=== PATIENT | male | born 1960 | race Caucasian/White ===

== ENCOUNTER → 2023-01-04 12:57 | Outpatient (BNVA) | payer MEDICARE, MEDICAID, SELFPAY | PROVIDERS: PCP Hospitalist; Visit Provider Nurse Practitioner Family | DX: R97.20 Elevated prostate specific antigen [PSA] (principal) | CPT/HCPCS: 99202 ==

== ENCOUNTER 2023-02-01 12:16 | Outpatient (REF) | payer MEDICARE, MEDICAID, SELFPAY ==
--- NOTE | ~2023-02-01 | US_ITS ---
EXAMINATION: US RETROPERITONEAL COMPLETE (RENAL) CLINICAL INFORMATION: Elevated PSA. COMPARISON: None available. TECHNIQUE: Real-time imaging of the kidneys and bladder. FINDINGS: RIGHT KIDNEY: 11.2 x 5.3 x 5.6 cm (SAG x AP x TRV). The kidney is normal in size, contour, and echogenicity. Renal cortical thickness is normal. No calculi or focal parenchymal lesions. No hydronephrosis. LEFT KIDNEY: 12.1 x 5.4 x 6.2 cm (SAG x AP x TRV). The kidney is normal in size, contour, and echogenicity. Renal cortical thickness is normal. No focal parenchymal lesions or hydronephrosis. There is an echogenic stone measuring 0.5 x 0.4 x 0.5 cm. BLADDER: Well distended and normal. Bilateral ureteral jets are demonstrated. Prevoid bladder volume is 210 mL. Postvoid bladder volume is 159 mL. US/US retroperitoneal comp IMPRESSION: 1. Non-obstructive echogenic stone lower pole left kidney. 2. The right kidney is unremarkable. 3. There is a large postvoid residual bladder volume. Normal bilateral ureteral jets seen.
== END 2023-02-01 12:17 | disposition home or self-care (01) ==
LOC: HO.US 12:16
PROVIDERS: PCP Hospitalist; Visit Provider Nurse Practitioner Family
DX: N28.1 Cyst of kidney, acquired (principal); R97.20 Elevated prostate specific antigen [PSA]
CPT/HCPCS: 76770

== ENCOUNTER → 2023-02-16 10:07 | Outpatient (BNVA) | payer MEDICARE, MEDICAID, SELFPAY | PROVIDERS: PCP Hospitalist; Visit Provider Nurse Practitioner Family | DX: R97.20 Elevated prostate specific antigen [PSA] (principal) | CPT/HCPCS: 99212 ==

== ENCOUNTER 2023-02-17 07:51 | Outpatient (REF) | payer MEDICARE, MEDICAID, SELFPAY ==
--- NOTE | 2023-02-17 08:10 | EEG_ITS ---
This is a 16 channel EEG with an EKG lead. The patient is reported sleeping during the tracing. Background EEG rhythm is 7 to 8 hertz 5 to 30 microvolt posteriorly with lower amplitude fast anteriorly. Photic stimulation does not produce any significant abnormality. Hyperventilation is not performed. Cardiac lead does not reveal any significant abnormality. No paroxysmal discharges or focality noted. IMPRESSION: Generalized slowing with no evidence of seizure disorder. MD ISABELLA Wise/EMANI / [id number]
== END 2023-02-17 07:52 | disposition home or self-care (01) ==
LOC: HO.NEURO 07:51
PROVIDERS: PCP Hospitalist; Visit Provider Hospitalist
DX: S06.2X9S Diffuse traumatic brain injury with loss of consciousness of unspecified duration, sequela (principal)
CPT/HCPCS: 95816

== ENCOUNTER 2023-06-19 10:09 | Outpatient (AMB) | payer MEDICARE, MEDICAID, SELFPAY ==
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
== END 2023-06-19 10:48 | disposition home or self-care (01) ==
PROVIDERS: PCP Hospitalist; Visit Provider Nurse Practitioner Family
DX: R97.20 Elevated prostate specific antigen [PSA] (principal); Z13.9 Encounter for screening, unspecified
CPT/HCPCS: 99213

== ENCOUNTER → 2023-06-19 10:09 | Outpatient (BNVA) | payer MEDICARE, MEDICAID, SELFPAY | PROVIDERS: Visit Provider Nurse Practitioner Family | DX: R97.20 Elevated prostate specific antigen [PSA] (principal) | CPT/HCPCS: 81003; 99212 ==

== ENCOUNTER 2023-12-20 10:11 | Outpatient (AMB) | payer MEDICARE, MEDICAID, SELFPAY ==
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
== END 2023-12-20 10:53 | disposition home or self-care (01) ==
PROVIDERS: PCP Hospitalist; Visit Provider Nurse Practitioner Family
DX: Z13.9 Encounter for screening, unspecified (principal); R97.20 Elevated prostate specific antigen [PSA]
CPT/HCPCS: 99213

== ENCOUNTER → 2023-12-20 10:11 | Outpatient (BNVA) | payer MEDICARE, MEDICAID, SELFPAY | PROVIDERS: PCP Hospitalist; Visit Provider Nurse Practitioner Family | DX: R97.20 Elevated prostate specific antigen [PSA] (principal); N40.0 Benign prostatic hyperplasia without lower urinary tract symptoms | CPT/HCPCS: 81003; 99212 ==

== ENCOUNTER 2024-06-10 11:45 | Emergency (ER) | payer MEDICARE, MEDICAID, SELFPAY ==
--- NOTE | ~2024-06-10 | XR_ITS ---
EXAMINATION: XR CHEST CLINICAL INFORMATION: Cough weakness COMPARISON: None available. TECHNIQUE: Frontal view of the chest was obtained. FINDINGS: No significant abnormality is noted involving the heart, lungs, mediastinum, bony thorax or soft tissues. XR/XR chest 1V IMPRESSION: Unremarkable examination. Electronically signed by: Curt Samuel MD 06/10/2024 01:49 PM EDT RP
--- NOTE | ~2024-06-10 | CT_ITS ---
EXAMINATION: CT HEAD WITHOUT CONTRAST CLINICAL INFORMATION: Change in mental status. COMPARISON: None available. TECHNIQUE: Contiguous axial imaging was performed from the skull base to vertex without intravenous administration of contrast. This CT examination was performed using dose optimization techniques as appropriate, variously including the following: *Automated exposure control *Adjustment of mA and/or kV according to patient size (this includes techniques or standardized protocols for targeted exams where dose is matched to indication/reason for exam; i.e. extremities or head) *Use of iterative reconstruction technique DLP: 779 mGy-cm FINDINGS: Motion artifact significantly degrades image quality. There is no evidence of acute intracranial hemorrhage or territorial infarction. No mass effect or midline shift is seen. No extra-axial fluid collections are identified. Prominence of the ventricles out of proportion to the sulci. The osseous structures and soft tissues are intact. The mastoid air cells and visualized portions of the paranasal sinuses are well aerated. CT/CT head/brain wo IV con IMPRESSION: Limited by motion artifact. Prominence of the ventricles out of proportion to the sulci. Advise clinical correlation. Electronically signed by: Gary Rodriguez MD 06/10/2024 03:48 PM EDT
[2024-06-10 12:03] VITALS: BP 139/83; BP 170/80; PULSE 81; PULSE 84; RESP 16; TEMP 36.5; O2SAT 95; O2SAT 96; BMI 33.5
--- NOTE | 2024-06-10 12:03 | ECG_ITS ---
Test Reason : AMS Blood Pressure : / mmHG Vent. Rate : 094 BPM Atrial Rate : 094 BPM P-R Int : 160 ms QRS Dur : 088 ms QT Int : 314 ms P-R-T Axes : 038 029 072 degrees QTc Int : 392 ms Normal sinus rhythm Nonspecific T wave abnormality Abnormal ECG No previous ECGs available Referred By: Cara Guillaume Electronically Signed By:OLAMIDE TOTH
--- NOTE | 2024-06-10 12:33 | ED.AMS ---
HPI - Altered Mental Status General Chief Complaint: Altered Mental Status Stated Complaint: INCR CONF,SLURR,H/O TBI/DEMENTIA,UNK LKWT,FROM SNF Time Seen by Provider: 06/10/24 11:53 Source: patient and EMS Mode of arrival: EMS Limitations: altered mental status History of Present Illness ED Provider: WILBERTO HPI narrative: 64 yo male with PMH of TBI, dementia, HTN, COPD, asthma, hypothyroidism, DM2, HLD, LLUVIA on CPAP, schizoaffective disorder, not on blood thinners who resides at [facility] reportedly presents with worsening mentation and slurred speech. EMS not completely clear on LWK but states a nurse checked on him at 8am. He tells me he made a mistake this AM I looked out a window and this happened. He offers no complaints and mumbles to himself. He has a strong odor of urine. MD complaint: altered mental status Onset (ago): hour(s) (8am possibly last known well) Timing confirmed by: caregiver Severity: moderate Consistency of symptoms: constant Associated symptoms: denies other symptoms Related Data Home Medications ?Medication ?Instructions ?Recorded ?Confirmed acetaminophen 325 mg tablet 650 mg PO Q6H PRN 01/04/23 atorvastatin 10 mg tablet 10 mg PO DAILY 01/04/23 bisacodyl 10 mg rectal suppository 10 mg [place] DAILY PRN 01/04/23 budesonide-formoterol HFA 160 2 puff inhalation BID 01/04/23 mcg-4.5 mcg/actuation aerosol inhaler (Symbicort) clozapine 100 mg tablet (Clozaril) 100 mg PO ONCE 01/04/23 glycopyrrolate 1 mg tablet 3 mg PO ONCE 01/04/23 lamotrigine 25 mg tablet (Lamictal) 25 mg PO DAILY 01/04/23 levothyroxine 88 mcg capsule 88 mcg PO DAILY 01/04/23 lithium carbonate 450 mg 450 mg PO BID 01/04/23 tablet,extended release lubiprostone 24 mcg capsule 24 mcg PO BID 01/04/23 (Amitiza) metformin 500 mg tablet 500 mg PO BID 01/04/23 ondansetron 4 mg disintegrating 4 mg PO Q6H PRN 01/04/23 tablet pantoprazole 40 mg tablet,delayed 40 mg PO BID 01/04/23 release risankizumab-rzaa 150 mg/mL 150 mg subcut Q12W 01/04/23 subcutaneous pen injector (Skyrizi) risperidone microspheres 50 mg/2 50 mg IM Q14D 01/04/23 mL intramuscular susp,ext release (Risperdal Consta) sodium phosphates 19 gram-7 118 ml [place] DAILY PRN 01/04/23 gram/118 mL enema (Fleet Enema) cholecalciferol (vitamin D3) 1,250 1,250 mcg PO QWEEK 06/19/23 mcg (50,000 unit) capsule Previous Rx's ?Medication ?Instructions ?Recorded finasteride 5 mg tablet 5 mg PO DAILY 90 days #90 tabs 02/16/23 Allergies Allergy/AdvReac Type Severity Reaction Status Date / Time Penicillins Allergy Unknown Verified 12/20/23 10:41 poison jolanta extract Allergy Unknown Verified 06/10/24 12:06 Review of Systems Review of Systems: ROS unable to be obtained due to altered mental status [facility] Past Medical History Attestation statement: The following information was validated with the patient. Source: old records reviewed Medical History Psoriasis, unspecified Constipation, unspecified Gastro-esophageal reflux disease without esophagitis Anoxic brain damage, not elsewhere classified Obstructive sleep apnea (adult) (pediatric) Schizoaffective disorder, unspecified Dementia in other diseases classified elsewhere, unspecified severity, with other behavioral disturbance Hyperlipidemia, unspecified Other obesity due to excess calories Vitamin D deficiency, unspecified Type 2 diabetes mellitus without complications Hypothyroidism, unspecified Unspecified asthma, uncomplicated Chronic obstructive pulmonary disease, unspecified Essential (primary) hypertension Social History Social History (Updated 06/10/24 @ 12:37 by Cara Guillaume DO) Patient Tobacco Use Status: Tobacco use Unknown Advance Directives: No Advance Directives Information Provided: Yes Physical Exam ED Vital Signs: Vital Signs - 24 hr 06/10/24 12:03 Temperature 97.7 F Pulse Rate 81 Respiratory Rate 16 Blood Pressure 139/83 Pulse Oximetry 96 Oxygen Delivery Method Room Air BMI result Body Mass Index 33.5 Appearance: Somnolent. Oriented to person. mild acute distress. Eyes: Pupils pinpoint ENT: Pharynx normal. atraumatic Neck: Normal inspection. Neck supple. CVS: Normal heart rate and rhythm. Pulses normal. Respiratory: No respiratory distress. Breath sounds normal. Abdomen: Soft and nontender. Skin: Skin warm and dry. Normal skin color. Normal skin turgor. Extremities: No lower extremity edema. Neuro: Oriented X1., he is moving all extremities no clonus no hyperreflexia he is able to squeeze hands and move feet when asked but he needs repeat asks to do all of these tasks NIH Stroke Scale Internal: Initial- Upon Arrival Level of Consciousness: Alert Level of Consciousness Questions: Answers one question correctly Level of Consciousness Commands: Performs both tasks correctly Best Gaze: Normal Visual: No visual loss Facial Palsy: Normal Motor Arm (Right): No drift Motor Arm (Left): No drift Motor Leg (Right): No drift Motor Leg (Left): No drift Limb Ataxia: Absent Sensory: Normal Best Language: No aphasia Dysarthia: Normal Extinction and Inattention: No abnormality Score: 1 Course Course Course Narrative: patient up and walking very aggressive and rude refusing to give urine discussed with director of [facility] will follow up urine as needed has no WBC count or CRP no fever here doubt sepsis as cause or infection given lack of CRP Reevaluation(s) Reevaluation #1: episode resolved of pinpoint pupils, slurred speech, sedation - he is angry walking around no signs of distress, no slurred speech, pupils normal. Medical Decision Making Medical Decision Making [facility] Narrative: 64 yo male with PMH of TBI, dementia, HTN, COPD, asthma, hypothyroidism, DM2, HLD, LLUVIA on CPAP, schizoaffective disorder, not on blood thinners here with confusion and slurred speech he was last known well at 8am per [facility] staff. At this time will need labs, UA, CXR, CT head for ICH, tox labs given pinpoint pupils, lithium level. Patient has no focal deficits other than confusion and slurred speech - he was seen at possibly 4+ hours after onset of symptoms he is not a candidate for TNK as I do not have a concrete last known well. Differential Diagnosis Differential Diagnoses: The differential diagnosis associated with the presentation includes toxic, metabolic encephalopathy, ICH, drug error, stroke Admission/Observation Consideration of admission/observation: Escalation of care including admission/observation considered back to baseline, negative work up stable for DC Lab Data [facility] Lab Attestation statement: I reviewed the patient's lab results. 06/10/24 12:45 06/10/24 12:45 Labs: Lab Results 06/10/24 06/10/24 06/10/24 Range/Units 12:45 12:53 15:05 WBC 9.6 (4.8-10.8) X10*3/uL RBC 4.88 (4.60-5.80) X10*6/uL Hgb 13.4 L (14.0-18.0) g/dl Hct 41.3 L (42.0-52.0) % MCV 84.6 (80.0-98.0) fL MCH 27.5 (27.0-33.0) pg MCHC 32.4 (31.0-36.0) g/dl RDW 15.4 (11.0-16.0) % Plt Count 228 (160-400) X10*3/uL MPV 9.7 (9.4-12.4) fL Immature Gran % (Auto) 0.3 (0.0-0.4) % Neut % (Auto) 69.2 (45-73) % Lymph % (Auto) 19.3 L (20-40) % [place] % (Auto) 9.0 (2-11) % Eos % (Auto) 1.9 (0-4) % Baso % (Auto) 0.3 (0-2) % Lymph # (Auto) 1.9 (1.2-4.9) X10*3/uL [place] # (Auto) 0.9 (0.1-1.2) X10*3/uL Eos # (Auto) 0.2 (0.0-0.4) X10*3/uL Baso # (Auto) 0.0 (0.0-0.2) X10*3/uL Abs Immat Gran (auto) 0.03 (0.00-0.03) X10*3/uL Absolute Neuts (auto) 6.7 (2.0-8.3) x10*3/uL Absolute Nucleated RBC 0.000 (0.0-0.012) X10*3/uL Nucleated RBC % (auto) 0.0 (0.0-0.2) /100WBC VBG pH 7.41 (7.32-7.43) VBG pCO2 43 mmHg VBG pO2 56 mmHg VBG HCO3 27 H (22-26) mmol/L VBG O2 Saturation 86.0 % VBG Base Excess 2.4 mmol/L Sodium 144 (135-145) mmol/L Potassium 3.4 (3.3-5.1) mmol/L Chloride 106 (96-108) mmol/L Carbon Dioxide 30 H (22-29) mmol/L Anion Gap 11 L (12-20) BUN 13 (9-16) mg/dL Creatinine 0.77 (0.5-1.4) mg/dL Estim Creat Clear Calc 94.7 Estimated GFR > 60 Random Glucose 91 (60-115) mg/dL Lactic Acid 1.3 (0.5-2.0) mmol/L Calcium 10.0 (8.4-10.2) mg/dL Magnesium 2.2 (1.6-2.6) mg/dL Total Bilirubin 0.3 (0.0-1.0) mg/dL Direct Bilirubin 0.2 (0.0-0.5) mg/dL AST 17 (5-37) U/L ALT 18 (0-40) U/L Alkaline Phosphatase 78 (39-117) U/L Ammonia 22 (13-55) umol/L Troponin I High Sens 7.9 (<3.5-35.0) ng/L C-Reactive Protein 0.46 (< or = 0.50) mg/dL B-Natriuretic Peptide 36 (<100) pg/mL Total Protein 7.1 (6.5-8.0) g/dL Albumin 4.2 (3.5-5.0) g/dL Lipase 31 (8-78) U/L TSH 1.69 (0.32-4.0) uIU/mL Urine Color Yellow Urine Appearance Clear Urine pH 6.5 (5.0-9.0) Ur Specific [place] 1.010 (1.005-1.025) Urine Protein Negative (Neg-Trace) mg/dL Urine Glucose (UA) Negative (Negative) mg/dL Urine Ketones Negative (Negative) mg/dL Urine Blood Negative (Negative) Urine Nitrite Negative (Negative) Ur Leukocyte Esterase Negative (Negative) Urine Opiates Screen Not Detected (Not Detect) Ur Buprenorphine Scrn Not Detected (Not Detect) ng/mL Ur Oxycodone Screen Not Detected (Not Detect) ng/mL Urine Methadone Screen Not Detected (Not Detect) ng/mL Urine Fentanyl Screen Not Detected (Not Detect) Ur Barbiturates Screen Not Detected (Not Detect) Ur Phencyclidine Scrn Not Detected (Not Detect) Ur Amphetamines Screen Not Detected (Not Detect) U Benzodiazepines Scrn Not Detected (Not Detect) [place] 0.43 L (0.60-1.20) mmol/L Urine Cocaine Screen Not Detected (Not Detect) U Marijuana (THC) Screen Not Detected (Not Detect) Influenza Type A (PCR) NEGATIVE (Negative) Influenza Type B (PCR) NEGATIVE (Negative) RSV RNA Qual (PCR) NEGATIVE (Negative) SARS-CoV-2 RNA (RT-PCR) NEGATIVE (Negative) Independent Interpretation I performed an independent interpretation of an: EKG, Plain X-Ray (no pneumonia) and CT Scan (normal ) Interpretation: Rate: 94 Rhythm: NSR [place]: normal Normal P waves. Normal BEBETO. Normal QRS complex. ST T wave : normal no LASHONDA qTC: 392 prior studies: no acute ischemia The study has been interpreted contemporaneously by me. . Radiology Impression Discussion of test interpretation with radiology: I have reviewed the radiologist's reading. Independent Historian Clinical information obtained from an independent historian. History obtained from or confirmed by: EMS External Record Review External record reviewed: Outpatient record Discharge Plan Discharge Clinical Impression: Altered mental status Qualifiers: Altered mental status type: disorientation Qualified Code(s): R41.0 - Disorientation, unspecified Patient Disposition: Home, Self-Care Instructions: Altered Mental Status (ED) Additional Instructions: negative urine test, no pneumonia on chest xray negative inflammatory markers negative cardiac work up with labs and EKG no signs of infection CT head normal return for any worsening symptoms or concerns. Prescriptions: No Action acetaminophen 325 mg tablet 650 mg PO Q6H PRN lubiprostone [Amitiza] 24 mcg capsule 24 mcg PO BID atorvastatin 10 mg tablet 10 mg PO DAILY bisacodyl 10 mg suppository 10 mg [place] DAILY PRN clozapine [Clozaril] 100 mg tablet 100 mg PO ONCE Fleet Enema 19-7 gram/118 mL enema 118 ml [place] DAILY PRN glycopyrrolate 1 mg tablet 3 mg PO ONCE lamotrigine [Lamictal] 25 mg tablet 25 mg PO DAILY levothyroxine 88 mcg capsule 88 mcg PO DAILY lithium carbonate 450 mg tablet extended release 450 mg PO BID ondansetron 4 mg tablet,disintegrating 4 mg PO Q6H PRN metformin 500 mg tablet 500 mg PO BID pantoprazole 40 mg tablet,delayed release (DR/EC) 40 mg PO BID Risperdal Consta 50 mg/2 mL suspension,extended rel recon 50 mg IM Q14D Skyrizi 150 mg/mL pen injector 150 mg subcut Q12W budesonide-formoterol [Symbicort] 160-4.5 mcg/actuation HFA aerosol inhaler 2 puff inhalation BID finasteride 5 mg tablet 5 mg PO DAILY 90 Days Qty: 90 1RF cholecalciferol (vitamin D3) 1,250 mcg (50,000 unit) capsule 1,250 mcg PO QWEEK Print Language: Jamaican
[2024-06-10 12:53] LABS: MANUAL DIFF FLAG NO
[2024-06-10 12:56] LABS: Basophils Percent Auto 0.3 % (0-2); Eosinophils Absolute Auto 0.2 X10*3/uL (0.0-0.4); Eosinophils Percent Auto 1.9 % (0-4); Hematocrit 41.3 % (42.0-52.0); Hemoglobin 13.4 g/dl (14.0-18.0); Imm Gran Abs Auto 0.03 X10*3/uL (0.00-0.03); Imm Gran Pct Auto 0.3 % (0.0-0.4); Lymphocytes Absolute Auto 1.9 X10*3/uL (1.2-4.9); Lymphocytes Percent Auto 19.3 % (20-40); Mean Corpuscular HGB Conc 32.4 g/dl (31.0-36.0); Mean Corpuscular Hemoglobin 27.5 pg (27.0-33.0); Mean Corpuscular Volume 84.6 fL (80.0-98.0); Mean Platelet Volume 9.7 fL (9.4-12.4); Monocytes Absolute Auto 0.9 X10*3/uL (0.1-1.2); Neutrophils Absolute Auto 6.7 x10*3/uL (2.0-8.3); Neutrophils Percent Auto 69.2 % (45-73); Platelet Count 228 X10*3/uL (160-400); Red Blood Count 4.88 X10*6/uL (4.60-5.80); Red Cell Distribution Width 15.4 % (11.0-16.0); Venous Blood Gas Refer to POC result; White Blood Count 9.6 X10*3/uL (4.8-10.8)
[2024-06-10 12:56] LABS: VBG Base Excess 2.4 mmol/L; VBG HCO3 27 mmol/L (22-26); VBG pCO2 43 mmHg; VBG pH 7.41 (7.32-7.43); VBG pO2 56 mmHg
[2024-06-10 13:05] LABS: Ammonia 22 umol/L (13-55); Lithium 0.43 mmol/L (0.60-1.20)
[2024-06-10 13:08] LABS: Lactic Acid 1.3 mmol/L (0.5-2.0)
--- NOTE | 2024-06-10 13:10 | PC.NURSE ---
pt is difficult to redirect. camera on. speech mummbly, not very clear.
[2024-06-10 13:12] LABS: Alanine Aminotransferase 18 U/L (0-40); Albumin Level 4.2 g/dL (3.5-5.0); Alkaline Phosphatase 78 U/L (39-117); Anion Gap 11 (12-20); Aspartate Amino Transferase 17 U/L (5-37); Bilirubin Direct 0.2 mg/dL (0.0-0.5); Bilirubin Total 0.3 mg/dL (0.0-1.0); Blood Urea Nitrogen 13 mg/dL (9-16); C Reactive Protein 0.46 mg/dL (< or = 0.50); Carbon Dioxide 30 mmol/L (22-29); Chloride 106 mmol/L (96-108); Creatinine Clr Calc Pharmacy 94.7; Estimated Glomerular Filt Rate > 60; Glucose Random 91 mg/dL (60-115); Lipase 31 U/L (8-78); Magnesium 2.2 mg/dL (1.6-2.6); Potassium 3.4 mmol/L (3.3-5.1); Sodium 144 mmol/L (135-145); Total Protein 7.1 g/dL (6.5-8.0)
[2024-06-10 13:16] LABS: B Type Natriuretic Peptide 36 pg/mL (<100)
[2024-06-10 13:21] LABS: Troponin-I High Sensitivity 7.9 ng/L (<3.5-35.0)
[2024-06-10 13:34] LABS: TSH reflex Free T4 1.69 uIU/mL (0.32-4.0)
--- NOTE | 2024-06-10 13:36 | MHC.EDTECH ---
Patient has refused EKG twice.
[2024-06-10 13:37] LABS: Influenza A PCR NEGATIVE (Negative); Influenza B PCR NEGATIVE (Negative); Resp Syncy Virus RNA Qual PCR NEGATIVE (Negative); SARS COV2 PCR INHOUSE NEGATIVE (Negative)
--- NOTE | 2024-06-10 14:34 | PC.NURSE ---
pt cleared for food by . Nursing swallow screen pass.
[2024-06-10 15:13] LABS: Appearance Urine Clear; Color Urine Yellow; Glucose Urine UA Negative (Negative); Leukocyte Esterase Urine Negative (Negative); Nitrite Urine Negative (Negative); PH 6.5 (5.0-9.0); Urine Blood Negative (Negative); Urine Ketones Negative (Negative); Urine Protein Negative (Neg-Trace)
[2024-06-10 15:28] LABS: Amphetamine Screen Urine Not Detected (Not Detect); Barbiturates, Urine Not Detected (Not Detect); Benzodiazepines Screen Urine Not Detected (Not Detect); Buprenorphine Scr Not Detected (Not Detect); Cannabinoid Screen Urine Not Detected (Not Detect); Cocaine Screen Urine Not Detected (Not Detect); Fentanyl, urine Not Detected (Not Detect); Methadone Screen, Urine Not Detected (Not Detect); Opiate Screen Urine Not Detected (Not Detect); Oxycodone Screen Urine Not Detected (Not Detect); Phencyclidine Screen Urine Not Detected (Not Detect)
--- NOTE | 2024-06-10 16:03 | PC.NURSE ---
called [facility] to give report, no answer
[2024-06-10 18:48] VITALS: BP 113/64; PULSE 96; RESP 16; TEMP 36.4; O2SAT 93
[2024-06-10 18:57] VITALS: BP 113/64; PULSE 96; RESP 16; TEMP 36.4; O2SAT 93
== END 2024-06-10 18:57 | disposition home or self-care (01) ==
PROVIDERS: Emergency Provider Emergency Medicine
DX: R41.82 Altered mental status, unspecified (principal); F03.90 Unspecified dementia, unspecified severity, without behavioral disturbance, psychotic disturbance, mood disturbance, and anxiety; E11.9 Type 2 diabetes mellitus without complications; G47.33 Obstructive sleep apnea (adult) (pediatric); R47.81 Slurred speech; R29.701 NIHSS score 1; R06.02 Shortness of breath; R94.31 Abnormal electrocardiogram [ECG] [EKG]; Z87.820 Personal history of traumatic brain injury; Z79.899 Other long term (current) drug therapy; Z03.818 Encounter for observation for suspected exposure to other biological agents ruled out; Z79.84 Long term (current) use of oral hypoglycemic drugs
CPT/HCPCS: 0241U; 36415; 70450; 71045; 80048; 80076; 80178; 80307; 81003; 82140; 82803; 83605; 83690; 83735; 83880; 84443; 84484; 85025; 86140; 87040; 93005; 99284

== ENCOUNTER 2024-06-14 02:34 | Emergency (ER) | payer MEDICARE, MEDICAID, SELFPAY ==
--- NOTE | ~2024-06-14 | CT_ITS ---
EXAMINATION: CT HEAD WITHOUT CONTRAST CLINICAL INFORMATION: Altered mental status. Fall. COMPARISON: None available. TECHNIQUE: Contiguous axial imaging was performed from the skull base to vertex without intravenous administration of contrast. This CT examination was performed using dose optimization techniques as appropriate, variously including the following: *Automated exposure control *Adjustment of mA and/or kV according to patient size (this includes techniques or standardized protocols for targeted exams where dose is matched to indication/reason for exam; i.e. extremities or head) *Use of iterative reconstruction technique DLP: 758 mGy-cm FINDINGS: There is mild cerebral volume loss with prominence of the lateral and third ventricles. The cortical sulci are widened appropriately. Fourth ventricle and basal cisterns are normally outlined. There is mild bilateral periventricular and central white matter diminished attenuation. There is no acute territorial defects, hemorrhage or midline shift. The extra-axial spaces are unremarkable. Calvarium/scalp: Intact. Maxillofacial sinuses and mastoids: Clear as visualized. CT/CT head/brain wo IV con IMPRESSION: 1. No acute intracranial pathology. 2. Mild cerebral volume loss and chronic small vessel ischemic changes. Electronically signed by: Lyndon Valerio MD 06/14/2024 04:28 AM EDT
[2024-06-14 02:41] VITALS: BP 147/76; PULSE 98; RESP 17; O2SAT 94
[2024-06-14 02:44] VITALS: BP 148/79; PULSE 88; O2SAT 97; BMI 33.2
--- NOTE | 2024-06-14 03:19 | ECG_ITS ---
Test Reason : FALL Blood Pressure : / mmHG Vent. Rate : 089 BPM Atrial Rate : 089 BPM P-R Int : 168 ms QRS Dur : 100 ms QT Int : 356 ms P-R-T Axes : 042 020 053 degrees QTc Int : 433 ms Normal sinus rhythm Normal ECG When compared with ECG of 10-JUN-2024 15:21, No significant change was found Referred By: Efe De Souza Electronically Signed By:OLAMIDE TOTH
--- NOTE | 2024-06-14 03:21 | ED_ITS ---
HPI - Fall General Chief Complaint: Fall Stated Complaint: FALL Time Seen by Provider: 06/14/24 03:08 Source: EMS and RN notes reviewed Mode of arrival: EMS Limitations: altered mental status History of Present Illness ED Provider: felicity GUZMAN Narrative: Patient with PMH of TBI, dementia, HTN, COPD, asthma, hypothyroidism, DM2, HLD, LLUVIA on CPAP, schizoaffective disorder, not on blood thinners who [facility] [place] fell 3 times today while walking also fell 3 times earlier today with no significant injuries according to staff patient is more confused than usual no signs of injuries no fever no cough patient was seen here on 06/10 for same with workup negative Related Data Home Medications ?Medication ?Instructions ?Recorded ?Confirmed acetaminophen 325 mg tablet 650 mg PO Q6H PRN 01/04/23 atorvastatin 10 mg tablet 10 mg PO DAILY 01/04/23 bisacodyl 10 mg rectal suppository 10 mg [place] DAILY PRN 01/04/23 budesonide-formoterol HFA 160 2 puff inhalation BID 01/04/23 mcg-4.5 mcg/actuation aerosol inhaler (Symbicort) clozapine 100 mg tablet (Clozaril) 100 mg PO ONCE 01/04/23 glycopyrrolate 1 mg tablet 3 mg PO ONCE 01/04/23 lamotrigine 25 mg tablet (Lamictal) 25 mg PO DAILY 01/04/23 levothyroxine 88 mcg capsule 88 mcg PO DAILY 01/04/23 lithium carbonate 450 mg 450 mg PO BID 01/04/23 tablet,extended release lubiprostone 24 mcg capsule 24 mcg PO BID 01/04/23 (Amitiza) metformin 500 mg tablet 500 mg PO BID 01/04/23 ondansetron 4 mg disintegrating 4 mg PO Q6H PRN 01/04/23 tablet pantoprazole 40 mg tablet,delayed 40 mg PO BID 01/04/23 release risankizumab-rzaa 150 mg/mL 150 mg subcut Q12W 01/04/23 subcutaneous pen injector (Skyrizi) risperidone microspheres 50 mg/2 50 mg IM Q14D 01/04/23 mL intramuscular susp,ext release (Risperdal Consta) sodium phosphates 19 gram-7 118 ml [place] DAILY PRN 01/04/23 gram/118 mL enema (Fleet Enema) cholecalciferol (vitamin D3) 1,250 1,250 mcg PO QWEEK 06/19/23 mcg (50,000 unit) capsule Previous Rx's ?Medication ?Instructions ?Recorded finasteride 5 mg tablet 5 mg PO DAILY 90 days #90 tabs 02/16/23 Allergies Allergy/AdvReac Type Severity Reaction Status Date / Time Penicillins Allergy Unknown Verified 06/14/24 02:50 poison jolanta extract Allergy Unknown Verified 06/14/24 02:50 Review of Systems 2 Review of Systems: Yes all other systems are reviewed and are negative [facility] Past Medical History Medical History Psoriasis, unspecified Constipation, unspecified Gastro-esophageal reflux disease without esophagitis Anoxic brain damage, not elsewhere classified Obstructive sleep apnea (adult) (pediatric) Schizoaffective disorder, unspecified Dementia in other diseases classified elsewhere, unspecified severity, with other behavioral disturbance Hyperlipidemia, unspecified Other obesity due to excess calories Vitamin D deficiency, unspecified Type 2 diabetes mellitus without complications Hypothyroidism, unspecified Unspecified asthma, uncomplicated Chronic obstructive pulmonary disease, unspecified Essential (primary) hypertension Social History Social History Patient Tobacco Use Status: Tobacco use Unknown Advance Directives: No Advance Directives Information Provided: No Advance Directives on File: No Do you have a plan to hurt others: No Plan Physical Exam 2 Vital Signs: Vital Signs: Last Vital Signs Pulse 81 06/14/24 06:25 Resp 16 06/14/24 06:25 BP 147/76 H 06/14/24 02:41 Pulse Ox 100 06/14/24 06:25 O2 Del Method Nasal Cannula 06/14/24 06:25 O2 Flow Rate 3.5 06/14/24 06:25 BMI result Body Mass Index 33.2 Appearance: Sleeping but arousable No acute distress. Eyes: PERRLA, No Nystagmus ENT: Pharynx normal. Oral Mucosa moist Neck: Normal inspection. Neck supple. CVS: Normal heart rate and rhythm. Pulses normal. Respiratory: No respiratory distress. Equal air entry bilateral, no wheezing/rales/rhonchi Abdomen: Soft and nontender. Bowel sounds are present, no mass palpable, no CVA tenderness Skin: Skin warm and dry. Normal skin color. Normal skin turgor. Extremities: No lower extremity edema. No calf tenderness Neuro: Alert and awake No motor deficit. No sensory deficit.No cerebellar signs , cranial nerves II-XII intact Medical Decision Making Medical Decision Making [facility] Narrative: Patient with PMH of TBI, dementia, HTN, COPD, asthma, hypothyroidism, DM2, HLD, LLUVIA on CPAP, schizoaffective disorder, not on blood thinners who resides at [facility] came here for frequent falls and change in mental status with recent visit on workup negative today again workup is negative head CT is negative will send the patient back to [facility] [facility] unit advised to have more close watch Lab Data [facility] Lab Attestation statement: I reviewed the patient's lab results. 06/14/24 03:38 06/14/24 03:38 Labs: Lab Results 06/14/24 06/14/24 Range/Units 03:38 03:44 WBC 8.5 (4.8-10.8) X10*3/uL RBC 4.51 L (4.60-5.80) X10*6/uL Hgb 12.5 L (14.0-18.0) g/dl Hct 38.8 L (42.0-52.0) % MCV 86.0 (80.0-98.0) fL MCH 27.7 (27.0-33.0) pg MCHC 32.2 (31.0-36.0) g/dl RDW 15.6 (11.0-16.0) % Plt Count 231 (160-400) X10*3/uL MPV 9.6 (9.4-12.4) fL Immature Gran % (Auto) 0.4 (0.0-0.4) % Neut % (Auto) 69.7 (45-73) % Lymph % (Auto) 19.0 L (20-40) % [place] % (Auto) 7.7 (2-11) % Eos % (Auto) 2.7 (0-4) % Baso % (Auto) 0.5 (0-2) % Lymph # (Auto) 1.6 (1.2-4.9) X10*3/uL [place] # (Auto) 0.7 (0.1-1.2) X10*3/uL Eos # (Auto) 0.2 (0.0-0.4) X10*3/uL Baso # (Auto) 0.0 (0.0-0.2) X10*3/uL Abs Immat Gran (auto) 0.03 (0.00-0.03) X10*3/uL Absolute Neuts (auto) 5.9 (2.0-8.3) x10*3/uL Absolute Nucleated RBC 0.000 (0.0-0.012) X10*3/uL Nucleated RBC % (auto) 0.0 (0.0-0.2) /100WBC VBG pH 7.40 (7.32-7.43) VBG pCO2 47 mmHg VBG pO2 138 mmHg VBG HCO3 29 H (22-26) mmol/L VBG O2 Saturation 99.0 % VBG Base Excess 4.2 mmol/L Sodium 142 (135-145) mmol/L Potassium 4.0 (3.3-5.1) mmol/L Chloride 108 (96-108) mmol/L Carbon Dioxide 27 (22-29) mmol/L Anion Gap 11 L (12-20) BUN 11 (9-16) mg/dL Creatinine 0.85 (0.5-1.4) mg/dL Estim Creat Clear Calc 110.0 Estimated GFR > 60 Random Glucose 140 H (60-115) mg/dL Calcium 9.1 D (8.4-10.2) mg/dL Total Bilirubin 0.3 (0.0-1.0) mg/dL AST 20 (5-37) U/L ALT 20 (0-40) U/L Alkaline Phosphatase 72 (39-117) U/L Troponin I High Sens < 2.7 D (<3.5-35.0) ng/L Total Protein 6.2 L (6.5-8.0) g/dL Albumin 3.8 (3.5-5.0) g/dL Independent Interpretation I performed an independent interpretation of an: EKG and CT Scan Interpretation: Normal sinus rhythm heart rate 89 beats per minute normal interval normal axis no acute STT wave changes Radiology Impression Discussion of test interpretation with radiology: I have reviewed the radiologist's reading. Radiologist Impression: CT/CT head/brain wo IV con IMPRESSION: 1. No acute intracranial pathology. 2. Mild cerebral volume loss and chronic small vessel ischemic changes. Electronically signed by: Lyndon Valerio MD 06/14/2024 04:28 AM EDT RP Discharge Plan Discharge Clinical Impression: Falls frequently, Chronic confusional state Patient Disposition: Xfer [facility] Transfer Details: Patient CT scan of the head is negative lab workup also negative for any acute follow with PCP Instructions: Fall Prevention (ED) Additional Instructions: Care as advised follow with PCP Prescriptions: No Action acetaminophen 325 mg tablet 650 mg PO Q6H PRN lubiprostone [Amitiza] 24 mcg capsule 24 mcg PO BID atorvastatin 10 mg tablet 10 mg PO DAILY bisacodyl 10 mg suppository 10 mg [place] DAILY PRN clozapine [Clozaril] 100 mg tablet 100 mg PO ONCE Fleet Enema 19-7 gram/118 mL enema 118 ml [place] DAILY PRN glycopyrrolate 1 mg tablet 3 mg PO ONCE lamotrigine [Lamictal] 25 mg tablet 25 mg PO DAILY levothyroxine 88 mcg capsule 88 mcg PO DAILY lithium carbonate 450 mg tablet extended release 450 mg PO BID ondansetron 4 mg tablet,disintegrating 4 mg PO Q6H PRN metformin 500 mg tablet 500 mg PO BID pantoprazole 40 mg tablet,delayed release (DR/EC) 40 mg PO BID Risperdal Consta 50 mg/2 mL suspension,extended rel recon 50 mg IM Q14D Skyrizi 150 mg/mL pen injector 150 mg subcut Q12W budesonide-formoterol [Symbicort] 160-4.5 mcg/actuation HFA aerosol inhaler 2 puff inhalation BID finasteride 5 mg tablet 5 mg PO DAILY 90 Days Qty: 90 1RF cholecalciferol (vitamin D3) 1,250 mcg (50,000 unit) capsule 1,250 mcg PO QWEEK Print Language: Citizen [place]
[2024-06-14 03:42] LABS: MANUAL DIFF FLAG NO
[2024-06-14 03:45] LABS: Basophils Percent Auto 0.5 % (0-2); Eosinophils Absolute Auto 0.2 X10*3/uL (0.0-0.4); Eosinophils Percent Auto 2.7 % (0-4); Hematocrit 38.8 % (42.0-52.0); Hemoglobin 12.5 g/dl (14.0-18.0); Imm Gran Abs Auto 0.03 X10*3/uL (0.00-0.03); Imm Gran Pct Auto 0.4 % (0.0-0.4); Lymphocytes Absolute Auto 1.6 X10*3/uL (1.2-4.9); Mean Corpuscular HGB Conc 32.2 g/dl (31.0-36.0); Mean Corpuscular Hemoglobin 27.7 pg (27.0-33.0); Mean Platelet Volume 9.6 fL (9.4-12.4); Monocytes Absolute Auto 0.7 X10*3/uL (0.1-1.2); Monocytes Percent Auto 7.7 % (2-11); Neutrophils Absolute Auto 5.9 x10*3/uL (2.0-8.3); Neutrophils Percent Auto 69.7 % (45-73); Platelet Count 231 X10*3/uL (160-400); Red Blood Count 4.51 X10*6/uL (4.60-5.80); Red Cell Distribution Width 15.6 % (11.0-16.0); White Blood Count 8.5 X10*3/uL (4.8-10.8)
[2024-06-14 03:48] LABS: VBG Base Excess 4.2 mmol/L; VBG HCO3 29 mmol/L (22-26); VBG pCO2 47 mmHg; VBG pO2 138 mmHg
[2024-06-14 03:48] LABS: Venous Blood Gas Refer to POC result
[2024-06-14 04:05] LABS: Alanine Aminotransferase 20 U/L (0-40); Albumin Level 3.8 g/dL (3.5-5.0); Alkaline Phosphatase 72 U/L (39-117); Anion Gap 11 (12-20); Aspartate Amino Transferase 20 U/L (5-37); Bilirubin Total 0.3 mg/dL (0.0-1.0); Blood Urea Nitrogen 11 mg/dL (9-16); Calcium 9.1 mg/dL (8.4-10.2); Carbon Dioxide 27 mmol/L (22-29); Chloride 108 mmol/L (96-108); Estimated Glomerular Filt Rate > 60; Glucose Random 140 mg/dL (60-115); Sodium 142 mmol/L (135-145); Total Protein 6.2 g/dL (6.5-8.0)
[2024-06-14 04:17] LABS: Troponin-I High Sensitivity < 2.7 ng/L (<3.5-35.0)
[2024-06-14 06:25] VITALS: PULSE 81; RESP 16; O2SAT 100
--- NOTE | 2024-06-14 07:48 | MHC.EDTECH ---
2948 call to CAT for Transport back to [facility] in [place] ETA given 1976
--- NOTE | 2024-06-14 08:00 | PC.NURSE ---
report given to Candice at [facility], facility is aware of patients return this morning.
[2024-06-14 08:25] VITALS: BP 147/76; PULSE 81; RESP 20; TEMP -17.7; TEMP 0; O2SAT 100
== END 2024-06-14 08:26 ==
PROVIDERS: Emergency Provider Internal Medicine; PCP Hospitalist
DX: R41.0 Disorientation, unspecified (principal); E11.9 Type 2 diabetes mellitus without complications; F25.9 Schizoaffective disorder, unspecified; Z91.81 History of falling; Z79.899 Other long term (current) drug therapy
CPT/HCPCS: 36415; 70450; 80053; 82803; 84484; 85025; 93005; 99284

== ENCOUNTER 2024-07-02 19:29 | Emergency (ER) | payer MEDICARE, MEDICAID, SELFPAY ==
--- NOTE | ~2024-07-02 | CT_ITS ---
EXAMINATION: CT HEAD WITHOUT IV CONTRAST CLINICAL INFORMATION: Head truam, poss LOC, occ. scalp swelling COMPARISON: CT head without contrast 06/14/2024 TECHNIQUE: Contiguous axial imaging was performed from the skull base to vertex without intravenous contrast. Sagittal and coronal reformatted images were obtained. This CT examination was performed using dose optimization techniques as appropriate, variously including the following: * Automated exposure control * Adjustment of mA and/or kV according to patient size (this includes techniques or standardized protocols for targeted exams where dose is matched to indication/reason for exam; i.e. extremities or head) Use of iterative reconstruction technique DLP: 751 mGy-cm FINDINGS: Mild posterior parieto-occipital scalp soft tissue swelling. No acute osseous abnormality. The mastoid air cells and visualized portions of the paranasal sinuses are well aerated. There is no evidence of acute intracranial hemorrhage or territorial infarction. No abnormal mass effect or midline shift is seen. Aleman to white matter differentiation is well preserved. No extra-axial fluid collections are identified. No hydrocephalus. Proportional prominence of the ventricles and sulcal spaces related to volume loss. Stable asymmetric caliber of the lateral ventricles, likely congenital. Patchy periventricular and deep white matter hypoattenuation is consistent with mild small vessel ischemic changes. CT/CT head/brain wo IV con IMPRESSION: No acute intracranial abnormality including hemorrhage, mass effect, hydrocephalus, or acute territorial edematous infarction. Electronically signed by: Ruben Barnes MD 07/02/2024 09:34 PM EDT
[2024-07-02 19:40] VITALS: BP 158/88; PULSE 90; O2SAT 92
[2024-07-02 19:53] VITALS: BP 116/73; PULSE 83; RESP 20; TEMP 36.4; O2SAT 95; BMI 33.5
--- NOTE | 2024-07-02 20:01 | ED_ITS ---
HPI - General Adult General Chief complaint: Fall Stated complaint: FALL W/ HEADSTRIKE, SLIGHTLY ALTERED PER STAFF Time Seen by Provider: 07/02/24 19:57 History of Present Illness ED Provider: Vadim GUZMAN narrative: The patient is a 64-year-old male who lives at a local [facility]. He has a history of remote head injury. He also has a history of chronic mental illness. His medications include Clozaril, levetiracetam, and lithium. The patient was apparently planning on going outside to smoke. He started going down some steps when he lost his balance and fell backwards. He struck the back of his head against the floor. He was dazed but did not have loss of consciousness. Nursing felt that he had a soft tissue hematoma on his occipital scalp. The patient requested that he be allowed to go outside and smoke but nurses convinced him to come to the hospital for evaluation. There is no report of any seizure activity. He does not seem to have fainted. Related Data Home Medications ?Medication ?Instructions ?Recorded ?Confirmed acetaminophen 325 mg tablet 650 mg PO Q6H PRN 01/04/23 atorvastatin 10 mg tablet 10 mg PO DAILY 01/04/23 bisacodyl 10 mg rectal suppository 10 mg AK DAILY PRN 01/04/23 budesonide-formoterol HFA 160 2 puff inhalation BID 01/04/23 mcg-4.5 mcg/actuation aerosol inhaler (Symbicort) clozapine 100 mg tablet (Clozaril) 100 mg PO ONCE 01/04/23 glycopyrrolate 1 mg tablet 3 mg PO ONCE 01/04/23 lamotrigine 25 mg tablet (Lamictal) 25 mg PO DAILY 01/04/23 levothyroxine 88 mcg capsule 88 mcg PO DAILY 01/04/23 lithium carbonate 450 mg 450 mg PO BID 01/04/23 tablet,extended release lubiprostone 24 mcg capsule 24 mcg PO BID 01/04/23 (Amitiza) metformin 500 mg tablet 500 mg PO BID 01/04/23 ondansetron 4 mg disintegrating 4 mg PO Q6H PRN 01/04/23 tablet pantoprazole 40 mg tablet,delayed 40 mg PO BID 01/04/23 release risankizumab-rzaa 150 mg/mL 150 mg subcut Q12W 01/04/23 subcutaneous pen injector (Skyrizi) risperidone microspheres 50 mg/2 50 mg IM Q14D 01/04/23 mL intramuscular susp,ext release (Risperdal Consta) sodium phosphates 19 gram-7 118 ml AK DAILY PRN 01/04/23 gram/118 mL enema (Fleet Enema) cholecalciferol (vitamin D3) 1,250 1,250 mcg PO QWEEK 06/19/23 mcg (50,000 unit) capsule Previous Rx's ?Medication ?Instructions ?Recorded finasteride 5 mg tablet 5 mg PO DAILY 90 days #90 tabs 02/16/23 Allergies Allergy/AdvReac Type Severity Reaction Status Date / Time Penicillins Allergy Unknown Verified 07/02/24 19:54 poison jolanta extract Allergy Unknown Verified 07/02/24 19:54 [facility] Past Medical History Medical History Psoriasis, unspecified Constipation, unspecified Gastro-esophageal reflux disease without esophagitis Anoxic brain damage, not elsewhere classified Obstructive sleep apnea (adult) (pediatric) Schizoaffective disorder, unspecified Dementia in other diseases classified elsewhere, unspecified severity, with other behavioral disturbance Hyperlipidemia, unspecified Other obesity due to excess calories Vitamin D deficiency, unspecified Type 2 diabetes mellitus without complications Hypothyroidism, unspecified Unspecified asthma, uncomplicated Chronic obstructive pulmonary disease, unspecified Essential (primary) hypertension Social History Social History Patient Tobacco Use Status: Tobacco use Unknown Advance Directives: No Advance Directives Information Provided: No Physical Exam ED Vital Signs: Vital Signs - 24 hr 07/02/24 19:53 07/02/24 22:00 Temperature 97.5 F 97.6 F Pulse Rate 83 81 Respiratory Rate 20 16 Blood Pressure 116/73 100/67 Pulse Oximetry 95 96 Oxygen Delivery Method Room Air Room Air BMI result Body Mass Index 33.5 Const Other: The patient is a somewhat unkempt, somewhat chronically ill-appearing person in a C-collar. He is awake and alert. He does not seem in acute distress. HENMT Other: Some mild tenderness of the right occipital scalp region where there is some mild soft tissue swelling but no bleeding. No raccoon eyes. No shultz sign. Eyes Other: Pupils are round equal, conjunctivae clear, extraocular movements intact. Neck Other: No posterior midline C-spine tenderness. No pain with range of motion of the neck. The C-spine is clinically clear. The neck is otherwise unremarkable. Chest Other: No chest wall tenderness Resp Effort & Inspection: normal respiratory effort Auscultation: clear to auscultation bilaterally Cardio Rate: regular rate Rhythm: regular rhythm Heart sounds: S1 normal heart sound present and S2 normal heart sound present GI Other: Abdomen is soft and nontender Back/Spine/Pelvis Other: No vertebral tenderness in the back Skin Other: Some mild soft tissue swelling to the occipital scalp. The skin is intact. Otherwise the skin is unremarkable. Neuro Other: The patient is awake and alert. Speech is clear. Face is symmetrical. Eye movements intact. He moves his extremities symmetrically. He had a reasonably steady gait. Extrem Other: No sign of trauma to the extremities. He moves all of his extremities normally. Medical Decision Making Medical Decision Making MDM Narrative: The patient was sent to the emergency room from his [facility] after fall when he lost his balance after starting to go down some steps. He struck his occipital scalp. His C-spine is clinically clear. His head CT is negative. He does not have signs of other injuries or other complaints. An EKG was unremarkable. Basic labs are unremarkable. He will be discharged back to his [facility]. Lab Data 07/02/24 21:08 07/02/24 21:07 Labs: Lab Results 07/02/24 07/02/24 Range/Units 21:07 21:08 WBC 8.3 (4.8-10.8) X10*3/uL RBC 4.71 (4.60-5.80) X10*6/uL Hgb 13.0 L (14.0-18.0) g/dl Hct 39.9 L (42.0-52.0) % MCV 84.7 (80.0-98.0) fL MCH 27.6 (27.0-33.0) pg MCHC 32.6 (31.0-36.0) g/dl RDW 14.6 (11.0-16.0) % Plt Count 220 (160-400) X10*3/uL MPV 9.3 L (9.4-12.4) fL Immature Gran % (Auto) 0.4 (0.0-0.4) % Neut % (Auto) 66.1 (45-73) % Lymph % (Auto) 21.8 (20-40) % Liberty % (Auto) 8.4 (2-11) % Eos % (Auto) 2.9 (0-4) % Baso % (Auto) 0.4 (0-2) % Lymph # (Auto) 1.8 (1.2-4.9) X10*3/uL Liberty # (Auto) 0.7 (0.1-1.2) X10*3/uL Eos # (Auto) 0.2 (0.0-0.4) X10*3/uL Baso # (Auto) 0.0 (0.0-0.2) X10*3/uL Abs Immat Gran (auto) 0.03 (0.00-0.03) X10*3/uL Absolute Neuts (auto) 5.5 (2.0-8.3) x10*3/uL Absolute Nucleated RBC 0.000 (0.0-0.012) X10*3/uL Nucleated RBC % (auto) 0.0 (0.0-0.2) /100WBC Sodium 142 (135-145) mmol/L Potassium 3.9 (3.3-5.1) mmol/L Chloride 107 (96-108) mmol/L Carbon Dioxide 29 (22-29) mmol/L Anion Gap 10 L (12-20) BUN 14 (9-16) mg/dL Creatinine 0.75 (0.5-1.4) mg/dL Estim Creat Clear Calc 100.6 Estimated GFR > 60 Random Glucose 121 H (60-115) mg/dL Calcium 9.3 (8.4-10.2) mg/dL Magnesium 2.5 (1.6-2.6) mg/dL Total Bilirubin 0.3 (0.0-1.0) mg/dL Direct Bilirubin 0.1 (0.0-0.5) mg/dL AST 13 (5-37) U/L ALT 15 (0-40) U/L Alkaline Phosphatase 76 (39-117) U/L Total Protein 6.3 L (6.5-8.0) g/dL Albumin 3.9 (3.5-5.0) g/dL Idamay 0.39 L (0.60-1.20) mmol/L Ethyl Alcohol < 10 mg/dL Discharge Plan Discharge Clinical Impression: Fall, Head injury, Hematoma of occipital region of scalp Patient Disposition: er [facility] Additional Instructions: The CT scan of your head shows no internal injuries or skull fracture. Your laboratory testing is stable. Your lithium level tonight is 0.39. Please continue your regular medications. Follow up with your regular providers. Return to the emergency room if worse. Prescriptions: No Action acetaminophen 325 mg tablet 650 mg PO Q6H PRN lubiprostone [Amitiza] 24 mcg capsule 24 mcg PO BID atorvastatin 10 mg tablet 10 mg PO DAILY bisacodyl 10 mg suppository 10 mg AK DAILY PRN clozapine [Clozaril] 100 mg tablet 100 mg PO ONCE Fleet Enema 19-7 gram/118 mL enema 118 ml AK DAILY PRN glycopyrrolate 1 mg tablet 3 mg PO ONCE lamotrigine [Lamictal] 25 mg tablet 25 mg PO DAILY levothyroxine 88 mcg capsule 88 mcg PO DAILY lithium carbonate 450 mg tablet extended release 450 mg PO BID ondansetron 4 mg tablet,disintegrating 4 mg PO Q6H PRN metformin 500 mg tablet 500 mg PO BID pantoprazole 40 mg tablet,delayed release (DR/EC) 40 mg PO BID Risperdal Consta 50 mg/2 mL suspension,extended rel recon 50 mg IM Q14D Skyrizi 150 mg/mL pen injector 150 mg subcut Q12W budesonide-formoterol [Symbicort] 160-4.5 mcg/actuation HFA aerosol inhaler 2 puff inhalation BID finasteride 5 mg tablet 5 mg PO DAILY 90 Days Qty: 90 1RF cholecalciferol (vitamin D3) 1,250 mcg (50,000 unit) capsule 1,250 mcg PO QWEEK Referrals: [facility] [Outside] Print Language: Filipino
--- NOTE | 2024-07-02 20:01 | ECG_ITS ---
Test Reason : SYNCOPE Blood Pressure : / mmHG Vent. Rate : 082 BPM Atrial Rate : 082 BPM P-R Int : 192 ms QRS Dur : 086 ms QT Int : 370 ms P-R-T Axes : 042 020 069 degrees QTc Int : 432 ms Normal sinus rhythm Normal ECG When compared with ECG of 14-JUN-2024 03:52, No significant change was found Referred By: Brett Fierro Electronically Signed By:SHEILA INGRAM MD
[2024-07-02 21:13] LABS: MANUAL DIFF FLAG NO
[2024-07-02 21:14] LABS: Basophils Percent Auto 0.4 % (0-2); Eosinophils Absolute Auto 0.2 X10*3/uL (0.0-0.4); Eosinophils Percent Auto 2.9 % (0-4); Hematocrit 39.9 % (42.0-52.0); Imm Gran Abs Auto 0.03 X10*3/uL (0.00-0.03); Imm Gran Pct Auto 0.4 % (0.0-0.4); Lymphocytes Absolute Auto 1.8 X10*3/uL (1.2-4.9); Lymphocytes Percent Auto 21.8 % (20-40); Mean Corpuscular HGB Conc 32.6 g/dl (31.0-36.0); Mean Corpuscular Hemoglobin 27.6 pg (27.0-33.0); Mean Corpuscular Volume 84.7 fL (80.0-98.0); Mean Platelet Volume 9.3 fL (9.4-12.4); Monocytes Absolute Auto 0.7 X10*3/uL (0.1-1.2); Monocytes Percent Auto 8.4 % (2-11); Neutrophils Absolute Auto 5.5 x10*3/uL (2.0-8.3); Neutrophils Percent Auto 66.1 % (45-73); Platelet Count 220 X10*3/uL (160-400); Red Blood Count 4.71 X10*6/uL (4.60-5.80); Red Cell Distribution Width 14.6 % (11.0-16.0); White Blood Count 8.3 X10*3/uL (4.8-10.8)
[2024-07-02 21:26] LABS: Lithium 0.39 mmol/L (0.60-1.20)
[2024-07-02 21:30] LABS: Ethanol < 10 mg/dL
[2024-07-02 21:32] LABS: Alanine Aminotransferase 15 U/L (0-40); Albumin Level 3.9 g/dL (3.5-5.0); Alkaline Phosphatase 76 U/L (39-117); Anion Gap 10 (12-20); Aspartate Amino Transferase 13 U/L (5-37); Bilirubin Direct 0.1 mg/dL (0.0-0.5); Bilirubin Total 0.3 mg/dL (0.0-1.0); Blood Urea Nitrogen 14 mg/dL (9-16); Calcium 9.3 mg/dL (8.4-10.2); Carbon Dioxide 29 mmol/L (22-29); Chloride 107 mmol/L (96-108); Creatinine Clr Calc Pharmacy 100.6; Estimated Glomerular Filt Rate > 60; Glucose Random 121 mg/dL (60-115); Magnesium 2.5 mg/dL (1.6-2.6); Potassium 3.9 mmol/L (3.3-5.1); Sodium 142 mmol/L (135-145); Total Protein 6.3 g/dL (6.5-8.0)
[2024-07-02 22:00] VITALS: BP 100/67; PULSE 81; RESP 16; TEMP 36.4; O2SAT 96
[2024-07-02 23:30] VITALS: BP 100/67; PULSE 81; RESP 16; TEMP 36.4; O2SAT 96
== END 2024-07-02 23:30 | disposition skilled nursing facility (03) ==
PROVIDERS: Emergency Provider Emergency Medicine; PCP Hospitalist
DX: S00.03XA Contusion of scalp, initial encounter (principal); R51.9 Headache, unspecified; R55 Syncope and collapse; W10.9XXA Fall (on) (from) unspecified stairs and steps, initial encounter; Y93.9 Activity, unspecified; Y92.098 Other place in other non-institutional residence as the place of occurrence of the external cause; Y99.8 Other external cause status; Z51.81 Encounter for therapeutic drug level monitoring; Z79.899 Other long term (current) drug therapy
CPT/HCPCS: 36415; 70450; 80048; 80076; 80178; 80307; 83735; 85025; 93005; 99284

== ENCOUNTER → 2024-07-02 20:01 | Outpatient (BNV) | payer MEDICARE, MEDICAID, SELFPAY | PROVIDERS: Emergency Provider Emergency Medicine; PCP Hospitalist; Visit Provider Internal Medicine Cardiovascular Disease | DX: R55 Syncope and collapse (principal) | CPT/HCPCS: 93010 ==

== ENCOUNTER 2024-07-22 12:11 | Outpatient (AMB) | payer MEDICARE, MEDICAID, SELFPAY ==
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
== END 2024-07-22 12:44 | disposition home or self-care (01) ==
LOC: HO.HUSH 12:11
PROVIDERS: PCP Hospitalist; Visit Provider Nurse Practitioner Family
DX: R97.20 Elevated prostate specific antigen [PSA] (principal)
CPT/HCPCS: 99443

== ENCOUNTER → 2024-07-22 12:11 | Outpatient (BNVA) | payer MEDICARE, MEDICAID, SELFPAY | PROVIDERS: PCP Hospitalist; Visit Provider Nurse Practitioner Family ==

== ENCOUNTER 2024-10-05 18:49 | Emergency (ER) | payer MEDICARE, MEDICAID, SELFPAY ==
[2024-10-05 19:28] LABS: Glucose, Whole Blood 148 mg/dL (60-115)
[2024-10-05 19:29] VITALS: BP 150/104; PULSE 68
[2024-10-05 19:33] VITALS: BP 166/70; PULSE 54; RESP 14; TEMP 36.3; O2SAT 94; BMI 29.2
[2024-10-05 20:12] LABS: MANUAL DIFF FLAG NO
[2024-10-05 20:13] LABS: Basophils Absolute Auto 0.1 X10*3/uL (0.0-0.2); Basophils Percent Auto 0.6 % (0-2); Eosinophils Absolute Auto 0.1 X10*3/uL (0.0-0.4); Eosinophils Percent Auto 0.9 % (0-4); Hematocrit 44.1 % (42.0-52.0); Hemoglobin 14.5 g/dl (14.0-18.0); Imm Gran Abs Auto 0.06 X10*3/uL (0.00-0.03); Imm Gran Pct Auto 0.5 % (0.0-0.4); Lymphocytes Absolute Auto 1.6 X10*3/uL (1.2-4.9); Lymphocytes Percent Auto 12.7 % (20-40); Mean Corpuscular HGB Conc 32.9 g/dl (31.0-36.0); Mean Corpuscular Hemoglobin 27.2 pg (27.0-33.0); Mean Corpuscular Volume 82.6 fL (80.0-98.0); Mean Platelet Volume 9.6 fL (9.4-12.4); Monocytes Absolute Auto 0.9 X10*3/uL (0.1-1.2); Monocytes Percent Auto 7.4 % (2-11); Neutrophils Absolute Auto 9.9 x10*3/uL (2.0-8.3); Neutrophils Percent Auto 77.9 % (45-73); Platelet Count 304 X10*3/uL (160-400); Red Blood Count 5.34 X10*6/uL (4.60-5.80); Red Cell Distribution Width 14.3 % (11.0-16.0); White Blood Count 12.7 X10*3/uL (4.8-10.8)
[2024-10-05 20:18] LABS: Influenza A PCR NEGATIVE (Negative); Influenza B PCR NEGATIVE (Negative); Resp Syncy Virus RNA Qual PCR NEGATIVE (Negative); SARS COV2 PCR INHOUSE NEGATIVE (Negative)
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
--- NOTE | 2024-10-05 20:21 | ECG_ITS ---
Test Reason : MEDICATION SIDE EFFECT Blood Pressure : */* mmHG Vent. Rate : 70 BPM Atrial Rate : 70 BPM P-R Int : 162 ms QRS Dur : 88 ms QT Int : 358 ms P-R-T Axes : 40 14 74 degrees QTcB Int : 386 ms Normal sinus rhythm Nonspecific T wave abnormality Abnormal ECG When compared with ECG of 02-Jul-2024 20:12, No significant change was found Referred By: Efe De Souza Electronically Signed By: NISHANT MACHADO
[2024-10-05 20:33] LABS: Alanine Aminotransferase 30 U/L (0-40); Albumin Level 4.1 g/dL (3.5-5.0); Alkaline Phosphatase 75 U/L (39-117); Anion Gap 9 (12-20); Aspartate Amino Transferase 23 U/L (5-37); Bilirubin Total 0.6 mg/dL (0.0-1.0); Blood Urea Nitrogen 15 mg/dL (9-16); Calcium 9.1 mg/dL (8.4-10.2); Carbon Dioxide 23 mmol/L (22-29); Chloride 112 mmol/L (96-108); Creatinine Clr Calc Pharmacy 95.5; Estimated Glomerular Filt Rate > 60; Glucose Random 149 mg/dL (60-115); Potassium 3.6 mmol/L (3.3-5.1); Sodium 140 mmol/L (135-145)
[2024-10-05 20:49] VITALS: BP 157/90; PULSE 71; RESP 16; TEMP 36.8; O2SAT 97
[2024-10-05] MEDS: 0.9 % Sodium Chloride 1,000 ML 999 ML IV (21:43)
[2024-10-05 21:47] LABS: Ammonia 49 umol/L (13-55)
[2024-10-05 21:56] LABS: Lithium 0.53 mmol/L (0.60-1.20)
--- NOTE | 2024-10-05 22:12 | PC.NURSE ---
pharmacy called for med
[2024-10-05] MEDS: cloZAPine 25 MG TABLET 50 MG PO (22:54)
[2024-10-06 02:26] VITALS: BP 128/67; PULSE 55; RESP 16; TEMP 36.8; O2SAT 98
--- NOTE | 2024-10-06 03:26 | PC.NURSE ---
Pt placed on 2L nasal cannula d/t O2 dropping while sleeping.
[2024-10-06 05:39] VITALS: BP 107/62; PULSE 73; RESP 16; O2SAT 93
[2024-10-06 06:04] VITALS: BP 126/66; PULSE 78; RESP 14; TEMP 36.8; O2SAT 98
--- NOTE | 2024-10-06 06:35 | MHC.EDTECH ---
Pt incontinent of urine. Pt cleaned and bedding changed. RN aware
[2024-10-06 07:16] LABS: Glucose, Whole Blood 93 mg/dL (60-115)
[2024-10-06 08:32] VITALS: BP 152/83; PULSE 69; RESP 14; O2SAT 99
--- NOTE | 2024-10-06 10:59 | PHA.MEDREC ---
Addendum entered by Emily Vera [facility] 10/06/24 11:18: confirmed last dose of Skyrizi was 07/25/24 and last dose of clozapine was 09/30/24. Original Note: Pharmacy Consult ? Medication Reconciliation Pharmacy has completed the medication reconciliation, utilized list from [facility] at [place], will call for last dose of Skyrizi.
[2024-10-06 12:30] LABS: Glucose, Whole Blood 111 mg/dL (60-115)
--- NOTE | 2024-10-06 14:17 | PM.PSYCN ---
History of Present Illness Date of Service: 10/06/2024 Chief Complaint: from snf, not eating or drinking Sources of Information: patient interviewed, chart reviewed and crisis/core team assessment reviewed HPI Narrative: Mr. Nolen is a 64 year-old male with hx of schizophrenia/schizoaffective who resides at [facility]. He was brought due to pt not eating, not talking. Apparently, he was not able to take clozapine on 09/30/2024 due to pharmacy issues. Pt seen in the ED. He is mumbling christianity things, difficult to understand. He covered his face with his arm and would not engage in conversation with this specifications writer. Per RN, he did eat something and was talking more earlier. Past Psychiatric History: unknown [facility] Medical History Psoriasis, unspecified Constipation, unspecified Gastro-esophageal reflux disease without esophagitis Anoxic brain damage, not elsewhere classified Obstructive sleep apnea (adult) (pediatric) Schizoaffective disorder, unspecified Dementia in other diseases classified elsewhere, unspecified severity, with other behavioral disturbance Hyperlipidemia, unspecified Other obesity due to excess calories Vitamin D deficiency, unspecified Type 2 diabetes mellitus without complications Hypothyroidism, unspecified Unspecified asthma, uncomplicated Chronic obstructive pulmonary disease, unspecified Essential (primary) hypertension Diagnostics Vital Signs (24Hr): Vital Signs - 24 hr 10/05/24 19:33 10/05/24 20:49 10/06/24 02:26 Temperature 97.3 F 98.3 F 98.3 F Pulse Rate 54 71 55 Respiratory Rate 14 16 16 Blood Pressure 166/70 H 157/90 H 128/67 Pulse Oximetry 94 97 98 Oxygen Delivery Method Room Air Room Air Room Air 10/06/24 05:39 10/06/24 06:04 10/06/24 08:32 Temperature 98.3 F Pulse Rate 73 78 69 Respiratory Rate 16 14 14 Blood Pressure 107/62 126/66 152/83 H Pulse Oximetry 93 98 99 Oxygen Delivery Method Room Air Room Air Room Air BMI result Body Mass Index 29.2 Labs 10/05/24 20:07 10/05/24 20:07 Labs: Laboratory Results - last 48 hr 10/05/24 10/05/24 10/05/24 19:22 19:28 20:07 WBC 12.7 H RBC 5.34 Hgb 14.5 Hct 44.1 MCV 82.6 MCH 27.2 MCHC 32.9 RDW 14.3 Plt Count 304 D MPV 9.6 Immature Gran % (Auto) 0.5 H Neut % (Auto) 77.9 H Lymph % (Auto) 12.[address] [place] % (Auto) 7.4 Eos % (Auto) 0.9 Baso % (Auto) 0.6 Lymph # (Auto) 1.6 [place] # (Auto) 0.9 Eos # (Auto) 0.1 Baso # (Auto) 0.1 Abs Immat Gran (auto) 0.06 H Absolute Neuts (auto) 9.9 H Absolute Nucleated RBC 0.000 Nucleated RBC % (auto) 0.0 Sodium 140 Potassium 3.6 Chloride 112 H Carbon Dioxide 23 Anion Gap 9 L BUN 15 Creatinine 0.79 Estim Creat Clear Calc 95.5 Estimated GFR > 60 POC Glucose 148 H Random Glucose 149 H Calcium 9.1 Total Bilirubin 0.6 AST 23 ALT 30 Alkaline Phosphatase 75 Ammonia Total Protein 7.0 Albumin 4.1 [place] Influenza Type A (PCR) NEGATIVE Influenza Type B (PCR) NEGATIVE RSV RNA Qual (PCR) NEGATIVE SARS-CoV-2 RNA (RT-PCR) NEGATIVE 10/05/24 10/06/24 10/06/24 21:31 07:12 12:17 WBC RBC Hgb Hct MCV MCH MCHC RDW Plt Count MPV Immature Gran % (Auto) Neut % (Auto) Lymph % (Auto) [place] % (Auto) Eos % (Auto) Baso % (Auto) Lymph # (Auto) [place] # (Auto) Eos # (Auto) Baso # (Auto) Abs Immat Gran (auto) Absolute Neuts (auto) Absolute Nucleated RBC Nucleated RBC % (auto) Sodium Potassium Chloride Carbon Dioxide Anion Gap BUN Creatinine Estim Creat Clear Calc Estimated GFR POC Glucose 93 111 Random Glucose Calcium Total Bilirubin AST ALT Alkaline Phosphatase Ammonia 49 Total Protein Albumin [place] 0.53 L Influenza Type A (PCR) Influenza Type B (PCR) RSV RNA Qual (PCR) SARS-CoV-2 RNA (RT-PCR) Mental Status Exam Mental Status Exam Narrative: Pt in bed, talking to himself, mumbling and difficulty to understand but seems some christianity content. Limited assessment due to pt psychosis, some elements of catatonia. Medications Allergies Allergies Allergy/AdvReac Type Severity Reaction Status Date / Time Penicillins Allergy Unknown Verified 10/05/24 19:34 poison jolanta extract Allergy Unknown Verified 10/05/24 19:34 Assessment & Plan Assessment & Plan (1) Schizoaffective disorder: Status: Acute Code(s): F25.9 - Schizoaffective disorder, unspecified Plan Mr. Nolen is a 64 year-old schizoaffective disorder. He apparently was not given clozaril due to pharmacy issues. He last had clozaril on 09/30. He apparently ate something and did talk much but when this specifications writer attempted to talk to him he presents as internally preoccupied, thought blocking, minimally engaging. PLAN 1. Recommend inpt level of care for safety, containtment and stabilization. 2. continue clozaril titration- he was given 50mg yesterday. Will increase to 50mg po BID today. 3. some catatonic like feature- mutism, blank staring. will give ativan 1mg po, but may need to schedule ativan. 4. obtain collateral information. Total time managing care of this patient today ____ minutes.
[2024-10-06] MEDS: Omeprazole 20 MG CAPSULE.DR PO (15:26)
[2024-10-06] MEDS: LORazepam 1 MG TABLET PO (15:26)
[2024-10-06] MEDS: cloZAPine 25 MG TABLET 50 MG PO (15:27)
[2024-10-06] MEDS: levETIRAcetam 500 MG TABLET PO (15:39)
[2024-10-06 16:40] LABS: Glucose, Whole Blood 87 mg/dL (60-115)
[2024-10-06 17:43] VITALS: BP 111/60; PULSE 68; RESP 18; TEMP 37.1; O2SAT 95
--- NOTE | 2024-10-06 17:44 | PC.NURSE ---
Patient [facility] bed search. Ate well for breakfast and lunch, denies pain or discomfort . ambulated with 1 staff assist to bathroom, incont of large amount of urine
--- NOTE | 2024-10-06 19:49 | PC.NURSE ---
assumed care of pt at 1900. pt resting comfortably on stretcher in no apparent distress. plan for pt to be [facility] bed search. pt within view of nurses station, plan of care ongoing
--- NOTE | 2024-10-06 20:40 | MHC.EDTECH ---
This tech took over care, no belongings list was present in worklist and none were by pt bedside. No known belongings for this pt, pt coming from facility.
[2024-10-06 21:26] LABS: Glucose, Whole Blood 115 mg/dL (60-115)
--- NOTE | 2024-10-06 22:21 | PC.NURSE ---
pt snoring, sleeping, very lethargic, difficult to arouse or wake up. rolls over and continues sleeping. at this time having difficulty waking pt up to administer po medications
[2024-10-07] MEDS: cloZAPine 25 MG TABLET 50 MG PO ×2 (00:15→11:54)
[2024-10-07] MEDS: Lithium Carbonate ER 450 MG TABLET.ER PO ×2 (00:15→10:58)
[2024-10-07] MEDS: levETIRAcetam 250 MG TABLET 750 MG PO (00:15)
--- NOTE | 2024-10-07 00:26 | PC.NURSE ---
This RN attempted multiple times to get patient to wake up enough to take po bedtime medications. pt very lethargic, awakes and responds to physical stimuli, however very disoriented. Pt unable to drink water from straw. Pt did swallow appelsauce without issue. lithium po, keppra po, and clozapine po given with appelsauce. pt tolerated well. sitting in upright position, ate whole cup of applesauce
--- NOTE | 2024-10-07 03:26 | PC.NURSE ---
pt asleep comfortably, respirations even and unlabored. plan of care ongoing.
--- NOTE | 2024-10-07 07:18 | PC.NURSE ---
placed elopement band on pt
[2024-10-07 07:24] VITALS: BP 143/94; PULSE 85; RESP 18; TEMP 36.9; O2SAT 96
[2024-10-07 07:25] LABS: Glucose, Whole Blood 103 mg/dL (60-115)
--- NOTE | 2024-10-07 10:31 | MHC.CARE ---
Addendum entered by Annette Espinoza, [facility] 10/07/24 10:32: Dr. Li and facility biomedical photographer, Dr. Zhang in agreement with plan of care. Original Note: Geriatric Bedsearch canceled and plan for Pt to return to facility.
[2024-10-07] MEDS: Sennosides 8.6 MG TABLET 17.2 MG PO (10:58)
[2024-10-07] MEDS: metFORMIN HCl 500 MG TABLET PO (10:58)
[2024-10-07] MEDS: Atorvastatin Calcium 10 MG TABLET PO (10:59)
[2024-10-07] MEDS: Finasteride 5 MG TABLET PO (10:59)
[2024-10-07] MEDS: Lactulose 20 GM/30 ML SOLUTION PO (11:00)
[2024-10-07] MEDS: levETIRAcetam 500 MG TABLET PO (11:05)
[2024-10-07] MEDS: Levothyroxine Sodium 75 MCG TABLET PO (11:07)
[2024-10-07] MEDS: Omeprazole 20 MG CAPSULE.DR PO (11:07)
[2024-10-07] MEDS: Glycopyrrolate 1 MG TABLET 3 MG PO (11:54)
--- NOTE | 2024-10-07 12:23 | PC.NURSE ---
pt incontinent of urine. linens changed, [place] cath replaced. pt awaiting transport back to [facility]
[2024-10-07 14:18] VITALS: BP 143/94; PULSE 85; RESP 18; TEMP 36.9; O2SAT 96
== END 2024-10-07 14:18 ==
PROVIDERS: Emergency Provider Internal Medicine; PCP Hospitalist
DX: F25.9 Schizoaffective disorder, unspecified (principal); R53.1 Weakness; Z87.820 Personal history of traumatic brain injury; E11.9 Type 2 diabetes mellitus without complications; E78.5 Hyperlipidemia, unspecified; E03.9 Hypothyroidism, unspecified; J45.909 Unspecified asthma, uncomplicated; Z03.818 Encounter for observation for suspected exposure to other biological agents ruled out; Z79.84 Long term (current) use of oral hypoglycemic drugs; Z79.899 Other long term (current) drug therapy; Z79.02 Long term (current) use of antithrombotics/antiplatelets
CPT/HCPCS: 0241U; 36415; 80053; 80178; 82140; 82947; 85025; 93005; 99285; S9485

== ENCOUNTER → 2024-10-05 20:00 | Outpatient (BNV) | payer MEDICARE, MEDICAID, SELFPAY | PROVIDERS: Emergency Provider Internal Medicine; PCP Hospitalist; Visit Provider Social Worker | DX: F25.9 Schizoaffective disorder, unspecified (principal) | CPT/HCPCS: 99285 ==

== ENCOUNTER → 2024-10-05 20:21 | Outpatient (BNV) | payer MEDICARE, MEDICAID, SELFPAY | PROVIDERS: Emergency Provider Internal Medicine; PCP Hospitalist; Visit Provider Internal Medicine | DX: R94.31 Abnormal electrocardiogram [ECG] [EKG] (principal) | CPT/HCPCS: 93010 ==

== ENCOUNTER 2025-01-22 11:19 | Outpatient (AMB) | payer MEDICARE, MEDICAID, SELFPAY ==
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
--- OUTSIDE RECORDS SUMMARY | 2025-01-22 12:57 | XMS_ITS | Clinical Summary ---
Author Organization [facility] Address [address] [place] [address] Care Team Providers Care Social Human Services Assistants Name Role Phone Unavailable Primary Care Provider Unavailabl e Source Comments PLEASE NOTE, if this patient is a minor, it may be UNLAWFUL to discuss sensitive information that is contained in these records (such as FAMILY PLANNING, MENTAL HEALTH or SUBSTANCE ABUSE) with the minor patient's parent or other person without the patient's specific authorization.[facility] Social History Tobacco Use Types Packs/Day Years Used Date Smoking Tobacco: Never Assessed Social Connections Answer Date Recorded Connectedness 0 06/11/2024 Financial Resource Strain Answer Date R ecorded Financial Resource Strain 0 2023 Stress Answer Date Recorded Stress 0 05/28/2024 Physical Activity Answer Date Recorded Physical Activity 0 05/28/2024 Food Insecurity Answer Date Recorded Food 0 06/21/2024 Transportation Needs Answer Date Record ed Transportation 0 05/28/2024 Housing Stability Answer Date Recorded Housing 0 05/28/2024 Safety and Environment Answer Date Marshall rded Safety 0 05/28/2024 Utilities Answer Date Recorded Utilities 0 05/28/2024 Employment Answer Date Recorded Stress 0 06/11/2024 Sex and Gender Information Value Date Recorded Sex Assigned at Male 05/28/2024 8:36 AM PDT Legal Sex Male 8:21 AM PDT Gender Identity Male 05/28/2024 8:36 AM PDT Sexual Orientation Don't know 05/28/2024 8: 37 AM PDT Plan of Treatment Health Maintenance Due Date Last Done Comments Diabetes Screening 1960 Hepatitis C Screening 1958 Lipid Screening 1958 Tobacco Screening 1958 Hypertension Screening (#1) 02/08/1976 Imm-DTaP/Tdap/Td (1 - Tdap) 1977 CT Colonography 2003 Colonoscopy 2003 Colorectal Cancer Screening 2003 FIT/gFOBT 2003 Fecal DNA 2003 Flexible Sigmoidoscopy 2003 Imm-Pneumococcal 65+ (1 of 1 - PCV) 02/08/2008 Imm-Zoster, Recombinant (1 of 2) 02/08/2008 Abdominal Aortic Aneurysm Screening 2023 Falls Prevention 2023 [id number] (1 - season) 2024 Imm-Influenza (#1) 2024 Alcohol and Drug Screen 09/25/2024 Depression Annual Screen 09/25/2024
--- OUTSIDE RECORDS SUMMARY | 2025-01-22 12:58 | XMS_ITS | Encounter Summary ---
Author Organization [facility] Address [address] [place] [address] Care Team Providers Care Assistant Clinical Director Name Role Phone Charles Zhang MD Primary Care Provider [phone] Encounter Details Date Type Department Care Team (Late st Contact Info) Description 09/11/[address] [facility] - Main Lab [address] [facility] [place] [address] Charles Zhang MD [address] [place] [address] [address] [place] Essential (primary) hypertension; Unspecified psychosis not due to a substance or known physiological condition (CMS/HCC V24, CMS/HCC V28) Social History Tobacco Use Types Packs/Day Years Used Date Smoking Tobacco: Never Assessed Sex and Gender Information Value Date Recorded Sex Assigned at Not on file Legal Sex Male 9:01 PM EST Gender Identity Not on file Sexual Orientation Not on file documented as of this encounter Plan of Treatment Not on file documented as of this encounter Procedures Procedure Name Priority Date/Time Associated Diagnosis Comments LIPID PANEL WITH REFLEX TO DIRECT LDL Routine 09/11/2024 6:43 AM EST Essential (primary) hypertension Unspecified psychosis not due to a substance or known physiological condition (CMS/HCC) CBC WITH AUTO DIFFERENTIAL Routine 09/11/2024 6:43 AM EST Essential (primary) hypertension Unspecified psychosis not due to a substance or known physiological condition (CMS/HCC) VITAMIN D 25 HYDROXY Routine 09/11/2024 6:43 AM EST Essential (primary) hypertension Unspecified psychosis not due to a substance or known physiological condition (CMS/HCC) CBC AND DIFFERENTIAL Routine 09/11/2024 6:43 AM EST Essential (primary) hypertension Unspecified psychosis not due to a substance or known physiological condition (CMS/HCC) HEMOGLOBIN A1C Routine 09/11/2024 6:43 AM EST Essential (primary) hypertension Unspecified psychosis not due to a substance or known physiological condition (CMS/HCC) COMPREHENSIVE METABOLIC PANEL Routine 09/11/2024 6:43 AM EST Essential (primary) hypertension Unspecified psychosis not due to a substance or known physiological condition (CMS/HCC) documented in this encounter Results * (ABNORMAL) CBC auto differential (09/11/2024 6:43 AM EST) [facility] WBC 9.1 4.8 - 10.8 K/mcL LAB HEMETOLOGY METHOD 09/11/2024 8:[address] [facility] RBC 5.00 4.50 - 5.50 M/mcL LAB HEMETOLOGY METHOD 09/11/2024 8:[address] [facility] Hemoglobin 13.4(L) 13.5 - 17.5 g/dL LAB HEMETOLOGY METHOD 09/11/2024 8:[address] [facility] Hematocrit 43.0 42.0 - 54.0 % LAB HEMETOLOGY METHOD 09/11/2024 8:[address] [facility] MCV 86.9 79.0 - 98.0 FL LAB HEMETOLOGY METHOD 09/11/2024 8:[address] [facility] MCH 27.1 27.0 - 32.0 pcg LAB HEMETOLOGY METHOD 09/11/2024 8:[address] [facility] MCHC 31.2(L) 32.0 - 37.0 g/dL LAB HEMETOLOGY METHOD 09/11/2024 8:[address] [facility] RDW 14.5 11.0 - 15.0 % LAB HEMETOLOGY METHOD 09/11/2024 8:[address] [facility] Platelets 09/11/2024 8:[address] [facility] Comment:Not measured. Unable to quantitate due to platelet clumping MPV 11.9(H) 7.0 - 11.0 FL LAB HEMETOLOGY METHOD 09/11/2024 8:[address] [facility] NRBC 0.0 <1.0 % LAB HEMETOLOGY METHOD 09/11/2024 8:[address] [facility] NRBC Absolute 0.00 <0.10 K/mcL LAB HEMETOLOGY METHOD 09/11/2024 8:[address] [facility] Neutrophils Relative 67.6 % LAB HEMETOLOGY METHOD 09/11/2024 8:[address] [facility] Lymphocytes Relative 20.2 % LAB HEMETOLOGY METHOD 09/11/2024 8:[address] [facility] Monocytes Relative 8.3 % LAB HEMETOLOGY METHOD 09/11/2024 8:[address] [facility] Eosinophils Relative 3.0 % LAB HEMETOLOGY METHOD 09/11/2024 8:[address] [facility] Basophils Relative 0.4 % LAB HEMETOLOGY METHOD 09/11/2024 8:[address] [facility] Immature Granulocytes Relative 0.5 % LAB HEMETOLOGY METHOD 09/11/2024 8:[address] [facility] Neutrophils Absolute 6.15 1.50 - 7.00 K/mcL LAB HEMETOLOGY METHOD 09/11/2024 8:[address] [facility] Lymphocytes Absolute 1.84 1.00 - 5.00 K/mcL LAB HEMETOLOGY METHOD 09/11/2024 8:[address] [facility] Monocytes Absolute 0.76 0.20 - 1.00 K/mcL LAB HEMETOLOGY METHOD 09/11/2024 8:[address] [facility] Eosinophils Absolute 0.27 0.00 - 0.50 K/mcL LAB HEMETOLOGY METHOD 09/11/2024 8:38 AM EST [facility] Basophils Absolute 0.04 0.00 - 0.20 K/[facility] LAB HEMETOLOGY METHOD 09/11/2024 8:38 AM EST [facility] Immature Granulocytes Absolute 0.05(H) 0.00 - 0.03 K/[facility] LAB HEMETOLOGY METHOD 09/11/2024 8:[address] [facility] Blood Venous blood specimen / Unknown 09/11/2024 6:43 AM EST 09/11/2024 7:42 AM EST us Charles Zhang MD LAB BLOOD ORDERABLES Final Resul t Performing Organization Address City/[facility]/ZIP Co de Phone Number [facility] [address] [place] [address], [place] [phone] * Vitamin D 25 hydroxy (09/11/2024 6:43 AM EST) Vit D, 25-Hydroxy 72.6 30.0 - 80.0 ng/mL LAB CHEMISTRY METHOD 09/11/2024 9:[address] [facility] Blood Venous blood specimen / Unknown 09/11/2024 6:43 AM EST 09/11/2024 7:42 AM EST us Charles Zhang MD LAB BLOOD ORDERABLES Final Resul t [facility] [address] [place] [address], [place] [phone] * Hemoglobin A1c (09/11/2024 6:43 AM EST) Hemoglobin A1C 5.6 <6.5 % LAB CHEMISTRY METHOD 09/11/2024 1:[address] [facility] Mean Bld Glu Estim. 114 mg/dL LAB CHEMISTRY METHOD 09/11/2024 1:[address] [facility] Blood Venous blood specimen / Unknown 09/11/2024 6:43 AM EST 09/11/2024 7:42 AM EST us Charles Zhang MD LAB BLOOD ORDERABLES Final Resul t Performing Organization Address [facility]/ZIP Co de Phone Number [facility] [address] [place] [address], [place] [phone] * Lipid panel with reflex to direct LDL (09/11/2024 6:43 AM EST) Cholesterol 120 0 - 200 mg/dL LAB CHEMISTRY METHOD 09/11/2024 8:20 AM EST [facility] Triglycerides 99 0 - 150 mg/dL LAB CHEMISTRY METHOD 09/11/2024 8:20 AM EST [facility] HDL 54 >=40 mg/dL LAB CHEMISTRY METHOD 09/11/2024 8:[address] [facility] LDL Calculated 46 0 - 100 mg/dL LAB CHEMISTRY METHOD 09/11/2024 8:20 AM EST [facility] VLDL Cholesterol Fermín 19.8 mg/dL LAB CHEMISTRY METHOD 09/11/2024 8:20 AM EST [facility] Non HDL Chol. (LDL+VLDL) 66 <145 mg/dL LAB CHEMISTRY METHOD 09/11/2024 8:[address] [facility] Chol/HDL Ratio 2.2 0.0 - 4.4 LAB CHEMISTRY METHOD 09/11/2024 8:[address] [facility] Blood Venous blood specimen / Unknown 09/11/2024 6:43 AM EST 09/11/2024 7:42 AM EST us Charles Zhang MD LAB BLOOD ORDERABLES Final Resul t Performing Organization Address [facility]/ZIP Co de Phone Number [facility] [address] [place] [address], [place] [phone] * Comprehensive metabolic panel (09/11/2024 6:43 AM EST) Sodium 143 133 - 145 mmol/L LAB CHEMISTRY METHOD 09/11/2024 8:[address] [facility] Potassium 4.1 3.5 - 5.5 mmol/L LAB CHEMISTRY METHOD 09/11/2024 8:[address] [facility] Chloride 107 96 - 110 mmol/L LAB CHEMISTRY METHOD 09/11/2024 8:[address] [facility] CO2 29 21 - 32 mmol/L LAB CHEMISTRY METHOD 09/11/2024 8:[address] [facility] Anion Gap 7 3 - 11 LAB CHEMISTRY METHOD 09/11/2024 8:[address] [facility] Glucose 89 70 - 100 mg/dL LAB CHEMISTRY METHOD 09/11/2024 8:[address] [facility] BUN 11 5 - 25 mg/dL LAB CHEMISTRY METHOD 09/11/2024 8:[address] [facility] Creatinine 0.75 0.70 - 1.30 mg/dL LAB CHEMISTRY METHOD 09/11/2024 8:[address] [facility] eGFR 100 >=60 mL/min/1. 73m2 LAB CHEMISTRY METHOD 09/11/2024 8:[address] [facility] Comment:Calculation based on the??Chronic Kidney Disease Epidemiology Collaboration (CKD-EPI) equation refit??without adjustment for race. BUN/Creatinine Ratio 14.7 LAB CHEMISTRY METHOD 09/11/2024 8:[address] [facility] Calcium 9.2 8.5 - 10.5 mg/dL LAB CHEMISTRY METHOD 09/11/2024 8:[address] [facility] AST (SGOT) 23 10 - 42 unit/L LAB CHEMISTRY METHOD 09/11/2024 8:[address] [facility] ALT (SGPT) 31 10 - 60 unit/L LAB CHEMISTRY METHOD 09/11/2024 8:48 AM EST [facility] Alkaline Phosphatase 85 42 - 121 unit/L LAB CHEMISTRY METHOD 09/11/2024 8:48 AM EST [facility] Total Protein 6.9 6.0 - 8.0 g/dL LAB CHEMISTRY METHOD 09/11/2024 8:48 AM EST [facility] Albumin 3.9 3.2 - 5.0 g/dL LAB CHEMISTRY METHOD 09/11/2024 8:48 AM EST [facility] Total Bilirubin 0.5 0.0 - 1.4 mg/dL LAB CHEMISTRY METHOD 09/11/2024 8:48 AM EST [facility] Blood Venous blood specimen / Unknown 09/11/2024 6:43 AM EST 09/11/2024 7:42 AM EST us Chrales Zhang MD LAB BLOOD ORDERABLES Final Resul t [facility] [address] [place] [address], documented in this encounter Visit Diagnoses Diagnosis Essential (primary) hypertension Unspecified essential hypertension Unspecified psychosis not due to a substance or known physiological condition (CMS/HCC V24, CMS/HCC V28) documented in this encounter Care Teams Assistant Clinical Director Relationship Specialty Start Date End Date Charles Zhang MD [address] [facility] [address] [facility] [address] [place], [place] PCP - General Internal Medicine 10/21/24 documented as of this encounter
--- OUTSIDE RECORDS SUMMARY | 2025-01-22 12:58 | XMS_ITS | Encounter Summary ---
[facility] Address [address] [place] [address] Care Team Providers Care Servomechanism Designer Name Role Phone Charles Zhang MD Primary Care Provider [phone] Encounter Details Date Type Department Care Team (Late st Contact Info) Description 11/08/2024 Lab Requisition [facility] - Main Lab [address] [facility] [place] [address] Charles Zhang MD [address] [place] [address] [address] [place] Encounter for therapeutic drug level monitoring Social History Tobacco Use Types Packs/Day Years [...] Procedure Name Priority Date/Time Associated Diagnosis Comments COMPREHENSIVE METABOLIC PANEL Routine 11/08/2024 6:42 AM EST Encounter for therapeutic drug level monitoring documented in this encounter Results * (ABNORMAL) Comprehensive metabolic panel (11/08/2024 6:42 AM EST) Sodium 139 133 - 145 mmol/L LAB CHEMISTRY METHOD 11/08/2024 7:[address] [facility] Potassium 4.3 3.5 - 5.5 mmol/L LAB CHEMISTRY METHOD 11/08/2024 7:[address] [facility] Chloride 109 96 - 110 mmol/L LAB CHEMISTRY METHOD 11/08/2024 7:[address] [facility] CO2 28 21 - 32 mmol/L LAB CHEMISTRY METHOD 11/08/2024 7:[address] [facility] Anion Gap 2(L) 3 - 11 LAB CHEMISTRY METHOD 11/08/2024 7:51 AM [facility] Glucose 98 70 - 100 mg/dL LAB CHEMISTRY METHOD 11/08/2024 7:51 AM [facility] BUN 10 5 - 25 mg/dL LAB CHEMISTRY METHOD 11/08/2024 7:51 AM [facility] Creatinine 0.68(L) 0.70 - 1.30 mg/dL LAB CHEMISTRY METHOD 11/08/2024 7:51 AM [facility] eGFR 103 >=60 mL/min/1. 73m2 LAB CHEMISTRY METHOD 11/08/2024 7:51 AM [facility] Comment:Calculation based on the??Chronic Kidney Disease Epidemiology Collaboration (CKD-EPI) equation refit??without adjustment for race. BUN/Creatinine Ratio 14.7 LAB CHEMISTRY METHOD 11/08/2024 7:51 AM [facility] Calcium 9.2 8.5 - 10.5 mg/dL LAB CHEMISTRY METHOD 11/08/2024 7:51 AM [facility] AST (SGOT) 23 10 - 42 unit/L LAB CHEMISTRY METHOD 11/08/2024 7:51 AM [facility] ALT (SGPT) 27 10 - 60 unit/L LAB CHEMISTRY METHOD 11/08/2024 7:51 AM [facility] Alkaline Phosphatase 88 42 - 121 unit/L LAB CHEMISTRY METHOD 11/08/2024 7:51 AM [facility] Total Protein 6.3 6.0 - 8.0 g/dL LAB CHEMISTRY METHOD 11/08/2024 7:51 AM [facility] Albumin 3.5 3.2 - 5.0 g/dL LAB CHEMISTRY METHOD 11/08/2024 7:51 AM [facility] Total Bilirubin 0.3 0.0 - 1.4 mg/dL LAB CHEMISTRY METHOD 11/08/2024 7:51 AM [facility] Blood Venous blood specimen / Unknown 11/08/2024 6:42 AM EST 11/08/2024 7:15 AM EST us Charles Zhang MD LAB BLOOD ORDERABLES Final Resul t [facility] [address] [place] [address], documented in this encounter Visit Diagnoses Diagnosis Encounter for therapeutic drug level monitoring documented in this encounter Care Teams Servomechanism Designer Relationship Specialty Start Date End Date Charles Zhang MD [address] [place] [address] [address] [place] PCP - General Internal Medicine 10/21/24 documented as of this encounter
--- OUTSIDE RECORDS SUMMARY | 2025-01-22 12:58 | XMS_ITS ---
Author Name [facility] Organization Unknown History of Medication Use Medication Directions Dispensed Refills Start Date End Date Stat atorvastatin (LIPITOR) 10 mg tablet Take 1 tablet by mouth daily. active benztropine (COGENTIN) 1 mg tablet benztropine 1 mg tablet active budesonide EC (ENTOCORT EC) 3 mg 24 hr capsule Inhale 2 puffs 2 times daily. active budesonide-formoter oL (SYMBICORT) 160-4.5 mcg/actuation inhaler Symbicort 160 mcg-4.5 mcg/actuation HFA aerosol inhaler active calcipotriene (DOVONOX) 0.005 % cream Apply topically daily. ac tive divalproex (DEPAKOTE DR) 250 mg EC tablet divalproex 250 mg tablet,delayed release activ e fluPHENAZine (PROLIXIN) 5 mg tablet Take 1 tablet by mouth. active fluPHENAZine decanoate (PROLIXIN) 25 mg/mL injection fluphenazine decanoate 25 mg/mL injection solution active fluticasone propion-salmeteroL (ADVAIR DISKUS) 250-50 mcg/dose diskus inhaler Advair Diskus 250 mcg-50 mcg/dose powder for inhalation active ipratropium HFA (ATROVENT HFA) 17 mcg/actuation inhaler Ipratropium [place] HFA 29-Jul-2019 Angelita Joshua Active active magnesium hydroxide 2,400 mg/10 mL suspension 30 mL. active polyethylene glycol (GLYCOLAX) 17 gram/dose powder Take 17 g by mouth. active polyethylene glycol 1450,bulk, powder Polyethylene Glycol - Powder as directed 29-Jul-2019 Angelita Joshua Active active sulfamethoxazole-tr imethoprim (BACTRIM DS) 800-160 mg per tablet sulfamethoxazole 800 mg-trimethoprim 160 mg tablet active terazosin (HYTRIN) 2 mg capsule Take 1 capsule by mouth daily. active zolpidem (AMBIEN) 10 mg tablet Take 1 tablet by mouth. active Encounters Encounter Type Encounter Reason Primary Diagnosis Location Date Ambulatory Psoriasis, unspecified Psoriasis, unspecified [facility] 02/28/2024 Ambulatory Psoriasis, unspecified [facility] 02/22/2023 Ambulatory [facility] 08/15/2022 Ambulatory NOT [facility] 08/09/2022 Ambulatory [facility] 07/31/2022 Ambulatory NOT GIVEN [facility] 07/27/2022 Ambulatory NOT GIVEN [facility] 07/26/2022 Ambulatory [facility] 07/25/2022 Ambulatory [facility] 07/17/2022 Ambulatory NOT GIVIGN [facility] 07/12/2022 Ambulatory [facility] 07/01/2022 Ambulatory [facility] 06/28/2022 Ambulatory NOT GIVEN [facility] 06/28/2022 Ambulatory [facility] 06/24/2022 Ambulatory NOT GIVEN [facility] 06/20/2022 Ambulatory [facility] 06/16/2022 Ambulatory NOT GIVEN [facility] 06/14/2022 Ambulatory NOT GIVEN [facility] 06/13/2022 Ambulatory NOT GIVEN [facility] 06/02/2022 Ambulatory not given [facility] 05/31/2022 Ambulatory [facility] 05/29/2022 Ambulatory Psoriasis, unspecified Psoriasis, unspecified [facility] 05/25/2022 Ambulatory NOT GIVEN [facility] 05/25/2022 Ambulatory NOT [facility]II[facility]NG [facility] 05/17/2022 Ambulatory NOT GIVING [facility] 05/03/2022 Ambulatory [facility] 04/23/2022 Ambulatory NOT GIVEN [facility] 04/19/2022 Ambulatory [facility] 04/17/2022 Ambulatory NOT GIVEN [facility] 04/13/2022 Ambulatory NOT GIVING [facility] 04/05/2022 Ambulatory NOT GIVIGN [facility] 03/29/2022 Ambulatory NOT GIVEN [facility] 03/22/2022 Ambulatory NOT GIVEN [facility] 03/09/2022 Ambulatory NOT GIVEN [facility] 03/08/2022 Ambulatory [facility] 03/02/2022 Ambulatory NOT GIVEN [facility] 02/23/2022 Ambulatory NOT GIVEN [facility] 02/22/2022 Ambulatory NOT GIVEN [facility] 02/18/2022 Ambulatory NOT GIVEN [facility] 02/14/2022 Ambulatory NOT GIVEN [facility] 02/10/2022 Ambulatory NOT GIVEN [facility] 02/08/2022 Ambulatory NOT GIVEN [facility] 2022 Ambulatory NOT GIVEN [facility] 01/31/2022 Ambulatory [facility] 01/28/2022 Ambulatory NOT [facility]IVIGN [facility] 01/25/2022 Ambulatory NOT GIVEN [facility] 01/18/2022 Ambulatory NOT GIVEN [facility] 01/11/2022 Ambulatory NOT GIVIGN [facility] 01/04/2022 Ambulatory NOT GIVEN [facility] 12/31/2021 Ambulatory NOT GIVEN [facility] 12/28/2021 Ambulatory NOT GIVEN [facility] 12/28/2021 Ambulatory NOT GIVEN [facility] 12/21/2021 Ambulatory NOT GIVEN [facility] 12/14/2021 Ambulatory NOT [facility]IVIGN [facility] 12/07/2021 Ambulatory Psoriasis, unspecified [facility] 12/01/2021 Ambulatory NOT GIVEN [facility] 11/30/2021 Ambulatory NOT GIVEN [facility] 11/23/2021 Ambulatory NOT GIVEN [facility] 11/16/2021 Ambulatory NOT GIVIGN [facility] 11/09/2021 Ambulatory NOT GIVEN [facility] 11/02/2021 Ambulatory NOT GIVEN [facility] 10/29/2021 Ambulatory NOT GIVEN [facility] 10/26/2021 Ambulatory NOT [facility]II[facility]NG [facility] 10/19/2021 Ambulatory NOT GIVEN [facility] 10/18/2021 Ambulatory NIT GIVEN [facility] 10/12/2021 Ambulatory [facility] 10/10/2021 Ambulatory NOT GIVEN [facility] 10/05/2021 Ambulatory NOT GIVEN [facility] 09/28/2021 Ambulatory NOT [facility] 09/21/2021 Ambulatory NOT [facility] 09/16/2021 Ambulatory NOT GIVEN [facility] 09/14/2021 Ambulatory NOT GIVIGN [facility] 09/08/2021 Ambulatory Psoriasis, unspecified [facility] 09/01/2021 Ambulatory Psoriasis, unspecified [facility] 09/01/2021 Ambulatory NOT GIVEN [facility] 08/31/2021 Ambulatory NOT GIVEN [facility] 08/24/2021 Ambulatory NOT GIVEN [facility] 08/23/2021 Ambulatory NOT GIVEN [facility] 08/17/2021 Ambulatory NOT GIVING [facility] 08/17/2021 Ambulatory NOT GIVEN [facility] 08/10/2021 Ambulatory NOT GIVEN [facility] 08/03/2021 Ambulatory NOT GIVEN [facility] 07/27/2021 Ambulatory NOT GIVEN [facility] 07/20/2021 Ambulatory NOT GIVEN [facility] 07/15/2021 Ambulatory NOT GIVEN [facility] 07/08/2021 Care Team Organization Name Specialty Phone Email Start Date End Da [facility]) 2023 [facility] 07/27/2023 024 [facility] 06/16/2023 024 [facility] 02/28/2023 05/13/2024 [facility] 12/01/2022 [facility] MENDEZ DELACRUZ Primary Care 08/16/2022 [facility] PCP,No Primary Care 05/25/2022 [facility] 05/13/2022 [facility] COLTEN PCP Primary Care 09/01/2021 Smart[facility] MENDEZ DELACRUZ Primary Care 07/08/2021 [facility] 07/08/2021 05/17/2022 [facility] 04/22/2021 [facility] 04/16/2021
--- OUTSIDE RECORDS SUMMARY | 2025-01-22 12:58 | XMS_ITS | Encounter Summary ---
Author Organization [facility] Address [address] [place] [address] Care Team Providers Care International Marketing Executive Name Role Phone Charles Zhang MD Primary Care Provider [phone] Encounter Details Date Type Department Care Team (Late st Contact Info) Description 11/07/2024 Lab Requisition [facility] - Main Lab [address] [place] [address] Charles Zhang MD [address] [place] [address] Dr [address] [place] Encounter for therapeutic drug level monitoring Social [...] Procedure Name Priority Date/Time Associated Diagnosis Comments CBC WITH AUTO DIFFERENTIAL Routine 11/07/2024 6:57 AM EST Encounter for therapeutic drug level monitoring CBC AND DIFFERENTIAL Routine 11/07/2024 6:57 AM EST Encounter for therapeutic drug level monitoring documented in this encounter Results * (ABNORMAL) CBC auto differential (11/07/2024 6:57 AM EST) WBC 10.9(H) 4.8 - 10.8 K/mcL LAB HEMETOLOGY METHOD 11/07/2024 7:32 AM EST [facility] RBC 4.80 4.50 - 5.50 M/mcL LAB HEMETOLOGY METHOD 11/07/2024 7:32 AM EST [facility] Hemoglobin 12.9(L) 13.5 - 17.5 g/dL LAB HEMETOLOGY METHOD 11/07/2024 7:[address] [facility] Hematocrit 41.1(L) 42.0 - 54.0 % LAB HEMETOLOGY METHOD 11/07/2024 7:[address] [facility] MCV 85.1 79.0 - 98.0 FL LAB HEMETOLOGY METHOD 11/07/2024 7:[address] [facility] MCH 26.7(L) 27.0 - 32.0 pcg LAB HEMETOLOGY METHOD 11/07/2024 7:[address] [facility] MCHC 31.4(L) 32.0 - 37.0 g/dL LAB HEMETOLOGY METHOD 11/07/2024 7:[address] [facility] RDW 14.6 11.0 - 15.0 % LAB HEMETOLOGY METHOD 11/07/2024 7:[address] [facility] Platelets 251 130 - 400 K/mcL LAB HEMETOLOGY METHOD 11/07/2024 7:[address] [facility] MPV 9.7 7.0 - 11.0 FL LAB HEMETOLOGY METHOD 11/07/2024 7:[address] [facility] NRBC 0.0 <1.0 % LAB HEMETOLOGY METHOD 11/07/2024 7:[address] [facility] NRBC Absolute 0.00 <0.10 K/mcL LAB HEMETOLOGY METHOD 11/07/2024 7:[address] [facility] Neutrophils Relative 66.2 % LAB HEMETOLOGY METHOD 11/07/2024 7:[address] [facility] Lymphocytes Relative 20.4 % LAB HEMETOLOGY METHOD 11/07/2024 7:[address] [facility] Monocytes Relative 8.4 % LAB HEMETOLOGY METHOD 11/07/2024 7:[address] [facility] Eosinophils Relative 3.8 % LAB HEMETOLOGY METHOD 11/07/2024 7:32 AM EST [facility] Basophils Relative 0.6 % LAB HEMETOLOGY METHOD 11/07/2024 7:32 AM EST [facility] Immature Granulocytes Relative 0.6 % LAB HEMETOLOGY METHOD 11/07/2024 7:[address] [facility] Neutrophils Absolute 7.23(H) 1.50 - 7.00 K/mcL LAB HEMETOLOGY METHOD 11/07/2024 7:32 AM EST [facility] Lymphocytes Absolute 2.22 1.00 - 5.00 K/mcL LAB HEMETOLOGY METHOD 11/07/2024 7:[address] [facility] Monocytes Absolute 0.91 0.20 - 1.00 K/mcL LAB HEMETOLOGY METHOD 11/07/2024 7:[address] [facility] Eosinophils Absolute 0.41 0.00 - 0.50 K/mcL LAB HEMETOLOGY METHOD 11/07/2024 7:32 AM EST [facility] Basophils Absolute 0.06 0.00 - 0.20 K/mcL LAB HEMETOLOGY METHOD 11/07/2024 7:[address] [facility] Immature Granulocytes Absolute 0.06(H) 0.00 - 0.03 K/mcL LAB HEMETOLOGY METHOD 11/07/2024 7:[address] [facility] Blood Venous blood specimen / Unknown 11/07/2024 6:57 AM EST 11/07/2024 7:23 AM EST us Charles Zhang MD LAB BLOOD ORDERABLES Final Resul t [facility] [address] [place] [address], documented in this encounter Visit Diagnoses Diagnosis Encounter for therapeutic drug level monitoring documented in this encounter Care Teams International Marketing Executive Relationship Specialty Start Date End Date Charles Zhang MD [address] [place] [address] Dr [address] TESS Marsh PCP - General Internal Medicine 10/21/24 documented as of this encounter
--- OUTSIDE RECORDS SUMMARY | 2025-01-22 12:58 | XMS_ITS | Data Portability ---
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 Plan of Treatment Reminders Order Date Submit Date Provider Last Modified By Organization Details Last Modified Time Details Appointments None record ed. Lab None record ed. Referral None record ed. Procedures None record ed. Surgeries None record ed. Imaging None record ed. Medication Orders None record ed. Patient TargetsNo targets recorded. Patient Instructions Encounter Date Encounter Id Patient Instructions Last Modified By Organization Details Last Modified Time 01/06/2016 [id number] sleep apnea: car e instructions kconlon Not available 01/06/2016 12:58:09 sleep study, polysomnogram with continuous positive airway pressure* - Obstructive sleep apnea ISAAC Not available 03/09/2016 09:43:21 10/10/2016 [id number] sleep apnea: car e instructions kconlon Not available 10/10/2016 10:55:19 Reason for Referral None Reported. Results Created Date Observation Date Name Description Value Unit Range Abnormal Flag Note LastModifiedBy Organization Detail LastModifiedTime 03/09/20 16 01/22/2016 sleep study , polys omnog esau with sunni nuous posit angelina airwa y press ure* No observ ation record ed. [facility] [address] [place], [address], 03/09/2016 15:31:19 10/31/19 17 10/27/2016 CPAP/ bilev el desen sitiz ation * No observ ation record ed. [facility] Not Available 2016 11:14:42 03/24/20 21 01/04/2016 epwor th sleep iness scale * No observ ation record ed. [facility] Not Available 2020 11:41:20 Result Notes None recorded. Problems Name Problem SNOMED Code Status Onset Date Resolution Date Notes Provider Name and Address Organization Details Recorded Time Obstructive sleep apnea syndrome [id number] Active Orlando Romo tushar, [facility] 6 10:16:36 Problem Notes None recorded. Procedures Surgical History None recorded. Imaging Results Imaging Date Name Status LastModified by Organization Details LastModified Time 01/22/2016 sleep study, polysomnogram with continuous positive airway pressure* completed [facility] [address] [place], [address], 03/09/2016 15:31:19 10/27/2016 CPAP/bilevel desensitization* completed [facility] Information not available 10/31/2016 11:14:42 01/04/2016 epworth sleepiness scale* completed [facility] Information not available 03/24/2021 11:41:20 Procedure Notes None recorded. Medical Equipment None Reported. Allergies Allergen ID Allergen Name Allergen Category Reaction Reaction Severity Criticality Documentation Date Start Date Code Code System Note Provider Name and Address Organization Details Recorded Time Product containin g penicilli n (product) medicatio n Not available Not available Not available 01/06/2016 00492 8001 SNOMED Jailyn Patterson tushar, [facility] 6 09:54:15 Medications Name Sig Start Date Stop Date Status Note LastModified by Organization Details LastModified Time atorvastatin 20 mg tablet active Not Available Not Available Not Available nicotine 14 mg/24 hr daily transdermal patch active Not Available Not Avai lable Not Available quetiapine 300 mg tablet active Not Available Not Available Not Available divalproex 250 mg tablet,delayed release active Not Available Not Available Not Available trazodone 50 mg tablet active Not Available Not Available Not Available azithromycin 250 mg tablet active Not Available Not Available No t Available risperidone 4 mg tablet active Not Available Not Available Not Available BD Luer-Kristyn Syringe 3 mL 20 gauge x 1 active Not Available Not Available N ot Available meloxicam 15 mg tablet active Not Available Not Available Not Available clobetasol 0.05 % topical cream active Not Available Not Availabl e Not Available sulfamethoxazole 800 mg-trimethoprim 160 mg tablet active Not Available Not Availabl e Not Available quetiapine 100 mg tablet active Not Available Not Available Not Available triamcinolone acetonide 0.1 % topical cream active Not Available Not Availabl e Not Available hydrocortisone valerate 0.2 % topical ointment active Not Available Not Avail able Not Available fluphenazine decanoate 25 mg/mL injection solution active Not Available Not Nat ilable Not Available risperidone 1 mg/mL oral solution active Not Available Not Available Not Available pantoprazole 40 mg tablet,delayed release active Not Available Not Available Not Available simvastatin 20 mg tablet active Not Available Not Available Not Available tobramycin 0.3 % eye drops active Not Available Not Available No t Available Advair Diskus 250 mcg-50 mcg/dose powder for inhalation active Not Available Not Available N ot Available benztropine 1 mg tablet active Not Available Not Available Not Available polyethylene glycol 3350 17 gram/dose oral powder active Not Available Not Available Not Available BD Luer-Kristyn Syringe 3 mL 21 gauge x 1 active Not Available Not Available N ot Available divalproex ER 250 mg tablet,extended release 24 hr active Not Available Not Availabl e Not Available quetiapine 50 mg tablet active Not Available Not Available Not Available quetiapine 400 mg tablet active Not Available Not Available Not Available Symbicort 160 mcg-4.5 mcg/actuation HFA aerosol inhaler active Not Available Not Availa ble Not Available Moxeza 0.5 % eye drops active Not Available Not Available Not Available Vitals Date Recorded Body mass index (BMI) Body height Body weight Oxygen saturation Oxygen saturation in Arterial blood by Pulse oximetry Heart rate Systolic blood pressure Diastolic blood pressure Provider Name and Address Organization Details Last Updated DateTime 6 39.3 kg/m2 165.1 cm 585676. 39863 g 94 % 94 % 94 /min 116 mm[Hg] 69 mm[Hg] Jailyn Patterson [facility] 6 09:59:15 Date Recorded Body height Body weight Body mass index (BMI) Heart rate Oxygen saturation Oxygen saturation in Arterial blood by Pulse oximetry Systolic blood pressure Diastolic blood pressure Provider Name and Address Organization Details Last Updated DateTime 7 165.1 cm 10764.1 4 g 36.3 kg/m2 88 /min 94 % 94 % 128 mm[Hg] 81 mm[Hg] MAXIMINO SOMMER [facility] 7 10:42:40 Social History Question Answer Notes LastModified by Organizat ion Details LastModified Time Tobacco Smoking Status Current Every Day Smoker Jailyn finley, [facility] 01/06/2016 09:54:15 Do You Have An Advance Directive? No Information not available 01/06/2016 What Is Your Level Of Alcohol Consumption? None Information not available 01/06/2016 Animal Exposure? No Information not available 01/06/2016 What Is Your Level Of Caffeine Consumption? Occasional Information not available 01/06/2016 How Much Tobacco Do You Chew? None Information not available 01/06/2016 Are You Currently Employed? No Information not available 01/06/2016 Which Illicit Or Recreational Drugs Have You Used? NONE Information not available 01/06/2016 What Is Your Occupation? UNEMPLOYED Information not available 01/06/2016 Live Alone Or With Others? With Others Information not available 01/06/2016 Marital Status Single Informatio n not available 01/06/2016 Are There Any Occupational Health Risks Where You Work? NONE Information not available 01/06/2016 At What Age Did You Start Smoking Tobacco? 21 Information not available 01/06/2016 Are You Passively Exposed To Smoke? No Information not available 01/06/2016 How Much Tobacco Do You Smoke? 1 PPW 5 CIGARETTES [email or web address] Information not available 01/06/2016 Sex: Unknown Functional Status Question Answer Note LastModified by Organizat ion Details LastModified Time Are you able to care for yourself? No Information not available 01/06/2016 What is your exercise level? Occasional Information not available 01/06/2016 Mental Status None recorded. Family History Relationship Description Onset Age of this Age Resolved Age Notes LastModified by Organization Details LastModified Time Mother Malignant neoplasm of brain [email or web address] Not available 2015 10:15:07 Medical History Condition Response Anxiety Disorder Y Obesity Y Sleep Apnea Y Hyperthyroidism Y GERD/Reflux Y High Cholesterol Y Hypertension Y Depression Y Asthma Y Immunizations Vaccine Type Date Status Note Provider Nam e and Address Organization Details Recorded Time Influenza, split virus, trivalent, preservative 5 completed Jailyn finley, [facility] 01/06/2016 09:54:15 Past Encounters Encounter ID Performer Location Encounter Start Date Encounter Closed Date Diagnosis/Indication Diagnosis SNOMED-CT Code Diagnosis ICD10 Code Diagnosis Note [id number] Orlando Romo MD OFFICE [address] [place] [address] 01/06/2016 09:56:26 01/13/2016 08:41:22 Obstructive sleep apnea syndrome 13480212 G47.33 [id number] Orlando Romo MD [address]ICE [address] [place] [address] 10/10/2016 10:38:31 10/11/2016 11:01:55 Obstructive sleep apnea syndrome 57935521 G47.33 Health Concerns Section Related Observation LastModified by Organization Detai ls LastModified Time None Recorded Concern Status LastModified by Organization Details LastModified Time None Recorded Advance Directives Directive N: Payers Encounter Date Sequence Insurance Name Policy Number Policy Sanchez Covered Member ID Sanchez Member ID Guarantor Name 01/06/2016 1 [place]ICARE B-[place]: NGS Braden A Sanzo [id number] [facility] 01/06/2016 2 [place] Braden A Sanzo [id number] Braden Sanzo 10/10/2016 1 [place]ICARE [place]: NGS Braden A Sanzo [id number] [facility] 10/10/2016 2 [place] Braden A Sanzo [id number] [facility]
--- OUTSIDE RECORDS SUMMARY | 2025-01-22 12:58 | XMS_ITS | Encounter Summary ---
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 Name Role Phone Charles Zhang MD Primary Care Provider Encounter Details Date Type Department Care Team (Late st Contact Info) Description 08/13/2024 Lab Requisition [facility] - Main Lab [address] [facility] [place] [address] Charles Zhang MD [address] [place] [address] [address] TESS Marsh Encounter for therapeutic drug level monitoring; Schizoaffective disorder, unspecified (CMS/HCC V24, CMS/HCC V28) Social History Tobacco [...] Procedure Name Priority Date/Time Associated Diagnosis Comments SST - GOLD Routine 08/13/2024 7:07 AM EST Encounter for therapeutic drug level monitoring Schizoaffective disorder, unspecified (CMS/HCC) CBC WITH AUTO DIFFERENTIAL Routine 08/13/2024 7:07 AM EST Encounter for therapeutic drug level monitoring Schizoaffective disorder, unspecified (CMS/HCC) LEVETIRACETAM LEVEL Routine 08/13/2024 7 :07 AM EST Encounter for therapeutic drug level monitoring Schizoaffective disorder, unspecified (CMS/HCC) CBC AND DIFFERENTIAL Routine 08/13/2024 7:07 AM EST Encounter for therapeutic drug level monitoring Schizoaffective disorder, unspecified (CMS/HCC) documented in this encounter Results * SST tube (08/13/2024 7:07 AM EST) Pathologist [facility] Extra Tube Hold for add-ons. 08/13/2024 9:01 AM [facility] Comment:Auto resulted. Blood Venous blood specimen / Unknown 08/13/2024 7:07 AM EST 08/13/2024 7:53 AM EST us Charles Zhang MD LAB BLOOD ORDERABLES Final Resul t [facility] [address] [place] [address], [place] [phone] * (ABNORMAL) CBC auto differential (08/13/2024 7:07 AM EST) [facility] WBC 8.3 4.8 - 10.8 K/mcL LAB HEMETOLOGY METHOD 08/13/2024 8:01 AM [facility] RBC 4.90 4.50 - 5.50 M/mcL LAB HEMETOLOGY METHOD 08/13/2024 8:01 AM [facility] Hemoglobin 13.3(L) 13.5 - 17.5 g/dL LAB HEMETOLOGY METHOD 08/13/2024 8:01 AM [facility] Hematocrit 42.5 42.0 - 54.0 % LAB HEMETOLOGY METHOD 08/13/2024 8:01 AM [facility] MCV 87.6 79.0 - 98.0 FL LAB HEMETOLOGY METHOD 08/13/2024 8:01 AM [facility] MCH 27.4 27.0 - 32.0 pcg LAB HEMETOLOGY METHOD 08/13/2024 8:01 AM [facility] MCHC 31.3(L) 32.0 - 37.0 g/dL LAB HEMETOLOGY METHOD 08/13/2024 8:01 AM [facility] RDW 14.5 11.0 - 15.0 % LAB HEMETOLOGY METHOD 08/13/2024 8:01 AM [facility] Platelets 239 130 - 400 K/mcL LAB HEMETOLOGY METHOD 08/13/2024 8:01 AM [facility] MPV 9.9 7.0 - 11.0 FL LAB HEMETOLOGY METHOD 08/13/2024 8:01 AM [facility] NRBC 0.0 <1.0 % LAB HEMETOLOGY METHOD 08/13/2024 8:01 AM [facility] NRBC Absolute 0.00 <0.10 K/mcL LAB HEMETOLOGY METHOD 08/13/2024 8:01 AM [facility] Neutrophils Relative 58.8 % LAB HEMETOLOGY METHOD 08/13/2024 8:01 AM [facility] Lymphocytes Relative 29.1 % LAB HEMETOLOGY METHOD 08/13/2024 8:01 AM [facility] Monocytes Relative 8.3 % LAB HEMETOLOGY METHOD 08/13/2024 8:01 AM [facility] Eosinophils Relative 2.8 % LAB HEMETOLOGY METHOD 08/13/2024 8:01 AM [facility] Basophils Relative 0.5 % LAB HEMETOLOGY METHOD 08/13/2024 8:01 AM [facility] Immature Granulocytes Relative 0.5 % LAB HEMETOLOGY METHOD 08/13/2024 8:01 AM [facility] Neutrophils Absolute 4.88 1.50 - 7.00 K/mcL LAB HEMETOLOGY METHOD 08/13/2024 8:01 AM [facility] Lymphocytes Absolute 2.41 1.00 - 5.00 K/mcL LAB HEMETOLOGY METHOD 08/13/2024 8:01 AM [facility] Monocytes Absolute 0.69 0.20 - 1.00 K/mcL LAB HEMETOLOGY METHOD 08/13/2024 8:01 AM EST [facility] Eosinophils Absolute 0.23 0.00 - 0.50 K/[facility] LAB HEMETOLOGY METHOD 08/13/2024 8:01 AM EST [facility] Basophils Absolute 0.04 0.00 - 0.20 K/[facility] LAB HEMETOLOGY METHOD 08/13/2024 8:01 AM EST [facility] Immature Granulocytes Absolute 0.04(H) 0.00 - 0.03 K/[facility] LAB HEMETOLOGY METHOD 08/13/2024 8:01 AM EST [facility] Blood Venous blood specimen / Unknown 08/13/2024 7:07 AM EST 08/13/2024 7:46 AM EST Charles Zhang MD LAB BLOOD ORDERABLES Final Resul t [facility] [address] [place] [address], * Levetiracetam level (08/13/2024 7:07 AM EST) Levetiracetam 10.8 3.0 - 60.0 ug/mL 08/15/2024 7:04 AM EST [facility] Comment: Steady state trough serum or plasma levels following doses of 1000 to 3000 mg/Day: ??3 to 37 ug/mL. The same dosage regimen will typically result in peak levels of 10 to 60 ug/mL, at approximately 1.5 hours post dose. If applicable, any drug confirmation testing reported here was developed and the performance characteristics determined by [facility]. This confirmation testing has not been cleared or approved by the FDA. The laboratory is regulated under CLIA as qualified to perform high-complexity testing. This test is used for patient testing purposes. It should not be regarded as investigational or for research. Test performed at [facility], [address] , [place], [place] [address] ? [phone] Sandra Henning MD, PhD - Senior Nuclear Medicine Technologist Blood Venous blood specimen / Unknown 08/13/2024 7:07 AM EST 08/13/2024 7:46 AM EST us Charles Zhang MD LAB BLOOD ORDERABLES Final Resul t [facility] [address] [place] [id number] documented in this encounter Visit Diagnoses Diagnosis Encounter for therapeutic drug level monitoring Schizoaffective disorder, unspecified (CMS/HCC V24, CMS/HCC V28) documented in this encounter Care Teams Pile Fabric Knitter Relationship Specialty Start Date End Date Charles Zhang MD [address] [place] [address] Dr [address] TESS Marsh PCP - General Internal Medicine 10/21/24 documented as of this encounter
--- OUTSIDE RECORDS SUMMARY | 2025-01-22 12:58 | XMS_ITS | Data Portability ---
Author Organization [place] - [facility], [facility], [facility] Address [address] [address] Assessment No assessment recorded. Plan of Treatment Reminders Order Date Submit Date Provider Last Modified By Organization Details Last Modified Time Details Appointments None recorded. Lab None recorded. Referral None recorded. Procedures None recorded. Surgeries None recorded. Imaging bladder scan 016 016 [email or web address] In-House Results, For Internal Use Only, Do Not Delete/merge, [id number] 11:25:18 bladder scan 016 016 [email or web address] In-House Results, For Internal Use Only, Do Not Delete/merge, [id number] 11:30:53 Medication Orders None recorded. Patient TargetsNo targets recorded. Patient Instructions Encounter Date Encounter Id Patient Instructions Last Modified By Organization Details Last Modified Time 01/20/2016 [id number] Plan: ?1. ? ? ?I am not sure that he really tried to empty his bladder in the office today ?2. ? ? ?f/u in 6 weeks and will repeat pvr at that time. ? ? ?If worse will consider starting tamsulosin Not available 01/20/2016 11:30:19 03/02/2016 [id number] Plan: ?1. ? ? ?Since he has had no further incontinent episodes and his bladder emptying is much improved, no intervention is needed ?2. ? ? ?f/u in 6 months and will recheck pvr then Not available 03/02/2016 11:18:12 09/01/2016 [id number] Plan: 1. No intervention needed 2. f/u in 6 months and will follow pvr by ultrasound Not available 09/01/2016 08:48:36 03/02/2017 [id number] Plan: 1. f/u in 6 weeks to recheck pvr. If still elevated to this degree with start flomax [email or web address] Not available 03/02/2017 09:31:31 Reason for Referral None Reported. Results Created Date Observation Date Name Description Value Unit Range Abnormal Flag Note LastModifiedBy Organization Detail LastModifiedTime 03/02/20 16 03/02/2016 bladd er scan Post void residual 11 cc Not Available In-[facility] Results For Internal Use Only, Do Not Delete/merge, [id number] 03/02/2016 11:18:12 01/20/20 16 01/20/2016 bladd er scan Post void residual 256 cc Not Available In-[facility] Results For Internal Use Only, Do Not Delete/merge, [id number] 01/20/2016 11:30:20 Result Notes None recorded. Problems Name Problem SNOMED Code Status Onset Date Resolution Date Notes Provider Name and Address Organization Details Recorded Time Benign prostatic hyperplasia with outflow obstruction 021130649 Active INDERJIT Martinez [facility], [facility] 6 11:18:11 Incomplete emptying of urinary bladder 963803493 Active INDERJIT Martinez Jl [facility], [facility] 6 11:30:52 Problem Notes None recorded. Procedures Surgical History Date Name Laterality Status Provider Name and Address Organization Details Recorded Time 03/02/2017 PVR-Ultras ound completed Chad Parikh [facility] 03/02/2017 09:30:41 09/01/2016 PVR-Ultras ound completed Chad JANSEN Jl [facility] 09/01/2016 08:48:05 09/25/1982 Other completed Khushbu JANSEN - Deanne alvarez [facility], [facility] 01/20/2016 11:04:38 Imaging Results None recorded. Procedure Notes None recorded. Medical Equipment None Reported. Allergies Allergen ID Allergen Name Allergen Category Reaction Reaction Severity Criticality Documentation Date Start Date Code Code System Note Provider Name and Address Organization Details Recorded Time 237068 Product containin g penicilli n (product) medicatio n Not available Not available Not available 01/20/2016 30246 8001 SNOMED INDERJIT Khan [facility], [facility] 6 11:04:38 Medications Name Sig Start Date Stop Date Status Note LastModified by Organization Details LastModified Time atorvastatin 20 mg tablet active Not Available Not Available No t Available nicotine 14 mg/24 hr daily transdermal patch active Not Available Not Available Not Available quetiapine 300 mg tablet active Not Available Not Available No t Available divalproex 250 mg tablet,delayed release active Not Available Not Available Not Available trazodone 50 mg tablet 09/01 completed Not Available Not Available Not Available azithromycin 250 mg tablet 09/01 completed Not Available Not Available Not Available risperidone 4 mg tablet 09/01 completed Not Available Not Available Not Available BD Luer-Kristyn Syringe 3 mL 20 gauge x 1 active Not Available Not Available N ot Available meloxicam 15 mg tablet active Not Available Not Available Not Available quetiapine 200 mg tablet 09/01 completed Not Available Not Available Not Available clobetasol 0.05 % topical cream active Not Available Not Availa ble Not Available sulfamethoxazole 800 mg-trimethoprim 160 mg tablet 09/01 completed Not Available Not Available Not Available quetiapine 100 mg tablet active Not Available Not Available No t Available triamcinolone acetonide 0.1 % topical cream 09/01 completed Not Available Not Available Not Available hydrocortisone valerate 0.2 % topical ointment active Not Available Not Avail able Not Available fluphenazine decanoate 25 mg/mL injection solution active Not Available Not Available Not Available risperidone 1 mg/mL oral solution 09/01 completed Not Available Not Available Not Available pantoprazole 40 mg tablet,delayed release active Not Available Not Available Not Available simvastatin 20 mg tablet active Not Available Not Available No t Available tobramycin 0.3 % eye drops active Not Available Not Available No t Available divalproex ER 500 mg tablet,extended release 24 hr active Not Available Not Availabl e Not Available Advair Diskus 250 mcg-50 mcg/dose powder for inhalation active Not Available Not Availab le Not Available benztropine 1 mg tablet active Not Available Not Available Not Available polyethylene glycol 3350 17 gram/dose oral powder active Not Available Not Available Not Available BD Luer-Kristyn Syringe 3 mL 21 gauge x 1 active Not Available Not Available N ot Available divalproex ER 250 mg tablet,extended release 24 hr active Not Available Not Availabl e Not Available quetiapine 50 mg tablet 09/01 completed Not Available Not Available Not Available quetiapine 400 mg tablet active Not Available Not Available No t Available Symbicort 160 mcg-4.5 mcg/actuation HFA aerosol inhaler active Not Available Not Available Not Available Moxeza 0.5 % eye drops active Not Available Not Available Not Available Vitals Date Recorded Heart rate Body temperature Systolic blood pressure Diastolic blood pressure Provider Name and Address Organization Details Last Updated DateTime 01/20/2016 79 /min 96.5 [degF] 125 mm[Hg] 76 mm[Hg] Criss JANSEN [facility] 01/20/2016 11:03:16 Date Recorded Body height Body mass index (BMI) Body weight Provider Name and Address Organization Details Last Updated DateTime 01/20/2016 165.1 cm 37.6 kg/m2 119252.7434 2 g Khushbu Romo [facility], [facility] 01/20/2016 11:04:38 Date Recorded Body mass index (BMI) Body weight Body height Respiratory rate Heart rate Systolic blood pressure Diastolic blood pressure Provider Name and Address Organization Details Last Updated DateTime 6 37.4 kg/m2 469390. 97962 g 165.1 cm 18 /min 90 /min 105 mm[Hg] 67 mm[Hg] Criss Valdes [facility], [facility] 6 11:08:03 Date Recorded Body height Heart rate Respiratory rate Systolic blood pressure Diastolic blood pressure Provider Name and Address Organization Details Last Updated DateTime 09/01/2016 165.1 cm 60 /min 18 /min 100 mm[Hg] 60 mm[Hg] Criss JANSEN [facility], [facility] 6 08:38:58 Date Recorded Body height Provider Name an d Address Organization Details Last Updated DateTime 03/02/2017 165.1 cm Khushbu Romo [facility], [facility] 03/02/2017 09:17:47 Social History Question Answer Notes LastModified by Organizat ion Details LastModified Time Tobacco Smoking Status Current Every Day Smoker 5 cigarettes a day INDERJIT Khan [facility], [facility] 01/20/2016 11:04:38 What Is Your Level Of Alcohol Consumption? None Information not available 01/20/2016 What Is Your Level Of Caffeine Consumption? Occasional Information not available 01/20/2016 Sex: Unknown Functional Status None recorded. Mental Status None recorded. Family History Relationship Description Onset Age of this Age Resolved Age Notes LastModified by Organization Details LastModified Time Mother Malignant neoplasm of brain [email or web address] Not available 2015 11:08:22 Medical History Condition Response Sleep Apnea Y COPD Y Past Encounters Encounter ID Performer Location Encounter Start Date Encounter Closed Date Diagnosis/Indication Diagnosis SNOMED-CT Code Diagnosis ICD10 Code Diagnosis Note [id number] CHAD MANN MD [facility] [address] [address] 01/20/2016 10:27:50 01/20/2016 11:28:11 Benign prostatic hyperplasia with outflow obstruction 918564762 N40.1 Incomplete emptying of urinary bladder 717121089 R39.14 [id number] CHAD MANN MD [facility] [address] [address] 03/02/2016 10:45:10 03/02/2016 11:25:17 Benign prostatic hyperplasia with outflow obstruction 546639270 N40.1 [id number] CHAD MANN MD [facility] [address] [address] 09/01/2016 08:28:52 09/01/2016 09:31:44 Benign prostatic hyperplasia without outflow obstruction 955425951 N40.0 [id number] CHAD MANN MD [facility] [address] [place] [address] 03/02/2017 09:15:06 03/02/2017 09:30:40 Benign prostatic hyperplasia with outflow obstruction 070069459 N40.1 Incomplete emptying of urinary bladder 600217643 R39.14 He states that he did not try to empty his bladder today Health Concerns Section Related Observation LastModified by Organization Detai ls LastModified Time None Recorded Concern Status LastModified by Organization Details LastModified Time None Recorded Advance Directives Directive None Recorded Payers Encounter Date Sequence Insurance Name Policy Number Policy Sanchez Covered Member ID Sanchez Member ID Guarantor Name 01/20/2016 1 MEDICARE B-CT: NGS Braden Nolen [id number] Braden Sanzo 01/20/2016 2 [place]MED[place] SECOND[place] MEDICARE H[place]) Braden A Sanzo [id number] Braden Sanzo 03/02/2016 1 MEDICARE B-CT: NGS Braden A Sanzo [id number] Braden Sanzo 03/02/2016 2 [place]MED[place] MEDICARE H[place]) Braden A Sanzo [id number] Braden Sanzo 09/01/2016 1 MEDICARE B-CT: NGS Braden A Sanzo [id number] Braden Sanzo 09/01/2016 2 [place]MED[place] MEDICARE HMO) Braden A Sanzo [id number] Braden Sanzo 03/02/2017 1 MEDICARE B-CT: NGS Braden A Sanzo [id number] Braden Sanzo 03/02/2017 2 [place] (MED[place]ID SECOND[place] TO MEDICARE HMO) Braden A Sanzo [id number] [facility] Notes Date Note Type Note Provider Name and Address Organization Details Recorded Time 01/20/2016 text/html He is a 55 year old male who is here because he had a couple of incontinent episodes while sleeping. He denies any voiding sx's. He has never had gross hematuria. He is on a couple of pysch meds which could affect his urinary sx's. INDERJIT Martinez [facility] 01/20/2016 11:31:19 03/02/2016 text/html He is a 55 year old male who was seen in here in 2015 because he had a couple of incontinent episodes while sleeping. He denies any voiding sx's. He has never had gross hematuria. He is on a couple of pysch meds which could affect his urinary sx's. His pvr at that time was 256. Since then he states that he has not had any incontinent episodes and is voiding well. INDERJIT Martinez [facility] 03/02/2016 11:18:40 09/01/2016 text/html He is a 56 year old male who was initially seen here in 12/2015 because he had a couple of incontinent episodes while sleeping. He denies any voiding sx's. He has never had gross hematuria. He is on a couple of pysch meds which could affect his urinary sx's. His pvr at that time was 256. Since then he states that he has not had any incontinent episodes and is voiding well. INDERJIT Martinez [facility] 09/01/2016 08:49:01 03/02/2017 text/html He is a 57 year old male who was initially seen here in 12/2015 because he had a couple of incontinent episodes while sleeping. He denies any voiding sx's. He has never had gross hematuria. He is on a couple of pysch meds which could affect his urinary sx's. His pvr at that time was 256. Since then he states that he has not had any incontinent episodes and is voiding well. INDERJIT Martinez [facility] 03/02/2017 09:32:06
--- OUTSIDE RECORDS SUMMARY | 2025-01-22 12:58 | XMS_ITS | Encounter Summary ---
Author Organization [facility] Address [address] [place] [address] Care Team Providers Care Hired Worker Name Role Phone Charles Zhang MD Primary Care Provider [phone] Encounter Details Date Type Department Care Team (Late st Contact Info) Description 09/03/2024 Lab Requisition [facility] - Main Lab [address] [place] [address] Charles Zhang MD [address] [place] [address] [address] [place] Hypothyroidism, unspecified Social History Tobacco Use Types Packs/Day Years [...] Procedure Name Priority Date/Time Associated Diagnosis Comments THYROID STIMULATING HORMONE Routine 09/03/2024 6:56 AM EST Hypothyroidism, unspecified THYROXINE FREE Routine 09/03/2024 6:56 AM EST Hypothyroidism, unspecified documented in this encounter Results * Thyroxine free (09/03/2024 6:56 AM EST) Free T4 1.41 0.70 - 1.80 ng/dL LAB CHEMISTRY METHOD 09/03/2024 9:41 PM EST [facility] Blood Venous blood specimen / Unknown 09/03/2024 6:56 AM EST 09/03/2024 7:51 AM EST us Charles Zhang MD LAB BLOOD ORDERABLES Final Resul t [facility] [address] [place] [address], [place] [phone] * Thyroid stimulating hormone (09/03/2024 6:56 AM EST) TSH 2.83 0.40 - 4.00 mcIU/mL LAB CHEMISTRY METHOD 09/03/2024 8:31 AM EST [facility] Blood Venous blood specimen / Unknown 09/03/2024 6:56 AM EST 09/03/2024 7:51 AM EST us Charles Zhang MD LAB BLOOD ORDERABLES Final Resul t [facility] [address] [place] [address], [place] [phone] documented in this encounter Visit Diagnoses Diagnosis Hypothyroidism, unspecified documented in this encounter Care Teams Hired Worker Relationship Specialty Start Date End Date Charles Zhang MD [address] [place] [address] Dr [address] [place] PCP - General Internal Medicine 10/21/24 documented as of this encounter
--- OUTSIDE RECORDS SUMMARY | 2025-01-22 12:58 | XMS_ITS | Encounter Summary ---
Author Organization [facility] Address [address] [place] [address] Care Team Providers Care Gold Stamper Name Role Phone Charles Zhang MD Primary Care Provider [phone] Encounter Details Date Type Department Care Team (Latest Contact Info) Description 12/31/2024 Lab Requisition [facility] - Main Lab [address] [facility] [place] [address] Charles Zhang MD [address] [place] [address] Dr [address] [place] Schizoaffective disorder, unspecified (CMS/HCC V24, CMS/HCC V28); Diffuse traumatic brain injury with loss of consciousness of unspecified duration, sequela (CMS/HCC V24) Social History Tobacco Use Types Packs/Day Years [...] Diagnosis Comments CBC WITH AUTO DIFFERENTIAL Routine 12/31/2024 6:46 AM EDT Schizoaffective disorder, unspecified Diffuse traumatic brain injury with loss of consciousness of unspecified duration, sequela (CMS/HCC) CBC AND DIFFERENTIAL Routine 12/31/2024 6:46 AM EDT Schizoaffective disorder, unspecified Diffuse traumatic brain injury with loss of consciousness of unspecified duration, sequela (CMS/HCC) documented in this encounter Results * (ABNORMAL) CBC auto differential (12/31/2024 6:46 AM EDT) WBC 10.8 4.8 - 10.8 K/mcL LAB HEMETOLOGY METHOD 12/31/2024 7:42 AM [facility] RBC 4.70 4.50 - 5.50 M/mcL LAB HEMETOLOGY METHOD 12/31/2024 7:42 AM [facility] Hemoglobin 12.7(L) 13.5 - 17.5 g/dL LAB HEMETOLOGY METHOD 12/31/2024 7:42 AM [facility] Hematocrit 40.7(L) 42.0 - 54.0 % LAB HEMETOLOGY METHOD 12/31/2024 7:42 AM [facility] MCV 86.6 79.0 - 98.0 FL LAB HEMETOLOGY METHOD 12/31/2024 7:42 AM [facility] MCH 27.0 27.0 - 32.0 pcg LAB HEMETOLOGY METHOD 12/31/2024 7:42 AM [facility] MCHC 31.2(L) 32.0 - 37.0 g/dL LAB HEMETOLOGY METHOD 12/31/2024 7:42 AM [facility] RDW 15.1(H) 11.0 - 15.0 % LAB HEMETOLOGY METHOD 12/31/2024 7:42 AM [facility] Platelets 190 130 - 400 K/mcL LAB HEMETOLOGY METHOD 12/31/2024 7:42 AM [facility] MPV 10.5 7.0 - 11.0 FL LAB HEMETOLOGY METHOD 12/31/2024 7:42 AM [facility] NRBC 0.0 <1.0 % LAB HEMETOLOGY METHOD 12/31/2024 7:42 AM [facility] NRBC Absolute 0.00 <0.10 K/mcL LAB HEMETOLOGY METHOD 12/31/2024 7:42 AM [facility] Neutrophils Relative 66.3 % LAB HEMETOLOGY METHOD 12/31/2024 7:42 AM [facility] Lymphocytes Relative 21.4 % LAB HEMETOLOGY METHOD 12/31/2024 7:42 AM [facility] Monocytes Relative 8.8 % LAB HEMETOLOGY METHOD 12/31/2024 7:42 AM [facility] Eosinophils Relative 2.5 % LAB HEMETOLOGY METHOD 12/31/2024 7:42 AM [facility] Basophils Relative 0.5 % LAB HEMETOLOGY METHOD 12/31/2024 7:42 AM [facility] Immature Granulocytes Relative 0.5 % LAB HEMETOLOGY METHOD 12/31/2024 7:42 AM [facility] Neutrophils Absolute 7.14(H) 1.50 - 7.00 K/mcL LAB HEMETOLOGY METHOD 12/31/2024 7:42 AM [facility] Lymphocytes Absolute 2.30 1.00 - 5.00 K/mcL LAB HEMETOLOGY METHOD 12/31/2024 7:42 AM [facility] Monocytes Absolute 0.95 0.20 - 1.00 K/mcL LAB HEMETOLOGY METHOD 12/31/2024 7:42 AM [facility] Eosinophils Absolute 0.27 0.00 - 0.50 K/mcL LAB HEMETOLOGY METHOD 12/31/2024 7:42 AM [facility] Basophils Absolute 0.05 0.00 - 0.20 K/mcL LAB HEMETOLOGY METHOD 12/31/2024 7:42 AM [facility] Immature Granulocytes Absolute 0.05(H) 0.00 - 0.03 K/mcL LAB HEMETOLOGY METHOD 12/31/2024 7:42 AM [facility] Blood Venous blood specimen / Unknown 12/31/2024 6:46 AM EDT 12/31/2024 7:28 AM EDT us Charles Zhang MD LAB BLOOD ORDERABLES Final Resul t [facility] [address] [place] [address], documented in this encounter Visit Diagnoses Diagnosis Schizoaffective disorder, unspecified (CMS/HCC V24, CMS/HCC V28) Diffuse traumatic brain injury with loss of consciousness of unspecified duration, sequela (CMS/[facility] V24) documented in this encounter Care Teams Gold Stamper Relationship Specialty Start Date End Date Charles Zhang MD [address] [place], [place] PCP - General Internal Medicine 10/21/24 documented as of this encounter
--- OUTSIDE RECORDS SUMMARY | 2025-01-22 12:58 | XMS_ITS | Encounter Summary ---
Author Organization [facility] Address [address] [place] [address] Care Team Providers Care Electrical Line Mechanic Name Role Phone Charles Zhang MD Primary Care Provider [phone] Encounter Details Date Type Department Care Team (Late st Contact Info) Description 08/13/2024 Lab Requisition [facility] - Main Lab [address] [facility] [place] [address] Social History Tobacco Use Types Packs/Day Years Used Date Smoking Tobacco: Never Assessed Sex and Gender Information Value Date Recorded Sex Assigned at Not on file Legal Sex Male 9:01 PM EST Gender Identity Not on file Sexual Orientation Not on file documented as of this encounter Plan of Treatment Not on file documented as of this encounter Visit Diagnoses Not on filedocumented in this encounter Care Teams Electrical Line Mechanic Relationship Specialty Start Date End Date Charles Zhang MD [address] [place] PCP - General Internal Medicine 10/21/24 documented as of this encounter
--- OUTSIDE RECORDS SUMMARY | 2025-01-22 12:58 | XMS_ITS | Encounter Summary ---
Author Organization [facility] Address [address] [place] [address] Care Team Providers Care Analytical Engineer Name Role Phone Charles Zhang MD Primary Care Provider Encounter Details Date Type Department Care Team (Latest Contact Info) Description 12/02/2024 Lab Requisition [facility] - Main Lab [address] [facility] [place] [address] Charles Zhang MD [address] [place] [address] Dr [address] T[place] Bautista Schizoaffective disorder, unspecified (CMS/HCC V24, CMS/HCC V28); Hyperlipidemia, unspecified; Benign prostatic hyperplasia without lower urinary tract symptoms Social History Tobacco Use Types Packs/Day Years [...] Procedure Name Priority Date/Time Associated Diagnosis Comments PROSTATE SPECIFIC ANTIGEN SCREEN Routine 12/02/2024 6:53 AM EDT Schizoaffective disorder, unspecified Hyperlipidemia, unspecified Benign prostatic hyperplasia without lower urinary tract symptoms LIPID PANEL WITH REFLEX TO DIRECT LDL Routine 12/02/2024 6:53 AM EDT Schizoaffective disorder, unspecified Hyperlipidemia, unspecified Benign prostatic hyperplasia without lower urinary tract symptoms CBC WITH AUTO DIFFERENTIAL Routine 12/02/2024 6:53 AM EDT Schizoaffective disorder, unspecified Hyperlipidemia, unspecified Benign prostatic hyperplasia without lower urinary tract symptoms CBC AND DIFFERENTIAL Routine 12/02/2024 6:53 AM EDT Schizoaffective disorder, unspecified Hyperlipidemia, unspecified Benign prostatic hyperplasia without lower urinary tract symptoms VITAMIN B12 Routine 12/02/2024 6:53 AM EDT Schizoaffective disorder, unspecified Hyperlipidemia, unspecified Benign prostatic hyperplasia without lower urinary tract symptoms LITHIUM LEVEL Routine 12/02/2024 6:53 AM EDT Schizoaffective disorder, unspecified Hyperlipidemia, unspecified Benign prostatic hyperplasia without lower urinary tract symptoms documented in this encounter Results * (ABNORMAL) CBC auto differential (12/02/2024 6:53 AM EDT) [facility] WBC 8.4 4.8 - 10.8 K/mcL LAB HEMETOLOGY METHOD 12/02/2024 8:13 AM [facility] RBC 4.60 4.50 - 5.50 M/mcL LAB HEMETOLOGY METHOD 12/02/2024 8:13 AM [facility] Hemoglobin 12.5(L) 13.5 - 17.5 g/dL LAB HEMETOLOGY METHOD 12/02/2024 8:13 AM [facility] Hematocrit 40.0(L) 42.0 - 54.0 % LAB HEMETOLOGY METHOD 12/02/2024 8:13 AM [facility] MCV 87.3 79.0 - 98.0 FL LAB HEMETOLOGY METHOD 12/02/2024 8:13 AM [facility] MCH 27.3 27.0 - 32.0 pcg LAB HEMETOLOGY METHOD 12/02/2024 8:13 AM [facility] MCHC 31.3(L) 32.0 - 37.0 g/dL LAB HEMETOLOGY METHOD 12/02/2024 8:13 AM [facility] RDW 15.0 11.0 - 15.0 % LAB HEMETOLOGY METHOD 12/02/2024 8:13 AM [facility] Platelets 238 130 - 400 K/mcL LAB HEMETOLOGY METHOD 12/02/2024 8:13 AM [facility] MPV 9.9 7.0 - 11.0 FL LAB HEMETOLOGY METHOD 12/02/2024 8:13 AM [facility] NRBC 0.0 <1.0 % LAB HEMETOLOGY METHOD 12/02/2024 8:13 AM [facility] NRBC Absolute 0.00 <0.10 K/mcL LAB HEMETOLOGY METHOD 12/02/2024 8:13 AM [facility] Neutrophils Relative 62.6 % LAB HEMETOLOGY METHOD 12/02/2024 8:13 AM [facility] Lymphocytes Relative 25.1 % LAB HEMETOLOGY METHOD 12/02/2024 8:13 AM [facility] Monocytes Relative 8.0 % LAB HEMETOLOGY METHOD 12/02/2024 8:13 AM [facility] Eosinophils Relative 3.6 % LAB HEMETOLOGY METHOD 12/02/2024 8:13 AM [facility] Basophils Relative 0.5 % LAB HEMETOLOGY METHOD 12/02/2024 8:13 AM [facility] Immature Granulocytes Relative 0.2 % LAB HEMETOLOGY METHOD 12/02/2024 8:13 AM [facility] Neutrophils Absolute 5.27 1.50 - 7.00 K/mcL LAB HEMETOLOGY METHOD 12/02/2024 8:13 AM [facility] Lymphocytes Absolute 2.11 1.00 - 5.00 K/mcL LAB HEMETOLOGY METHOD 12/02/2024 8:13 AM [facility] Monocytes Absolute 0.67 0.20 - 1.00 K/mcL LAB HEMETOLOGY METHOD 12/02/2024 8:13 AM [facility] Eosinophils Absolute 0.30 0.00 - 0.50 K/mcL LAB HEMETOLOGY METHOD 12/02/2024 8:13 AM EDT [facility] Basophils Absolute 0.04 0.00 - 0.20 K/[facility] LAB HEMETOLOGY METHOD 12/02/2024 8:13 AM EDT [facility] Immature Granulocytes Absolute 0.02 0.00 - 0.03 K/[facility] LAB HEMETOLOGY METHOD 12/02/2024 8:13 AM EDT [facility] Blood Venous blood specimen / Unknown 12/02/2024 6:53 AM EDT 12/02/2024 7:52 AM EDT us Charles Zhang MD LAB BLOOD ORDERABLES Final Resul t Performing Organization Address [facility] de Phone Number [facility] [address] [place] [address], [place] [phone] * Prostate specific antigen screen (12/02/2024 6:53 AM EDT) PSA 1.42 0.00 - 4.00 ng/mL LAB CHEMISTRY METHOD 12/02/2024 10:54 AM EDT [facility] Blood Venous blood specimen / Unknown 12/02/2024 6:53 AM EDT 12/02/2024 7:52 AM EDT Narrative [facility] - 12/02/2024 10:54 AM EDT The Siemens Advia Centaur Chemiluminescent Immunoassay is used. Results obtained with different assay methods or kits cannot be used interchangeably. Results cannot be interpreted as absolute evidence of the presence or absence of malignant disease. us Charles Zhang MD LAB BLOOD ORDERABLES Final Resul t Performing Organization Address [facility]/ZIP Co de Phone Number [facility] [address] [place] [address], [place] [phone] * [place] level (12/02/2024 6:53 AM EDT) Pathologist [facility] [place] Level 0.7 0.6 - 1.2 mEq/L LAB CHEMISTRY METHOD 12/02/2024 10:54 AM EDT [facility] Blood Venous blood specimen / Unknown 12/02/2024 6:53 AM EDT 12/02/2024 7:52 AM EDT us Charles Zhang MD LAB BLOOD ORDERABLES Final Resul t Performing Organization Address City/[facility]/ZIP Co de Phone Number [facility] [address] [place] [address], [place] [phone] * Vitamin B12 (12/02/2024 6:53 AM EDT) [facility] Vitamin B-12 405 250 - 900 pcg/mL LAB CHEMISTRY METHOD 12/02/2024 10:54 AM EDT [facility] Blood Venous blood specimen / Unknown 12/02/2024 6:53 AM EDT 12/02/2024 7:52 AM EDT us Charles Zhang MD LAB BLOOD ORDERABLES Final Resul t Performing Organization Address [facility] de Phone Number [facility] [address] [place] [address], [place] [phone] * Lipid panel with reflex to direct LDL (12/02/2024 6:53 AM EDT) [facility] Cholesterol 131 0 - 200 mg/dL LAB CHEMISTRY METHOD 12/02/2024 10:54 AM EDT [facility] Triglycerides 124 0 - 150 mg/dL LAB CHEMISTRY METHOD 12/02/2024 10:54 AM EDT [facility] HDL 47 >=40 mg/dL LAB CHEMISTRY METHOD 12/02/2024 10:54 AM EDT [facility] LDL Calculated 59 0 - 100 mg/dL LAB CHEMISTRY METHOD 12/02/2024 10:54 AM EDT [facility] VLDL Cholesterol Ferm[place] 24.8 mg/dL LAB CHEMISTRY METHOD 12/02/2024 10:54 AM EDT [facility] Non HDL Chol. (LDL+VLDL) 84 <145 mg/dL LAB CHEMISTRY METHOD 12/02/2024 10:54 AM EDT [facility] Chol/HDL Ratio 2.8 0.0 - 4.4 LAB CHEMISTRY METHOD 12/02/2024 10:54 AM EDT [facility] Blood Venous blood specimen / Unknown 12/02/2024 6:53 AM EDT 12/02/2024 7:52 AM EDT us Charles Zhang MD LAB BLOOD ORDERABLES Final Resul t [facility] ([facility] [address] [place] [address], [place] [phone] documented in this encounter Visit Diagnoses Diagnosis Schizoaffective disorder, unspecified (CMS/HCC V24, CMS/[facility]ER[facility] V28) Hyperlipidemia, unspecified Benign prostatic hyperplasia without lower urinary tract symptoms documented in this encounter Care Teams Analytical Engineer Relationship Specialty Start Date End Date Charles Zhang MD [address] [place] [address] [place] [address] [place] PCP - General Internal Medicine 10/21/24 documented as of this encounter
--- OUTSIDE RECORDS SUMMARY | 2025-01-22 12:58 | XMS_ITS ---
Author Organization [facility] Address [address] [place] [address] Care Team Providers Care Douper Name Role Phone Unavailable Primary Care Provider Unavailabl e [id number] Program Enrollment: MICHAEL Status:Enrolled (Active) Start date:05/28/2024 Enrollment date:05/28/2024 Case Team Name Relationship Phone Yas Ortiz LCSW (Responsible Staff) [phone] Continued Care and Services Coordination
--- OUTSIDE RECORDS SUMMARY | 2025-01-22 12:58 | XMS_ITS | Encounter Summary ---
Author Organization [facility] Address [address] [place] [address] Care Team Providers Care Recruitment Officer Name Role Phone Charles Zhang MD Primary Care Provider [phone] Encounter Details Date Type Department Care Team (Late st Contact Info) Description 08/13/2024 Lab Requisition [facility] - Main Lab [address] [facility] [place] [address] Social History Tobacco Use Types [...] on filedocumented in this encounter Care Teams Recruitment Officer Relationship Specialty Start Date End Date Charles Zhang MD [address] [place] PCP - General Internal Medicine 10/21/24 documented as of this encounter
--- OUTSIDE RECORDS SUMMARY | 2025-01-22 12:59 | XMS_ITS | Clinical Summary ---
Author Organization [address] [facility] Address [address] [place] [address] Phone Care Team Providers Care Sinter Feeder Name Role Phone Charles Zhang MD Primary Care Provider [phone] Encounters Date Type Department Care Team Description 12/31/2024 Lab Requisition [facility] [address] [place] [phone] Charles Zhang MD Schizoaffective disorder, unspecified ([facility] V24, CMS/[facility] V28); Diffuse traumatic brain injury with loss of consciousness of unspecified duration, sequela ([facility] V24) 12/02/2024 Lab Requisition [facility] [address] [place] [phone] Charles Zhang MD Schizoaffective disorder, unspecified (CMS/[facility] V24, CMS/[facility] V28); Hyperlipidemia, unspecified; Benign prostatic hyperplasia without lower urinary tract symptoms 11/08/2024 Lab Requisition [facility] [address] [place] [phone] Charles Zhang MD Encounter for therapeutic drug level monitoring 11/07/2024 Lab Requisition [facility] [address] [place] [phone] Charles Zhang MD Encounter for therapeutic drug level monitoring from Last 3 Months Social History Tobacco Use Types Packs/Day Years Used Date Smoking Tobacco: Never Assessed Sex and Gender Information Value Date Recorded Sex Assigned at Not on file Legal Sex Male 9:01 PM EST Gender Identity Not on file Sexual Orientation Not on file Plan of Treatment Health Maintenance Due Date Last Done Comments DTaP,Tdap,and Td Vaccines (1 - Tdap) 1979 Pneumococcal Vaccine: 50+ Years (1 of 1 - PCV) 02/08/2008 Zoster Vaccines (1 of 2) 02/08/2008 Abdominal Aortic Aneurysm (AAA) Screen 10/20/2023 Colorectal Cancer Screening: Colonoscopy 10/20/2023 Depression Screening 10/20/2023 Falls Risk Assessment 10/20/2023 Hepatitis C Screening 10/20/2023 Medicare Annual Wellness Visit 10/20/2023 Social Influencers of Health Screening 10/20/2023 COVID-19 Vaccine (1 - 2023-2 5 season) 2024 Influenza Vaccine (Season Ended) 2025 Hypertension/CHF/CAD Annual BMP Blood Test 11/08/2025 11/08/2024, 09/11/2024 Cholesterol Screening (Lipid Panel) 12/02/2029 12/02/2024, 09/11/2024 RSV Immunization Adult Patients (1 - 1-dose 75+ series) 2033 HIB Vaccines Aged Out No longer eligi ble based on patient's age to complete this topic HPV Vaccines Aged Out No longer eligi ble based on patient's age to complete this topic Hepatitis A Vaccines Aged Out No long er eligible based on patient's age to complete this topic Hepatitis B Vaccines Aged Out No long er eligible based on patient's age to complete this topic IPV Vaccines Aged Out No longer eligi ble based on patient's age to complete this topic MMR Vaccines Aged Out No longer eligi ble based on patient's age to complete this topic Meningococcal ACWY Vaccine Aged Out N o longer eligible based on patient's age to complete this topic Meningococcal B Vaccine Aged Out No l onger eligible based on patient's age to complete this topic RSV Immunization Patients Under 20 months Aged Out No longer eligible b ased on patient's age to complete this topic Varicella Vaccines Aged Out No longer eligible based on patient's age to complete this topic Procedures Procedure Name Priority Date/Time Associated Diagnosis Comments CBC WITH AUTO DIFFERENTIAL Routine 12/31/2024 6:46 AM EDT Schizoaffective disorder, unspecified Diffuse traumatic brain injury with loss of consciousness of unspecified duration, sequela (CMS/HCC) CBC AND DIFFERENTIAL Routine 12/31/2024 6:46 AM EDT Schizoaffective disorder, unspecified Diffuse traumatic brain injury with loss of consciousness of unspecified duration, sequela (CMS/HCC) CBC WITH AUTO DIFFERENTIAL Routine 12/02/2024 6:53 AM EDT Schizoaffective disorder, unspecified Hyperlipidemia, unspecified Benign prostatic hyperplasia without lower urinary tract symptoms PROSTATE SPECIFIC ANTIGEN SCREEN Routine 12/02/2024 6:53 [...] prostatic hyperplasia without lower urinary tract symptoms COMPREHENSIVE METABOLIC PANEL Routine 11/08/2024 6:42 AM EST Encounter for therapeutic drug level monitoring CBC WITH AUTO DIFFERENTIAL Routine 11/07/2024 6:57 AM EST Encounter for therapeutic drug level monitoring CBC AND DIFFERENTIAL Routine 11/07/2024 6:57 AM EST Encounter for therapeutic drug level monitoring from Last 3 Months Results * (ABNORMAL) CBC auto differential (12/31/2024 6:46 AM EDT) Only the most recent of3 resultswithin the time period is included. WBC 10.8 4.8 - 10.8 K/[facility] LAB HEMETOLOGY METHOD 12/31/2024 7:42 AM EDT [facility] RBC 4.70 4.50 - 5.50 M/mcL LAB HEMETOLOGY METHOD 12/31/2024 7:42 AM [facility] Hemoglobin 12.7(L) 13.5 - 17.5 g/dL LAB HEMETOLOGY METHOD 12/31/2024 7:42 AM [facility] Hematocrit 40.7(L) 42.0 - 54.0 % LAB HEMETOLOGY METHOD 12/31/2024 7:42 AM [facility] MCV 86.6 79.0 - 98.0 FL LAB HEMETOLOGY METHOD 12/31/2024 7:42 AM [facility] MCH 27.0 27.0 - 32.0 pcg LAB HEMETOLOGY METHOD 12/31/2024 7:42 AM [facility] MCHC 31.2(L) 32.0 - 37.0 g/dL LAB HEMETOLOGY METHOD 12/31/2024 7:42 AM [facility] RDW 15.1(H) 11.0 - 15.0 % LAB HEMETOLOGY METHOD 12/31/2024 7:42 AM [facility] Platelets 190 130 - 400 K/mcL LAB HEMETOLOGY METHOD 12/31/2024 7:42 AM [facility] MPV 10.5 7.0 - 11.0 FL LAB HEMETOLOGY METHOD 12/31/2024 7:42 AM [facility] NRBC 0.0 <1.0 % LAB HEMETOLOGY METHOD 12/31/2024 7:42 AM [facility] NRBC Absolute 0.00 <0.10 K/mcL LAB HEMETOLOGY METHOD 12/31/2024 7:42 AM [facility] Neutrophils Relative 66.3 % LAB HEMETOLOGY METHOD 12/31/2024 7:42 AM [facility] Lymphocytes Relative 21.4 % LAB HEMETOLOGY METHOD 12/31/2024 7:42 AM [facility] Monocytes Relative 8.8 % LAB HEMETOLOGY METHOD 12/31/2024 7:42 AM [facility] Eosinophils Relative 2.5 % LAB HEMETOLOGY METHOD 12/31/2024 7:42 AM [facility] Basophils Relative 0.5 % LAB HEMETOLOGY METHOD 12/31/2024 7:42 AM [facility] Immature Granulocytes Relative 0.5 % LAB HEMETOLOGY METHOD 12/31/2024 7:42 AM [facility] Neutrophils Absolute 7.14(H) 1.50 - 7.00 K/mcL LAB HEMETOLOGY METHOD 12/31/2024 7:42 AM [facility] Lymphocytes Absolute 2.30 1.00 - 5.00 K/mcL LAB HEMETOLOGY METHOD 12/31/2024 7:42 AM [facility] Monocytes Absolute 0.95 0.20 - 1.00 K/mcL LAB HEMETOLOGY METHOD 12/31/2024 7:42 AM [facility] Eosinophils Absolute 0.27 0.00 - 0.50 K/mcL LAB HEMETOLOGY METHOD 12/31/2024 7:42 AM [facility] Basophils Absolute 0.05 0.00 - 0.20 K/mcL LAB HEMETOLOGY METHOD 12/31/2024 7:42 AM [facility] Immature Granulocytes Absolute 0.05(H) 0.00 - 0.03 K/mcL LAB HEMETOLOGY METHOD 12/31/2024 7:42 AM [facility] Blood Venous blood specimen / Unknown 12/31/2024 6:46 AM EDT 12/31/2024 7:28 AM EDT us Charles Zahng MD LAB BLOOD ORDERABLES Final Resul t Performing Organization Address City/[facility]/ZIP Co de Phone Number [facility] [address] [place] [address], [place] [phone] * Prostate specific antigen screen (12/02/2024 6:53 AM EDT) PSA 1.42 0.00 - 4.00 ng/mL LAB CHEMISTRY METHOD 12/02/2024 10:54 AM EDT [facility] Blood Venous blood specimen / Unknown 12/02/2024 6:53 AM EDT 12/02/2024 7:52 AM EDT Narrative [facility] - 12/02/2024 10:54 AM EDT The Siemens Advia Meddikaur Chemiluminescent Immunoassay is used. Results obtained with different assay methods or kits cannot be used interchangeably. Results cannot be interpreted as absolute evidence of the presence or absence of malignant disease. us Charles Zhang MD LAB BLOOD ORDERABLES Final Resul t Performing Organization Address City/[facility]/ZIP Co de Phone Number [facility] [address] [place] [address], [place] [phone] * Lipid panel with reflex to direct LDL (12/02/2024 6:53 AM EDT) Cholesterol 131 0 - 200 mg/dL LAB CHEMISTRY METHOD 12/02/2024 10:54 AM EDT [facility] Triglycerides 124 0 - 150 mg/dL LAB CHEMISTRY METHOD 12/02/2024 10:54 AM EDT [facility] HDL 47 >=40 mg/dL LAB CHEMISTRY METHOD 12/02/2024 10:54 AM EDT [facility] LDL Calculated 59 0 - 100 mg/dL LAB CHEMISTRY METHOD 12/02/2024 10:54 AM EDT [facility] VLDL Cholesterol Ferm[place] 24.8 mg/dL LAB CHEMISTRY METHOD 12/02/2024 10:54 AM EDT [facility] Non HDL Chol. (LDL+VLDL) 84 <145 mg/dL LAB CHEMISTRY METHOD 12/02/2024 10:54 AM EDT [facility] Chol/HDL Ratio 2.8 0.0 - 4.4 LAB CHEMISTRY METHOD 12/02/2024 10:54 AM EDT [facility] Blood Venous blood specimen / Unknown 12/02/2024 6:53 AM EDT 12/02/2024 7:52 AM EDT us Charles Zhang MD LAB BLOOD ORDERABLES Final Resul t [facility] [address] [place] [address], [place] [phone] * Vitamin B12 (12/02/2024 6:53 AM EDT) Vitamin B-12 405 250 - 900 pcg/mL LAB CHEMISTRY METHOD 12/02/2024 10:54 AM EDT [facility] Blood Venous blood specimen / Unknown 12/02/2024 6:53 AM EDT 12/02/2024 7:52 AM EDT us Charles Zhang MD LAB BLOOD ORDERABLES Final Resul t [facility] [address] [place] [address], [place] [phone] * [place] level (12/02/2024 6:53 AM EDT) [place] Level 0.7 0.6 - 1.2 mEq/L LAB CHEMISTRY METHOD 12/02/2024 10:54 AM EDT [facility] Blood Venous blood specimen / Unknown 12/02/2024 6:53 AM EDT 12/02/2024 7:52 AM EDT us Charles Zhang MD LAB BLOOD ORDERABLES Final Resul t [facility] [address] [place] [address], * (ABNORMAL) Comprehensive metabolic panel (11/08/2024 6:42 AM EST) Sodium 139 133 - 145 mmol/L LAB CHEMISTRY METHOD 11/08/2024 7:51 AM EST [facility] Potassium 4.3 3.5 - 5.5 mmol/L LAB CHEMISTRY METHOD 11/08/2024 7:51 AM [facility] Chloride 109 96 - 110 mmol/L LAB CHEMISTRY METHOD 11/08/2024 7:51 AM [facility] CO2 28 21 - 32 mmol/L LAB CHEMISTRY METHOD 11/08/2024 7:51 AM [facility] Anion Gap 2(L) 3 - 11 LAB CHEMISTRY METHOD 11/08/2024 7:51 AM [facility] Glucose 98 70 - 100 mg/dL LAB CHEMISTRY METHOD 11/08/2024 7:51 AM [facility] BUN 10 5 - 25 mg/dL LAB CHEMISTRY METHOD 11/08/2024 7:51 AM [facility] Creatinine 0.68(L) 0.70 - 1.30 mg/dL LAB CHEMISTRY METHOD 11/08/2024 7:51 AM [facility] eGFR 103 >=60 mL/min/1. 73m2 LAB CHEMISTRY METHOD 11/08/2024 7:51 AM [facility] Comment:Calculation based on the??Chronic Kidney Disease Epidemiology Collaboration (CKD-EPI) equation refit??without adjustment for race. BUN/Creatinine Ratio 14.7 LAB CHEMISTRY METHOD 11/08/2024 7:51 AM [facility] Calcium 9.2 8.5 - 10.5 mg/dL LAB CHEMISTRY METHOD 11/08/2024 7:51 AM EST [facility] AST (SGOT) 23 10 - 42 unit/L LAB CHEMISTRY METHOD 11/08/2024 7:51 AM [facility] ALT (SGPT) 27 10 - 60 unit/L LAB CHEMISTRY METHOD 11/08/2024 7:51 AM [facility] Alkaline Phosphatase 88 42 - 121 unit/L LAB CHEMISTRY METHOD 11/08/2024 7:51 AM [facility] Total Protein 6.3 6.0 - 8.0 g/dL LAB CHEMISTRY METHOD 11/08/2024 7:51 AM [facility] Albumin 3.5 3.2 - 5.0 g/dL LAB CHEMISTRY METHOD 11/08/2024 7:51 AM [facility] Total Bilirubin 0.3 0.0 - 1.4 mg/dL LAB CHEMISTRY METHOD 11/08/2024 7:51 AM [facility] Blood Venous blood specimen / Unknown 11/08/2024 6:42 AM EST 11/08/2024 7:15 AM EST Charles Zhang MD LAB BLOOD ORDERABLES Final Resul t [facility] [address] [place] [address], from Last 3 Months Insurance MEDICARE [place] Care Teams Sinter Feeder Relationship Specialty Start Date End Date Charles Zhang MD [address] [place] [address] Dr [address] [place] PCP - General Internal Medicine 10/21/24
--- OUTSIDE RECORDS SUMMARY | 2025-01-22 12:59 | XMS_ITS | Encounter Summary ---
Author Organization [facility] Address [address] [place] [address] Care Team Providers Care Product Marketing Intern Name Role Phone Charles Zhang MD Primary Care Provider Encounter Details Date Type Department Care Team (Late st Contact Info) Description 10/08/2024 Lab Requisition [facility] - Main Lab [address] [facility] [place] [address] Charles Zhang MD [address] [place] [address] [address] [place] Vitamin D deficiency, unspecified; Schizoaffective disorder, unspecified (CMS/HCC V24, CMS/HCC V28) [...] Diagnosis Comments CBC WITH AUTO DIFFERENTIAL Routine 10/08/2024 6:43 AM EST Schizoaffective disorder, unspecified (CMS/HCC) Vitamin D deficiency, unspecified VITAMIN D 25 HYDROXY Routine 10/08/2024 6:43 AM EST Schizoaffective disorder, unspecified (CMS/HCC) Vitamin D deficiency, unspecified CBC AND DIFFERENTIAL Routine 10/08/2024 6:43 AM EST Schizoaffective disorder, unspecified (CMS/HCC) Vitamin D deficiency, unspecified documented in this encounter Results * (ABNORMAL) CBC auto differential (10/08/2024 6:43 AM EST) WBC 11.9(H) 4.8 - 10.8 K/[facility] LAB HEMETOLOGY METHOD 10/08/2024 8:06 AM [facility] LAB RBC 5.90(H) 4.50 - 5.50 M/mcL LAB HEMETOLOGY METHOD 10/08/2024 8:06 AM [facility] LAB Hemoglobin 16.0 13.5 - 17.5 g/dL LAB HEMETOLOGY METHOD 10/08/2024 8:06 AM [facility] LAB Hematocrit 51.1 42.0 - 54.0 % LAB HEMETOLOGY METHOD 10/08/2024 8:06 AM [facility] LAB MCV 86.6 79.0 - 98.0 FL LAB HEMETOLOGY METHOD 10/08/2024 8:06 AM [facility] LAB MCH 27.1 27.0 - 32.0 pcg LAB HEMETOLOGY METHOD 10/08/2024 8:06 AM [facility] LAB MCHC 31.3(L) 32.0 - 37.0 g/dL LAB HEMETOLOGY METHOD 10/08/2024 8:06 AM [facility] LAB RDW 14.6 11.0 - 15.0 % LAB HEMETOLOGY METHOD 10/08/2024 8:06 AM [facility] LAB Platelets 10/08/2024 8:06 AM [facility] LAB Comment:Not measured. Platel ets appear adequate but clumped MPV 10.7 7.0 - 11.0 FL LAB HEMETOLOGY METHOD 10/08/2024 8:06 AM [facility] LAB NRBC 0.0 <1.0 % LAB HEMETOLOGY METHOD 10/08/2024 8:06 AM [facility] LAB NRBC Absolute 0.00 <0.10 K/[facility] LAB HEMETOLOGY METHOD 10/08/2024 8:06 AM [facility] LAB Neutrophils Relative 64.9 % LAB HEMETOLOGY METHOD 10/08/2024 8:06 AM [facility] LAB Lymphocytes Relative 22.8 % LAB HEMETOLOGY METHOD 10/08/2024 8:06 AM [facility] Monocytes Relative 8.5 % LAB HEMETOLOGY METHOD 10/08/2024 8:06 AM [facility] LAB Eosinophils Relative 2.8 % LAB HEMETOLOGY METHOD 10/08/2024 8:06 AM [facility] Basophils Relative 0.6 % LAB HEMETOLOGY METHOD 10/08/2024 8:06 AM [facility] Immature Granulocytes Relative 0.4 % LAB HEMETOLOGY METHOD 10/08/2024 8:06 AM [facility] Neutrophils Absolute 7.74(H) 1.50 - 7.00 K/mcL LAB HEMETOLOGY METHOD 10/08/2024 8:06 AM [facility] Lymphocytes Absolute 2.72 1.00 - 5.00 K/mcL LAB HEMETOLOGY METHOD 10/08/2024 8:06 AM [facility] Monocytes Absolute 1.02(H) 0.20 - 1.00 K/mcL LAB HEMETOLOGY METHOD 10/08/2024 8:06 AM [facility] LAB Eosinophils Absolute 0.34 0.00 - 0.50 K/mcL LAB HEMETOLOGY METHOD 10/08/2024 8:06 AM [facility] Basophils Absolute 0.07 0.00 - 0.20 K/mcL LAB HEMETOLOGY METHOD 10/08/2024 8:06 AM [facility] LAB Immature Granulocytes Absolute 0.05(H) 0.00 - 0.03 K/mcL LAB HEMETOLOGY METHOD 10/08/2024 8:06 AM [facility] Blood Venous blood specimen / Unknown 10/08/2024 6:43 AM EST 10/08/2024 7:30 AM EST Charles Zhang MD LAB BLOOD ORDERABLES Final Resul t Performing Organization Address [facility]/ZIP Co de Phone Number [facility] [address] [place] [address], [place] [phone] * (ABNORMAL) Vitamin D 25 hydroxy (10/08/2024 6:43 AM EST) Vit D, 25-Hydroxy 81.1(H) 30.0 - 80.0 ng/mL LAB CHEMISTRY METHOD 10/08/2024 10:05 AM EST [facility] Blood Venous blood specimen / Unknown 10/08/2024 6:43 AM EST 10/08/2024 7:30 AM EST Charles Zhang MD LAB BLOOD ORDERABLES Final Resul t Performing Organization Address [facility]/ZIP Co de Phone Number [facility] [address] [place] [address], [place] [phone] documented in this encounter Visit Diagnoses Diagnosis Vitamin D deficiency, unspecified Schizoaffective disorder, unspecified (CMS/HCC V24, CMS/HCC V28) documented in this encounter Care Teams Product Marketing Intern Relationship Specialty Start Date End Date Charles Zhang MD [address] [place] [address] [address] [place] PCP - General Internal Medicine 10/21/24 documented as of this encounter
== END 2025-01-22 11:47 | disposition home or self-care (01) ==
LOC: HO.HUSH 11:20
PROVIDERS: PCP Hospitalist; Visit Provider Nurse Practitioner Family
DX: R97.20 Elevated prostate specific antigen [PSA] (principal)
CPT/HCPCS: 99213; G2211

== ENCOUNTER → 2025-01-22 11:19 | Outpatient (BNVA) | payer MEDICARE, MEDICAID, SELFPAY | PROVIDERS: PCP Hospitalist; Visit Provider Nurse Practitioner Family | DX: R97.20 Elevated prostate specific antigen [PSA] (principal) | CPT/HCPCS: 99212 ==

== ENCOUNTER 2025-07-02 16:10 | Inpatient (IN) | payer MEDICARE, MEDICAID, SELFPAY ==
--- NOTE | 2025-07-02 | ECG_ITS ---
Test Reason : FALL/AMS Blood Pressure : */* mmHG Vent. Rate : 88 BPM Atrial Rate : 88 BPM P-R Int : 166 ms QRS Dur : 88 ms QT Int : 364 ms P-R-T Axes : 26 -10 74 degrees QTcB Int : 440 ms Normal sinus rhythm Normal ECG When compared with ECG of 05-Oct-2024 20:32, QT has lengthened Referred By: Generic ED Physician Electronically Signed By: SHEILA INGRAM MD
--- NOTE | ~2025-07-02 | CT_ITS ---
CLINICAL HISTORY: trauma CT head without contrast. COMPARISON: CT head dated 07/02/24 at 20:27 EDT FINDINGS: The visualized paranasal sinuses are clear. The mastoid air cells are clear. No calvarial fracture. No evidence for mass or mass effect. No intracranial hemorrhage or abnormal extra-axial fluid collection. The ventricles are proportional with the degree of moderate global cerebral volume loss without evidence of hydrocephalus. Basilar cisterns are patent. There are periventricular areas of low attenuation compatible with mild white matter small vessel disease. Posterior fossa appears unremarkable. IMPRESSION: 1. No acute intracranial findings. This document has been electronically signed by: Ariel Morrow MD on 07/02/2025 20:52:27
--- NOTE | ~2025-07-02 | CT_ITS ---
CLINICAL HISTORY: trauma CT cervical spine without contrast. COMPARISON: None FINDINGS: Straightening with reversal of normal cervical lordosis likely positional. Vertebral body heights are maintained. No evidence of acute vertebral body injury. Skull base and intracranial structures appear normal. Multiple normal-sized jugular chain and posterior cervical lymph nodes. C2-C3: Facet joint arthrosis. C3-C4: Anterior marginal osteophytes. Uncovertebral joint hypertrophy. Posterior disc osteophyte complex. Facet joint arthrosis. Moderate to severe bilateral neural foraminal narrowing. C4-C5: Anterior marginal osteophytes. Loss of disc space height. Posterior disc osteophyte complex. Uncovertebral joint hypertrophy. Moderate to severe left neural foraminal narrowing. C5-C6: Anterior marginal osteophytes. Loss of disc space height. Posterior disc osteophyte complex. Moderate spinal canal stenosis. Uncovertebral joint hypertrophy. Moderate to severe bilateral neural foraminal narrowing. C6-C7: Anterior marginal osteophytes. Loss of disc space height. Uncovertebral joint hypertrophy. [id number] left and mild right neural foraminal narrowing. IMPRESSION: 1. No evidence of acute injury to the cervical spine. This document has been electronically signed by: Ariel Morrow MD on 07/02/2025 20:50:16
--- NOTE | ~2025-07-02 | XR_ITS ---
CLINICAL HISTORY: cough Two views of the chest. COMPARISON: XR chest dated 06/10/24 at 12:23 EDT FINDINGS: Normal heart and mediastinal contours. Streaky right upper lobe consolidation. No pleural effusion or pneumothorax. Degenerative changes of the partially visualized left shoulder. Moderate spondylosis. No acute fracture. IMPRESSION: 1. Probable developing right upper lobe pneumonia. This document has been electronically signed by: Ariel Morrow MD on 07/02/2025 17:38:46
--- NOTE | ~2025-07-02 | XR_ITS ---
CLINICAL HISTORY: fever Single view of the chest. COMPARISON: XR chest dated 07/02/25 at 17:19 EDT FINDINGS: Patient is rotated to the right. Borderline cardiomegaly. Interval resolution of streaky opacities seen in the right upper lobe. Linear consolidation along the left lung base. No pleural effusion. No pneumothorax. Degenerative changes of the partially visualized left shoulder. Moderate spondylosis. No acute fracture. IMPRESSION: 1. Interval resolution of previously seen streaky right upper lobe consolidation likely representing overlapping structures. 2. Linear consolidation along the left lung base, likely representing atelectasis. This document has been electronically signed by: Ariel Morrow MD on 07/02/2025 20:50:17
[2025-07-02 16:26] VITALS: BP 160/98; PULSE 92; O2SAT 97
[2025-07-02 16:28] VITALS: BP 122/80; PULSE 88; RESP 18; TEMP 37.7; O2SAT 93; BMI 32.1
[2025-07-02 16:54] VITALS: BP 115/76; PULSE 85; RESP 17; TEMP 36.8; O2SAT 93
[2025-07-02 17:06] LABS: MANUAL DIFF FLAG NO
[2025-07-02 17:27] LABS: Alanine Aminotransferase 20 U/L (0-40); Albumin Level 4.1 g/dL (3.5-5.0); Alkaline Phosphatase 83 U/L (39-117); Anion Gap 8 (12-20); Aspartate Amino Transferase 22 U/L (5-37); Blood Urea Nitrogen 15 mg/dL (9-16); Calcium 9.0 mg/dL (8.4-10.2); Carbon Dioxide 26 mmol/L (22-29); Chloride 109 mmol/L (96-108); Creatinine Clr Calc Pharmacy 100.6; Estimated Glomerular Filt Rate > 60; Magnesium 2.3 mg/dL (1.6-2.6); Potassium 3.9 mmol/L (3.3-5.1); Sodium 139 mmol/L (135-145); Total Protein 6.4 g/dL (6.5-8.0)
[2025-07-02 17:34] LABS: Troponin-I High Sensitivity < 2.7 ng/L (<3.5-35.0)
[2025-07-02 17:43] LABS: Resp Syncy Virus RNA Qual PCR NEGATIVE (Negative); SARS COV2 PCR INHOUSE NEGATIVE (Negative)
[2025-07-02 18:14] VITALS: BP 132/79; PULSE 83; RESP 21; TEMP 37.2; O2SAT 92
[2025-07-02 18:23] LABS: Hematocrit 38.9 % (42.0-52.0); Hemoglobin 12.8 g/dl (14.0-18.0); Imm Gran Abs Auto 0.03 X10*3/uL (0.00-0.03); Imm Gran Pct Auto 0.3 % (0.0-0.4); Lymphocytes Absolute Auto 1.7 X10*3/uL (1.2-4.9); Mean Corpuscular HGB Conc 32.9 g/dl (31.0-36.0); Mean Corpuscular Hemoglobin 28.5 pg (27.0-33.0); Mean Corpuscular Volume 86.6 fL (80.0-98.0); NRBC Abs Auto 0.000 X10*3/uL (0.0-0.012); NRBC Pct Auto 0.0 /100WBC (0.0-0.2); Platelet Count 260 X10*3/uL (160-400); Red Blood Count 4.49 X10*6/uL (4.60-5.80); White Blood Count 9.1 X10*3/uL (4.8-10.8)
--- NOTE | 2025-07-02 20:37 | ED.GENADULT ---
HPI - General Adult General Chief complaint: General Medical Stated complaint: AMS Time Seen by Provider: 07/02/25 19:25 Source: patient and RN notes reviewed Limitations: other (Dementia, confusion) History of Present Illness ED Provider: Chasidy Cam PA-C HPI narrative: 65-year-old male with a history of dementia who is coming from care 1 with confusion and weakness. Patient was noted to have a low-grade fever at the nursing facility, he also sustained a fall 2 days ago that was unwitnessed. History limited secondary to patient's dementia and poor report from the senior living facility. The patient has no pain related complaints at this time. Related Data Home Medications ?Medication ?Instructions ?Recorded ?Confirmed acetaminophen 325 mg tablet 650 mg PO Q6H PRN Fever Or Pain 01/04/23 01/22/25 atorvastatin 10 mg tablet 10 mg PO DAILY 01/04/23 01/22/25 bisacodyl 10 mg rectal suppository 10 mg WI DAILY PRN if senna or MOM 01/04/23 01/22/25 ineffective clozapine 100 mg tablet (Clozaril) 300 mg PO BEDTIME 01/04/23 01/22/25 glycopyrrolate 1 mg tablet 3 mg PO DAILY 01/04/23 01/22/25 lithium carbonate 450 mg 450 mg PO BID 01/04/23 01/22/25 tablet,extended release metformin 500 mg tablet 500 mg PO BID 01/04/23 01/22/25 pantoprazole 40 mg tablet,delayed 40 mg PO BID@0630,1630 01/04/23 01/22/25 release risankizumab-rzaa 150 mg/mL 150 mg subcut Q84D 01/04/23 01/22/25 subcutaneous pen injector (Skyrizi) sodium phosphates 19 gram-7 118 ml WI DAILY PRN if bisacodyl 01/04/23 01/22/25 gram/118 mL enema (Fleet Enema) supp ineffective cholecalciferol (vitamin D3) 1,250 1,250 mcg PO TH 06/19/23 01/22/25 mcg (50,000 unit) capsule clozapine 50 mg tablet 50 mg PO BEDTIME 10/06/24 01/22/25 dextromethorphan-guaifenesin 10 10 ml PO Q6H PRN Cough 10/06/24 01/22/25 mg-100 mg/5 mL oral liquid fluticasone furoate 100 1 inh inhalation DAILY 10/06/24 01/22/25 mcg-vilanterol 25 mcg/dose inhalation powder (Breo Ellipta) glucagon HCl 1 mg solution for 1 mg subcut Q15M PRN severe 10/06/24 01/22/25 injection hypoglycemia ibuprofen 600 mg tablet 600 mg PO Q8H PRN Muscle Pain 10/06/24 01/22/25 lactulose 10 gram/15 mL oral 20 g PO BID 10/06/24 01/22/25 solution levothyroxine 75 mcg tablet 75 mcg PO DAILY@0600 10/06/24 01/22/25 linaclotide 72 mcg capsule 72 mcg PO BID 10/06/24 01/22/25 (Linzess) magnesium hydroxide 400 mg/5 mL 30 ml PO DAILY PRN Constipation 10/06/24 01/22/25 oral suspension (Milk of Magnesia) psyllium 1 packet PO DAILY 10/06/24 01/22/25 sennosides 8.6 mg tablet (senna) 8.6 mg PO DAILY PRN Constipation 10/06/24 01/22/25 sennosides 8.6 mg tablet (senna) 17.2 mg PO BID 10/06/24 01/22/25 Previous Rx's ?Medication ?Instructions ?Recorded finasteride 5 mg tablet 5 mg PO DAILY 90 days #90 tabs 02/16/23 Allergies Allergy/AdvReac Type Severity Reaction Status Date / Time Penicillins Allergy Unknown Verified 07/02/25 16:29 poison jolanta extract Allergy Unknown Verified 07/02/25 16:29 Review of Systems Review of Systems: Unable to obtain secondary to dementia Yes all other systems are reviewed and are negative [facility] Past Medical History Attestation statement: The following information was validated with the patient. Medical History Psoriasis, unspecified Constipation, unspecified Gastro-esophageal reflux disease without esophagitis Anoxic brain damage, not elsewhere classified Obstructive sleep apnea (adult) (pediatric) Schizoaffective disorder, unspecified Dementia in other diseases classified elsewhere, unspecified severity, with other behavioral disturbance Hyperlipidemia, unspecified Other obesity due to excess calories Vitamin D deficiency, unspecified Type 2 diabetes mellitus without complications Hypothyroidism, unspecified Unspecified asthma, uncomplicated Chronic obstructive pulmonary disease, unspecified Essential (primary) hypertension Social History Social History Alcohol intake: former Patient Tobacco Use Status: Tobacco use Unknown Smoked in Last 30 Days: No Use of substances other than those prescribed or required for medical reasons: No Advance Directives: No Advance Directives Information Provided: Yes Physical Exam ED Vital Signs: Vital Signs - 24 hr 07/02/25 16:28 07/02/25 16:54 07/02/25 18:14 Temperature 99.9 F 98.2 F 98.9 F Pulse Rate 88 85 83 Respiratory Rate 18 17 21 H Blood Pressure 122/80 115/76 132/79 Pulse Oximetry 93 93 92 Oxygen Delivery Method Room Air Room Air Room Air BMI result Body Mass Index 32.1 Const Other: Alert Orientation/consciousness: oriented to person and oriented to time HENMT Other: Right subconjunctival hemorrhage Resp Other: Nonlabored respirations, rhonchorous posterior rosa Cardio Other: Normal peripheral perfusion Skin Other: Warm dry no rash Neuro Other: Unsteady gait General: oriented to person, oriented to time, no focal motor deficits and CN's II-XI intact bilaterally Psych Other: Cooperative Medications Administered Discontinued Medications Generic Name Dose Route Start Last Admin Trade Name Freq PRN Reason Stop Dose Admin Sodium Chloride 500 mls @ 500 mls/hr 07/02/25 19:55 07/02/25 20:17 Ns IV 07/02/25 20:54 500 mls/hr .Q1H ONE Administration Medical Decision Making Medical Decision Making MDM Narrative: 65-year-old male with a history of dementia, hyperlipidemia, BPH, hypothyroidism, constipation, diabetes, GERD who is coming from care 1 with confusion and weakness. Patient was noted to have a low-grade fever at the nursing facility, he also sustained a fall 2 days ago that was unwitnessed. History limited secondary to patient's dementia and poor report from the senior living facility. The patient has no pain related complaints at this time. Problem: Dementia History: Per patient which is limited, primarily from alf report I have considered the following differential diagnoses: Pneumonia, UTI, viral syndrome, progression of dementia, intracranial hemorrhage, cervical spine injury, fracture, dislocation Plan: In regard to the fall, it was unwitnessed occurred 2 days ago, the patient is not a reliable historian, scanning his head and neck. He is moving all extremities independently, no pain related complaints I do not feel he requires x-rays. He had a low-grade temp, we will screened for sources, adding chest x-ray and UA, viral panel screening labs are in process. Blood cultures and lactic also in process. I have independently reviewed the following tests: Labs: No leukocytosis, not anemic, no electrolyte abnormality, lactic 1.5, viral panel negative tested for influenza RSV and COVID, troponin less than 2.7 EKG: Normal sinus rhythm, rate 88, no ischemic changes no ectopy QTC 440 Chest x-ray: FINDINGS: Patient is rotated to the right. Borderline cardiomegaly. Interval resolution of streaky opacities seen in the right upper lobe. Linear consolidation along the left lung base. No pleural effusion. No pneumothorax. Degenerative changes of the partially visualized left shoulder. Moderate spondylosis. No acute fracture. IMPRESSION: 1. Interval resolution of previously seen streaky right upper lobe consolidation likely representing overlapping structures. 2. Linear consolidation along the left lung base, likely representing atelectasis. CT brain:RESSION: 1. No acute intracranial findings. CT cervical spine:MPRESSION: 1. No evidence of acute injury to the cervical spine. Differential Diagnosis Differential Diagnoses: The differential diagnosis associated with the presentation includes See medical decision-making Admission/Observation Consideration of admission/observation: Escalation of care including admission/observation considered [facility] Consult Healthcare Provider Management of the patient was discussed with: Hospitalist Lab Data MDM Lab Attestation statement: I reviewed the patient's lab results. 07/02/25 16:53 07/02/25 16:51 Labs: Lab Results 07/02/25 07/02/25 07/02/25 Range/Units 16:51 16:53 20:21 WBC 9.1 (4.8-10.8) X10*3/uL RBC 4.49 L (4.60-5.80) X10*6/uL Hgb 12.8 L (14.0-18.0) g/dl Hct 38.9 L (42.0-52.0) % MCV 86.6 (80.0-98.0) fL MCH 28.5 (27.0-33.0) pg MCHC 32.9 (31.0-36.0) g/dl RDW 13.8 (11.0-16.0) % Plt Count 260 (160-400) X10*3/uL MPV 10.1 (9.4-12.4) fL Immature Gran % (Auto) 0.3 (0.0-0.4) % Neut % (Auto) 70.4 (45-73) % Lymph % (Auto) 18.3 L (20-40) % Harris % (Auto) 7.7 (2-11) % Eos % (Auto) 3.0 (0-4) % Baso % (Auto) 0.3 (0-2) % Lymph # (Auto) 1.7 (1.2-4.9) X10*3/uL Harris # (Auto) 0.7 (0.1-1.2) X10*3/uL Eos # (Auto) 0.3 (0.0-0.4) X10*3/uL Baso # (Auto) 0.0 (0.0-0.2) X10*3/uL Abs Immat Gran (auto) 0.03 (0.00-0.03) X10*3/uL Absolute Neuts (auto) 6.4 (2.0-8.3) x10*3/uL Absolute Nucleated RBC 0.000 (0.0-0.012) X10*3/uL Nucleated RBC % (auto) 0.0 (0.0-0.2) /100WBC Sodium 139 (135-145) mmol/L Potassium 3.9 (3.3-5.1) mmol/L Chloride 109 H (96-108) mmol/L Carbon Dioxide 26 (22-29) mmol/L Anion Gap 8 L (12-20) BUN 15 (9-16) mg/dL Creatinine 0.70 (0.5-1.4) mg/dL Estim Creat Clear Calc 100.6 Estimated GFR > 60 Random Glucose 97 (60-115) mg/dL Lactic Acid 1.5 0.8 (0.5-2.0) mmol/L Calcium 9.0 (8.4-10.2) mg/dL Magnesium 2.3 (1.6-2.6) mg/dL Total Bilirubin 0.2 (0.0-1.0) mg/dL AST 22 (5-37) U/L ALT 20 (0-40) U/L Alkaline Phosphatase 83 (39-117) U/L Troponin I High Sens < 2.7 (<3.5-35.0) ng/L Total Protein 6.4 L (6.5-8.0) g/dL Albumin 4.1 (3.5-5.0) g/dL Influenza Type A (PCR) NEGATIVE (Negative) Influenza Type B (PCR) NEGATIVE (Negative) RSV RNA Qual (PCR) NEGATIVE (Negative) SARS-CoV-2 RNA (RT-PCR) NEGATIVE (Negative) Independent Interpretation I performed an independent interpretation of an: EKG Radiology Impression Discussion of test interpretation with radiology: I have reviewed the radiologist's reading. Discharge Plan Discharge Clinical Impression: Pneumonia, Fall at alf, Weakness, Confusion Patient Disposition: Admitted As Inpatient Print Language: Grenadian
[2025-07-02 21:18] VITALS: BP 128/79; PULSE 79; RESP 22; TEMP 36.8; O2SAT 95
[2025-07-02 21:30] VITALS: BP 126/82; PULSE 80; RESP 17; O2SAT 100
--- NOTE | 2025-07-02 21:55 | PHA.MEDREC ---
Addendum entered by Juan Hollingsworth RPh 07/02/25 22:09: Med rec reviewed Original Note: Pharmacy Consult ? Medication Reconciliation Pharmacy has completed the medication reconciliation. Utilized list from Lesia at [facility] to confirm med list. Called care to confirm last doses for Clozaril 100 mg , last dose today, Clozaril 400 mg , last dose last night. [facility] will call back with last dose of Skyrizi 150 mg Q84 days.
--- NOTE | 2025-07-02 22:29 | PM.IMHP ---
History of Present Illness Date of Service: 07/02/25 Attending physician on admission: Stan Canales Chief Complaint: confusion, fever Patient is a 65-year-old male with a past medical history significant for dementia, seizure disorder, chronic constipation, HLD, BPH, moderate COPD, psoriasis and type 2 diabetes, who presented to the ED from [facility] due to confusion and weakness. It was reported that the patient had a local fever and sustained a fall 2 days ago that was unwitnessed. The patient does not recall this event. He is very confused and unable to provide a history at this time. Currently he has no complaints. Review of Systems Review of Systems: Yes Unobtainable due to mental status [facility] Medical History Psoriasis, unspecified Constipation, unspecified Gastro-esophageal reflux disease without esophagitis Anoxic brain damage, not elsewhere classified Obstructive sleep apnea (adult) (pediatric) Schizoaffective disorder, unspecified Dementia in other diseases classified elsewhere, unspecified severity, with other behavioral disturbance Hyperlipidemia, unspecified Other obesity due to excess calories Vitamin D deficiency, unspecified Type 2 diabetes mellitus without complications Hypothyroidism, unspecified Unspecified asthma, uncomplicated Chronic obstructive pulmonary disease, unspecified Essential (primary) hypertension Social History Alcohol intake: former Patient Tobacco Use Status: Tobacco use Unknown Smoked in Last 30 Days: No Use of substances other than those prescribed or required for medical reasons: No Advance Directives: No Advance Directives Information Provided: Yes Meds Allergies Allergy/AdvReac Type Severity Reaction Status Date / Time Penicillins Allergy Unknown Verified 07/02/25 16:29 poison jolanta extract Allergy Unknown Verified 07/02/25 16:29 Active Medications: Current Medications Acetaminophen (Acetaminophen 325 Mg Tablet) 650 mg PO Q6H PRN PRN Reason: Pain, Mild 1-3,fever,headache Atorvastatin Calcium (Atorvastatin Calcium 10 Mg Tablet) 10 mg PO DAILY ETHEL Calcium Carbonate (Calcium Carbonate 750 Mg Tab.Chew) 750 mg PO Q4H PRN PRN Reason: Heartburn Clozapine (Clozapine 100 Mg Tablet) 400 mg PO BEDTIME ETHEL Clozapine (Clozapine 100 Mg Tablet) 100 mg PO DAILY ETHEL Dextrose (Dextrose 50 % 25 Gm/50 Ml Syringe) 25 gm IVPUSH Q15M PRN; Protocol PRN Reason: per Hypoglycemia Standing Ord. Enoxaparin Sodium (Enoxaparin Sodium 40 Mg/0.4 Ml Syringe) 40 mg SUBCUT Q24H [facility] Finasteride (Finasteride 5 Mg Tablet) 5 mg PO DAILY [facility] Fluticasone/Vilanterol (Fluticasone/Vilanterol 100/25 Blst.W.Dev) 1 puff INHALE RDAILY [facility] Glucose (Glucose Gel 15 Gm Gel..Gram.) 15 gm PO Q15M PRN; Protocol PRN Reason: per Hypoglycemia Standing Ord. Glycopyrrolate (Glycopyrrolate 1 Mg Tablet) 3 mg PO DAILY [facility] Guaifenesin/Dextromethorphan (Guaifenesin Dm 100/10/5 Ml 5 Ml Syrup) 10 ml PO Q6H PRN PRN Reason: Cough Azithromycin 500 mg/ Sodium (Chloride) 250 mls @ 125 mls/hr IV ONCE ONE Stop: 07/02/25 22:35 Last Admin: 07/02/25 21:19 Dose: 125 mls/hr Insulin Human Lispro (Insulin Lispro 100 Unit/Ml 3 Ml Vial) 0 unit SUBCUT QIDACHS [facility]; Protocol Lactulose (Lactulose 20 Gm/30 Ml Solution) 20 gm PO BID [facility] Levetiracetam (Levetiracetam 500 Mg Tablet) 500 mg PO DAILY [facility] Levothyroxine Sodium (Levothyroxine Sodium 75 Mcg Tablet) 75 mcg PO DAILY@0600 [facility] [place] Carbonate ([place] Carbonate Er 450 Mg Tablet.Er) 450 mg PO BID [facility] Magnesium Hydroxide (Milk Of Magnesia 30 Ml Oral.Susp) 30 ml PO DAILY PRN PRN Reason: Constipation Magnesium Hydroxide (Milk Of Magnesia 30 Ml Oral.Susp) 30 ml PO DAILY PRN PRN Reason: Constipation Melatonin (Melatonin 3 Mg Tablet) 6 mg PO BEDTIME PRN PRN Reason: Insomnia Nicotine (Nicotine 14 Mg Patch.Td24) 14 mg TRANSDERMA DAILY [facility] Nicotine Polacrilex (Nicotine Polacrilex 2 Mg Gum) 2 mg BUCCAL Q2H PRN PRN Reason: Nicotine Cravings Non-Formulary Medication (Carboxymethylcellulose Sodium [Refresh Tears]) 1 drop EYE-BOTH Q4H PRN PRN Reason: Dry Eye(S) Non-Formulary Medication (Levetiracetam) 750 mg PO BEDTIME [facility] Non-Formulary Medication (Cholecalciferol (Vitamin D3)) 1,250 mcg PO TH [facility] Non-Formulary Medication (Linaclotide [Linzess]) 72 mcg PO BID [facility] Non-Formulary Medication (Pantoprazole) 40 mg PO BID@0630,1630 [facility] Ondansetron HCl (Ondansetron Hcl 4 Mg/2 Ml Vial) 4 mg IVPUSH Q8H PRN PRN Reason: Nausea and Vomiting Oxycodone HCl (Oxycodone Hcl Immed Release 5 Mg Tablet) 5 mg PO Q6H PRN PRN Reason: Pain, Severe (Pain Scale 7-10) Psyllium Hydrophilic Mucilloid (Psyllium Seed 3.7 Gm Packet) gm PO DAILY [facility] Senna (Sennosides 8.6 Mg Tablet) 17.2 mg PO BID [facility] Sodium Chloride (0.9 % Sodium Chloride Flush 3 Ml Syringe) 3 ml IVFLUSH QSHIFT [facility] Tramadol HCl (Tramadol Hcl 50 Mg Tablet) 50 mg PO Q6H PRN PRN Reason: Pain, Moderate(Pain Scale 4-6) Home Medications ?Medication ?Instructions ?Recorded ?Confirmed ?Last Taken ?Type acetaminophen 325 mg tablet 650 mg PO Q6H PRN Fever Or Pain 01/04/23 07/02/25 Unknown History atorvastatin 10 mg tablet 10 mg PO DAILY 01/04/23 07/02/25 Unknown History bisacodyl 10 mg rectal suppository 10 mg NM DAILY PRN if senna or MOM 01/04/23 07/02/25 Unknown History ineffective clozapine 100 mg tablet (Clozaril) 100 mg PO DAILY 01/04/23 07/02/25 07/02/25 History glycopyrrolate 1 mg tablet 3 mg PO DAILY 01/04/23 07/02/25 Unknown History lithium carbonate 450 mg 450 mg PO BID 01/04/23 07/02/25 Unknown History tablet,extended release metformin 500 mg tablet 500 mg PO BID 01/04/23 07/02/25 Unknown History pantoprazole 40 mg tablet,delayed 40 mg PO BID@0630,1630 01/04/23 07/02/25 Unknown History release risankizumab-rzaa 150 mg/mL 150 mg subcut Q84D 01/04/23 07/02/25 06/26/25 History subcutaneous pen injector (Skyrizi) sodium phosphates 19 gram-7 118 ml NM DAILY PRN if bisacodyl 01/04/23 07/02/25 Unknown History gram/118 mL enema (Fleet Enema) supp ineffective cholecalciferol (vitamin D3) 1,250 1,250 mcg PO TH 06/19/23 07/02/25 Unknown History mcg (50,000 unit) capsule fluticasone furoate 100 1 inh inhalation DAILY 10/06/24 07/02/25 Unknown History mcg-vilanterol 25 mcg/dose inhalation powder (Breo Ellipta) glucagon HCl 1 mg solution for 1 mg subcut Q15M PRN severe 10/06/24 07/02/25 Unknown History injection hypoglycemia ibuprofen 600 mg tablet 600 mg PO Q8H PRN Muscle Pain 10/06/24 07/02/25 Unknown History levothyroxine 75 mcg tablet 75 mcg PO DAILY@0600 10/06/24 07/02/25 Unknown History linaclotide 72 mcg capsule 72 mcg PO BID 10/06/24 07/02/25 Unknown History (Linzess) magnesium hydroxide 400 mg/5 mL 30 ml PO DAILY PRN Constipation 10/06/24 07/02/25 Unknown History oral suspension (Milk of Magnesia) psyllium 1 packet PO DAILY 10/06/24 07/02/25 Unknown History sennosides 8.6 mg tablet (senna) 8.6 mg PO DAILY PRN Constipation 10/06/24 07/02/25 Unknown History sennosides 8.6 mg tablet (senna) 17.2 mg PO BID 10/06/24 07/02/25 Unknown History carboxymethylcellulose sodium 0.5 1 drp ophthalmic (eye) Q4H PRN Dry 07/02/25 07/02/25 Unknown History % eye drops (Refresh Tears) Eye(S) clozapine 200 mg tablet 400 mg PO BEDTIME 07/02/25 07/02/25 07/01/25 History guaifenesin 100 mg/5 mL oral liquid 200 mg PO Q6H PRN Cough 07/02/25 07/02/25 Unknown History lactulose 10 gram/15 mL oral 30 ml PO BID 07/02/25 07/02/25 Unknown History solution levetiracetam 500 mg tablet 500 mg PO DAILY 07/02/25 07/02/25 Unknown History levetiracetam 750 mg 750 mg PO BEDTIME 07/02/25 07/02/25 Unknown History tablet,extended release 24 hr Physical Exam Vital Signs and Narrative: Vital Signs: Last Vital Signs Temp 98.2 F 07/02/25 21:18 Pulse 80 07/02/25 21:30 Resp 17 07/02/25 21:30 BP 126/82 07/02/25 21:30 Pulse Ox 100 07/02/25 21:30 O2 Del Method Room Air 07/02/25 21:30 BMI result Body Mass Index 32.1 General: Alert and oriented to person and time but not place CVS: S1, S2, RRR Resp: Rhonchorous throughout, mild expiratory wheezing GI: +BS, NT, distended, soft Skin: Warm, dry Neuro: Cranial nerves II-XII grossly intact bilaterally. Motor grossly intact bilaterally Extremities: No pitting edema Psych: Confused Results Labs 07/02/25 16:53 07/02/25 16:51 Labs: Laboratory Results - last 24 hr 07/02/25 07/02/25 07/02/25 16:51 16:53 20:21 MCV 86.6 MCH 28.5 MCHC 32.9 RDW 13.8 Plt Count 260 MPV 10.1 Immature Gran % (Auto) 0.3 Neut % (Auto) 70.4 Lymph % (Auto) 18.3 L [place] % (Auto) 7.7 Eos % (Auto) 3.0 Baso % (Auto) 0.3 Lymph # (Auto) 1.7 [place] # (Auto) 0.7 Eos # (Auto) 0.3 Baso # (Auto) 0.0 Abs Immat Gran (auto) 0.03 Absolute Neuts (auto) 6.4 Absolute Nucleated RBC 0.000 Nucleated RBC % (auto) 0.0 Anion Gap 8 L Estim Creat Clear Calc 100.6 Estimated GFR > 60 Random Glucose 97 Lactic Acid 1.5 0.8 Calcium 9.0 Magnesium 2.3 Total Bilirubin 0.2 AST 22 ALT 20 Alkaline Phosphatase 83 Troponin I High Sens < 2.7 Total Protein 6.4 L Albumin 4.1 Influenza Type A (PCR) NEGATIVE Influenza Type B (PCR) NEGATIVE RSV RNA Qual (PCR) NEGATIVE SARS-CoV-2 RNA (RT-PCR) NEGATIVE Assessment and Plan (1) Acute metabolic encephalopathy: Status: Acute (2) Pneumonia: Status: Acute (3) Weakness: Status: Acute (4) Fall at long-term: Status: Acute (5) Class 1 obesity: Status: Acute Plan Patient is a 65-year-old male with a past medical history significant for dementia, seizure disorder, chronic constipation, HLD, BPH, moderate COPD, psoriasis and type 2 diabetes, who presented to the ED from [facility] due to confusion and weakness. W/u significant for pneumonia Acute metabolic encephalopathy secondary to pneumonia - ceftriaxone/doxycycline - Robitussin - monitor CBC and BMP Weakness/fall, likely secondary to pneumonia - PT eval Seizure disorder - Keppra Chronic constipation - continue home therapies HLD - statin BPH - finasteride Moderate COPD, no acute exacerbation - continue home therapies Type 2 diabetes - sliding scale insulin mood - clozapine, lithium hypothyroid - levothyroxine Full code VTE prophylaxis: Lovenox Patient with acute metabolic encephalopathy secondary to pneumonia, requiring admission for at least 2 midnights stay for IV antibiotics and monitoring. Quality Stroke Does the patient have a stroke diagnosis?: No VTE Prior VTE?: No VTE Risk Level:: Medical - moderate - high VTE Device Contraindication: Treatment Not Indicated VTE Drug Contraindication: N/A - Med Ordered
[2025-07-03] VITALS (9 sets, daily range): BP systolic 118–161; BP diastolic 69–80; PULSE 79–100; RESP 12–24; TEMP 36.1–36.7; O2SAT 91–98; BMI 32.2
[2025-07-03] MEDS: 0.9 % Sodium Chloride Flush 3 ML SYRINGE IVFLUSH ×3 (01:06→21:07)
[2025-07-03 05:18] LABS: MANUAL DIFF FLAG NO
[2025-07-03 05:21] LABS: Hematocrit 37.5 % (42.0-52.0); Hemoglobin 12.4 g/dl (14.0-18.0); Imm Gran Abs Auto 0.06 X10*3/uL (0.00-0.03); Imm Gran Pct Auto 0.6 % (0.0-0.4); Lymphocytes Absolute Auto 2.2 X10*3/uL (1.2-4.9); Mean Corpuscular HGB Conc 33.1 g/dl (31.0-36.0); Mean Corpuscular Hemoglobin 28.7 pg (27.0-33.0); Mean Corpuscular Volume 86.8 fL (80.0-98.0); NRBC Abs Auto 0.000 X10*3/uL (0.0-0.012); NRBC Pct Auto 0.0 /100WBC (0.0-0.2); Platelet Count 220 X10*3/uL (160-400); Red Blood Count 4.32 X10*6/uL (4.60-5.80); White Blood Count 9.8 X10*3/uL (4.8-10.8)
[2025-07-03 06:28] LABS: Anion Gap 9 (12-20); Blood Urea Nitrogen 14 mg/dL (9-16); Calcium 8.6 mg/dL (8.4-10.2); Carbon Dioxide 27 mmol/L (22-29); Chloride 109 mmol/L (96-108); Creatinine Clr Calc Pharmacy 100.6; Estimated Glomerular Filt Rate > 60; Potassium 3.7 mmol/L (3.3-5.1); Sodium 141 mmol/L (135-145)
[2025-07-03 06:31] LABS: Appearance Urine Clear; Glucose Urine UA Negative (Negative); PH 6.5 (5.0-9.0); Specific Gravity - Urine 1.020 (1.005-1.025); UMIC TRIGGER UACC YES
--- NOTE | 2025-07-03 06:43 | HO.NURTONUR ---
Pt biba from [facility] with reports from staff of increased confusion, weakness, and unwitnessed fall 2 days ago. Per staff at the facility pt was noted to have a low grade fever. Pt does not recall the fall and denies chest pain, sob, n/v/d, pain, or any other symptoms of concern. Upon arrival to the ED pt was noted to have a rectal temp of 99.9. Pt is ca&o to self and place but is confused and easily redirectable. Pt is beng admitted for pneumonia. Pt has 20G IV in RFA and has been medicated per nov. Work up in the ED showed: Head CT: IMPRESSION: 1. No acute intracranial findings. Cervical spine ct: IMPRESSION: 1. No evidence of acute injury to the cervical spine. Chest xray: IMPRESSION: 1. Probable developing right upper lobe pneumonia. EKG: NSR
[2025-07-03 06:44] LABS: UACC Culture Trigger YES
[2025-07-03 07:11] LABS: Glucose, Whole Blood 101 mg/dL (60-115)
--- NOTE | 2025-07-03 07:21 | PC.NURSE ---
Pt is alert to self, adjusted in bed and up eating at this time. Sat 97% on 2lpm. Awaits bed assgn. Denies pain. no SOB or distress at this time
[2025-07-03 08:46] LABS: Procalcitonin 0.03 ng/mL
[2025-07-03] MEDS: Fluticasone/Vilanterol 100/25 BLST.W.DEV 1 PUFF INHALE (10:35)
[2025-07-03] MEDS: Artificial Tears 15 ML DROPS 1 DROP EYE-BOTH (10:35)
[2025-07-03 11:45] LABS: Glucose, Whole Blood 79 mg/dL (60-115)
--- NOTE | 2025-07-03 11:45 | HO.PM.IMPN ---
Subjective Subjective Date of Service: 07/03/25 Interval History: confused, disorganized speeech Review of Systems Review of Systems: Yes Unobtainable due to mental status Physical Exam Vital Signs: Vital Signs: Last Vital Signs Temp 97.5 F 07/03/25 09:30 Pulse 87 07/03/25 09:30 Resp 18 07/03/25 09:30 BP 124/75 07/03/25 09:30 Pulse Ox 96 07/03/25 09:30 O2 Del Method Nasal Cannula 07/03/25 09:30 O2 Flow Rate 2 07/03/25 09:30 BMI result Body Mass Index 32.1 Gen: coughing, in respiratory distress HEENT: sclera anicteric, moist mucus membranes Neck: supple Lungs: R-sided inspiratory crackles, diffuse expiratory wheezing Heart: regular rate and rhythm, no murmurs Abd: soft, non-tender, non-distended Ext: no edema Skin: warm/well-perfused Neuro: alert, unable to assess orientation, moving all extremities Psych: impaired insight Objective Data Active Medications Acetaminophen (Acetaminophen 325 Mg Tablet) 650 mg PO Q6H PRN PRN Reason: Pain, Mild 1-3,fever,headache Albuterol/Ipratropium (Albuterol/Iprat 2.5/0.5mg 3 Ml Ampul.Neb) 3 ml INHALE Q4H PRN PRN Reason: shortness of breath/wheezing Artificial Tears (Artificial Tears 15 Ml Drops) 1 drop EYE-BOTH Q4H PRN PRN Reason: Dry Eye(S) Last Admin: 07/03/25 10:35 Dose: 1 drop Documented By: SARA Atorvastatin Calcium (Atorvastatin Calcium 10 Mg Tablet) 10 mg PO DAILY [facility] Last Admin: 07/03/25 10:35 Dose: 10 mg Documented By: SARA Calcium Carbonate (Calcium Carbonate 750 Mg Tab.Chew) 750 mg PO Q4H PRN PRN Reason: Heartburn Ceftriaxone Sodium (Ceftriaxone Sodium 1 Gm Vial) 1 gm IVPUSH Q24H [facility] Clozapine (Clozapine 100 Mg Tablet) 400 mg PO BEDTIME [facility] Last Admin: 07/02/25 22:45 Dose: 400 mg Documented By: JESSY Clozapine (Clozapine 100 Mg Tablet) 100 mg PO DAILY [facility] Last Admin: 07/03/25 10:34 Dose: 100 mg Documented By: SARA Dextrose (Dextrose 50 % 25 Gm/50 Ml Syringe) 25 gm IVPUSH Q15M PRN; Protocol PRN Reason: per Hypoglycemia Standing Ord. Enoxaparin Sodium (Enoxaparin Sodium 40 Mg/0.4 Ml Syringe) 40 mg SUBCUT Q24H [facility] Last Admin: 07/02/25 22:46 Dose: 40 mg Documented By: JESSY Ergocalciferol (Ergocalciferol (Vitamin D2) 1,250 Mcg Capsule) 1,250 mcg PO Th@0900 [facility] Last Admin: 07/03/25 10:34 Dose: 1,250 mcg Documented By: SARA Finasteride (Finasteride 5 Mg Tablet) 5 mg PO DAILY [facility] Last Admin: 07/03/25 10:34 Dose: 5 mg Documented By: SARA Fluticasone/Vilanterol (Fluticasone/Vilanterol 100/25 Blst.W.Dev) 1 puff INHALE RDAILY [facility] Last Admin: 07/03/25 10:35 Dose: 1 puff Documented By: SARA Glucose (Glucose Gel 15 Gm Gel..Gram.) 15 gm PO Q15M PRN; Protocol PRN Reason: per Hypoglycemia Standing Ord. Glycopyrrolate (Glycopyrrolate 1 Mg Tablet) 3 mg PO DAILY [facility] Last Admin: 07/03/25 10:34 Dose: 3 mg Documented By: SARA Guaifenesin (Guaifenesin 100 Mg/5 Ml 5 Ml Liquid) 10 ml PO Q6H PRN PRN Reason: Cough Doxycycline Hyclate 100 mg/ (Sodium Chloride) 250 mls @ 166.67 mls/hr IV BID [facility] Last Infusion: 07/03/25 10:45 Dose: Infused Documented By: SARA Insulin Human Lispro (Insulin Lispro 100 Unit/Ml 3 Ml Vial) 0 unit SUBCUT QIDACHS [facility]; Protocol Last Admin: 07/03/25 07:20 Dose: Not Given Documented By: RENETTA Non-Admin Reason: No Insulin Coverage Lactulose (Lactulose 20 Gm/30 Ml Solution) 20 gm PO BID [facility] Last Admin: 07/03/25 10:34 Dose: 20 gm Documented By: SARA Levetiracetam (Levetiracetam 500 Mg Tablet) 500 mg PO DAILY [facility] Levetiracetam (Levetiracetam 250 Mg Tablet) 750 mg PO BEDTIME [facility] Last Admin: 07/02/25 22:52 Dose: 750 mg Documented By: JESSY Levothyroxine Sodium (Levothyroxine Sodium 75 Mcg Tablet) 75 mcg PO DAILY@0600 [facility] Last Admin: 07/03/25 06:09 Dose: 75 mcg Documented By: JESSY [place] Carbonate ([place] Carbonate Er 450 Mg Tablet.Er) 450 mg PO BID [facility] Last Admin: 07/03/25 10:34 Dose: 450 mg Documented By: SARA Magnesium Hydroxide (Milk Of Magnesia 30 Ml Oral.Susp) 30 ml PO DAILY PRN PRN Reason: Constipation Magnesium Hydroxide (Milk Of Magnesia 30 Ml Oral.Susp) 30 ml PO DAILY PRN PRN Reason: Constipation Melatonin (Melatonin 3 Mg Tablet) 6 mg PO BEDTIME PRN PRN Reason: Insomnia Nicotine (Nicotine 14 Mg Patch.Td24) 14 mg TRANSDERMA DAILY [facility] Nicotine Polacrilex (Nicotine Polacrilex 2 Mg Gum) 2 mg BUCCAL Q2H PRN PRN Reason: Nicotine Cravings Omeprazole (Omeprazole 20 Mg Capsule.Dr) 20 mg PO BID@0630,1630 [facility] Last Admin: 07/03/25 06:09 Dose: 20 mg Documented By: JESSY Ondansetron HCl (Ondansetron Hcl 4 Mg/2 Ml Vial) 4 mg IVPUSH Q8H PRN PRN Reason: Nausea and Vomiting Oxycodone HCl (Oxycodone Hcl Immed Release 5 Mg Tablet) 5 mg PO Q6H PRN PRN Reason: Pain, Severe (Pain Scale 7-10) Psyllium Hydrophilic Mucilloid (Psyllium Seed 3.7 Gm Packet) 3.7 gm PO DAILY [facility] Senna (Sennosides 8.6 Mg Tablet) 17.2 mg PO BID [facility] Last Admin: 07/03/25 10:35 Dose: 17.2 mg Documented By: SARA Sodium Chloride (0.9 % Sodium Chloride Flush 3 Ml Syringe) 3 ml IVFLUSH QSHIFT [facility] Last Admin: 07/03/25 10:15 Dose: Not Given Documented By: SARA Non-Admin Reason: IV Running Tramadol HCl (Tramadol Hcl 50 Mg Tablet) 50 mg PO Q6H PRN PRN Reason: Pain, Moderate(Pain Scale 4-6) Labs 07/03/25 04:31 07/03/25 04:31 Labs: Laboratory Results - last 24 hr 07/02/25 07/02/25 07/02/25 16:51 16:53 20:21 MCV 86.6 MCH 28.5 MCHC 32.9 RDW 13.8 Plt Count 260 MPV 10.1 Immature Gran % (Auto) 0.3 Neut % (Auto) 70.4 Lymph % (Auto) 18.3 L [place] % (Auto) 7.7 Eos % (Auto) 3.0 Baso % (Auto) 0.3 Lymph # (Auto) 1.7 [place] # (Auto) 0.7 Eos # (Auto) 0.3 Baso # (Auto) 0.0 Abs Immat Gran (auto) 0.03 Absolute Neuts (auto) 6.4 Absolute Nucleated RBC 0.000 Nucleated RBC % (auto) 0.0 Anion Gap 8 L Estim Creat Clear Calc 100.6 Estimated GFR > 60 POC Glucose Random Glucose 97 Lactic Acid 1.5 0.8 Calcium 9.0 Magnesium 2.3 Total Bilirubin 0.2 AST 22 ALT 20 Alkaline Phosphatase 83 Troponin I High Sens < 2.7 Total Protein 6.4 L Albumin 4.1 Procalcitonin Urine Color Urine Appearance Urine pH Ur Specific [place] Urine Protein Urine Glucose (UA) Urine Ketones Urine Blood Urine Nitrite Ur Leukocyte Esterase Urine RBC Urine WBC Ur Squamous Epith Cells Urine Bacteria Hyaline Casts Influenza Type A (PCR) NEGATIVE Influenza Type B (PCR) NEGATIVE RSV RNA Qual (PCR) NEGATIVE SARS-CoV-2 RNA (RT-PCR) NEGATIVE 07/03/25 07/03/25 07/03/25 04:31 06:10 07:08 MCV 86.8 MCH 28.7 MCHC 33.1 RDW 13.7 Plt Count 220 MPV 9.8 Immature Gran % (Auto) 0.6 H Neut % (Auto) 65.7 Lymph % (Auto) 21.9 [place] % (Auto) 8.2 Eos % (Auto) 3.3 Baso % (Auto) 0.3 Lymph # (Auto) 2.2 [place] # (Auto) 0.8 Eos # (Auto) 0.3 Baso # (Auto) 0.0 Abs Immat Gran (auto) 0.06 H Absolute Neuts (auto) 6.5 Absolute Nucleated RBC 0.000 Nucleated RBC % (auto) 0.0 Anion Gap 9 L Estim Creat Clear Calc 100.6 Estimated GFR > 60 POC Glucose 101 Random Glucose 101 Lactic Acid Calcium 8.6 Magnesium Total Bilirubin AST ALT Alkaline Phosphatase Troponin I High Sens Total Protein Albumin Procalcitonin 0.03 Urine Color Yellow Urine Appearance Clear Urine pH 6.5 Ur Specific [place] 1.020 Urine Protein Negative Urine Glucose (UA) Negative Urine Ketones Trace Urine Blood Negative Urine Nitrite Negative Ur Leukocyte Esterase Moderate (2+) H Urine RBC 0-2 Urine WBC 0-5 Ur Squamous Epith Cells 0-2 Urine Bacteria None Seen Hyaline Casts 0-2 Influenza Type A (PCR) Influenza Type B (PCR) RSV RNA Qual (PCR) SARS-CoV-2 RNA (RT-PCR) Assessment and Plan (1) Pneumonia: Status: Acute Plan d2, 65yo M LTC resident of [facility] with dementia, seizure disorder, chronic constipation, HLD, BPH, COPD, psoriasis, and DM2 sent in with confusion and weakness, found to have PNA + COPD exacerbation PNA: 07/02- ceftriaxone + doxycycline, follow up BCx, trend PCT, MRSA swab, check urinary antigens for Legionella and pneumococcus + respiratory pathogen panel COPD exacerbation: methylprednsiolone + nebs, continue Breo acute encephalopathy due to infection: treat as above mood disorder: clozapine, lithium seizure disorder: levetiracetam chronic constipation: lactulose, psyllium HLD: statin BPH: finasteride hypothyroidism: continue LT4 DM2: correction-dose lispro VTE ppx: enoxaparin dispo: LTC In my clinical judgment, the patient requires continued inpatient hospitalization for the following reasons: IV ABX, resp distress Total time managing care of this patient today: 45 minutes. Quality Stroke Does the patient have a stroke diagnosis?: No VTE Prior VTE?: No VTE Risk Level:: Medical - moderate - high VTE Device Contraindication: Treatment Not Indicated VTE Drug Contraindication: N/A - Med Ordered
[2025-07-03 12:50] LABS: Glucose, Whole Blood 88 mg/dL (60-115)
[2025-07-03] MEDS: Psyllium seed 3.7 GM PACKET PO (13:11)
[2025-07-03] MEDS: Nicotine 14 MG PATCH.TD24 TRANSDERMA (13:11)
[2025-07-03 14:24] LABS: Chlamydia pneumoniae PCR Not Detected (Not Detect.); Coronavirus 229E PCR Not Detected (Not Detect.); Coronavirus HKU1 PCR Not Detected (Not Detect.); Coronavirus NL63 PCR Not Detected (Not Detect.); Coronavirus OC43 PCR Not Detected (Not Detect.); RSV PCR Not Detected (Not Detect.); Rhino/Enterovirus PCR Not Detected (Not Detect.); SARS-CoV-2 PCR Not Detected (Not Detect.)
[2025-07-03 14:25] LABS: Influenza A H1 PCR Not Detected (Not Detect.); Influenza A H1-2009 PCR Not Detected (Not Detect.); Influenza A H3 PCR Not Detected (Not Detect.)
[2025-07-03 14:37] LABS: MRSA Nasal PCR NEGATIVE (Negative); SA Nasal PCR NEGATIVE (Negative)
[2025-07-03] MEDS: Albuterol/Iprat 2.5/0.5MG 3 ML AMPUL.NEB INHALE ×2 (15:44→19:10)
[2025-07-03 16:02] LABS: Glucose, Whole Blood 132 mg/dL (60-115)
--- NOTE | 2025-07-03 16:04 | MHC.CM.PN ---
PT IS A LTC RESIDENT AT [facility] [place] VM MESSAGE LEFT FOR GUARDIAN/CONSERVATOR/FLETCHER MONITOR, JANICE VARGAS [phone] COPY OF GUARDIANSHIP REQUESTED PCP: HANS BREAUX IMM DELIVERED RETURN TO [facility] [place] VIA BLS
[2025-07-03 21:08] LABS: Glucose, Whole Blood 164 mg/dL (60-115)
[2025-07-04] VITALS (8 sets, daily range): BP systolic 117–149; BP diastolic 72–85; PULSE 78–94; RESP 16–19; TEMP 36.4–36.6; O2SAT 92–98
[2025-07-04] MEDS: OLANZapine 10 MG VIAL 5 MG IM ×3 (04:24→23:09)
--- NOTE | 2025-07-04 04:49 | PC.NURSE ---
Addendum entered by Josselin Guillaume RN 07/04/25 05:48: pt continues to be aggressive, combative, trying to get out of bed, trying to kick staff, IM Zyprexa given at 0546, will continue to monitor. Original Note: pt being aggressive with staff, combative, trying to climb over rails, hitting and kicking staff, IM Zyprexa given at 0424, will continue to monitor.
[2025-07-04 05:53] LABS: MANUAL DIFF FLAG NO
[2025-07-04 06:19] LABS: Anion Gap 13 (12-20); Blood Urea Nitrogen 12 mg/dL (9-16); Calcium 9.7 mg/dL (8.4-10.2); Carbon Dioxide 22 mmol/L (22-29); Chloride 110 mmol/L (96-108); Creatinine Clr Calc Pharmacy 96.6; Estimated Glomerular Filt Rate > 60; Potassium 4.0 mmol/L (3.3-5.1); Sodium 141 mmol/L (135-145)
[2025-07-04 06:47] LABS: Hematocrit 43.5 % (42.0-52.0); Hemoglobin 13.9 g/dl (14.0-18.0); Imm Gran Abs Auto 0.07 X10*3/uL (0.00-0.03); Imm Gran Pct Auto 0.6 % (0.0-0.4); Lymphocytes Absolute Auto 1.2 X10*3/uL (1.2-4.9); Mean Corpuscular HGB Conc 32.0 g/dl (31.0-36.0); Mean Corpuscular Hemoglobin 28.0 pg (27.0-33.0); Mean Corpuscular Volume 87.5 fL (80.0-98.0); NRBC Abs Auto 0.000 X10*3/uL (0.0-0.012); NRBC Pct Auto 0.0 /100WBC (0.0-0.2); Platelet Count 224 X10*3/uL (160-400); Red Blood Count 4.97 X10*6/uL (4.60-5.80); White Blood Count 10.8 X10*3/uL (4.8-10.8)
[2025-07-04 07:09] LABS: Glucose, Whole Blood 95 mg/dL (60-115)
[2025-07-04] MEDS: Albuterol/Iprat 2.5/0.5MG 3 ML AMPUL.NEB INHALE ×3 (08:14→16:08)
[2025-07-04] MEDS: Fluticasone/Vilanterol 100/25 BLST.W.DEV 1 PUFF INHALE (08:14)
[2025-07-04] MEDS: 0.9 % Sodium Chloride Flush 3 ML SYRINGE IVFLUSH ×2 (08:26→20:53)
--- NOTE | 2025-07-04 11:16 | P.PNIM_ITS ---
Subjective Subjective Date of Service: 07/04/25 Interval History: confused, no apparent distress no dyspnea Review of Systems Review of Systems: Yes Unobtainable due to mental status Physical Exam 2 Vital Signs: Vital Signs: Last Vital Signs Temp 97.8 F 07/04/25 06:52 Pulse 88 07/04/25 08:14 Resp 16 07/04/25 08:14 BP 146/82 H 07/04/25 06:52 Pulse Ox 96 07/04/25 06:52 O2 Del Method Nasal Cannula 07/04/25 06:52 O2 Flow Rate 2 07/04/25 06:52 BMI result Body Mass Index 32.2 Gen: NAD HEENT: sclera anicteric, moist mucus membranes Neck: supple Lungs: R-sided inspiratory crackles, no wheezing today Heart: regular rate and rhythm, no murmurs Abd: soft, non-tender, non-distended Ext: no edema Skin: warm/well-perfused Neuro: somnolent but arousable, unable to assess orientation, moving all extremities Psych: impaired insight Objective Data Active Medications Acetaminophen (Acetaminophen 325 Mg Tablet) 650 mg PO Q6H PRN PRN Reason: Pain, Mild 1-3,fever,headache Albuterol Sulfate (Albuterol Sulfate (0.083%) 2.5 Mg/3 Ml Vial.Neb) 2.5 mg INHALE Q2H PRN PRN Reason: Shortness of Breath/Wheezing Albuterol/Ipratropium (Albuterol/Iprat 2.5/0.5mg 3 Ml Ampul.Neb) 3 ml INHALE RQ4H WHILE AWAKE [facility] Last Admin: 07/04/25 08:14 Dose: 3 ml Documented By: EMILY Albuterol/Ipratropium (Albuterol/Iprat 2.5/0.5mg 3 Ml Ampul.Neb) 3 ml INHALE RQ4H WHILE AWAKE PRN PRN Reason: Shortness of Breath Artificial Tears (Artificial Tears 15 Ml Drops) 1 drop EYE-BOTH Q4H PRN PRN Reason: Dry Eye(S) Last Admin: 07/03/25 10:35 Dose: 1 drop Documented By: SARA Atorvastatin Calcium (Atorvastatin Calcium 10 Mg Tablet) 10 mg PO DAILY [facility] Last Admin: 07/04/25 08:30 Dose: 10 mg Documented By: JUAN Calcium Carbonate (Calcium Carbonate 750 Mg Tab.Chew) 750 mg PO Q4H PRN PRN Reason: Heartburn Ceftriaxone Sodium (Ceftriaxone Sodium 1 Gm Vial) 1 gm IVPUSH Q24H [facility] Last Admin: 07/03/25 20:06 Dose: 1 gm Documented By: VIPUL Clozapine (Clozapine 100 Mg Tablet) 400 mg PO BEDTIME [facility] Last Admin: 07/03/25 20:06 Dose: 400 mg Documented By: VIPUL Clozapine (Clozapine 100 Mg Tablet) 100 mg PO DAILY [facility] Last Admin: 07/04/25 08:30 Dose: 100 mg Documented By: JUAN Dextrose (Dextrose 50 % 25 Gm/50 Ml Syringe) 25 gm IVPUSH Q15M PRN; Protocol PRN Reason: per Hypoglycemia Standing Ord. Enoxaparin Sodium (Enoxaparin Sodium 40 Mg/0.4 Ml Syringe) 40 mg SUBCUT Q24H [facility] Last Admin: 07/03/25 22:48 Dose: Not Given Documented By: VIPUL Non-Admin Reason: Patient Refused Ergocalciferol (Ergocalciferol (Vitamin D2) 1,250 Mcg Capsule) 1,250 mcg PO Th@0900 [facility] Last Admin: 07/03/25 10:34 Dose: 1,250 mcg Documented By: SARA Finasteride (Finasteride 5 Mg Tablet) 5 mg PO DAILY [facility] Last Admin: 07/04/25 08:29 Dose: 5 mg Documented By: JUAN Fluticasone/Vilanterol (Fluticasone/Vilanterol 100/25 Blst.W.Dev) 1 puff INHALE RDAILY [facility] Last Admin: 07/04/25 08:14 Dose: 1 puff Documented By: EMILY Glucose (Glucose Gel 15 Gm Gel..Gram.) 15 gm PO Q15M PRN; Protocol PRN Reason: per Hypoglycemia Standing Ord. Glycopyrrolate (Glycopyrrolate 1 Mg Tablet) 3 mg PO DAILY [facility] Last Admin: 07/04/25 08:29 Dose: 3 mg Documented By: JUAN Guaifenesin (Guaifenesin 100 Mg/5 Ml 5 Ml Liquid) 10 ml PO Q6H PRN PRN Reason: Cough Doxycycline Hyclate 100 mg/ (Sodium Chloride) 250 mls @ 166.67 mls/hr IV BID [facility] Last Infusion: 07/04/25 10:00 Dose: Infused Documented By: JUAN Insulin Human Lispro (Insulin Lispro 100 Unit/Ml 3 Ml Vial) 0 unit SUBCUT QIDACHS [facility]; Protocol Last Admin: 07/04/25 07:44 Dose: Not Given Documented By: JUAN Non-Admin Reason: No Insulin Coverage Lactulose (Lactulose 20 Gm/30 Ml Solution) 20 gm PO BID [facility] Last Admin: 07/04/25 08:45 Dose: Not Given Documented By: JUAN Non-Admin Reason: Patient Refused Levetiracetam (Levetiracetam 500 Mg Tablet) 500 mg PO DAILY [facility] Last Admin: 07/04/25 08:29 Dose: 500 mg Documented By: JUAN Levetiracetam (Levetiracetam 250 Mg Tablet) 750 mg PO BEDTIME [facility] Last Admin: 07/03/25 20:04 Dose: 750 mg Documented By: VIPUL Levothyroxine Sodium (Levothyroxine Sodium 75 Mcg Tablet) 75 mcg PO DAILY@0600 [facility] Last Admin: 07/04/25 05:31 Dose: Not Given Documented By: KELLY Non-Admin Reason: Patient Refused [place] Carbonate ([place] Carbonate Er 450 Mg Tablet.Er) 450 mg PO BID [facility] Last Admin: 07/04/25 08:30 Dose: 450 mg Documented By: JUAN Magnesium Hydroxide (Milk Of Magnesia 30 Ml Oral.Susp) 30 ml PO DAILY PRN PRN Reason: Constipation Magnesium Hydroxide (Milk Of Magnesia 30 Ml Oral.Susp) 30 ml PO DAILY PRN PRN Reason: Constipation Melatonin (Melatonin 3 Mg Tablet) 6 mg PO BEDTIME PRN PRN Reason: Insomnia Methylprednisolone Sodium Succinate (Methylprednisolone Sod Succ 40 Mg/Ml Vial) 40 mg IVPUSH Q24H [facility] Last Admin: 07/03/25 13:12 Dose: 40 mg Documented By: NATANAEL Nicotine (Nicotine 14 Mg Patch.Td24) 14 mg TRANSDERMA DAILY [facility] Last Admin: 07/04/25 08:45 Dose: Not Given Documented By: JUAN Non-Admin Reason: Patient Refused Nicotine Polacrilex (Nicotine Polacrilex 2 Mg Gum) 2 mg BUCCAL Q2H PRN PRN Reason: Nicotine Cravings Omeprazole (Omeprazole 20 Mg Capsule.Dr) 20 mg PO BID@0630,1630 [facility] Last Admin: 07/04/25 05:31 Dose: Not Given Documented By: KELLY Non-Admin Reason: Patient Refused Ondansetron HCl (Ondansetron Hcl 4 Mg/2 Ml Vial) 4 mg IVPUSH Q8H PRN PRN Reason: Nausea and Vomiting Oxycodone HCl (Oxycodone Hcl Immed Release 5 Mg Tablet) 5 mg PO Q6H PRN PRN Reason: Pain, Severe (Pain Scale 7-10) Psyllium Hydrophilic Mucilloid (Psyllium Seed 3.7 Gm Packet) 3.7 gm PO DAILY [facility] Last Admin: 07/04/25 08:46 Dose: Not Given Documented By: JUAN Non-Admin Reason: Patient Refused Senna (Sennosides 8.6 Mg Tablet) 17.2 mg PO BID [facility] Last Admin: 07/04/25 08:46 Dose: Not Given Documented By: JUAN Non-Admin Reason: Patient Refused Sodium Chloride (0.9 % Sodium Chloride Flush 3 Ml Syringe) 3 ml IVFLUSH QSHIFT [facility] Last Admin: 07/04/25 08:26 Dose: 3 ml Documented By: JUAN Tramadol HCl (Tramadol Hcl 50 Mg Tablet) 50 mg PO Q6H PRN PRN Reason: Pain, Moderate(Pain Scale 4-6) Labs 07/04/25 05:17 07/04/25 05:17 Labs: Laboratory Results - last 24 hr 07/03/25 07/03/25 07/03/25 11:42 12:46 13:06 MCV MCH MCHC RDW Plt Count MPV Immature Gran % (Auto) Neut % (Auto) Lymph % (Auto) [place] % (Auto) Eos % (Auto) Baso % (Auto) Lymph # (Auto) [place] # (Auto) Eos # (Auto) Baso # (Auto) Abs Immat Gran (auto) Absolute Neuts (auto) Absolute Nucleated RBC Nucleated RBC % (auto) Anion Gap Estim Creat Clear Calc Estimated GFR POC Glucose 79 88 Random Glucose Calcium Nasal Screen MRSA (PCR) NEGATIVE Nasal S. aureus Screen NEGATIVE Nasal MRSA/S.aureus Interp SEE NOTE Respiratory Panel [place] See Note Adenovirus (Rapid PCR) Not Detected B.pert (TEM-PCR) Not Detected B.parapertussis DNA PCR Not Detected C. pneumoniae DNA (PCR) Not Detected Coronavirus OC43 (PCR) Not Detected Coronavirus HKU1 (PCR) Not Detected Coronavirus 229E (PCR) Not Detected Coronavirus NL63 (PCR) Not Detected Human Metapneumovir PCR Not Detected Influenza A (RT-PCR) Not Detected Influenza A (H1) PCR Not Detected Influ A () PCR Not Detected Influenza A (H3) PCR Not Detected Influenza B (RT-PCR) Not Detected M. pneumoniae (PCR) Not Detected Parainfluenza 1 (PCR) Not Detected Parainfluenza 2 (PCR) Not Detected Parainfluenza 3 (PCR) Not Detected Parainfluenza 4 (PCR) Not Detected RSV (PCR) Not Detected Entero/Rhino (PCR) Not Detected SARS-CoV-2 RNA (RT-PCR) Not Detected 07/03/25 07/03/25 07/04/25 15:58 21:00 05:17 MCV 87.5 MCH 28.0 MCHC 32.0 RDW 13.5 Plt Count 224 MPV 10.3 Immature Gran % (Auto) 0.6 H Neut % (Auto) 80.3 H Lymph % (Auto) 10.8 L [place] % (Auto) 7.9 Eos % (Auto) 0.2 Baso % (Auto) 0.2 Lymph # (Auto) 1.2 [place] # (Auto) 0.9 Eos # (Auto) 0.0 Baso # (Auto) 0.0 Abs Immat Gran (auto) 0.07 H Absolute Neuts (auto) 8.7 H Absolute Nucleated RBC 0.000 Nucleated RBC % (auto) 0.0 Anion Gap 13 Estim Creat Clear Calc 96.6 Estimated GFR > 60 POC Glucose 132 H 164 H Random Glucose 116 H Calcium 9.7 D Nasal Screen MRSA (PCR) Nasal S. aureus Screen Nasal MRSA/S.aureus Interp Respiratory Panel [place] Adenovirus (Rapid PCR) B.pert (TEM-PCR) B.parapertussis DNA PCR C. pneumoniae DNA (PCR) Coronavirus OC43 (PCR) Coronavirus HKU1 (PCR) Coronavirus 229E (PCR) Coronavirus NL63 (PCR) Human Metapneumovir PCR Influenza A (RT-PCR) Influenza A (H1) PCR Influ A () PCR Influenza A (H3) PCR Influenza B (RT-PCR) M. pneumoniae (PCR) Parainfluenza 1 (PCR) Parainfluenza 2 (PCR) Parainfluenza 3 (PCR) Parainfluenza 4 (PCR) RSV (PCR) Entero/Rhino (PCR) SARS-CoV-2 RNA (RT-PCR) 07/04/25 07:06 MCV MCH MCHC RDW Plt Count MPV Immature Gran % (Auto) Neut % (Auto) Lymph % (Auto) [place] % (Auto) Eos % (Auto) Baso % (Auto) Lymph # (Auto) [place] # (Auto) Eos # (Auto) Baso # (Auto) Abs Immat Gran (auto) Absolute Neuts (auto) Absolute Nucleated RBC Nucleated RBC % (auto) Anion Gap Estim Creat Clear Calc Estimated GFR POC Glucose 95 Random Glucose Calcium Nasal Screen MRSA (PCR) Nasal S. aureus Screen Nasal MRSA/S.aureus Interp Respiratory Panel [place] Adenovirus (Rapid PCR) B.pert (TEM-PCR) B.parapertussis DNA PCR C. pneumoniae DNA (PCR) Coronavirus OC43 (PCR) Coronavirus HKU1 (PCR) Coronavirus 229E (PCR) Coronavirus NL63 (PCR) Human Metapneumovir PCR Influenza A (RT-PCR) Influenza A (H1) PCR Influ A (H1/09) PCR Influenza A (H3) PCR Influenza B (RT-PCR) M. pneumoniae (PCR) Parainfluenza 1 (PCR) Parainfluenza 2 (PCR) Parainfluenza 3 (PCR) Parainfluenza 4 (PCR) RSV (PCR) Entero/Rhino (PCR) SARS-CoV-2 RNA (RT-PCR) Microbiology Microbiology Results: Microbiology 07/02/25 20:21 Blood Culture - Preliminary Blood - Venous No growth after 24 hours. 07/02/25 20:21 Blood Culture - Preliminary Blood - Venous No growth after 24 hours. Assessment and Plan (1) Pneumonia: Status: Acute Plan d3, 65yo M LTC resident of [facility] with dementia, seizure disorder, chronic constipation, HLD, BPH, COPD, psoriasis, and DM2 sent in with confusion and weakness, found to have PNA + COPD exacerbation PNA: 07/02- ceftriaxone + doxycycline, follow up BCx, trend PCT, MRSA swab negative, RPP negative, urinary antigens for Legionella and pneumococcus [emdomg COPD exacerbation: methylprednsiolone + nebs, continue Breo acute encephalopathy due to infection: treat as above mood disorder: clozapine, lithium seizure disorder: levetiracetam chronic constipation: lactulose, psyllium HLD: statin BPH: finasteride hypothyroidism: continue LT4 DM2: correction-dose lispro VTE ppx: enoxaparin dispo: LTC @ [facility] In my clinical judgment, the patient requires continued inpatient hospitalization for the following reasons: IV ABX Total time managing care of this patient today: 35 minutes. Quality Stroke Does the patient have a stroke diagnosis?: No VTE Prior VTE?: No VTE Risk Level:: Medical - moderate - high VTE Device Contraindication: Treatment Not Indicated VTE Drug Contraindication: N/A - Med Ordered
[2025-07-04 11:32] LABS: Glucose, Whole Blood 87 mg/dL (60-115)
--- NOTE | 2025-07-04 11:59 | MHC.CM.PN ---
per rounds pt will be here till dc plan remains [facility]
--- NOTE | 2025-07-04 12:37 | PC.NURSE ---
pt had an unwitnessed fall, camera at bedside and STAT alarm went off AFTER patient was already on his knees on the floor, no injury noted, vitals stable, md notified
--- NOTE | 2025-07-04 14:31 | PC.NURSE ---
pt increasingly combative, staff responded to stat alarm but patient was able to push his way thru and had a fall, fell to his knees, no injury noted, MD SYLVIA notified, sitter at bedside now for safety
[2025-07-04 16:09] LABS: Glucose, Whole Blood 110 mg/dL (60-115)
[2025-07-04] MEDS: oxyCODONE HCl Immed Release 5 MG TABLET PO (16:47)
[2025-07-04 21:00] LABS: Glucose, Whole Blood 145 mg/dL (60-115)
--- NOTE | 2025-07-04 23:17 | PC.NURSE ---
Pt becoming increasingly agitated and not able to be re directed. Pt attempting to kick staff and swear at them. At this time I messaged Dr. Roa and received a one time dose of zyprexa. IM zyprexa was administered per NOV at 11:15. Will continue to monitor pt. Pt has sitter and camera in room.
[2025-07-05 03:39] VITALS: BP 125/75; PULSE 83; RESP 19; TEMP 36.2; O2SAT 94
[2025-07-05 05:58] LABS: MANUAL DIFF FLAG NO
[2025-07-05 06:15] LABS: Hematocrit 44.9 % (42.0-52.0); Hemoglobin 14.3 g/dl (14.0-18.0); Imm Gran Abs Auto 0.05 X10*3/uL (0.00-0.03); Imm Gran Pct Auto 0.4 % (0.0-0.4); Lymphocytes Absolute Auto 2.2 X10*3/uL (1.2-4.9); Mean Corpuscular HGB Conc 31.8 g/dl (31.0-36.0); Mean Corpuscular Hemoglobin 27.7 pg (27.0-33.0); Mean Corpuscular Volume 87.0 fL (80.0-98.0); NRBC Abs Auto 0.000 X10*3/uL (0.0-0.012); NRBC Pct Auto 0.0 /100WBC (0.0-0.2); Platelet Count 219 X10*3/uL (160-400); Red Blood Count 5.16 X10*6/uL (4.60-5.80); White Blood Count 13.0 X10*3/uL (4.8-10.8)
[2025-07-05 06:17] LABS: Anion Gap 12 (12-20); Blood Urea Nitrogen 13 mg/dL (9-16); Calcium 9.3 mg/dL (8.4-10.2); Carbon Dioxide 24 mmol/L (22-29); Chloride 107 mmol/L (96-108); Creatinine Clr Calc Pharmacy 111.9; Estimated Glomerular Filt Rate > 60; Potassium 4.1 mmol/L (3.3-5.1); Sodium 139 mmol/L (135-145)
[2025-07-05 06:53] LABS: Procalcitonin 0.06 ng/mL
[2025-07-05 07:39] LABS: Glucose, Whole Blood 110 mg/dL (60-115)
[2025-07-05 08:00] VITALS: BP 118/76; PULSE 83; RESP 18; TEMP 36; O2SAT 95
--- NOTE | 2025-07-05 09:58 | MHC.CM.PN ---
Per MD, patient medically cleared for dc back to LTC @ [facility]. BLS transport booked for 1pm. and RN aware. LM for guardian with the above information. Last IMM 07/03.
--- NOTE | 2025-07-05 09:59 | P.DS_ITS ---
DS: Providers Provider Date of Service: 07/05/25 Date of admission: 07/02/25 22:18 Date of discharge: 07/05/25 Primary care physician: Unknown Physician DS: Diagnosis Discharge Diagnosis (1) Pneumonia: Status: Acute (2) Acute encephalopathy due to infection: Status: Acute (3) COPD exacerbation: Status: Acute DS: Summary Hospital Course Hospital Course: From the history and physical by the admitting hospitalist, RANDOLPH Meneses, 07/02/25: Patient is a 65-year-old male with a past medical history significant for dementia, seizure disorder, chronic constipation, HLD, BPH, moderate COPD, psoriasis and type 2 diabetes, who presented to the ED from [facility] due to confusion and weakness. It was reported that the patient had a local fever and sustained a fall 2 days ago that was unwitnessed. The patient does not recall this event. He is very confused and unable to provide a history at this time. Currently he has no complaints. 65yo M LTC resident of [facility] with dementia, seizure disorder, chronic constipation, HLD, BPH, COPD, psoriasis, and DM2 sent in with confusion and weakness, found to have PNA + COPD exacerbation and admitted to the medical- surgical unit. Treated with ceftriaxone and doxycycline and methylprednisolone. Blood cultures negative MRSA swab negative. RPP negative. Procalcitonin was low. Mental status returned to baseline and he was discharged back to [facility] for long-term care. Prescribed cefdinir, doxycycline, prednisone, and NRT; counseled to quit smoking. Time Attestation Discharge Coordination Time (in mins): 35 Quality: Safe Use of Opioids Does Pt have an Active Cancer Diagnosis on the Problem List?: No Quality: Stroke Does the patient have a stroke diagnosis?: No Physical Exam Vital Signs: Vital Signs: Last Vital Signs Temp 96.8 F 07/05/25 08:00 Pulse 83 07/05/25 08:00 Resp 18 07/05/25 08:00 BP 118/76 07/05/25 08:00 Pulse Ox 95 07/05/25 08:00 O2 Del Method Nasal Cannula 07/05/25 08:00 O2 Flow Rate 2 07/05/25 08:00 BMI result Body Mass Index 32.2 Gen: NAD HEENT: sclera anicteric, moist mucus membranes Neck: supple Lungs: clear bilaterally Heart: regular rate and rhythm, no murmurs Abd: soft, non-tender, non-distended Ext: no edema Skin: warm/well-perfused Neuro: alert, unable to assess orientation, moving all extremities Psych: impaired insight, bizarre affect DS: Data Data Completed and Pending Completed studies during hospitalization [Text1]: Laboratory Results WBC 13.0 X10*3/uL (4.8-10.8) H 07/05/25 05:14 RBC 5.16 X10*6/uL (4.60-5.80) 07/05/25 05:14 Hgb 14.3 g/dl (14.0-18.0) 07/05/25 05:14 Hct 44.9 % (42.0-52.0) 07/05/25 05:14 MCV 87.0 fL (80.0-98.0) 07/05/25 05:14 MCH 27.7 pg (27.0-33.0) 07/05/25 05:14 MCHC 31.8 g/dl (31.0-36.0) 07/05/25 05:14 RDW 13.6 % (11.0-16.0) 07/05/25 05:14 Plt Count 219 X10*3/uL (160-400) 07/05/25 05:14 MPV 10.2 fL (9.4-12.4) 07/05/25 05:14 Immature Gran % (Auto) 0.4 % (0.0-0.4) 07/05/25 05:14 Neut % (Auto) 71.9 % (45-73) 07/05/25 05:14 Lymph % (Auto) 17.0 % (20-40) L 07/05/25 05:14 Mathews % (Auto) 7.9 % (2-11) 07/05/25 05:14 Eos % (Auto) 2.4 % (0-4) 07/05/25 05:14 Baso % (Auto) 0.4 % (0-2) 07/05/25 05:14 Lymph # (Auto) 2.2 X10*3/uL (1.2-4.9) 07/05/25 05:14 Mathews # (Auto) 1.0 X10*3/uL (0.1-1.2) 07/05/25 05:14 Eos # (Auto) 0.3 X10*3/uL (0.0-0.4) 07/05/25 05:14 Baso # (Auto) 0.1 X10*3/uL (0.0-0.2) 07/05/25 05:14 Abs Immat Gran (auto) 0.05 X10*3/uL (0.00-0.03) H 07/05/25 05:14 Absolute Neuts (auto) 9.4 x10*3/uL (2.0-8.3) H 07/05/25 05:14 Absolute Nucleated RBC 0.000 X10*3/uL (0.0-0.012) 07/05/25 05:14 Nucleated RBC % (auto) 0.0 /100WBC (0.0-0.2) 07/05/25 05:14 Sodium 139 mmol/L (135-145) 07/05/25 05:14 Potassium 4.1 mmol/L (3.3-5.1) 07/05/25 05:14 Chloride 107 mmol/L (96-108) 07/05/25 05:14 Carbon Dioxide 24 mmol/L (22-29) 07/05/25 05:14 Anion Gap 12 (12-20) 07/05/25 05:14 BUN 13 mg/dL (9-16) 07/05/25 05:14 Creatinine 0.63 mg/dL (0.5-1.4) 07/05/25 05:14 Estim Creat Clear Calc 111.9 07/05/25 05:14 Estimated GFR > 60 07/05/25 05:14 POC Glucose 110 mg/dL (60-115) 07/05/25 07:31 Random Glucose 78 mg/dL (60-115) 07/05/25 05:14 Lactic Acid 0.8 mmol/L (0.5-2.0) 07/02/25 20:21 Calcium 9.3 mg/dL (8.4-10.2) 07/05/25 05:14 Magnesium 2.3 mg/dL (1.6-2.6) 07/02/25 16:51 Total Bilirubin 0.2 mg/dL (0.0-1.0) 07/02/25 16:51 AST 22 U/L (5-37) 07/02/25 16:51 ALT 20 U/L (0-40) 07/02/25 16:51 Alkaline Phosphatase 83 U/L (39-117) 07/02/25 16:51 Troponin I High Sens < 2.7 ng/L (<3.5-35.0) 07/02/25 16:51 Total Protein 6.4 g/dL (6.5-8.0) L 07/02/25 16:51 Albumin 4.1 g/dL (3.5-5.0) 07/02/25 16:51 Procalcitonin 0.06 ng/mL 07/05/25 05:14 Urine Color Yellow 07/03/25 06:10 Urine Appearance Clear 07/03/25 06:10 Urine pH 6.5 (5.0-9.0) 07/03/25 06:10 Ur Specific [place] 1.020 (1.005-1.025) 07/03/25 06:10 Urine Protein Negative mg/dL (Neg-Trace) 07/03/25 06:10 Urine Glucose (UA) Negative mg/dL (Negative) 07/03/25 06:10 Urine Ketones Trace mg/dL (Negative) 07/03/25 06:10 Urine Blood Negative (Negative) 07/03/25 06:10 Urine Nitrite Negative (Negative) 07/03/25 06:10 Ur Leukocyte Esterase Moderate (2+) (Negative) H 07/03/25 06:10 Urine RBC 0-2 /HPF (0-2) 07/03/25 06:10 Urine WBC 0-5 /HPF (0-5) 07/03/25 06:10 Ur Squamous Epith Cells 0-2 /HPF (0-2) 07/03/25 06:10 Urine Bacteria None Seen (None Seen) 07/03/25 06:10 Hyaline Casts 0-2 /LPF (0-2) 07/03/25 06:10 Nasal Screen MRSA (PCR) NEGATIVE (Negative) 07/03/25 13:06 Nasal S. aureus Screen NEGATIVE (Negative) 07/03/25 13:06 Nasal MRSA/S.aureus Interp SEE NOTE 07/03/25 13:06 Respiratory Panel Meier See Note 07/03/25 13:06 Adenovirus (Rapid PCR) Not Detected (Not Detect.) 07/03/25 13:06 B.pert (TEM-PCR) Not Detected (Not Detect.) 07/03/25 13:06 B.parapertussis DNA PCR Not Detected (Not Detect.) 07/03/25 13:06 C. pneumoniae DNA (PCR) Not Detected (Not Detect.) 07/03/25 13:06 Coronavirus OC43 (PCR) Not Detected (Not Detect.) 07/03/25 13:06 Coronavirus HKU1 (PCR) Not Detected (Not Detect.) 07/03/25 13:06 Coronavirus 229E (PCR) Not Detected (Not Detect.) 07/03/25 13:06 Coronavirus NL63 (PCR) Not Detected (Not Detect.) 07/03/25 13:06 Human Metapneumovir PCR Not Detected (Not Detect.) 07/03/25 13:06 Influenza A (RT-PCR) Not Detected (Not Detect.) 07/03/25 13:06 Influenza A (H1) PCR Not Detected (Not Detect.) 07/03/25 13:06 Influ A (H1/09) PCR Not Detected (Not Detect.) 07/03/25 13:06 Influenza A (H3) PCR Not Detected (Not Detect.) 07/03/25 13:06 Influenza Type A (PCR) NEGATIVE (Negative) 07/02/25 16:53 Influenza B (RT-PCR) Not Detected (Not Detect.) 07/03/25 13:06 Influenza Type B (PCR) NEGATIVE (Negative) 07/02/25 16:53 M. pneumoniae (PCR) Not Detected (Not Detect.) 07/03/25 13:06 Parainfluenza 1 (PCR) Not Detected (Not Detect.) 07/03/25 13:06 Parainfluenza 2 (PCR) Not Detected (Not Detect.) 07/03/25 13:06 Parainfluenza 3 (PCR) Not Detected (Not Detect.) 07/03/25 13:06 Parainfluenza 4 (PCR) Not Detected (Not Detect.) 07/03/25 13:06 RSV (PCR) Not Detected (Not Detect.) 07/03/25 13:06 RSV RNA Qual (PCR) NEGATIVE (Negative) 07/02/25 16:53 Entero/Rhino (PCR) Not Detected (Not Detect.) 07/03/25 13:06 SARS-CoV-2 RNA (RT-PCR) Not Detected (Not Detect.) 07/03/25 13:06 Discharge Plan Discharge Anticipated Discharge Date/Time: 07/05/25 09:51 Patient Disposition: Xfer SNF Discharge Diagnosis: pneumonia, COPD exacerbation, encephalopathy Referrals: [facility] [Outside] - 1 Week Physician,Unknown J [Primary Care Provider, Medical] - 1 Week Discharge Medications: New cefdinir 300 mg capsule 300 mg PO BID Qty: 8 0RF doxycycline monohydrate 100 mg tablet 100 mg PO BID Qty: 8 0RF nicotine 14 mg/24 hr Patch 24 Hour 14 mg transdermal DAILY Qty: 30 0RF nicotine (polacrilex) 2 mg Gum 2 mg buccal Q2H PRN (Reason: Nicotine Cravings) Qty: 100 0RF prednisone 20 mg tablet 40 mg PO DAILY Qty: 8 0RF Continued sennosides [senna] 8.6 mg Tablet 17.2 mg PO BID sennosides [senna] 8.6 mg Tablet 8.6 mg PO DAILY PRN (Reason: Constipation) psyllium Packet 1 packet PO DAILY Rx Instructions: mix into at least 8 oz of water or juice before administering levothyroxine 75 mcg Tablet 75 mcg PO DAILY@0600 magnesium hydroxide [Milk of Magnesia] 400 mg/5 mL Suspension 30 ml PO DAILY PRN (Reason: Constipation) ibuprofen 600 mg Tablet 600 mg PO Q8H PRN (Reason: Muscle Pain) fluticasone furoate-vilanterol [Breo Ellipta] 100-25 mcg/dose Blister With Device 1 inh INHALATION DAILY Linzess 72 mcg Capsule 72 mcg PO BID glucagon HCl 1 mg Recon Soln 1 mg SUBCUT Q15M PRN (Reason: severe hypoglycemia) Rx Instructions: until target blood sugar attained levetiracetam 500 mg tablet 500 mg PO DAILY carboxymethylcellulose sodium [Refresh Tears] 0.5 % Drops 1 drp OPHTHALMIC (EYE) Q4H PRN (Reason: Dry Eye(S)) Rx Instructions: Both eyes clozapine 200 mg tablet 400 mg PO BEDTIME levetiracetam 750 mg tablet extended release 24 hr 750 mg PO BEDTIME lactulose 10 gram/15 mL Solution 30 ml PO BID guaifenesin 100 mg/5 mL Liquid 200 mg PO Q6H PRN (Reason: Cough) acetaminophen 325 mg tablet 650 mg PO Q6H PRN (Reason: Fever Or Pain) atorvastatin 10 mg tablet 10 mg PO DAILY bisacodyl 10 mg suppository 10 mg VA DAILY PRN (Reason: if senna or MOM ineffective) clozapine [Clozaril] 100 mg tablet 100 mg PO DAILY Fleet Enema 19-7 gram/118 mL enema 118 ml VA DAILY PRN (Reason: if bisacodyl supp ineffective) glycopyrrolate 1 mg tablet 3 mg PO DAILY lithium carbonate 450 mg tablet extended release 450 mg PO BID metformin 500 mg tablet 500 mg PO BID pantoprazole 40 mg tablet,delayed release (DR/EC) 40 mg PO BID@0630,1630 Skyrizi 150 mg/mL pen injector 150 mg subcut Q84D Rx Instructions: next dose due 10/17/24 finasteride 5 mg tablet 5 mg PO DAILY 90 Days Qty: 90 1RF cholecalciferol (vitamin D3) 1,250 mcg (50,000 unit) capsule 1,250 mcg PO TH Discharge Orders: Discharge Order (Routine); Ordered 07/05/25 Ordered By: Meche Brito Diet: Advance to usual diet Activity on Discharge: As tolerated Stand Alone Forms: Patient Portal Discharge page Print Language: [place] Care Plan Goals: recovery from pneumonia Health Concerns: pneumonia, COPD exacerbation, encephalopathy Plan of Treatment: [facility] for [facility]term [facility] care cefdinir 300 mg twice daily plus doxycycline 100 mg twice daily for total 4 days prednisone 40 mg once daily for 4 days quit smoking; use nicotine patch/gum to quit Please follow up with your primary care doctor within 1 week. Return to the hospital if you experience recurrent or worsening symptoms. Assessment: See Discharge Summary.
[2025-07-05 11:24] LABS: Glucose, Whole Blood 120 mg/dL (60-115)
[2025-07-05 13:46] VITALS: BP 136/80; PULSE 86; RESP 18; TEMP 36.3; O2SAT 94
[2025-07-05 13:58] VITALS: O2SAT 96
[2025-07-07 23:13] LABS: Strep Pneumo Ag urine Not Detected (Not Detected)
== END 2025-07-05 13:58 | disposition skilled nursing facility (03) | DRG 193 ==
LOC: HO.ED 21:22 → HO.EDOVER 22:21 → HO.S3 07-03 11:55
PROVIDERS: Physician Assistant Medical; Admitting Provider Physician Assistant; Emergency Provider Emergency Medicine; Visit Provider Family Medicine
DX: J18.9 Pneumonia, unspecified organism (principal); G93.41 Metabolic encephalopathy; J44.0 Chronic obstructive pulmonary disease with (acute) lower respiratory infection; J44.1 Chronic obstructive pulmonary disease with (acute) exacerbation; W19.XXXA Unspecified fall, initial encounter; E03.9 Hypothyroidism, unspecified; F03.90 Unspecified dementia, unspecified severity, without behavioral disturbance, psychotic disturbance, mood disturbance, and anxiety; G40.909 Epilepsy, unspecified, not intractable, without status epilepticus; F39 Unspecified mood [affective] disorder; N40.0 Benign prostatic hyperplasia without lower urinary tract symptoms; L40.9 Psoriasis, unspecified; E78.5 Hyperlipidemia, unspecified; K59.09 Other constipation; Z20.822 Contact with and (suspected) exposure to COVID-19; Z79.51 Long term (current) use of inhaled steroids; Z79.84 Long term (current) use of oral hypoglycemic drugs; Z79.620 Long term (current) use of immunosuppressive biologic; Z79.890 Hormone replacement therapy; Z79.899 Other long term (current) drug therapy
CPT/HCPCS: 36415; 70450; 71045; 71046; 72125; 80048; 80053; 81001; 82947; 83605; 83735; 84145; 84484; 85025; 87040; 87086; 87449; 87633; 87637; 87640; 87641; 87899; 93005; 99285; J0456; J0696; J1271; J1650; J2359; J2919

== ENCOUNTER → 2025-07-02 16:29 | Outpatient (BNV) | payer MEDICARE, MEDICAID, SELFPAY | PROVIDERS: Admitting Provider Physician Assistant; Emergency Provider Emergency Medicine; Visit Provider Internal Medicine Cardiovascular Disease | DX: I45.81 Long QT syndrome (principal) | CPT/HCPCS: 93010 ==

== ENCOUNTER → 2025-07-02 17:15 | Outpatient (BNV) | payer MEDICARE, MEDICAID, SELFPAY | PROVIDERS: Visit Provider Radiology Diagnostic Radiology | DX: M47.22 Other spondylosis with radiculopathy, cervical region (principal); R41.82 Altered mental status, unspecified; R05.9 Cough, unspecified; R50.9 Fever, unspecified | CPT/HCPCS: 70450; 71045; 71046; 72125 ==

== ENCOUNTER → 2025-07-02 22:18 | Outpatient (BNV) | payer MEDICARE, MEDICAID, SELFPAY | PROVIDERS: Admitting Provider Physician Assistant; Emergency Provider Emergency Medicine; Visit Provider Family Medicine | DX: J18.9 Pneumonia, unspecified organism (principal); G93.49 Other encephalopathy; B99.9 Unspecified infectious disease; J44.1 Chronic obstructive pulmonary disease with (acute) exacerbation | CPT/HCPCS: 99223; 99232; 99239 ==

== ENCOUNTER 2025-07-30 12:46 | Outpatient (AMB) | payer MEDICARE, MEDICAID, SELFPAY ==
--- NOTE | 2025-07-30 12:51 | MHC.OFFVIS ---
Vital Signs 07/30/25 12:59 Height 5 ft 4 in Weight 185 lb BMI 31.8 BP 104/60 Blood Pressure Location Rt brachial Position Sitting Pulse 94 Pulse Source Pulse Oximeter Pulse Oximetry (%) 96 Oxygen Delivery Method Room Air Intake Visit Reasons: colo screen Intake Note: New pt for recall colo No colo on file or in referral. Mgmt of CIC + GERD. CC: C.O. constipation persistence despite current therapies. Pt does state that his GERD is well controlled with current PPI. No additional concerns or sx at this time. [employer] Developer Required: No Accompanied by: Watch Assembly Instructor Allergies Penicillins Allergy (Verified 07/30/25 12:51) Unknown poison jolanta extract Allergy (Verified 07/30/25 12:51) Unknown HPI HPI colo screen: Details: 65 year old? male is here today for pre colonoscopy screening.? Patient is accompanied by protective services social worker. Patient was sent to us by his PCP.? This is his first colonoscopy screening.? Patient denies any gastrointestinal symptoms in the past or at present.? However does report to be more constipated lately. Patient is on bowel management. History of sleep apnea. Denies any history of cardiac, renal, pulmonary, or hepatic disease.?? No history of infectious? diseases like hepatitis A, B, C, HIV or tuberculosis.? Patient is not on any anticoagulation [facility] Medical History Class 1 obesity Pneumonia Psoriasis, unspecified Constipation, unspecified Gastro-esophageal reflux disease without esophagitis Anoxic brain damage, not elsewhere classified Obstructive sleep apnea (adult) (pediatric) Schizoaffective disorder, unspecified Dementia in other diseases classified elsewhere, unspecified severity, with other behavioral disturbance Hyperlipidemia, unspecified Other obesity due to excess calories Vitamin D deficiency, unspecified Type 2 diabetes mellitus without complications Hypothyroidism, unspecified Unspecified asthma, uncomplicated Chronic obstructive pulmonary disease, unspecified Essential (primary) hypertension Social History Household Members: Other Housing: Group Home Alcohol intake: former Comment: 1:1 at bedside. Patient Tobacco Use Status: Tobacco use Unknown service: No Review of Systems Const Denies weight gain and Denies weight loss ENT Reports no additional complaints, Denies dysphagia and Denies odynophagia Card Reports no additional complaints Resp Reports no additional complaints GI Denies abdominal pain, Denies belching, Denies melena, Denies bloating, Denies change in bowel habits, Reports constipation, Denies dysphagia, Denies excessive flatus, Denies dyspepsia, Denies heartburn, Denies diarrhea, Denies loose stools, Denies nausea, Denies odynophagia and Denies vomiting Reports no additional complaints Musc Reports no additional complaints Neuro Reports no additional complaints Psych Reports no additional complaints Endo Reports no additional complaints Physical Exam Vital Signs: Last Vital Signs Pulse 94 07/30/25 12:59 BP 104/60 07/30/25 12:59 Pulse Ox 96 07/30/25 12:59 Oxygen Delivery Method Room Air 07/30/25 12:59 BMI result Body Mass Index 31.8 Const General: healthy appearing, no acute distress and well developed Nutritional Appearance: well nourished Resp Effort & Inspection: normal respiratory effort, able to speak in complete sentences, no tracheal deviation and symmetric chest movement Auscultation: clear to auscultation bilaterally Cardio Rate: regular rate GI Inspection: Yes normal to inspection and No distended Palpation (GI): Soft to palpation, not firm, nontender and No hepatosplenomegaly present Auscultation: normal bowel sounds General: Yes no CVA tenderness Back/Spine/Pelvis Back: no CVA tenderness Skin General skin exam: elasticity normal, turgor normal and dry skin Psych Appearance: grossly normal Assessment & Plan Assessment & Plan (1) Screen for colon cancer: Code(s): Z12.11 - Encounter for screening for malignant neoplasm of colon Plan Patient denies any GI, cardiac or respiratory symptoms, however patient does have a history of constipation and [facility] Denies any issues with anesthesia in the past.? History of sleep apnea.? No history infectious diseases in the past or present.? Not on any anticoagulation therapy.? No family history of colon cancer.? Patient denies melena, hematochezia, unintentional weight loss or ribbon like stools.? Discussed at length the pre-procedure,? prep, diet & medications as well as what to expect prior, during and after the procedure.?? Stressed the importance of good bowel prep.? Recommended the use of Vaseline or Calmoseptine OTC & baby wipes with bowel movements to promote comfort.? ?Instructions discussed with staff as patient unable to follow instructions. Written instructions given to staff. This is [facility] patient. Orders: Referrals GI Procedure Notification Z12.11 - Encounter for screening for malignant neoplasm of colon Medications: New polyethylene glycol 3350 (Miralax) As directed by gastroenterology department at [facility] 238 grams PO ONCE 238 grams 0RF Z12.11 - Encounter for screening for malignant neoplasm of colon bisacodyl (Dulcolax (bisacodyl)) take 4 tabs at noon the day before your colonoscopy 20 mg (4 x 5 mg) PO ONCE 4 tabs 0RF constipation 1 day Z12.11 - Encounter for screening for malignant neoplasm of colon Coding Level of Care Code New Pt Level 3 (20153) Diagnoses Screen for colon cancer Z12.11 Time Spent (min) 40 Comment 30 minutes spent with patient and additional 10 minutes spent reviewing his records
[2025-07-30 12:59] VITALS: BP 104/60; PULSE 94; O2SAT 96; BMI 31.8
--- OUTSIDE RECORDS SUMMARY | 2025-07-30 15:25 | XMS_ITS ---
Author Name [facility] Organization Unknown History of Medication Use Medication Directions Dispensed Refills Start Date End Date Stat risankizumab-rzaa (Skyrizi) 150 mg/mL subcutaneous pen injector Inject 1 mL (150 mg total) under the skin every 12 weeks. 10/05/2021 active secukinumab 150 mg/mL pen injector Inject 300 mg under the skin every 28 days. 09/04/2021 active acetaminophen (TYLENOL) 325 mg tablet Take 1 tablet by mouth. active atorvastatin (LIPITOR) 10 mg tablet Take 1 tablet by mouth daily. active benztropine (COGENTIN) 1 mg tablet benztropine 1 mg tablet active budesonide EC (ENTOCORT EC) 3 mg 24 hr capsule Inhale 2 puffs 2 times daily. active budesonide-formotero L (SYMBICORT) 160-4.5 mcg/actuation inhaler Symbicort 160 mcg-4.5 mcg/actuation HFA aerosol inhaler active calcipotriene (DOVONOX) 0.005 % cream Apply topically daily. active clobetasoL (TEMOVATE) 0.05 % cream Apply 1 application topically daily. active clonazePAM (KlonoPIN) 1 mg tablet Take 1 tablet by mouth daily. active clozapine (CLOZARIL) 200 mg tablet Take 1 tablet by mouth daily. active divalproex (DEPAKOTE DR) 250 mg EC tablet divalproex 250 mg tablet,delayed release active fluPHENAZine (PROLIXIN) 5 mg tablet Take 1 tablet by mouth. active fluPHENAZine decanoate (PROLIXIN) 25 mg/mL injection fluphenazine decanoate 25 mg/mL injection solution active fluticasone propion-salmeteroL (Advair Diskus) 250-50 mcg/dose diskus inhaler Advair Diskus 250 mcg-50 mcg/dose powder for inhalation active fluticasone propion-salmeteroL (ADVAIR DISKUS) 250-50 mcg/dose diskus inhaler Advair Diskus 250 mcg-50 mcg/dose powder for inhalation active guaiFENesin (ROBITUSSIN) 100 mg/5 mL syrup Take 10 mL by mouth. a ctive hydrocortisone valerate (WEST-JOSE) 0.2 % ointment hydrocortisone valerate 0.2 % topical ointment active hydrOXYzine (VISTARIL) 25 mg capsule Take 1 capsule by mouth. active ipratropium (ATROVENT) 0.03 % nasal spray Administer 2 sprays into affected nostril(s) 2 times daily. active ipratropium HFA (ATROVENT HFA) 17 mcg/actuation inhaler Ipratropium [place] [facility] 29-Jul-2019 Angelita Joshua Active active levothyroxine (SYNTHROID) 100 mcg tablet Take 1 tablet by mouth. active lubiprostone (AMITIZA) capsule Take 24 mcg by mouth. active magnesium citrate solution Take by mouth. active magnesium hydroxide 2,400 mg/10 mL suspension 30 mL. active meloxicam (MOBIC) 15 mg tablet meloxicam 15 mg tablet active memantine (NAMENDA) 10 mg tablet Take 1 tablet by mouth daily. active moxifloxacin 0.5 % drops, viscous Moxeza 0.5 % eye drops active nicotine (NICODERM CQ) 14 mg/24 hr nicotine 14 mg/24 hr daily transdermal patch active pantoprazole (PROTONIX) 40 mg EC tablet Take 1 tablet by mouth daily. active polyethylene glycol (GLYCOLAX) 17 gram/dose powder Take 17 g by mouth. active polyethylene glycol 1450,bulk, powder Polyethylene Glycol - Powder as directed 29-Jul-2019 Angelita Joshua Active active QUEtiapine (SEROquel) 100 mg tablet quetiapine 100 mg tablet active RisperiDONE (RisperDAL) 2 mg tablet Take 1 tablet by mouth daily. active simvastatin (ZOCOR) 20 mg tablet simvastatin 20 mg tablet active sulfamethoxazole-tri methoprim (BACTRIM DS) 800-160 mg per tablet sulfamethoxazole 800 mg-trimethoprim 160 mg tablet active terazosin (HYTRIN) 2 mg capsule Take 1 capsule by mouth daily. active tobramycin (TOBREX) 0.3 % ophthalmic solution tobramycin 0.3 % eye drops active traZODone (DESYREL) 100 mg tablet Take 1 tablet by mouth. active zolpidem (AMBIEN) 10 mg tablet Take 1 tablet by mouth. active Allergies Allergen Reaction Severity Comment Documented Date Source Statu s LORAZEPAM OTHER (SEE COMMENTS) 11/11/2021 [facility] active PENICILLINS OTHER (SEE COMMENTS) 11/04/2015 [facility] active Encounters Encounter Type Encounter Reason Primary Diagnosis Location Date Ambulatory Psoriasis, unspecified Psoriasis, unspecified [facility] 02/28/2024 Ambulatory Psoriasis, unspecified [facility] 02/22/2023 Amb[facility] 08/15/2022 Ambulatory NOT G[facility] 08/09/2022 Ambulatory [place] 07/31/2022 Ambulatory NOT GIVEN [facility] 07/27/2022 Ambulatory NOT GIVEN [facility] 07/26/2022 Ambulatory [place] 07/25/2022 Ambulatory [place] 07/17/2022 Ambulatory NOT GIVIGN [facility] 07/12/2022 Ambulatory [facility] 07/01/2022 Ambulatory [place] 06/28/2022 Ambulatory NOT GIVEN [facility] 06/28/2022 Ambulatory [place] 06/24/2022 Ambulatory NOT GIVEN [facility] 06/20/2022 Ambulatory [facility] 06/16/2022 Ambulatory NOT GIVEN [facility] 06/14/2022 Ambulatory NOT GIVEN [facility] 06/13/2022 Ambulatory NOT GIVEN [facility] 06/02/2022 Ambulatory not given [facility] 05/31/2022 Ambulatory [place] [place] 05/29/2022 Ambulatory Psoriasis, unspecified Psoriasis, unspecified [facility] 05/25/2022 Ambulatory NOT GIVEN [facility] 05/25/2022 Ambulatory NOT GIIV[facility] 05/17/2022 Ambulatory NOT GIVING [facility] 05/03/2022 Ambulatory [facility] 04/23/2022 Ambulatory NOT GIVEN [facility] 04/19/2022 Ambulatory [facility] 04/17/2022 Ambulatory NOT GIVEN [facility] 04/13/2022 Ambulatory NOT GIVING [facility] 04/05/2022 Ambulatory NOT GIVIGN [facility] 03/29/2022 Ambulatory NOT GIVEN [facility] 03/22/2022 Ambulatory NOT GIVEN [facility] 03/09/2022 Ambulatory NOT GIVEN [facility] 03/08/2022 Ambulatory [facility] 03/02/2022 Ambulatory NOT GIVEN [facility] 02/23/2022 Ambulatory NOT GIVEN [facility] 02/22/2022 Ambulatory NOT GIVEN [facility] 02/18/2022 Ambulatory NOT GIVEN [facility] 02/14/2022 Ambulatory NOT GIVEN [facility] 02/10/2022 Ambulatory NOT GIVEN [facility] 02/08/2022 Ambulatory NOT GIVEN [facility] 2022 Ambulatory NOT GIVEN [facility] 01/31/2022 Ambulatory [facility] 01/28/2022 Ambulatory NOT GIVIGN [facility] 01/25/2022 Ambulatory NOT GIVEN [facility] 01/18/2022 Ambulatory NOT GIVEN [facility] 01/11/2022 Ambulatory NOT GIVIGN [facility] 01/04/2022 Ambulatory NOT GIVEN [facility] 12/31/2021 Ambulatory NOT GIVEN [facility] 12/28/2021 Ambulatory NOT GIVEN [facility] 12/28/2021 Ambulatory NOT GIVEN [facility] 12/21/2021 Ambulatory NOT GIVEN [facility] 12/14/2021 Ambulatory NOT GIVIGN [facility] 12/07/2021 Ambulatory Psoriasis, unspecified [facility] 12/01/2021 Ambulatory NOT GIVEN [facility] 11/30/2021 Ambulatory NOT GIVEN [facility] 11/23/2021 Ambulatory NOT GIVEN [facility] 11/16/2021 Ambulatory NOT GIVIGN [facility] 11/09/2021 Ambulatory NOT GIVEN [facility] 11/02/2021 Ambulatory NOT GIVEN [facility] 10/29/2021 Ambulatory NOT GIVEN [facility] 10/26/2021 Ambulatory NOT GIIVNG [facility] 10/19/2021 Ambulatory NOT GIVEN [facility] 10/18/2021 Ambulatory NIT GIVEN [facility] 10/12/2021 Ambulatory [facility] 10/10/2021 Ambulatory NOT GIVEN [facility] 10/05/2021 Ambulatory NOT GIVEN [facility] 09/28/2021 Ambulatory NOT GIIVNG [facility] 09/21/2021 Ambulatory NOT GIIVNG [facility] 09/16/2021 Ambulatory NOT GIVEN [facility] 09/14/2021 Ambulatory NOT GIVIGN [facility] 09/08/2021 Ambulatory Psoriasis, unspecified [facility] 09/01/2021 Ambulatory Psoriasis, unspecified [facility] 09/01/2021 Ambulatory NOT GIVEN [facility] 08/31/2021 Ambulatory NOT GIVEN [facility] 08/24/2021 Ambulatory NOT GIVEN [facility] 08/23/2021 Ambulatory NOT GIVEN [facility] 08/17/2021 Ambulatory NOT GIVING [facility] 08/17/2021 Ambulatory NOT GIVEN [facility] 08/10/2021 Ambulatory NOT GIVEN [facility] 08/03/2021 Ambulatory NOT GIVEN [facility] 07/27/2021 Ambulatory NOT GIVEN [facility] 07/20/2021 Ambulatory NOT GIVEN [facility] 07/15/2021 Ambulatory NOT GIVEN [facility] 07/08/2021 Care Team Organization Name Specialty Phone Email Start Date End [facility] [place] [facility] 2023 [facility] 07/27/2023 024 [facility] 06/16/2023 024 [facility] 02/28/2023 05/13/2024 [facility] 12/01/2022 [facility]ENDEZ [facility] 08/16/2022 [facility] PCP,No Primary Care 05/25/2022 [facility] 05/13/2022 [facility] NO PCP Primary Care 09/01/2021 [facility] MENDEZ DELACRUZ Primary [facility] 07/08/2021 [facility] 07/08/2021 05/17/2022 [facility] 04/22/2021 [facility] 04/16/2021
--- OUTSIDE RECORDS SUMMARY | 2025-07-30 15:25 | XMS_ITS ---
Author Organization [facility] Address [address] [place] [address] Care Team Providers Care Chipper Name Role Phone Unavailable Primary Care Provider Unavailabl e [id number] Program Enrollment: MICHAEL Status:Enrolled (Active) Start date:05/28/2024 Enrollment date:05/28/2024 Case Team Name Relationship Phone Yas Ortiz LCSW(Responsible Staff) [phone] Continued Care and Services Coordination
--- OUTSIDE RECORDS SUMMARY | 2025-07-30 15:25 | XMS_ITS | Clinical Summary ---
Author Organization [facility] Address [address] [place] [address] Care Team Providers Care Precision Agriculture Technician Name Role Phone Unavailable Primary Care Provider [...] Fecal DNA 2003 Flexible Sigmoidoscopy 2003 Imm-Pneumococcal 50+ (1 of 1 - PCV) 02/08/2008 Imm-Zoster, Recombinant (1 of 2) 02/08/2008 Abdominal Aortic Aneurysm Screening 2023 Falls Prevention 2023 Alcohol and Drug Screen 09/25/2024 Depression Annual Screen 09/25/2024 [id number] ( - season) 2025 Imm-Influenza (#1) 2025
== END 2025-07-30 13:22 | disposition home or self-care (01) ==
LOC: HO.HGI 12:46
PROVIDERS: PCP Hospitalist; Visit Provider Nurse Practitioner Family
DX: Z01.818 Encounter for other preprocedural examination (principal); Z12.11 Encounter for screening for malignant neoplasm of colon; K59.04 Chronic idiopathic constipation
CPT/HCPCS: 99203

== ENCOUNTER → 2025-07-30 12:46 | Outpatient (BNVA) | payer MEDICARE, MEDICAID, SELFPAY | PROVIDERS: PCP Hospitalist; Visit Provider Nurse Practitioner Family | DX: Z01.818 Encounter for other preprocedural examination (principal); Z12.11 Encounter for screening for malignant neoplasm of colon; K59.04 Chronic idiopathic constipation | CPT/HCPCS: 99202 ==

== ENCOUNTER 2025-08-30 09:23 | Inpatient (IN) | payer MEDICARE, MEDICAID, SELFPAY ==
[2025-08-30] VITALS (7 sets, daily range): BP systolic 107–136; BP diastolic 49–76; PULSE 83–96; RESP 12–23; TEMP 36.4–37.1; O2SAT 92–99; BMI 27.8; BMI 25.6
--- NOTE | ~2025-08-30 | CT_ITS ---
CLINICAL HISTORY: Fall CT CERVICAL SPINE WITHOUT CONTRAST Comparison: CT/SR - CT CERVICAL SPINE WO IV CON - 07/02/25 19:58 EDT Findings: Stable minimal grade 1 retrolisthesis C5 on C6, likely degenerative. Moderate multilevel disc space narrowing with large multilevel endplate osteophytes. Moderate multilevel facet degenerative changes. No acute fracture or dislocation. Stable probable bone island in the left occipital condyle. Please see separate report for CT head/brain. No acute abnormalities in the soft tissues of the neck or lung apices. IMPRESSION: No acute fracture in the cervical spine. This document has been electronically signed by: Alyssa Kothari DO on 08/31/2025 16:28:48
--- NOTE | ~2025-08-30 | CT_ITS ---
CLINICAL HISTORY: left hilar density, AMS CT CHEST WITH CONTRAST Comparison: CR - XR CHEST 1V - 08/30/25 11:15 EST Findings: The heart is enlarged. No significant pericardial effusion. No thoracic aortic aneurysm. No mediastinal or hilar mass or lymphadenopathy. Nonspecific 4 mm hypodense right thyroid nodule. Small hiatal hernia. Scattered atelectasis and/or scarring with bilateral lower lobe predominance. No consolidation, pleural effusion or pneumothorax. Several scattered tiny pulmonary granulomas. No pulmonary mass or suspicious pulmonary nodule. Hepatic steatosis. No acute fractures. Fluid and heterogeneous calcifications distended the left subscapularis recess. The possibility of calcific bursitis is raised. IMPRESSION: No left hilar/perihilar mass or lymphadenopathy. No adjacent consolidation. Findings on conventional radiographs are likely due to confluence artifact. This document has been electronically signed by: Alyssa Kothari DO on 08/30/2025 18:46:35
--- NOTE | ~2025-08-30 | XR_ITS ---
CLINICAL HISTORY: ams 1 view chest x-ray Comparison: CR - XR CHEST 1V - 07/02/25 20:00 EDT Findings: A 3.3 x 1.8 cm ovoid density projects over the left hilar/perihilar region. No consolidation, pleural effusion or pneumothorax. Cardiomediastinal silhouette and bronchovascular markings are accentuated by portable technique and suboptimal inspiratory effort. No acute fracture. IMPRESSION: 1. Hypoventilation. 2. Left hilar/perihilar density secondary to confluence artifact, infiltrate or mass. Correlation with contrast-enhanced CT chest is recommended. This document has been electronically signed by: Alyssa Kothari DO on 08/30/2025 12:31:51
--- NOTE | ~2025-08-30 | XR_ITS ---
EXAMINATION: XR ABDOMEN KUB CLINICAL INDICATION: distention COMPARISON: None available. TECHNIQUE: AP view of the abdomen. FINDINGS: Increased stool in the colon suggestive of constipation. Slightly distended air-filled loops of distal small bowel in the right mid and lower abdomen. No large bowel dilatation There is no free air. No suspicious calcifications. Degenerative changes of the spine. XR/XR abdomen 1V IMPRESSION: Constipation and slightly distended air-filled distal small bowel. Electronically signed by: Nisha Manrique MD 09/02/2025 04:12 PM [facility]
--- NOTE | ~2025-08-30 | MR_ITS ---
CLINICAL HISTORY: encephalopathy --- Unable to repeat MR of the brain without contrast Comparison: CT/REG/SR - CT HEAD/BRAIN WO IV CON - 08/30/25 13:[address]/REG/SR - CT HEAD/BRAIN WO IV CON - 07/02/25 19:[address]/REG/SR - CT HEAD WITHOUT IV CONTRAST - 07/02/24 20:27 EDT Findings: No acute infarction, hemorrhage, mass-effect or herniation. Stable prominence of the ventricles, likely due to atrophy of the brain parenchyma. Mild hydrocephalus is considered less likely Signal intensity is within normal limits for patient's age. No extra-axial fluid collection or mass. Unremarkable sella. Intact flow voids. Normal orbits. Clear paranasal sinuses and mastoid air cells. Unremarkable osseous structures. Impression: No acute findings. This document has been electronically signed by: Ivonne Gordon MD on 09/04/2025 20:13:12
--- NOTE | ~2025-08-30 | CT_ITS ---
CLINICAL HISTORY: AMS --- Additional Notes or Special Instructions: WAITING ON PT TO SETTLE CT HEAD WITHOUT CONTRAST Comparison: CT/REG/SR - CT HEAD/BRAIN WO IV CON - 07/02/25 19:58 EDT Findings: No acute intracranial hemorrhage, extra-axial fluid collection, hydrocephalus or midline shift. Age appropriate generalized parenchymal atrophy. There are periventricular and subcortical white matter hypodensities which are nonspecific but most likely related to microangiopathic gliosis. There is no sinus or mastoid fluid. Visualized orbits: No acute abnormalities. There is no acute fracture. IMPRESSION: 1. No acute intracranial process. This document has been electronically signed by: Alyssa Kothari DO on 08/30/2025 14:52:33
[2025-08-30 09:35] LABS: Glucose, Whole Blood 103 mg/dL (60-115)
--- NOTE | 2025-08-30 09:36 | ED.GENADULT ---
HPI - General Adult General Chief complaint: Altered Mental Status Stated complaint: TBI Time Seen by Provider: 08/30/25 09:24 Source: patient, EMS, RN notes reviewed and old records reviewed Mode of arrival: EMS Limitations: altered mental status History of Present Illness ED Provider: Rahul HPI narrative: Patient is a 65-year-old male with history of TBI, COPD, seizure disorder on keppra, HTN, asthma, hypothyroidism, T2DM, HLD, dementia, schizoaffective disorder, LLUVIA, GERD presenting to the emergency department from [facility] for altered mental status. Per staff report to EMS patient not acting at baseline, throwing himself on the floor, aggressive. Patient unable to report HPI due to altered mental status. MD complaint: altered mental status Related Data Home Medications ?Medication ?Instructions ?Recorded ?Confirmed acetaminophen 325 mg tablet 650 mg PO Q6H PRN Fever Or Pain 01/04/23 08/30/25 atorvastatin 10 mg tablet 10 mg PO DAILY 01/04/23 08/30/25 bisacodyl 10 mg rectal suppository 10 mg DC DAILY PRN if senna or MOM 01/04/23 08/30/25 ineffective glycopyrrolate 1 mg tablet 3 mg PO DAILY 01/04/23 08/30/25 lithium carbonate 450 mg 450 mg PO BID 01/04/23 08/30/25 tablet,extended release metformin 500 mg tablet 500 mg PO BID 01/04/23 08/30/25 pantoprazole 40 mg tablet,delayed 40 mg PO BID@0630,1630 01/04/23 08/30/25 release risankizumab-rzaa 150 mg/mL 150 mg subcut Q84D 01/04/23 08/30/25 subcutaneous pen injector (Skyrizi) sodium phosphates 19 gram-7 118 ml DC DAILY PRN if bisacodyl 01/04/23 08/31/25 gram/118 mL enema (Fleet Enema) supp ineffective cholecalciferol (vitamin D3) 1,250 1,250 mcg PO TH 06/19/23 08/30/25 mcg (50,000 unit) capsule fluticasone furoate 100 1 inh inhalation DAILY 10/06/24 08/30/25 mcg-vilanterol 25 mcg/dose inhalation powder (Breo Ellipta) glucagon HCl 1 mg solution for 1 mg IM Q15M PRN severe 10/06/24 08/31/25 injection hypoglycemia ibuprofen 600 mg tablet 600 mg PO Q8H PRN Muscle Pain 10/06/24 08/30/25 levothyroxine 75 mcg tablet 88 mcg PO DAILY@0600 10/06/24 08/30/25 linaclotide 72 mcg capsule 72 mcg PO BID 10/06/24 08/30/25 (Linzess) magnesium hydroxide 400 mg/5 mL 30 ml PO DAILY PRN Constipation 10/06/24 08/30/25 oral suspension (Milk of Magnesia) psyllium 1 packet PO DAILY 10/06/24 08/31/25 sennosides 8.6 mg tablet (senna) 17.2 mg PO BID 10/06/24 08/30/25 carboxymethylcellulose sodium 0.5 1 drp ophthalmic (eye) Q4H PRN Dry 07/02/25 08/30/25 % eye drops (Refresh Tears) Eye(S) clozapine 200 mg tablet 400 mg PO BEDTIME 07/02/25 08/30/25 guaifenesin 100 mg/5 mL oral liquid 200 mg PO Q6H PRN Cough 07/02/25 08/31/25 lactulose 10 gram/15 mL oral 30 ml PO BID 07/02/25 08/30/25 solution levetiracetam 750 mg 750 mg PO BEDTIME 07/02/25 08/30/25 tablet,extended release 24 hr clozapine 100 mg tablet 100 mg PO DAILY schizoaffective 08/30/25 08/30/25 aluminum-mag hydroxide-simethicone 30 ml PO Q12H PRN Dyspepsia 08/31/25 08/31/25 200 mg-200 mg-20 mg/5 mL oral susp levetiracetam 500 mg 500 mg PO DAILY 08/31/25 08/31/25 tablet,extended release 24 hr (Keppra XR) sennosides 8.6 mg tablet (senna) 8.6 mg PO DAILY PRN Constipation 08/31/25 08/31/25 zinc oxide 20 % topical paste 1 ea topical BID 08/31/25 08/31/25 Previous Rx's ?Medication ?Instructions ?Recorded finasteride 5 mg tablet 5 mg PO DAILY 90 days #90 tabs 02/16/23 Allergies Allergy/AdvReac Type Severity Reaction Status Date / Time Penicillins Allergy Unknown Verified 08/30/25 09:50 poison jolanta extract Allergy Unknown Verified 08/30/25 09:50 Review of Systems Review of Systems: As per hPI Yes all other systems are reviewed and are negative Constitutional: Constitutional: Reports as per HPI Neurologic: Reports confusion Psychiatric: Psychiatric: Reports confusion [facility] Past Medical History Medical History Class 1 obesity Pneumonia Psoriasis, unspecified Constipation, unspecified Gastro-esophageal reflux disease without esophagitis Anoxic brain damage, not elsewhere classified Obstructive sleep apnea (adult) (pediatric) Schizoaffective disorder, unspecified Dementia in other diseases classified elsewhere, unspecified severity, with other behavioral disturbance Hyperlipidemia, unspecified Other obesity due to excess calories Vitamin D deficiency, unspecified Type 2 diabetes mellitus without complications Hypothyroidism, unspecified Unspecified asthma, uncomplicated Chronic obstructive pulmonary disease, unspecified Essential (primary) hypertension Social History Social History Household Members: Other Housing: Assisted Housing Other:: [facility] Do you presently have visiting nurse or other home services: No Unable to assess alcohol history related to: Unable to respond Alcohol intake: former Comment: 1:1 at bedside. Patient Tobacco Use Status: Tobacco use Unknown Smoked in Last 30 Days: No Use of substances other than those prescribed or required for medical reasons: Unable to respond Currently Displaying Signs/Symptoms of Drug Intoxication Withdrawal: No Advance Directives: Yes Advance Directives on File: Yes Advance Directives Date on File: 08/30/25 Do you have a plan to hurt others: No Plan Recently lost weight without trying: Unsure Nutrition Risks: No Nutritional Risk Poor oral hygiene: Yes service: No Physical Exam ED Vital Signs: Vital Signs - 24 hr 08/30/25 11:42 08/30/25 13:22 08/30/25 16:18 Temperature 98 F Pulse Rate 91 85 86 Respiratory Rate 23 H 13 18 Blood Pressure 131/75 107/71 128/76 Pulse Oximetry 98 98 99 Oxygen Delivery Method Room Air Nasal Cannula Nasal Cannula Oxygen Flow Rate 2 2 08/30/25 17:19 08/30/25 18:22 Temperature Pulse Rate 84 83 Respiratory Rate 18 16 Blood Pressure 136/76 116/69 Pulse Oximetry 98 97 Oxygen Delivery Method Room Air Room Air Oxygen Flow Rate BMI result Body Mass Index 27.8 Vital signs have been reviewed and appear to be correct. Blood pressure normal. Heart rate normal. Respiratory rate normal. Temperature normal. Oxygen saturation normal. Const General: no acute distress and confusion Orientation/consciousness: confusion Limitations: altered mental status HENSD Head: Yes normocephalic and Yes atraumatic Ears: external ears normal General nose exam: Normal external nose present Face and sinus: Yes face symmetric Mouth: oropharynx normal and moist mucous membranes Throat: Yes uvula midline Eyes Pupils: Equal, round and reactive pupils present Neck Neck: Yes normal visual inspection and Yes supple Resp Effort & Inspection: normal respiratory effort and able to speak in complete sentences Auscultation: clear to auscultation bilaterally Cardio Rate: regular rate Rhythm: regular rhythm Heart sounds: S1 normal heart sound present and S2 normal heart sound present GI Palpation (GI): Soft to palpation and nontender Auscultation: normoactive bowel sounds General: Yes no CVA tenderness Back/Spine/Pelvis Back: no CVA tenderness Skin General skin exam: elasticity normal and turgor normal Neuro General: moves all extremities, no focal motor deficits, CN's II-XI intact bilaterally and confusion Cranial nerves: Yes Equal, round and reactive pupils present Extrem General: Yes full ROM, Yes no pedal edema and Yes no calf tenderness Psych Other: appears to be responding to internal stimuli Speech and movement: Psychomotor agitation in speech present and Restless speech present Medications Administered Generic Name Dose Route Start Last Admin Trade Name Freq PRN Reason Stop Dose Admin Dextrose 25 gm 08/30/25 21:11 08/30/25 21:29 Dextrose 50 % 25 Gm/50 Ml Syringe IVPUSH 25 gm Q15M PRN Administration per Hypoglycemia Standing Ord. Protocol Finasteride 5 mg 08/31/25 09:00 08/31/25 09:37 Finasteride 5 Mg Tablet PO Not Given DAILY ETHEL Glycopyrrolate 3 mg 08/31/25 09:00 08/31/25 09:37 Glycopyrrolate 1 Mg Tablet PO Not Given DAILY ETHEL Dextrose/Sodium Chloride 1,000 mls @ 50 mls/hr 08/30/25 21:15 08/30/25 21:42 D51/2ns IVCONT 50 mls/hr .Q20H ETHEL Administration Levetiracetam 250 mg/ Sodium 102.5 mls @ 410 mls/hr 08/31/25 09:00 08/31/25 09:49 Chloride IV Infused DAILY [facility] Infusion Insulin Human Lispro 0 unit 08/31/25 07:30 08/31/25 09:46 Insulin Lispro 100 Unit/Ml 3 Ml Vial SUBCUT Not Given QIDACHS [facility] Protocol Levetiracetam 500 mg 08/30/25 22:30 08/31/25 01:02 Levetiracetam 500 Mg Tablet PO Not Given On Hold: 08/31/25 08:21 DAILY [facility] Levothyroxine Sodium 88 mcg 08/31/25 06:00 08/31/25 05:22 Levothyroxine Sodium 88 Mcg Tablet PO Not Given DAILY@0600 [facility] Trout Carbonate 450 mg 08/30/25 22:30 08/31/25 09:37 Trout Carbonate Er 450 Mg Tablet.Er PO Not Given BID ETHEL Sodium Chloride 3 ml 08/31/25 00:00 08/31/25 09:37 0.9 % Sodium Chloride Flush 3 Ml Syringe IVFLUSH 3 ml QSHIFT [facility] Administration Discontinued Medications Generic Name Dose Route Start Last Admin Trade Name Eliazarq PRN Reason Stop Dose Admin Clozapine 400 mg 08/30/25 22:30 08/31/25 01:01 Clozapine 100 Mg Tablet PO 08/30/25 22:31 Not Given BEDTIME ETHEL Diazepam 5 mg 08/30/25 12:13 08/30/25 12:57 Diazepam 10 Mg/2 Ml Cartridge IVPUSH 08/30/25 12:14 5 mg STAT STA Administration Iohexol 100 ml 08/30/25 17:29 08/30/25 17:30 Iohexol 350 Mg/Ml 100 Ml Infus..Btl IV 08/30/25 17:30 65 ml ONCE ONE Administration Olanzapine 5 mg 08/30/25 14:02 08/30/25 16:29 Olanzapine 10 Mg Vial IM 08/30/25 14:03 5 mg ONCE ONE Administration Medical Decision Making Medical Decision Making MDM Narrative: Patient is a 65-year-old male with history of TBI, COPD, seizure disorder on keppra, HTN, asthma, hypothyroidism, T2DM, HLD, dementia, schizoaffective disorder, LLUVIA, GERD presenting to the emergency department from [facility] for altered mental status. On exam patient is awake, alert, disoriented, yelling out, appears to be responding to internal stimuli, VS WNL, afebrile, normal neurological exam without focal deficits, physical exam findings as above. Given reported symptoms and physical exam findings, initial differential includes but is not limited to ICH, skull or cervical vertebral fracture subluxation, UTI, pneumonia, viral illness, electrolyte abnormality, metabolic encephalopathy, schizoaffective disorder. Labs notable for mild anemia not at transfusable level, negative troponin, normal VBG. Ethanol and urine drug screen negative. Urinalysis is without evidence of infection. Viral serology negative. X-ray chest notable for left hilar density. Will obtain CT chest. CT head is without acute abnormality. My interpretation is in agreement with the radiologist's interpretation. Patient has been agitated, aggressive at times in the emergency department, also appears to be responding to internal stimuli, unable to answer questions regarding his health status. Case discussed with DANILO Michelle hospitalist who would like to wait for results of CT chest prior to admission. Patient signed out to RANDOLPH Magallanes pending results of CT chest and likely admission for metabolic encephalopathy. 7:19 PM 08/30/2025 (Sona Doherty PA-C): CT chest w IV con IMPRESSION: No left hilar/perihilar mass or lymphadenopathy. No adjacent consolidation. Findings on conventional radiographs are likely due to confluence artifact. > will discuss case with hospitalist 192 Differential Diagnosis Differential Diagnoses: The differential diagnosis associated with the presentation includes as per [facility] Admission/Observation Consideration of admission/observation: Escalation of care including admission/observation considered Consult Healthcare Provider Management of the patient was discussed with: Hospitalist Lab Data [facility] Lab Attestation statement: I reviewed the patient's lab results. as per [facility] 08/31/25 09:12 08/31/25 09:12 Labs: Lab Results 08/30/25 08/30/25 08/30/25 Range/Units 09:31 10:12 10:21 WBC 9.9 (4.8-10.8) X10*3/uL RBC 4.55 L (4.60-5.80) X10*6/uL Hgb 12.8 L (14.0-18.0) g/dl Hct 39.6 L (42.0-52.0) % MCV 87.0 (80.0-98.0) fL MCH 28.1 (27.0-33.0) pg MCHC 32.3 (31.0-36.0) g/dl RDW 13.8 (11.0-16.0) % Plt Count 243 (160-400) X10*3/uL MPV 9.5 (9.4-12.4) fL Immature Gran % (Auto) 0.4 (0.0-0.4) % Neut % (Auto) 77.5 H (45-73) % Lymph % (Auto) 12.2 L (20-40) % [place] % (Auto) 7.9 (2-11) % Eos % (Auto) 1.6 (0-4) % Baso % (Auto) 0.4 (0-2) % Lymph # (Auto) 1.2 (1.2-4.9) X10*3/uL [place] # (Auto) 0.8 (0.1-1.2) X10*3/uL Eos # (Auto) 0.2 (0.0-0.4) X10*3/uL Baso # (Auto) 0.0 (0.0-0.2) X10*3/uL Abs Immat Gran (auto) 0.04 H (0.00-0.03) X10*3/uL Absolute Neuts (auto) 7.7 (2.0-8.3) x10*3/uL Absolute Nucleated RBC 0.000 (0.0-0.012) X10*3/uL Nucleated RBC % (auto) 0.0 (0.0-0.2) /100WBC PT 15.0 H (11.2-13.5) SEC INR 1.2 H (0.9-1.1) VBG pH 7.43 (7.32-7.43) VBG pCO2 32 mmHg VBG pO2 113 mmHg VBG HCO3 22 (22-26) mmol/L VBG O2 Saturation 99.0 % VBG Base Excess -1.3 mmol/L Sodium 143 (135-145) mmol/L Potassium 3.7 (3.3-5.1) mmol/L Chloride 112 H (96-108) mmol/L Carbon Dioxide 21 L (22-29) mmol/L Anion Gap 14 (12-20) BUN 17 H (9-16) mg/dL Creatinine 0.70 (0.5-1.4) mg/dL Estim Creat Clear Calc 114.4 Estimated GFR > 60 POC Glucose 103 (60-115) mg/dL Random Glucose 95 (60-115) mg/dL Lactic Acid 0.9 (0.5-2.0) mmol/L Calcium 9.2 (8.4-10.2) mg/dL Magnesium 2.1 (1.6-2.6) mg/dL Total Bilirubin 0.5 (0.0-1.0) mg/dL AST 28 (5-37) U/L ALT 21 (0-40) U/L Alkaline Phosphatase 87 (39-117) U/L Ammonia 27 (13-55) umol/L Troponin I High Sens < 2.7 (<3.5-35.0) ng/L Total Protein 6.7 (6.5-8.0) g/dL Albumin 4.3 (3.5-5.0) g/dL Urine Color Dark Yellow Urine Appearance Clear Urine pH 5.5 (5.0-9.0) Ur Specific [place] 1.025 (1.005-1.025) Urine Protein Trace (Neg-Trace) mg/dL Urine Glucose (UA) Negative (Negative) mg/dL Urine Ketones Trace (Negative) mg/dL Urine Blood Negative (Negative) Urine Nitrite Negative (Negative) Ur Leukocyte Esterase Trace H (Negative) Urine RBC 0-2 (0-2) /HPF Urine WBC 0-5 (0-5) /HPF Ur Squamous Epith Cells 0-2 (0-2) /HPF Calcium Oxalate Crystal Present Urine Bacteria None Seen (None Seen) Hyaline Casts 0-2 (0-2) /LPF Urine Opiates Screen Not Detected (Not Detect) Ur Buprenorphine Scrn Not Detected (Not Detect) ng/mL Ur Oxycodone Screen Not Detected (Not Detect) ng/mL Urine Methadone Screen Not Detected (Not Detect) ng/mL Urine Fentanyl Screen Not Detected (Not Detect) Ur Barbiturates Screen Not Detected (Not Detect) Ur Phencyclidine Scrn Not Detected (Not Detect) Ur Amphetamines Screen Not Detected (Not Detect) U Benzodiazepines Scrn Not Detected (Not Detect) Urine Cocaine Screen Not Detected (Not Detect) U Marijuana (THC) Screen Not Detected (Not Detect) Ethyl Alcohol < 10 mg/dL Influenza Type A (PCR) NEGATIVE (Negative) Influenza Type B (PCR) NEGATIVE (Negative) RSV RNA Qual (PCR) NEGATIVE (Negative) SARS-CoV-2 RNA (RT-PCR) NEGATIVE (Negative) Independent Interpretation I performed an independent interpretation of an: EKG (Normal sinus rhythm, rate 88 beats per minute, normal DC interval and QTC, no significant change from prior), Plain X-Ray and CT Scan Interpretation: One-view chest x-ray notable for left hilar density. CT head is without any acute abnormality. Radiology Impression Discussion of test interpretation with radiology: I have reviewed the radiologist's reading. Radiologist Impression: 1 view chest x-ray Comparison: CR - XR CHEST 1V - 07/02/25 20:00 EDT Findings: A 3.3 x 1.8 cm ovoid density projects over the left hilar/perihilar region. No consolidation, pleural effusion or pneumothorax. Cardiomediastinal silhouette and bronchovascular markings are accentuated by portable technique and suboptimal inspiratory effort. No acute fracture. IMPRESSION: 1. Hypoventilation. 2. Left hilar/perihilar density secondary to confluence artifact, infiltrate or mass. Correlation with contrast-enhanced CT chest is recommended. External Record Review External record reviewed: Inpatient record, Office record and Outpatient record Critical Care Time Critical Care Time Critical Care Time: Yes Total Critical Care Time: 44 Attestation: I have personally provided critical care time exclusive of time spent on separately billable procedures. Time includes review of lab data, radiology results, discussion with consultants, and monitoring for potential decompensation. Intervention performed as documented. Discharge Plan Discharge Clinical Impression: Altered mental status Qualifiers: Altered mental status type: unspecified Qualified Code(s): R41.82 - Altered mental status, unspecified Patient Disposition: Admitted As Inpatient Interventions: Admission Worksheet (ED) Last Done: 08/30/25 22:45 Discharge Date/Time: 08/30/25 23:25
--- NOTE | 2025-08-30 09:42 | ECG_ITS ---
Test Reason : AMS Blood Pressure : */* mmHG Vent. Rate : 88 BPM Atrial Rate : 88 BPM P-R Int : 164 ms QRS Dur : 98 ms QT Int : 374 ms P-R-T Axes : 19 2 84 degrees QTcB Int : 452 ms Normal sinus rhythm Nonspecific T wave abnormality Abnormal ECG When compared with ECG of 02-Jul-2025 16:29, No significant change was found Referred By: Skylar Kay Electronically Signed By: NISHANT MACHADO
--- OUTSIDE RECORDS SUMMARY | 2025-08-30 09:57 | XMS_ITS | Encounter Summary ---
Author Organization [facility] Address [address] [place] [address] Care Team Providers Care Bartender Manager Name Role Phone Charles Zhang MD Primary Care Provider [phone] Encounter Details Date Type Department Care Team (Late st Contact Info) Description 08/12/2025 Lab Requisition [facility] - Main Lab [address] [place] [address] Charles Zhang MD [address] [place] [address] [address] [place] Psoriasis, unspecified Social History Tobacco Use Types Packs/Day [...] Procedure Name Priority Date/Time Associated Diagnosis Comments INTERFERON GAMMA INTERPRETATION Routine 08/12/2025 6:38 AM EST Psoriasis, unspecified INTERFERON GAMMA ANTIGEN 2 Routine 08/12/2025 6:38 AM EST Psoriasis, unspecified INTERFERON GAMMA ANTIGEN 1 Routine 08/12/2025 6:38 AM EST Psoriasis, unspecified INTERFERON GAMMA MITOGEN Routine 08/12/2025 6:38 AM EST Psoriasis, unspecified INTERFERON GAMMA NIL Routine 08/12/2025 6:38 AM EST Psoriasis, unspecified INTERFERON GAMMA FOR TB, QUALITATIVE Routine 08/12/2025 6:38 AM EST Psoriasis, unspecified documented in this encounter Results * Interferon gamma interpretation (08/12/2025 6:38 AM EST) [facility] Quantiferon Plus Interpretation Negative Negative LAB CHEMISTRY METHOD 08/13/2025 12:39 PM EST [facility] Blood Venous blood specimen / Unknown 08/12/2025 6:38 AM EST 08/12/2025 7:41 AM EST us Charles Zhang MD LAB BLOOD ORDERABLES Final Resul t Performing Organization Address [facility] de Phone Number [facility] [address] [place] [address], [place] [phone] * Interferon gamma antigen 2 (08/12/2025 6:38 AM EST) Blood Venous blood specimen / Unknown 08/12/2025 6:38 AM EST 08/12/2025 7:41 AM EST us Charles Zhang MD LAB BLOOD ORDERABLES Final Resul t Performing Organization Address [facility] Phone Number [facility] [address] [place] [address], [place] [phone] * Interferon gamma antigen 1 (08/12/2025 6:38 AM EST) Blood Venous blood specimen / Unknown 08/12/2025 6:38 AM EST 08/12/2025 7:41 AM EST us Charles Zhang MD LAB BLOOD ORDERABLES Final Resul t Performing Organization Address [facility] Phone Number [facility] [address] [place] [address], [place] [phone] * Interferon gamma mitogen (08/12/2025 6:38 AM EST) Blood Venous blood specimen / Unknown 08/12/2025 6:38 AM EST 08/12/2025 7:41 AM EST us Charles Zhang MD LAB BLOOD ORDERABLES Final Resul t Performing Organization Address [facility] de Phone Number [facility] [address] [place] [address], [place] [phone] * Interferon gamma NIL (08/12/2025 6:38 AM EST) Blood Venous blood specimen / Unknown 08/12/2025 6:38 AM EST 08/12/2025 7:41 AM EST us Charles Zhang MD LAB BLOOD ORDERABLES Final Resul t [facility] [address] [place] [address], documented in this encounter Visit Diagnoses Diagnosis Psoriasis, unspecified documented in this encounter Care Teams Bartender Manager Relationship Specialty Start Date End Date Charles Zhang MD [address] [place] [address] Dr [address] [place] PCP - General Internal Medicine 10/21/24 documented as of this encounter
--- OUTSIDE RECORDS SUMMARY | 2025-08-30 09:57 | XMS_ITS | Encounter Summary ---
Author Organization [facility] Address [address] [place] [address] Care Team Providers Care Skin Diving Teacher Name Role Phone Charles Zhang MD Primary Care Provider [phone] Encounter Details Date Type Department Care Team (Late st Contact Info) Description 11/08/[address] [facility] - Main Lab [address] [facility] [place] [address] Charles Zhang MD [address] [place] [address] [address] [place] Encounter for therapeutic drug level monitoring Social [...] LAB CHEMISTRY METHOD 11/08/2024 7:51 AM EST [facility] Potassium 4.3 3.5 - 5.5 mmol/L LAB CHEMISTRY METHOD 11/08/2024 7:51 AM EST [facility] Chloride 109 96 - 110 mmol/L LAB CHEMISTRY METHOD 11/08/2024 7:51 AM EST [facility] CO2 28 21 - 32 mmol/L LAB CHEMISTRY METHOD 11/08/2024 7:51 AM EST [facility] Anion Gap 2(L) 3 - 11 [...] [facility] Comment:Calculation based on the Chronic Kidney Disease Epidemiology Collaboration (CKD-EPI) equation refit without adjustment for race. BUN/Creatinine Ratio 14.7 LAB [...] MD LAB BLOOD ORDERABLES Final Resul t [facility] [address] [place] [address], documented in this encounter Visit Diagnoses Diagnosis Encounter for therapeutic drug level monitoring documented in this encounter Care Teams Skin Diving Teacher Relationship Specialty Start Date End Date Charles Zhang MD [address] [place] [address] Dr [address] [place], [place] PCP - General Internal Medicine 10/21/24 documented as of this encounter
--- OUTSIDE RECORDS SUMMARY | 2025-08-30 09:57 | XMS_ITS | Encounter Summary ---
Author Organization [facility] Address [address] [place] [address] Care Team Providers Care Mold Closer Name Role Phone Barbara Gerard MD Primary Care Provider Unavailabl e Encounter Details Date Type Department Care Team (Late st Contact Info) Description 12/05/2022 Orders Only [facility] Department of [facility] Surgery [address] [place] [address] Lynette Johns MD [address] [place] [address] Psoriasis Social History Tobacco Use Types Packs/Day Years Used Date Smoking Tobacco: Never Smokeless Tobacco: Never Alcohol Use Standard Drinks/Week Comments Not Currently 0 (1 standard drink = 0.6 oz pur e alcohol) Sex and Gender Information Value Date Recorded Sex Assigned at Not on file Legal Sex Male 12:59 AM EST Gender Identity Not on file Sexual Orientation Not on file documented as of this encounter Plan of Treatment Not on file documented as of this encounter Visit Diagnoses Diagnosis Psoriasis Other psoriasis documented in this encounter Care Teams Mold Closer Relationship Specialty Start Date End Date Barbara Gerard MD [address] [place] [address] PCP - General Internal Medicine 06/09/20 documented as of this encounter
--- OUTSIDE RECORDS SUMMARY | 2025-08-30 09:57 | XMS_ITS | Encounter Summary ---
Author Organization [facility] Address [address] [place] [address] Care Team Providers Care Water Softener Installer Name Role Phone Charles Zhang MD Primary Care Provider [phone] Encounter Details Date Type Department Care Team (Late st Contact Info) Description 08/11/2025 Lab Requisition [facility] - Main Lab [address] [place] [phone] Charles Zhang MD [address] [place] [address] Dr [address] [place] Psoriasis, unspecified Social History Tobacco Use Types [...] Associated Diagnosis Comments SST - GOLD Routine 08/11/2025 7:02 AM EST Psoriasis, unspecified documented in this encounter Results * SST tube (08/11/2025 7:02 AM EST) Extra Tube Hold for add-ons. 08/11/2025 11:01 AM EST [facility] Comment:Auto resulted. Blood Venous blood specimen / Unknown 08/11/2025 7:02 AM EST 08/11/2025 9:04 AM EST us Charles Zhang MD LAB BLOOD ORDERABLES Final Resul t [facility] [address] [place] [address], [place] [phone] documented in this encounter Visit Diagnoses Diagnosis Psoriasis, unspecified documented in this encounter Care Teams Water Softener Installer Relationship Specialty Start Date End Date Charles Zhang MD [address] [place] [address] Dr [address] [place] PCP - General Internal Medicine 10/21/24 documented as of this encounter
--- OUTSIDE RECORDS SUMMARY | 2025-08-30 09:57 | XMS_ITS | Encounter Summary ---
Author Organization [facility] Address [address] [place], [place] [id number] Care Team Providers Care Miner Operator Name Role Phone Barbara Gerard MD Primary Care Provider Unavailabl e Encounter Details Date Type Department Care Team (Late st Contact Info) Description 08/07/2025 Orders Only [facility] Department of Dermatology [address] [place] [address] Jeffry Barba MD PhD [address] [place] [address] Psoriasis Social History Tobacco Use Types Packs/Day Years Used Date Smoking Tobacco: Never Smokeless Tobacco: Never Alcohol Use Standard Drinks/Week Comments Not Currently 0 (1 standard drink = 0.6 oz pur e alcohol) Sex and Gender Information Value Date Recorded Sex Assigned at Not on file Legal Sex Male 12:59 AM EST Gender Identity Not on file Sexual Orientation Not on file COVID-19 Exposure Response Date Recorded In the last 10 days, have yo u been in contact with someone who was confirmed or suspected to have Coronavirus/COVID-19? No / Unsure 08/06/2025 2:29 PM EST documented as of this encounter Plan of Treatment Not on file documented as of this encounter Visit Diagnoses Diagnosis Psoriasis Other psoriasis documented in this encounter Care Teams Miner Operator Relationship Specialty Start Date End Date Barbara Gerard MD [address] [place] [address] PCP - General Internal Medicine 06/09/20 documented as of this encounter
--- OUTSIDE RECORDS SUMMARY | 2025-08-30 09:57 | XMS_ITS | Clinical Summary ---
Author Organization [address] [facility] Address [address] [place] [address] Phone Care Team Providers Care Heel Sewer Name Role Phone Charles Zhang MD Primary Care Provider [phone] Encounters Date Type Department Care Team Description 08/27/2025 Lab Requisition [facility] Lab [address] [place] [phone] Charles Zhang MD Altered mental status, unspecified 08/27/2025 Lab Requisition [facility] Lab [address] [place] [phone] Charles Zhang MD Other encephalopathy 08/26/2025 Lab Requisition [facility] Lab [address] [place] [phone] Charles Zhang MD Dementia in other diseases classified elsewhere, unspecified severity, with other behavioral disturbance (CMS/HCC V24, CMS/HCC V28); Hypothyroidism, unspecified 08/12/2025 Lab Requisition [facility] Lab [address] [place] [phone] Charles Zhang MD Psoriasis, unspecified 08/11/2025 Lab Requisition [facility] Main Lab [address] [place] [phone] Charles Zhang MD Psoriasis, unspecified 07/29/2025 Lab Requisition [facility] Lab [address] [place] [phone] Charles Zhang MD Schizoaffective disorder, unspecified (CMS/HCC V24, CMS/HCC V28); Other obesity due to excess calories 06/26/2025 Lab Requisition [facility] Lab [address] [place] [address] Charles Zhang MD Schizoaffective disorder, unspecified ([facility] V24, [facility] V28) 06/19/2025 Lab Requisition [facility] - Main Lab [address] [facility] [place] [address] Charles Zhang MD Type 2 diabetes mellitus without complications ([facility] V24, [facility] V28); Hypothyroidism, unspecified from Last 3 Months Social History Tobacco Use Types Packs/Day Years Used Date Smoking Tobacco: Never Assessed Sex and Gender Information Value Date Recorded Sex Assigned at Not on file Legal Sex Male 9:01 PM EST Gender Identity Not on file Sexual Orientation Not on file Plan of Treatment Health Maintenance Due Date Last Done Comments Colorectal Cancer Screening: Colonoscopy 1960 Diabetes: Annual Foot Exam 02/08/1968 Diabetes: Annual Retina Eye Exam 02/08/1968 DTaP,Tdap,and Td Vaccines (1 - Tdap) 1977 Pneumococcal Vaccine: 50+ Years (1 of 2 - PCV) 1977 Zoster Vaccines (1 of 2) 02/08/2008 Abdominal Aortic Aneurysm (AAA) Screen 10/20/2023 Falls Risk Assessment 10/20/2023 Hepatitis C Screening 10/20/2023 Medicare Annual Wellness Visit 10/20/2023 Social Influencers of Health Screening 10/20/2023 Depression Screening 09/25/2024 COVID-19 Vaccine ( - season) 2025 Influenza Vaccine (#1) 2025 Diabetes: Annual Urine Albumin-Creatinine Ratio (uACR) 06/19/2025 Diabetes: Blood Sugar Control Test (HGBA1C) 12/17/2025 06/19/2025, 09/11/2024 Diabetes: Annual GFR (Glomerular Filtration Rate) 08/26/2026 08/26/2025, 07/29/2025, 06/19/2025, Additional history exists Cholesterol Screening (Lipid Panel) 12/02/2029 12/02/2024, 09/11/2024 [...] 20 months Aged Out No longer eligible based on patient's age to complete this topic Varicella Vaccines Aged Out No longer eligible based on patient's age to complete this topic Procedures Procedure Name Priority Date/Time Associated Diagnosis Comments ALEMAN URINE CULTURE TUBE Routine 08/27/2025 2:20 PM EST Altered mental status, unspecified URINALYSIS WITH REFLEX MICROSCOPIC AND CULTURE Routine 08/27/2025 2:20 PM EST Altered mental status, unspecified URINALYSIS WITH REFLEX MICROSCOPIC AND CULTURE Routine 08/27/2025 2:20 PM EST Altered mental status, unspecified AMMONIA Routine 08/27/2025 7:26 AM EST Other encephalopathy SST - GOLD Routine 08/26/2025 6:44 AM EST Dementia in other diseases classified elsewhere, unspecified severity, with other behavioral disturbance (CMS/HCC V24, CMS/HCC V28) Hypothyroidism, unspecified CBC WITH AUTO DIFFERENTIAL Routine 08/26/2025 6:44 AM EST Dementia in other diseases classified elsewhere, unspecified severity, with other behavioral disturbance (CMS/HCC V24, CMS/HCC V28) Hypothyroidism, unspecified THYROID STIMULATING HORMONE Routine 08/26/2025 6:44 AM EST Dementia in other diseases classified elsewhere, unspecified severity, with other behavioral disturbance (CMS/HCC V24, CMS/HCC V28) Hypothyroidism, unspecified THYROXINE FREE Routine 08/26/2025 6:44 AM EST Dementia in other diseases classified elsewhere, unspecified severity, with other behavioral disturbance (CMS/HCC V24, CMS/HCC V28) Hypothyroidism, unspecified CBC AND DIFFERENTIAL Routine 08/26/2025 6:44 AM EST Dementia in other diseases classified elsewhere, unspecified severity, with other behavioral disturbance (CMS/HCC V24, CMS/HCC V28) Hypothyroidism, unspecified COMPREHENSIVE METABOLIC PANEL Routine 08/26/2025 6:44 AM EST Dementia in other diseases classified elsewhere, unspecified severity, with other behavioral disturbance (CMS/HCC V24, CMS/HCC V28) Hypothyroidism, unspecified INTERFERON GAMMA INTERPRETATION Routine 08/12/2025 6:38 AM [...] Routine 08/12/2025 6:38 AM EST Psoriasis, unspecified SST - GOLD Routine 08/11/2025 7:02 AM EST Psoriasis, unspecified CBC WITH AUTO DIFFERENTIAL Routine 07/29/2025 6:40 AM EST Schizoaffective disorder, unspecified (CMS/HCC V24, CMS/HCC V28) Other obesity due to excess calories CBC AND DIFFERENTIAL Routine 07/29/2025 6:40 AM EST Schizoaffective disorder, unspecified (CMS/HCC V24, CMS/HCC V28) Other obesity due to excess calories COMPREHENSIVE METABOLIC PANEL Routine 07/29/2025 6:40 AM EST Schizoaffective disorder, unspecified (CMS/HCC V24, CMS/HCC V28) Other obesity due to excess calories CBC WITH AUTO DIFFERENTIAL Routine 06/26/2025 6:34 AM EDT Schizoaffective disorder, unspecified (CMS/HCC V24, CMS/HCC V28) CBC AND DIFFERENTIAL Routine 06/26/2025 6:34 AM EDT Schizoaffective disorder, unspecified (CMS/HCC V24, CMS/HCC V28) THYROID STIMULATING HORMONE Routine 06/19/2025 6:32 AM EDT Type 2 diabetes mellitus without complications (CMS/HCC V24, CMS/HCC V28) Hypothyroidism, unspecified HEMOGLOBIN A1C Routine 06/19/2025 6:32 AM EDT Type 2 diabetes mellitus without complications (CMS/HCC V24, CMS/HCC V28) Hypothyroidism, unspecified THYROXINE FREE Routine 06/19/2025 6:32 AM EDT Type 2 diabetes mellitus without complications (CMS/HCC V24, CMS/HCC V28) Hypothyroidism, unspecified COMPREHENSIVE METABOLIC PANEL Routine 06/19/2025 6:32 AM EDT Type 2 diabetes mellitus without complications (CMS/HCC V24, CMS/HCC V28) Hypothyroidism, unspecified LIPID PANEL WITH REFLEX TO DIRECT LDL Routine 12/02/2024 6:53 AM EDT Schizoaffective disorder, unspecified Hyperlipidemia, unspecified Benign prostatic hyperplasia without lower urinary tract symptoms from Last 3 Months or Most Recently Relevant to Health Maintenance Results * Urinalysis with reflex microscopic and culture (08/27/2025 2:20 PM EST) Specific [place] Urine 1.019 1.003 - 1.030 LAB URINALYSIS - AUTOMATED METHOD 08/27/2025 5:52 PM EST [facility] pH, Urine 6.5 5.0 - 8.0 pH LAB URINALYSIS - AUTOMATED METHOD 08/27/2025 5:52 PM EST [facility] Leukocytes, Urine Negative Negative LAB URINALYSIS - AUTOMATED METHOD 08/27/2025 5:52 PM [facility] Nitrite, Urine Negative Negative LAB URINALYSIS - AUTOMATED METHOD 08/27/2025 5:52 PM [facility] Protein, Urine Trace <=Trace mg/dL LAB URINALYSIS - AUTOMATED METHOD 08/27/2025 5:52 PM [facility] Glucose, Urine Negative Negative mg/dL LAB URINALYSIS - AUTOMATED METHOD 08/27/2025 5:52 PM [facility] Ketones, Urine Negative Negative mg/dL LAB URINALYSIS - AUTOMATED METHOD 08/27/2025 5:52 PM [facility] Urobilinogen, Urine 1.0 0.2 - 1.0 mg/dL LAB URINALYSIS - AUTOMATED METHOD 08/27/2025 5:52 PM [facility] Bilirubin, Urine Negative Negative LAB URINALYSIS - AUTOMATED METHOD 08/27/2025 5:52 PM [facility] Blood, Urine Negative Negative LAB URINALYSIS - AUTOMATED METHOD 08/27/2025 5:52 PM [facility] Urine Urine specimen obtained by clean catch procedure / Unknown 08/27/2025 2:20 PM EST 08/27/2025 5:28 PM EST us Charles Zhang MD LAB URINE ORDERABLES Final Resul t [facility] [address] [place] [address], * Aleman urine culture tube (08/27/2025 2:20 PM EST) Extra Tube Hold for add-ons. 08/27/2025 7:03 PM [facility] Comment:Auto resulted. Urine Urine specimen obtained by clean catch procedure / Unknown 08/27/2025 2:20 PM EST 08/27/2025 5:28 PM EST us Charles Zhang MD LAB URINE ORDERABLES Final Resul t Performing Organization Address [facility]/ZIP Co de Phone Number [facility] [address] [place] [address], [place] [phone] * Ammonia (08/27/2025 7:26 AM EST) Ammonia 16 11 - 35 mcmol/L 08/27/2025 8:34 AM EST [facility] Blood Venous blood specimen / Unknown 08/27/2025 7:26 AM EST 08/27/2025 7:55 AM EST us Charles Zhang MD LAB BLOOD ORDERABLES Final Resul t Performing Organization Address [facility] de Phone Number [facility] [address] [place] [address], [place] [phone] * SST tube (08/26/2025 6:44 AM EST) Only the most recent of2 resultswithin the time period is included. Pathologist [facility] Extra Tube Hold for add-ons. 08/26/2025 9:02 AM EST [facility] Comment:Auto resulted. Blood Venous blood specimen / Unknown 08/26/2025 6:44 AM EST 08/26/2025 7:49 AM EST us Charles Zhang MD LAB BLOOD ORDERABLES Final Resul t Performing Organization Address [facility] Co de Phone Number [facility] [address] [place] [address], [place] [phone] * (ABNORMAL) CBC auto differential (08/26/2025 6:44 AM EST) Only the most recent of3 resultswithin the time period is included. WBC 12.4(H) 4.8 - 10.8 K/[facility] LAB HEMETOLOGY METHOD 08/26/2025 8:18 AM [facility] RBC 4.70 4.50 - 5.50 M/mcL LAB HEMETOLOGY METHOD 08/26/2025 8:18 AM [facility] Hemoglobin 13.2(L) 13.5 - 17.5 g/dL LAB HEMETOLOGY METHOD 08/26/2025 8:18 AM [facility] Hematocrit 40.9(L) 42.0 - 54.0 % LAB HEMETOLOGY METHOD 08/26/2025 8:18 AM [facility] MCV 86.7 79.0 - 98.0 FL LAB HEMETOLOGY METHOD 08/26/2025 8:18 AM [facility] MCH 28.0 27.0 - 32.0 pcg LAB HEMETOLOGY METHOD 08/26/2025 8:18 AM [facility] MCHC 32.3 32.0 - 37.0 g/dL LAB HEMETOLOGY METHOD 08/26/2025 8:18 AM [facility] RDW 13.7 11.0 - 15.0 % LAB HEMETOLOGY METHOD 08/26/2025 8:18 AM [facility] Platelets 233 130 - 400 K/mcL LAB HEMETOLOGY METHOD 08/26/2025 8:18 AM [facility] MPV 10.3 7.0 - 11.0 FL LAB HEMETOLOGY METHOD 08/26/2025 8:18 AM [facility] NRBC 0.0 <1.0 % LAB HEMETOLOGY METHOD 08/26/2025 8:18 AM [facility] NRBC Absolute 0.00 <0.10 K/mcL LAB HEMETOLOGY METHOD 08/26/2025 8:18 AM [facility] Neutrophils Relative 70.5 % LAB HEMETOLOGY METHOD 08/26/2025 8:18 AM [facility] Lymphocytes Relative 18.2 % LAB HEMETOLOGY METHOD 08/26/2025 8:18 AM [facility] Monocytes Relative 8.2 % LAB HEMETOLOGY METHOD 08/26/2025 8:18 AM [facility] Eosinophils Relative 2.2 % LAB HEMETOLOGY METHOD 08/26/2025 8:18 AM [facility] Basophils Relative 0.4 % LAB HEMETOLOGY METHOD 08/26/2025 8:18 AM [facility] Immature Granulocytes Relative 0.5 % LAB HEMETOLOGY METHOD 08/26/2025 8:18 AM [facility] Neutrophils Absolute 8.75(H) 1.50 - 7.00 K/mcL LAB HEMETOLOGY METHOD 08/26/2025 8:18 AM [facility] Lymphocytes Absolute 2.25 1.00 - 5.00 K/mcL LAB HEMETOLOGY METHOD 08/26/2025 8:18 AM [facility] Monocytes Absolute 1.01(H) 0.20 - 1.00 K/mcL LAB HEMETOLOGY METHOD 08/26/2025 8:18 AM [facility] Eosinophils Absolute 0.27 0.00 - 0.50 K/mcL LAB HEMETOLOGY METHOD 08/26/2025 8:18 AM [facility] Basophils Absolute 0.05 0.00 - 0.20 K/mcL LAB HEMETOLOGY METHOD 08/26/2025 8:18 AM [facility] Immature Granulocytes Absolute 0.06(H) 0.00 - 0.03 K/mcL LAB HEMETOLOGY METHOD 08/26/2025 8:18 AM [facility] Blood Venous blood specimen / Unknown 08/26/2025 6:44 AM EST 08/26/2025 7:49 AM EST us Charles Zhang MD LAB BLOOD ORDERABLES Final Resul t Performing Organization Address [facility] Co de Phone Number [facility] [address] [place] [address], [place] [phone] * (ABNORMAL) Thyroid stimulating hormone (08/26/2025 6:44 AM EST) Only the most recent of2 resultswithin the time period is included. TSH 5.47(H) 0.40 - 4.00 mcIU/mL 08/26/2025 8:40 AM EST [facility] Blood Venous blood specimen / Unknown 08/26/2025 6:44 AM EST 08/26/2025 7:49 AM EST us Charles Zhang MD LAB BLOOD ORDERABLES Final Resul t Performing Organization Address [facility] Co de Phone Number [facility] [address] [place] [address], * Thyroxine free (08/26/2025 6:44 AM EST) Only the most recent of2 resultswithin the time period is included. Free T4 1.37 0.70 - 1.80 ng/dL 08/26/2025 8:40 AM EST [facility] Blood Venous blood specimen / Unknown 08/26/2025 6:44 AM EST 08/26/2025 7:49 AM EST us Charles Zhang MD LAB BLOOD ORDERABLES Final Resul t Performing Organization Address [facility] Co de Phone Number [facility] [address] [place] [address], [place] [phone] * (ABNORMAL) Comprehensive metabolic panel (08/26/2025 6:44 AM EST) Only the most recent of3 resultswithin the time period is included. Sodium 141 133 - 145 mmol/L 08/26/2025 8:44 AM [facility] Potassium 4.2 3.5 - 5.5 mmol/L 08/26/2025 8:44 AM [facility] Comment:Hemolysis present Chloride 104 96 - 110 mmol/L 08/26/2025 8:44 AM [facility] CO2 25 21 - 32 mmol/L 08/26/2025 8:44 AM [facility] Anion Gap 12(H) 3 - 11 08/26/2025 8:44 AM [facility] Glucose 82 70 - 100 mg/dL 08/26/2025 8:44 AM [facility] BUN 13 5 - 25 mg/dL 08/26/2025 8:44 AM [facility] Creatinine 0.70 0.70 - 1.30 mg/dL 08/26/2025 8:44 AM [facility] eGFR 101 >=60 mL/min/1. 73m2 08/26/2025 8:44 AM [facility] Comment:Calculation based on the Chronic Kidney Disease Epidemiology Collaboration (CKD-EPI) equation refit without adjustment for race. BUN/Creatinine Ratio 18.6 08/26/2025 8:44 AM [facility] Calcium 9.5 8.5 - 10.5 mg/dL 08/26/2025 8:44 AM [facility] AST (SGOT) 25 10 - 42 unit/L 08/26/2025 8:44 AM [facility] ALT (SGPT) 17 10 - 60 unit/L 08/26/2025 8:44 AM [facility] Alkaline Phosphatase 97 42 - 121 unit/L 08/26/2025 8:44 AM [facility] Total Protein 7.0 6.0 - 8.0 g/dL 08/26/2025 8:44 AM [facility] Albumin 4.5 3.2 - 5.0 g/dL 08/26/2025 8:44 AM EST [facility] Total Bilirubin 0.4 0.0 - 1.4 mg/dL 08/26/2025 8:44 AM EST [facility] Blood Venous blood specimen / Unknown 08/26/2025 6:44 AM EST 08/26/2025 7:49 AM EST us Charles Zhang MD LAB BLOOD ORDERABLES Final Resul t Performing Organization Address [facility]/ZIP Co de Phone Number [facility] [address] [place] [address], [place] [phone] * Interferon gamma interpretation (08/12/2025 6:38 AM EST) [facility] Quantiferon Plus Interpretation Negative Negative LAB CHEMISTRY METHOD 08/13/2025 12:39 PM EST [facility] Blood Venous blood specimen / Unknown 08/12/2025 6:38 AM EST 08/12/2025 7:41 AM EST us Charles Zhang MD LAB BLOOD ORDERABLES Final Resul t Performing Organization Address [facility] de Phone Number [facility] [address] [place] [address], [place] [phone] * Interferon gamma antigen 2 (08/12/2025 6:38 AM EST) Blood Venous blood specimen / Unknown 08/12/2025 6:38 AM EST 08/12/2025 7:41 AM EST us Charles Zhang MD LAB BLOOD ORDERABLES Final Resul t Performing Organization Address City/[facility]/ZIP Co de Phone Number [facility] [address] [place] [address], [place] [phone] * Interferon gamma antigen 1 (08/12/2025 6:38 AM EST) Blood Venous blood specimen / Unknown 08/12/2025 6:38 AM EST 08/12/2025 7:41 AM EST us Charles Zhang MD LAB BLOOD ORDERABLES Final Resul t Performing Organization Address [facility] Co de Phone Number [facility] [address] [place] [address], [place] [phone] * Interferon gamma mitogen (08/12/2025 6:38 AM EST) Blood Venous blood specimen / Unknown 08/12/2025 6:38 AM EST 08/12/2025 7:41 AM EST us Charles Zhang MD LAB BLOOD ORDERABLES Final Resul t Performing Organization Address [facility] Co de Phone Number [facility] [address] [place] [address], [place] [phone] * Interferon gamma NIL (08/12/2025 6:38 AM EST) Blood Venous blood specimen / Unknown 08/12/2025 6:38 AM EST 08/12/2025 7:41 AM EST us Charles Zhang MD LAB BLOOD ORDERABLES Final Resul t Performing Organization Address [facility] de Phone Number [facility] [address] [place] [address], [place] [phone] * Hemoglobin A1c (06/19/2025 6:32 AM EDT) Hemoglobin A1C 5.6 <6.5 % LAB CHEMISTRY METHOD 06/19/2025 10:53 AM EDT [facility] Mean Bld Glu Estim. 114 mg/dL LAB CHEMISTRY METHOD 06/19/2025 10:53 AM EDT [facility] Blood Venous blood specimen / Unknown 06/19/2025 6:32 AM EDT 06/19/2025 7:25 AM EDT us Charles Zhang MD LAB BLOOD ORDERABLES Final Resul t Performing Organization Address City/[facility]/ZIP Co de Phone Number [facility] [address] [place] [address], [place] [phone] * Lipid panel with reflex to direct LDL (12/02/2024 6:53 AM EDT) Cholesterol 131 0 - 200 mg/dL LAB CHEMISTRY METHOD 12/02/2024 10:54 AM EDT [facility] Triglycerides 124 0 - 150 mg/dL LAB CHEMISTRY METHOD 12/02/2024 10:54 AM EDT [facility] HDL 47 >=40 mg/dL LAB CHEMISTRY METHOD 12/02/2024 10:54 AM EDT [facility] LDL Calculated 59 0 - 100 mg/dL LAB CHEMISTRY METHOD 12/02/2024 10:54 AM EDT [facility] VLDL Cholesterol Fermín 24.8 mg/dL LAB CHEMISTRY METHOD 12/02/2024 10:54 AM EDT [facility] Non HDL Chol. (LDL+VLDL) 84 <145 mg/dL LAB CHEMISTRY METHOD 12/02/2024 10:54 AM EDT [facility] Chol/HDL Ratio 2.8 0.0 - 4.4 LAB CHEMISTRY METHOD 12/02/2024 10:54 AM T [facility] Blood Venous blood specimen / Unknown 12/02/2024 6:53 AM EDT 12/02/2024 7:52 AM EDT Charles Zhang MD LAB BLOOD ORDERABLES Final Resul t Performing Organization Address [facility]/ZIP Co de Phone Number [facility] [address] [place] [address], [place] [phone] from Last 3 Months or Most Recently Relevant to Health [place] [id number] MEDICARE [place]ICA[place] - [place] Care Teams Heel Sewer Relationship Specialty Start Date End Date Charles Zhang MD [address] [place] [address] Dr [address] [place], [place] PCP - General Internal Medicine 10/21/24
--- OUTSIDE RECORDS SUMMARY | 2025-08-30 09:57 | XMS_ITS | Encounter Summary ---
Author Organization [employer] Address [address] [place] [address] Care Team Providers Care Scrap Yard Worker Name Role Phone Charles Zhang MD Primary Care Provider [phone] Encounter Details Date Type Department Care Team (Latest Contact Info) Description 07/29/2025 Lab Requisition [facility] - Main Lab [address] [facility] [place] [address] Charles Zhang MD [address] [place] [address] Dr [address] TESS Marsh Schizoaffective disorder, unspecified (CMS/HCC V24, CMS/HCC V28); Other obesity due to excess calories Social History Tobacco Use Types Packs/Day Years [...] Diagnosis Comments CBC WITH AUTO DIFFERENTIAL Routine 07/29/2025 6:40 [...] V28) Other obesity due to excess calories documented in this encounter Results * (ABNORMAL) CBC auto differential (07/29/2025 6:40 AM EST) WBC 10.0 4.8 - 10.8 K/mcL LAB HEMETOLOGY METHOD 07/29/2025 7:28 AM [facility] RBC 4.90 4.50 - 5.50 M/[facility] LAB HEMETOLOGY METHOD 07/29/2025 7:28 AM [facility] Hemoglobin 13.5 13.5 - 17.5 g/dL LAB HEMETOLOGY METHOD 07/29/2025 7:28 AM [facility] Hematocrit 43.0 42.0 - 54.0 % LAB HEMETOLOGY METHOD 07/29/2025 7:28 AM [facility] MCV 88.5 79.0 - 98.0 FL LAB HEMETOLOGY METHOD 07/29/2025 7:28 AM [facility] MCH 27.8 27.0 - 32.0 pcg LAB HEMETOLOGY METHOD 07/29/2025 7:28 AM [facility] MCHC 31.4(L) 32.0 - 37.0 g/dL LAB HEMETOLOGY METHOD 07/29/2025 7:28 AM [facility] RDW 13.5 11.0 - 15.0 % LAB HEMETOLOGY METHOD 07/29/2025 7:28 AM [facility] Platelets 275 130 - 400 K/[facility] LAB HEMETOLOGY METHOD 07/29/2025 7:28 AM [facility] MPV 9.4 7.0 - 11.0 FL LAB HEMETOLOGY METHOD 07/29/2025 7:28 AM [facility] NRBC 0.0 <1.0 % LAB HEMETOLOGY METHOD 07/29/2025 7:28 AM [facility] NRBC Absolute 0.00 <0.10 K/[facility] LAB HEMETOLOGY METHOD 07/29/2025 7:28 AM [facility] Neutrophils Relative 62.8 % LAB HEMETOLOGY METHOD 07/29/2025 7:28 AM [facility] Lymphocytes Relative 24.0 % LAB HEMETOLOGY METHOD 07/29/2025 7:28 AM [facility] Monocytes Relative 8.5 % LAB HEMETOLOGY METHOD 07/29/2025 7:28 AM [facility] Eosinophils Relative 3.7 % LAB HEMETOLOGY METHOD 07/29/2025 7:28 AM [facility] Basophils Relative 0.5 % LAB HEMETOLOGY METHOD 07/29/2025 7:28 AM [facility] Immature Granulocytes Relative 0.5 % LAB HEMETOLOGY METHOD 07/29/2025 7:28 AM [facility] Neutrophils Absolute 6.26 1.50 - 7.00 K/mcL LAB HEMETOLOGY METHOD 07/29/2025 7:28 AM [facility] Lymphocytes Absolute 2.39 1.00 - 5.00 K/mcL LAB HEMETOLOGY METHOD 07/29/2025 7:28 AM [facility] Monocytes Absolute 0.85 0.20 - 1.00 K/mcL LAB HEMETOLOGY METHOD 07/29/2025 7:28 AM [facility] Eosinophils Absolute 0.37 0.00 - 0.50 K/mcL LAB HEMETOLOGY METHOD 07/29/2025 7:28 AM [facility] Basophils Absolute 0.05 0.00 - 0.20 K/mcL LAB HEMETOLOGY METHOD 07/29/2025 7:28 AM [facility] Immature Granulocytes Absolute 0.05(H) 0.00 - 0.03 K/mcL LAB HEMETOLOGY METHOD 07/29/2025 7:28 AM [facility] Blood Venous blood specimen / Unknown 07/29/2025 6:40 AM EST 07/29/2025 7:13 AM EST us Charles Zhang MD LAB BLOOD ORDERABLES Final Resul t [facility] [address] [place] [address], * Comprehensive metabolic panel (07/29/2025 6:40 AM EST) Sodium 141 133 - 145 mmol/L LAB CHEMISTRY METHOD 07/29/2025 8:17 AM [facility] Potassium 3.8 3.5 - 5.5 mmol/L LAB CHEMISTRY METHOD 07/29/2025 8:17 AM [facility] Chloride 107 96 - 110 mmol/L LAB CHEMISTRY METHOD 07/29/2025 8:17 AM [facility] CO2 30 21 - 32 mmol/L LAB CHEMISTRY METHOD 07/29/2025 8:17 AM [facility] Anion Gap 4 3 - 11 LAB CHEMISTRY METHOD 07/29/2025 8:17 AM [facility] Glucose 75 70 - 100 mg/dL LAB CHEMISTRY METHOD 07/29/2025 8:17 AM [facility] BUN 13 5 - 25 mg/dL LAB CHEMISTRY METHOD 07/29/2025 8:17 AM [facility] Creatinine 0.97 0.70 - 1.30 mg/dL LAB CHEMISTRY METHOD 07/29/2025 8:17 AM [facility] eGFR 86 >=60 mL/min/1. 73m2 LAB CHEMISTRY METHOD 07/29/2025 8:17 AM [facility] Comment:Calculation based on the Chronic Kidney Disease Epidemiology Collaboration (CKD-EPI) equation refit without adjustment for race. BUN/Creatinine Ratio 13.4 LAB CHEMISTRY METHOD 07/29/2025 8:17 AM [facility] Calcium 9.2 8.5 - 10.5 mg/dL LAB CHEMISTRY METHOD 07/29/2025 8:17 AM [facility] AST (SGOT) 14 10 - 42 unit/L LAB CHEMISTRY METHOD 07/29/2025 8:17 AM [facility] ALT (SGPT) 30 10 - 60 unit/L LAB CHEMISTRY METHOD 07/29/2025 8:17 AM [facility] Alkaline Phosphatase 100 42 - 121 unit/L LAB CHEMISTRY METHOD 07/29/2025 8:17 AM [facility] Total Protein 6.7 6.0 - 8.0 g/dL LAB CHEMISTRY METHOD 07/29/2025 8:17 AM [facility] Albumin 3.6 3.2 - 5.0 g/dL LAB CHEMISTRY METHOD 07/29/2025 8:17 AM [facility] Total Bilirubin 0.3 0.0 - 1.4 mg/dL LAB CHEMISTRY METHOD 07/29/2025 8:17 AM [facility] Blood Venous blood specimen / Unknown 07/29/2025 6:40 AM EST 07/29/2025 7:13 AM EST us Charles Zhang MD LAB BLOOD ORDERABLES Final Resul t [facility] [address] [place] [address], documented in this encounter Visit Diagnoses Diagnosis Schizoaffective disorder, unspecified (CMS/HCC V24, CMS/HCC V28) Other obesity due to excess calories documented in this encounter Care Teams Scrap Yard Worker Relationship Specialty Start Date End Date Charles Zhang MD [address] [place] [address] Dr [address] [place] [address] [place] PCP - General Internal Medicine 10/21/24 documented as of this encounter
--- OUTSIDE RECORDS SUMMARY | 2025-08-30 09:57 | XMS_ITS | Encounter Summary ---
Author Organization [employer] Address [address] [place] [address] Care Team Providers Care Anesthetic Assistant Name Role Phone Charles Zhang MD Primary Care Provider [phone] Encounter Details Date Type Department Care Team (Latest Contact Info) Description 12/02/2024 Lab Requisition [facility] - Main Lab [address] [facility] [email or web address] [address] Charles Zhang MD [address] [place] [address] Dr [address] TESS Bautista Schizoaffective disorder, [...] CBC auto differential (12/02/2024 6:53 AM EDT) [facility] WBC 8.4 4.8 - 10.8 K/mcL LAB HEMETOLOGY METHOD 12/02/2024 8:13 AM [facility] RBC 4.60 4.50 - 5.50 M/mcL LAB HEMETOLOGY METHOD 12/02/2024 8:13 AM [facility] Hemoglobin 12.5(L) 13.5 - 17.5 g/dL LAB HEMETOLOGY METHOD 12/02/2024 8:13 AM [facility] LAB Hematocrit 40.0(L) 42.0 - 54.0 % LAB HEMETOLOGY METHOD 12/02/2024 8:13 AM [facility] LAB MCV 87.3 79.0 - 98.0 FL LAB HEMETOLOGY METHOD 12/02/2024 8:13 AM [facility] LAB MCH 27.3 27.0 - 32.0 pcg LAB HEMETOLOGY METHOD 12/02/2024 8:13 AM [facility] LAB MCHC 31.3(L) 32.0 - 37.0 g/dL LAB HEMETOLOGY METHOD 12/02/2024 8:13 AM [facility] LAB RDW 15.0 11.0 - 15.0 % LAB HEMETOLOGY METHOD 12/02/2024 8:13 AM [facility] LAB Platelets 238 130 - 400 K/mcL LAB HEMETOLOGY METHOD 12/02/2024 8:13 AM [facility] MPV 9.9 7.0 - 11.0 FL LAB HEMETOLOGY METHOD 12/02/2024 8:13 AM [facility] NRBC 0.0 <1.0 % LAB HEMETOLOGY METHOD 12/02/2024 8:13 AM [facility] NRBC Absolute 0.00 <0.10 K/mcL LAB HEMETOLOGY METHOD 12/02/2024 8:13 AM [facility] Neutrophils Relative 62.6 % LAB HEMETOLOGY METHOD 12/02/2024 8:13 AM [facility] Lymphocytes Relative 25.1 % LAB HEMETOLOGY METHOD 12/02/2024 8:13 AM [facility] Monocytes Relative 8.0 % LAB HEMETOLOGY METHOD 12/02/2024 8:13 AM [facility] Eosinophils Relative 3.6 % LAB HEMETOLOGY METHOD 12/02/2024 8:13 AM [facility] Basophils Relative 0.5 % LAB HEMETOLOGY METHOD 12/02/2024 8:13 AM [facility] Immature Granulocytes Relative 0.2 % LAB HEMETOLOGY METHOD 12/02/2024 8:13 AM [facility] Neutrophils Absolute 5.27 1.50 - 7.00 K/mcL LAB HEMETOLOGY METHOD 12/02/2024 8:13 AM [facility] Lymphocytes Absolute 2.11 1.00 - 5.00 K/mcL LAB HEMETOLOGY METHOD 12/02/2024 8:13 AM [facility] Monocytes Absolute 0.67 0.20 - 1.00 K/mcL LAB HEMETOLOGY METHOD 12/02/2024 8:13 AM [facility] Eosinophils Absolute 0.30 0.00 - 0.50 K/mcL LAB HEMETOLOGY METHOD 12/02/2024 8:13 AM EDT [facility] Basophils Absolute 0.04 0.00 - 0.20 K/[facility] LAB HEMETOLOGY METHOD 12/02/2024 8:13 AM EDT [facility] Immature Granulocytes Absolute 0.02 0.00 - 0.03 K/[facility] LAB HEMETOLOGY METHOD 12/02/2024 8:13 AM EDT [facility] Blood Venous blood specimen / Unknown 12/02/2024 6:53 AM EDT 12/02/2024 7:52 AM EDT us Charles Zhang MD LAB BLOOD ORDERABLES Final Resul t Performing Organization Address [facility] de Phone Number [facility] [address] [place] [address], [place] [phone] * Prostate specific antigen screen (12/02/2024 6:53 AM EDT) PSA 1.42 0.00 - 4.00 ng/mL LAB CHEMISTRY METHOD 12/02/2024 10:54 AM EDT [facility] Blood Venous blood specimen / Unknown 12/02/2024 6:53 AM EDT 12/02/2024 7:52 AM EDT Narrative [facility] - 12/02/2024 10:54 AM EDT The Siemens Advia Centaur Chemiluminescent Immunoassay is used. Results obtained with different assay methods or kits cannot be used interchangeably. Results cannot be interpreted as absolute evidence of the presence or absence of malignant disease. us Charles Zhang MD LAB BLOOD ORDERABLES Final Resul t Performing Organization Address [facility]/ZIP Co de Phone Number [facility] [address] [place] [address], [place] [phone] * [place] level (12/02/2024 6:53 AM EDT) Pathologist [facility] [place] Level 0.7 0.6 - 1.2 mEq/L LAB CHEMISTRY METHOD 12/02/2024 10:54 AM EDT [facility] Blood Venous blood specimen / Unknown 12/02/2024 6:53 AM EDT 12/02/2024 7:52 AM EDT us Charles Zhang MD LAB BLOOD ORDERABLES Final Resul t Performing Organization Address City/[facility]/ZIP Co de Phone Number [facility] [address] [place] [address], [place] [phone] * Vitamin B12 (12/02/2024 6:53 AM EDT) [facility] Vitamin B-12 405 250 - 900 pcg/mL LAB CHEMISTRY METHOD 12/02/2024 10:54 AM EDT [facility] Blood Venous blood specimen / Unknown 12/02/2024 6:53 AM EDT 12/02/2024 7:52 AM EDT us Charles Zhagn MD LAB BLOOD ORDERABLES Final Resul t Performing Organization Address [facility] de Phone Number [facility] [address] [place] [address], [place] [phone] * Lipid panel with reflex to direct LDL (12/02/2024 6:53 AM EDT) [facility] Cholesterol 131 0 - 200 mg/dL LAB CHEMISTRY METHOD 12/02/2024 10:54 AM EDT [facility] Triglycerides 124 0 - 150 mg/dL LAB CHEMISTRY METHOD 12/02/2024 10:54 AM EDT [facility] HDL 47 >=40 mg/dL LAB CHEMISTRY METHOD 12/02/2024 10:54 AM EDT [facility] LDL Calculated 59 0 - 100 mg/dL LAB CHEMISTRY METHOD 12/02/2024 10:54 AM EDT [facility] VLDL Cholesterol [place] 24.8 mg/dL LAB CHEMISTRY METHOD 12/02/2024 10:54 AM EDT [facility] Non HDL Chol. (LDL+VLDL) 84 <145 mg/dL LAB CHEMISTRY METHOD 12/02/2024 10:54 AM EDT [facility] Chol/HDL Ratio 2.8 0.0 - 4.4 LAB CHEMISTRY METHOD 12/02/2024 10:54 AM EDT [facility] Blood Venous blood specimen / Unknown 12/02/2024 6:53 AM EDT 12/02/2024 7:52 AM EDT us Charles Zhang MD LAB BLOOD ORDERABLES Final Resul t [facility] ([facility] [address] [place] [address], [place] [phone] documented in this encounter Visit Diagnoses Diagnosis Schizoaffective disorder, unspecified (CMS/HCC V24, CMS/[facility] V28) Hyperlipidemia, unspecified Benign prostatic hyperplasia without lower urinary tract symptoms documented in this encounter Care Teams Anesthetic Assistant Relationship Specialty Start Date End Date Charles Zhang MD [address] [place] [address] Dr Trell [address] [place] [address] [place] PCP - General Internal Medicine 10/21/24 documented as of this encounter
--- OUTSIDE RECORDS SUMMARY | 2025-08-30 09:57 | XMS_ITS | Clinical Summary ---
Author Organization [facility] Address [address] [place] [address] Care Team Providers Care Jig Hand Name Role Phone Pcp, No MD Primary Care Provider Unavailabl e Allergies Active Allergy Reactions Criticality Noted Date Comments Lorazepam Other (see comments) 11/11/2021 Penicillins Other (see comments) 11/04/2015 Medications acetaminophen (TYLENOL) 325 mg tablet Take 1 tablet by mouth. Active atorvastatin (LIPITOR) 10 mg tablet Take 1 tablet by mouth in the morning. Active budesonide EC (ENTOCORT EC) 3 mg 24 hr capsule Inhale 2 puffs 2 times daily. Active calcipotriene (DOVONOX) 0.005 % cream Apply topically daily. Active clobetasoL (TEMOVATE) 0.05 % cream Apply 1 application topically daily. Active clonazePAM (KlonoPIN) 1 mg tablet Take 1 tablet by mouth daily. Active clozapine (CLOZARIL) 200 mg tablet Take 1 tablet by mouth in the morning. Active fluPHENAZine (PROLIXIN) 5 mg tablet Take 1 tablet by mouth. Active guaiFENesin (ROBITUSSIN) 100 mg/5 mL syrup Take 10 mL by mouth. Active hydrOXYzine (VISTARIL) 25 mg capsule Take 1 capsule by mouth. Active ipratropium (ATROVENT) 0.03 % nasal spray Administer 2 sprays into affected nostril(s) 2 times daily. Active ipratropium HFA (ATROVENT HFA) 17 mcg/actuation inhaler Ipratropium [place] HFA 29-Jul-2019 Angelita Joshua Active Active levothyroxine (SYNTHROID) 75 mcg tablet Take 1 tablet by mouth. Active magnesium citrate solution Take by mouth. Activ e magnesium hydroxide 2,400 mg/10 mL suspension 30 mL. Active memantine (NAMENDA) 10 mg tablet Take 1 tablet by mouth daily. Active pantoprazole (PROTONIX) 40 mg EC tablet Take 1 tablet by mouth in the morning. Active polyethylene glycol 1450,bulk, powder Polyethylene Glycol - Powder as directed 29-Jul-2019 Angelita Joshua Active Active RisperiDONE (RisperDAL) 2 mg tablet Take 1 tablet by mouth daily. Active terazosin (HYTRIN) 2 mg capsule Take 1 capsule by mouth daily. Active traZODone (DESYREL) 100 mg tablet Take 1 tablet by mouth. Active zolpidem (AMBIEN) 10 mg tablet Take 1 tablet by mouth. Active polyethylene glycol (GLYCOLAX) 17 gram/dose powder Take 17 g by mouth. Active benztropine (COGENTIN) 1 mg tablet benztropine 1 mg tablet Active budesonide-form oteroL (SYMBICORT) 160-4.5 mcg/actuation inhaler Symbicort 160 mcg-4.5 mcg/actuation HFA aerosol inhaler Active divalproex (DEPAKOTE DR) 250 mg EC tablet divalproex 250 mg tablet,delayed release Active fluPHENAZine decanoate (PROLIXIN) 25 mg/mL injection Acti ve fluticasone propion-salmete roL (ADVAIR DISKUS) 250-50 mcg/dose diskus inhaler Advair Diskus 250 mcg-50 mcg/dose powder for inhalation Active hydrocortisone valerate (WEST-JOSE) 0.2 % ointment hydrocortisone valerate 0.2 % topical ointment Active lubiprostone (AMITIZA) capsule Take 24 mcg by mouth. Active meloxicam (MOBIC) 15 mg tablet meloxicam 15 mg tablet Active moxifloxacin 0.5 % drops, viscous Moxeza 0.5 % eye drops Active nicotine (NICODERM CQ) 14 mg/24 hr nicotine 14 mg/24 hr daily transdermal patch Active QUEtiapine (SEROquel) 100 mg tablet quetiapine 100 mg tablet Active simvastatin (ZOCOR) 20 mg tablet simvastatin 20 mg tablet Active sulfamethoxazol e-trimethoprim (BACTRIM DS) 800-160 mg per tablet sulfamethoxazole 800 mg-trimethoprim 160 mg tablet Active tobramycin (TOBREX) 0.3 % ophthalmic solution tobramycin 0.3 % eye drops Active risankizumab-rz aa (Skyrizi) 150 mg/mL subcutaneous pen injectorIndicat ions:Psoriasis Inject 1 mL (150 mg total) under the skin every 12 weeks. 1 each 3 10/07/19 25 Active finasteride (PROSCAR) 5 mg tablet 07/27/20 25 Active Breo Ellipta 100-25 mcg/dose blister with device inhaler 07/28/20 25 Active glycopyrrolate (ROBINUL) 1 mg tablet 07/14/20 25 Active lactulose (CHRONULAC) 10 gram/15 mL solution 07/28/20 25 Active levETIRAcetam XR (KEPPRA XR) 500 mg 24 hr tablet 04/05/20 25 Active levETIRAcetam (KEPPRA XR) 750 mg tablet extended release 24 hr 02/26/20 25 Active Linzess 72 mcg capsule 07/30/20 25 Active lithium (ESKALITH) 450 mg CR tablet 07/28/20 25 Active metFORMIN (GLUCOPHAGE) 500 mg tablet 07/28/20 25 Active risankizumab-rz aa (Skyrizi) 150 mg/mL subcutaneous pen injectorIndicat ions:Psoriasis Inject 1 mL (150 mg total) under the skin every 12 weeks. 1 mL 3 09/25/19 26 Active risankizumab-rz aa (Skyrizi) 150 mg/mL pen injectorIndicat ions:Psoriasis Inject 150 mg under the skin every 12 weeks. 1 mL 3 12/06/19 23 025 Disconti nued(Reo rder) Active Problems No known active problems Encounters Date Type Department Care Team Description 08/07/2025 Orders Only [facility] of [facility] [address] [place] [id number] Jeffry Barba MD PhD Psoriasis 08/06/2025 2:00 PM EST Follow-Up [facility] [address] [place] [id number] Vahid Ventura MD McMullan, Patrick, MD PhD Psoriasis (Primary Dx); High risk medication use from Last 3 Months Social History Tobacco [...] No / Unsure 08/06/2025 2:29 PM EST Plan of Treatment Health Maintenance Due Date Last Done Comments CT Colonography 1958 Colonoscopy 1960 Colorectal Cancer Screening 1960 FIT-DNA (Cologuard) 1958 FIT 1958 FOBT 1960 Flex Sigmoidoscopy - 5y 1958 HIV Screening 1960 Medicare Annual Wellness (AWV) 1960 DTaP,Tdap,and Td Vaccines (1 - Tdap) 02/08/1976 Pneumococcal Vaccine, 50+ Years (1 of 1 - PCV) 02/08/2008 Zoster Vaccines (1 of 2) 02/08/2008 COVID-19 Vaccine (6 - season) 2025 10/12/2022, 03/11/2022, 09/07/2021, Additional history exists Influenza Vaccine (#1) 2025 , 07/26/2015, 07/26/2015 Hepatitis C Screening Completed 09/01/2021 HPV Vaccines Aged Out No longer eligi ble based on patient's age to complete this topic Hepatitis A Vaccines Aged Out No long er eligible based on patient's age to complete this topic MMR Vaccines Aged Out No longer eligi ble based on patient's age to complete this topic Meningococcal Vaccine Aged Out No tolu genevieve eligible based on patient's age to complete this topic Procedures Procedure Name Priority Date/Time Associated Diagnosis Comments HEPATITIS C ANTIBODY Routine 09/01/2021 2:00 PM EST Special screening examination for viral disease from Last 3 Months or Most Recently Relevant to Health Maintenance Results * Hepatitis C antibody (09/01/2021 2:00 PM EST) Hepatitis C Antibody Negative Negative 09/01/2021 4:19 PM EST [facility] Comment:Anti-HCV (HCVAb) Not Detected. Patient is presumed not to be infected with HCV. The possibility of exposure to HCV cannot be excluded. Blood Venous blood specimen / Unknown Venipuncture / Unknown 09/01/2021 2:00 PM EST 09/01/2021 2:00 PM EST us Rosa Siddiqi MD LAB BLOOD ORDERABLES NO STAT Fi nal Result [facility] [address] [place] [address], [place] [phone] from Last 3 Months or Most Recently Relevant to Health Maintenance Insurance [employer] at [address] [address] MEDICARE PART A & B MEDICAID [facility] MEDICARE PART A & B MEDICAID [place] [facility] Care Teams Jig Hand Relationship Specialty Start Date End Date Barbara Gerard MD [address] [place] [id number] PCP - General Internal Medicine 06/09/20
--- OUTSIDE RECORDS SUMMARY | 2025-08-30 09:57 | XMS_ITS | Encounter Summary ---
Author Organization [employer] Address [address] [place] [address] Care Team Providers Care Forestry Aid Name Role Phone Charles Zhang MD Primary Care Provider [phone] Encounter Details Date Type Department Care Team (Late st Contact Info) Description 08/26/2025 Lab Requisition [facility] - Main Lab 299 [facility] [place] [address] Charles Zhang MD [address] [place] [address] Dr [address] TESS [place] Dementia in other diseases classified elsewhere, unspecified severity, with other behavioral disturbance (CMS/HCC V24, CMS/HCC V28); Hypothyroidism, unspecified Social History Tobacco Use Types [...] Associated Diagnosis Comments SST - GOLD Routine 08/26/2025 6:44 AM [...] disturbance (CMS/HCC V24, CMS/HCC V28) Hypothyroidism, unspecified documented in this encounter Results * SST tube (08/26/2025 6:44 AM EST) Pathologist [facility] Extra Tube Hold for add-ons. 08/26/2025 9:02 AM EST [facility] Comment:Auto resulted. Blood Venous blood specimen / Unknown 08/26/2025 6:44 AM EST 08/26/2025 7:49 AM EST us Charles Zhang MD LAB BLOOD ORDERABLES Final Resul t [facility] [address] [place] [address], * (ABNORMAL) CBC auto differential (08/26/2025 6:44 AM EST) WBC 12.4(H) 4.8 - 10.8 K/mcL LAB HEMETOLOGY METHOD 08/26/2025 8:18 AM EST [facility] RBC 4.70 4.50 - 5.50 M/mcL LAB HEMETOLOGY METHOD 08/26/2025 8:18 AM EST [facility] Hemoglobin 13.2(L) 13.5 - 17.5 g/dL LAB HEMETOLOGY METHOD 08/26/2025 8:18 AM EST [facility] Hematocrit 40.9(L) 42.0 - 54.0 % LAB HEMETOLOGY METHOD 08/26/2025 8:18 AM [facility] MCV 86.7 79.0 - 98.0 FL LAB HEMETOLOGY METHOD 08/26/2025 8:18 AM [facility] MCH 28.0 27.0 - 32.0 pcg LAB HEMETOLOGY METHOD 08/26/2025 8:18 AM [facility] MCHC 32.3 32.0 - 37.0 g/dL LAB HEMETOLOGY METHOD 08/26/2025 8:18 AM [facility] RDW 13.7 11.0 - 15.0 % LAB HEMETOLOGY METHOD 08/26/2025 8:18 AM [facility] Platelets 233 130 - 400 K/mcL LAB HEMETOLOGY METHOD 08/26/2025 8:18 AM [facility] MPV 10.3 7.0 - 11.0 FL LAB HEMETOLOGY METHOD 08/26/2025 8:18 AM [facility] NRBC 0.0 <1.0 % LAB HEMETOLOGY METHOD 08/26/2025 8:18 AM [facility] NRBC Absolute 0.00 <0.10 K/mcL LAB HEMETOLOGY METHOD 08/26/2025 8:18 AM [facility] Neutrophils Relative 70.5 % LAB HEMETOLOGY METHOD 08/26/2025 8:18 AM [facility] Lymphocytes Relative 18.2 % LAB HEMETOLOGY METHOD 08/26/2025 8:18 AM [facility] Monocytes Relative 8.2 % LAB HEMETOLOGY METHOD 08/26/2025 8:18 AM [facility] Eosinophils Relative 2.2 % LAB HEMETOLOGY METHOD 08/26/2025 8:18 AM [facility] Basophils Relative 0.4 % LAB HEMETOLOGY METHOD 08/26/2025 8:18 AM EST [facility] Immature Granulocytes Relative 0.5 % LAB HEMETOLOGY METHOD 08/26/2025 8:18 AM [facility] Neutrophils Absolute 8.75(H) 1.50 - 7.00 K/mcL LAB HEMETOLOGY METHOD 08/26/2025 8:18 AM EST [facility] Lymphocytes Absolute 2.25 1.00 - 5.00 K/mcL LAB HEMETOLOGY METHOD 08/26/2025 8:18 AM EST [facility] Monocytes Absolute 1.01(H) 0.20 - 1.00 K/mcL LAB HEMETOLOGY METHOD 08/26/2025 8:18 AM [facility] Eosinophils Absolute 0.27 0.00 - 0.50 K/mcL LAB HEMETOLOGY METHOD 08/26/2025 8:18 AM EST [facility] Basophils Absolute 0.05 0.00 - 0.20 K/mcL LAB HEMETOLOGY METHOD 08/26/2025 8:18 AM [facility] Immature Granulocytes Absolute 0.06(H) 0.00 - 0.03 K/mcL LAB HEMETOLOGY METHOD 08/26/2025 8:18 AM [facility] Blood Venous blood specimen / Unknown 08/26/2025 6:44 AM EST 08/26/2025 7:49 AM EST us Charles Zhang MD LAB BLOOD ORDERABLES Final Resul t [facility] [address] [place] [address], * (ABNORMAL) Thyroid stimulating hormone (08/26/2025 6:44 AM EST) TSH 5.47(H) 0.40 - 4.00 mcIU/mL 08/26/2025 8:40 AM EST [facility] Blood Venous blood specimen / Unknown 08/26/2025 6:44 AM EST 08/26/2025 7:49 AM EST us Charles Zhang MD LAB BLOOD ORDERABLES Final Resul t Performing Organization Address [facility]/ZIP Co de Phone Number [facility] [address] [place] [address], [place] [phone] * Thyroxine free (08/26/2025 6:44 AM EST) Free T4 1.37 0.70 - 1.80 ng/dL 08/26/2025 8:40 AM [facility] Blood Venous blood specimen / Unknown 08/26/2025 6:44 AM EST 08/26/2025 7:49 AM EST us Charles Zhang MD LAB BLOOD ORDERABLES Final Resul t Performing Organization Address [facility]/ZIP Co de Phone Number [facility] [address] [place] [address], [place] [phone] * (ABNORMAL) Comprehensive metabolic panel (08/26/2025 6:44 AM EST) Sodium 141 133 - 145 mmol/L 08/26/2025 8:44 AM [facility] Potassium 4.2 3.5 - 5.5 mmol/L 08/26/2025 8:44 AM [facility] Comment:Hemolysis present Chloride 104 96 - 110 mmol/L 08/26/2025 8:44 AM [facility] CO2 25 21 - 32 mmol/L 08/26/2025 8:44 AM [facility] Anion Gap 12(H) 3 - 11 08/26/2025 8:44 AM [facility] Glucose 82 70 - 100 mg/dL 08/26/2025 8:44 AM [facility] BUN 13 5 - 25 mg/dL 08/26/2025 8:44 AM [facility] Creatinine 0.70 0.70 - 1.30 mg/dL 08/26/2025 8:44 AM [facility] eGFR 101 >=60 mL/min/1. 73m2 08/26/2025 8:44 AM [facility] Comment:Calculation based on the Chronic Kidney Disease Epidemiology Collaboration (CKD-EPI) equation refit without adjustment for race. BUN/Creatinine Ratio 18.6 08/26/2025 8:44 AM [facility] Calcium 9.5 8.5 - 10.5 mg/dL 08/26/2025 8:44 AM [facility] AST (SGOT) 25 10 - 42 unit/L 08/26/2025 8:44 AM [facility] ALT (SGPT) 17 10 - 60 unit/L 08/26/2025 8:44 AM [facility] Alkaline Phosphatase 97 42 - 121 unit/L 08/26/2025 8:44 AM [facility] Total Protein 7.0 6.0 - 8.0 g/dL 08/26/2025 8:44 AM [facility] Albumin 4.5 3.2 - 5.0 g/dL 08/26/2025 8:44 AM [facility] Total Bilirubin 0.4 0.0 - 1.4 mg/dL 08/26/2025 8:44 AM [facility] Blood Venous blood specimen / Unknown 08/26/2025 6:44 AM EST 08/26/2025 7:49 AM EST us Charles Zhang MD LAB BLOOD ORDERABLES Final Resul t [facility] [address] [place] [address], documented in this encounter Visit Diagnoses Diagnosis Dementia in other diseases classified elsewhere, unspecified severity, with other behavioral disturbance (CMS/HCC V24, CMS/HCC V28) Hypothyroidism, unspecified documented in this encounter Care Teams Forestry Aid Relationship Specialty Start Date End Date Charles Zhang MD [address] [place] [address] Dr [address] [place], [place] PCP - General Internal Medicine 10/21/24 documented as of this encounter
--- OUTSIDE RECORDS SUMMARY | 2025-08-30 09:57 | XMS_ITS | Encounter Summary ---
Author Organization [employer] Address [address] [place] [address] Care Team Providers Care Marriage Therapist Name Role Phone Charles Zhang MD Primary Care Provider [phone] Encounter Details Date Type Department Care Team (Latest Contact Info) Description 12/31/2024 Lab Requisition [facility] - Main Lab 299 [facility] [place] [address] Charles Zhang MD [address] [place] [address] [address] TESS [place] Schizoaffective disorder, [...] K/mcL LAB HEMETOLOGY METHOD 12/31/2024 7:42 AM [facility] RBC 4.70 4.50 - 5.50 M/mcL LAB HEMETOLOGY METHOD 12/31/2024 7:42 AM [facility] Hemoglobin 12.7(L) 13.5 - 17.5 g/dL LAB HEMETOLOGY METHOD 12/31/2024 7:42 AM [facility] Hematocrit 40.7(L) 42.0 - 54.0 % LAB HEMETOLOGY METHOD 12/31/2024 7:42 AM [facility] MCV 86.6 79.0 - 98.0 FL LAB HEMETOLOGY METHOD 12/31/2024 7:42 AM [facility] MCH 27.0 27.0 - 32.0 pcg LAB HEMETOLOGY METHOD 12/31/2024 7:42 AM [facility] MCHC 31.2(L) 32.0 - 37.0 g/dL LAB HEMETOLOGY METHOD 12/31/2024 7:42 AM [facility] RDW 15.1(H) 11.0 - 15.0 % LAB HEMETOLOGY METHOD 12/31/2024 7:42 AM [facility] Platelets 190 130 - 400 K/mcL LAB HEMETOLOGY METHOD 12/31/2024 7:42 AM [facility] MPV 10.5 7.0 - 11.0 FL LAB HEMETOLOGY METHOD 12/31/2024 7:42 AM [facility] NRBC 0.0 <1.0 % LAB HEMETOLOGY METHOD 12/31/2024 7:42 AM [facility] NRBC Absolute 0.00 <0.10 K/mcL LAB HEMETOLOGY METHOD 12/31/2024 7:42 AM [facility] Neutrophils Relative 66.3 % LAB HEMETOLOGY METHOD 12/31/2024 7:42 AM [facility] Lymphocytes Relative 21.4 % LAB HEMETOLOGY METHOD 12/31/2024 7:42 AM [facility] Monocytes Relative 8.8 % LAB HEMETOLOGY METHOD 12/31/2024 7:42 AM [facility] Eosinophils Relative 2.5 % LAB HEMETOLOGY METHOD 12/31/2024 7:42 AM [facility] Basophils Relative 0.5 % LAB HEMETOLOGY METHOD 12/31/2024 7:42 AM [facility] Immature Granulocytes Relative 0.5 % LAB HEMETOLOGY METHOD 12/31/2024 7:42 AM [facility] Neutrophils Absolute 7.14(H) 1.50 - 7.00 K/mcL LAB HEMETOLOGY METHOD 12/31/2024 7:42 AM [facility] Lymphocytes Absolute 2.30 1.00 - 5.00 K/mcL LAB HEMETOLOGY METHOD 12/31/2024 7:42 AM [facility] Monocytes Absolute 0.95 0.20 - 1.00 K/mcL LAB HEMETOLOGY METHOD 12/31/2024 7:42 AM [facility] Eosinophils Absolute 0.27 0.00 - 0.50 K/mcL LAB HEMETOLOGY METHOD 12/31/2024 7:42 AM [facility] Basophils Absolute 0.05 0.00 - 0.20 K/mcL LAB HEMETOLOGY METHOD 12/31/2024 7:42 AM [facility] Immature Granulocytes Absolute 0.05(H) 0.00 - 0.03 K/mcL LAB HEMETOLOGY METHOD 12/31/2024 7:42 AM [facility] Blood Venous blood specimen / Unknown 12/31/2024 6:46 AM EDT 12/31/2024 7:28 AM EDT us Charles Zhang MD LAB BLOOD ORDERABLES Final Resul t [facility] ([facility]) [facility] [address] [place] [address], documented in this encounter Visit Diagnoses Diagnosis Schizoaffective disorder, unspecified (CMS/HCC V24, CMS/HCC V28) Diffuse traumatic brain injury with loss of consciousness of unspecified duration, sequela (CMS/[facility] V24) documented in this encounter Care Teams Marriage Therapist Relationship Specialty Start Date End Date Charles Zhang MD [address] [facility] [address] [place], [place] PCP - General Internal Medicine 10/21/24 documented as of this encounter
--- OUTSIDE RECORDS SUMMARY | 2025-08-30 09:58 | XMS_ITS | Encounter Summary ---
Author Organization [facility] Address [address] [place] [address] Care Team Providers Care Roustabout Crew Leader Name Role Phone Charles Zhang MD Primary Care Provider [phone] Encounter Details Date Type Department Care Team (Late st Contact Info) Description 08/27/2025 Lab Requisition [facility] - Main Lab [address] [place] [address] Charles Zhang MD [address] [place] [address] [address] [place] Other encephalopathy Social History Tobacco Use Types Packs/Day Years [...] Procedure Name Priority Date/Time Associated Diagnosis Comments AMMONIA Routine 08/27/2025 7:26 AM EST Other encephalopathy documented in this encounter Results * Ammonia (08/27/2025 7:26 AM EST) Ammonia 16 11 - 35 mcmol/L 08/27/2025 8:34 AM EST [facility] Blood Venous blood specimen / Unknown 08/27/2025 7:26 AM EST 08/27/2025 7:55 AM EST Charles Zhang MD LAB BLOOD ORDERABLES Final Resul t [facility] [address] [place] [address], [place] [phone] documented in this encounter Visit Diagnoses Diagnosis Other encephalopathy documented in this encounter Care Teams Roustabout Crew Leader Relationship Specialty Start Date End Date Charles Zhang MD [address] TESS [place] PCP - General Internal Medicine 10/21/24 documented as of this encounter
--- OUTSIDE RECORDS SUMMARY | 2025-08-30 09:58 | XMS_ITS | Encounter Summary ---
Author Organization [employer] Address [address] [place] [address] Care Team Providers Care Registered Physical Therapist Name Role Phone Charles Zhang MD Primary Care Provider [phone] Encounter Details Date Type Department Care Team (Latest Contact Info) Description 01/27/2025 Lab Requisition [facility] - Main Lab 299 [facility] [place] [address] Charles Zhang MD [address] [place] [address] Dr [address] TESS Marsh Schizoaffective disorder, [...] Diagnosis Comments CBC WITH AUTO DIFFERENTIAL Routine 01/27/2025 6:54 AM EDT Schizoaffective disorder, unspecified (CMS/HCC V24, CMS/HCC V28) Other obesity due to excess calories CBC AND DIFFERENTIAL Routine 01/27/2025 6:54 AM EDT Schizoaffective disorder, unspecified (CMS/HCC V24, CMS/HCC V28) Other obesity due to excess calories COMPREHENSIVE METABOLIC PANEL Routine 01/27/2025 6:54 AM EDT Schizoaffective disorder, unspecified (CMS/HCC V24, CMS/HCC V28) Other obesity due to excess calories documented in this encounter Results * (ABNORMAL) CBC auto differential (01/27/2025 6:54 AM EDT) Pathologist [facility] WBC 9.7 4.8 - 10.8 K/mcL LAB HEMETOLOGY METHOD 01/27/2025 7:35 AM [facility] RBC 5.00 4.50 - 5.50 M/mcL LAB HEMETOLOGY METHOD 01/27/2025 7:35 AM [facility] Hemoglobin 13.5 13.5 - 17.5 g/dL LAB HEMETOLOGY METHOD 01/27/2025 7:35 AM [facility] Hematocrit 43.1 42.0 - 54.0 % LAB HEMETOLOGY METHOD 01/27/2025 7:35 AM [facility] MCV 86.0 79.0 - 98.0 FL LAB HEMETOLOGY METHOD 01/27/2025 7:35 AM [facility] MCH 26.9(L) 27.0 - 32.0 pcg LAB HEMETOLOGY METHOD 01/27/2025 7:35 AM [facility] MCHC 31.3(L) 32.0 - 37.0 g/dL LAB HEMETOLOGY METHOD 01/27/2025 7:35 AM [facility] RDW 14.7 11.0 - 15.0 % LAB HEMETOLOGY METHOD 01/27/2025 7:35 AM [facility] Platelets 208 130 - 400 K/mcL LAB HEMETOLOGY METHOD 01/27/2025 7:35 AM [facility] MPV 10.1 7.0 - 11.0 FL LAB HEMETOLOGY METHOD 01/27/2025 7:35 AM [facility] NRBC 0.0 <1.0 % LAB HEMETOLOGY METHOD 01/27/2025 7:35 AM [facility] NRBC Absolute 0.00 <0.10 K/mcL LAB HEMETOLOGY METHOD 01/27/2025 7:35 AM [facility] Neutrophils Relative 61.6 % LAB HEMETOLOGY METHOD 01/27/2025 7:35 AM [facility] Lymphocytes Relative 25.3 % LAB HEMETOLOGY METHOD 01/27/2025 7:35 AM [facility] Monocytes Relative 9.3 % LAB HEMETOLOGY METHOD 01/27/2025 7:35 AM [facility] Eosinophils Relative 2.9 % LAB HEMETOLOGY METHOD 01/27/2025 7:35 AM [facility] Basophils Relative 0.5 % LAB HEMETOLOGY METHOD 01/27/2025 7:35 AM [facility] Immature Granulocytes Relative 0.4 % LAB HEMETOLOGY METHOD 01/27/2025 7:35 AM [facility] Neutrophils Absolute 6.00 1.50 - 7.00 K/mcL LAB HEMETOLOGY METHOD 01/27/2025 7:35 AM [facility] Lymphocytes Absolute 2.46 1.00 - 5.00 K/mcL LAB HEMETOLOGY METHOD 01/27/2025 7:35 AM [facility] Monocytes Absolute 0.91 0.20 - 1.00 K/mcL LAB HEMETOLOGY METHOD 01/27/2025 7:35 AM [facility] Eosinophils Absolute 0.28 0.00 - 0.50 K/mcL LAB HEMETOLOGY METHOD 01/27/2025 7:35 AM [facility] Basophils Absolute 0.05 0.00 - 0.20 K/mcL LAB HEMETOLOGY METHOD 01/27/2025 7:35 AM [facility] Immature Granulocytes Absolute 0.04(H) 0.00 - 0.03 K/mcL LAB HEMETOLOGY METHOD 01/27/2025 7:35 AM [facility] Blood Venous blood specimen / Unknown 01/27/2025 6:54 AM EDT 01/27/2025 7:32 AM EDT us Charles Zhang MD LAB BLOOD ORDERABLES Final Resul t [facility] [address] [place] [address], [place] [phone] * Comprehensive metabolic panel (01/27/2025 6:54 AM EDT) Pathologist [facility] Sodium 139 133 - 145 mmol/L LAB CHEMISTRY METHOD 01/27/2025 8:10 AM T [facility] Potassium 4.1 3.5 - 5.5 mmol/L LAB CHEMISTRY METHOD 01/27/2025 8:10 AM [facility] Chloride 106 96 - 110 mmol/L LAB CHEMISTRY METHOD 01/27/2025 8:10 AM [facility] CO2 27 21 - 32 mmol/L LAB CHEMISTRY METHOD 01/27/2025 8:10 AM [facility] Anion Gap 6 3 - 11 LAB CHEMISTRY METHOD 01/27/2025 8:10 AM [facility] Glucose 92 70 - 100 mg/dL LAB CHEMISTRY METHOD 01/27/2025 8:10 AM [facility] BUN 13 5 - 25 mg/dL LAB CHEMISTRY METHOD 01/27/2025 8:10 AM [facility] Creatinine 0.80 0.70 - 1.30 mg/dL LAB CHEMISTRY METHOD 01/27/2025 8:10 AM [facility] eGFR 98 >=60 mL/min/1. 73m2 LAB CHEMISTRY METHOD 01/27/2025 8:10 AM [facility] Comment:Calculation based on the Chronic Kidney Disease Epidemiology Collaboration (CKD-EPI) equation refit without adjustment for race. BUN/Creatinine Ratio 16.3 LAB CHEMISTRY METHOD 01/27/2025 8:10 AM [facility] Calcium 9.3 8.5 - 10.5 mg/dL LAB CHEMISTRY METHOD 01/27/2025 8:10 AM T [facility] AST (SGOT) 12 10 - 42 unit/L LAB CHEMISTRY METHOD 01/27/2025 8:10 AM [facility] ALT (SGPT) 26 10 - 60 unit/L LAB CHEMISTRY METHOD 01/27/2025 8:10 AM T [facility] Alkaline Phosphatase 95 42 - 121 unit/L LAB CHEMISTRY METHOD 01/27/2025 8:10 AM [facility] Total Protein 6.8 6.0 - 8.0 g/dL LAB CHEMISTRY METHOD 01/27/2025 8:10 AM [facility] Albumin 3.9 3.2 - 5.0 g/dL LAB CHEMISTRY METHOD 01/27/2025 8:10 AM [facility] Total Bilirubin 0.4 0.0 - 1.4 mg/dL LAB CHEMISTRY METHOD 01/27/2025 8:10 AM [facility] Blood Venous blood specimen / Unknown 01/27/2025 6:54 AM EDT 01/27/2025 7:32 AM EDT us Charles Zhang MD LAB BLOOD ORDERABLES Final Resul t [facility] [address] [place] [address], documented in this encounter Visit Diagnoses Diagnosis Schizoaffective disorder, unspecified (CMS/HCC V24, CMS/HCC V28) Other obesity due to excess calories documented in this encounter Care Teams Registered Physical Therapist Relationship Specialty Start Date End Date Charles Zhang MD [address] [place] [address] Dr [place] PCP - General Internal Medicine 10/21/24 documented as of this encounter
--- OUTSIDE RECORDS SUMMARY | 2025-08-30 09:58 | XMS_ITS | Encounter Summary ---
Author Organization [employer] Address [address] [place] [address] Care Team Providers Care Link Wire Fabric Machine Tender Name Role Phone Charles Zhang MD Primary Care Provider [phone] Encounter Details Date Type Department Care Team (Latest Contact Info) Description 03/26/2025 Lab Requisition [facility] - Main Lab 299 [facility] [place] [address] Charles Zhang MD [address] [place] [address] Dr [address] TESS Bautista Schizoaffective disorder, unspecified (CMS/HCC V24, CMS/HCC V28); Vitamin D deficiency, unspecified Social History Tobacco Use Types Packs/Day [...] Diagnosis Comments CBC WITH AUTO DIFFERENTIAL Routine 03/26/2025 6:39 AM EDT Schizoaffective disorder, unspecified (CMS/HCC V24, CMS/HCC V28) Vitamin D deficiency, unspecified VITAMIN D 25 HYDROXY Routine 03/26/2025 6:39 AM EDT Schizoaffective disorder, unspecified (CMS/HCC V24, CMS/HCC V28) Vitamin D deficiency, unspecified CBC AND DIFFERENTIAL Routine 03/26/2025 6:39 AM EDT Schizoaffective disorder, unspecified (CMS/HCC V24, CMS/HCC V28) Vitamin D deficiency, unspecified documented in this encounter Results * (ABNORMAL) CBC auto differential (03/26/2025 6:39 AM EDT) [facility] WBC 9.4 4.8 - 10.8 K/mcL LAB HEMETOLOGY METHOD 03/26/2025 7:50 AM [facility] RBC 4.50 4.50 - 5.50 M/mcL LAB HEMETOLOGY METHOD 03/26/2025 7:50 AM [facility] Hemoglobin 12.4(L) 13.5 - 17.5 g/dL LAB HEMETOLOGY METHOD 03/26/2025 7:50 AM [facility] Hematocrit 39.5(L) 42.0 - 54.0 % LAB HEMETOLOGY METHOD 03/26/2025 7:50 AM [facility] MCV 87.6 79.0 - 98.0 FL LAB HEMETOLOGY METHOD 03/26/2025 7:50 AM [facility] MCH 27.5 27.0 - 32.0 pcg LAB HEMETOLOGY METHOD 03/26/2025 7:50 AM [facility] MCHC 31.4(L) 32.0 - 37.0 g/dL LAB HEMETOLOGY METHOD 03/26/2025 7:50 AM [facility] RDW 14.6 11.0 - 15.0 % LAB HEMETOLOGY METHOD 03/26/2025 7:50 AM [facility] Platelets 203 130 - 400 K/mcL LAB HEMETOLOGY METHOD 03/26/2025 7:50 AM [facility] MPV 10.6 7.0 - 11.0 FL LAB HEMETOLOGY METHOD 03/26/2025 7:50 AM [facility] NRBC 0.0 <1.0 % LAB HEMETOLOGY METHOD 03/26/2025 7:50 AM [facility] NRBC Absolute 0.00 <0.10 K/mcL LAB HEMETOLOGY METHOD 03/26/2025 7:50 AM [facility] Neutrophils Relative 63.6 % LAB HEMETOLOGY METHOD 03/26/2025 7:50 AM [facility] Lymphocytes Relative 23.1 % LAB HEMETOLOGY METHOD 03/26/2025 7:50 AM [facility] Monocytes Relative 9.1 % LAB HEMETOLOGY METHOD 03/26/2025 7:50 AM [facility] Eosinophils Relative 3.2 % LAB HEMETOLOGY METHOD 03/26/2025 7:50 AM [facility] Basophils Relative 0.5 % LAB HEMETOLOGY METHOD 03/26/2025 7:50 AM [facility] Immature Granulocytes Relative 0.5 % LAB HEMETOLOGY METHOD 03/26/2025 7:50 AM [facility] Neutrophils Absolute 5.96 1.50 - 7.00 K/mcL LAB HEMETOLOGY METHOD 03/26/2025 7:50 AM [facility] Lymphocytes Absolute 2.16 1.00 - 5.00 K/mcL LAB HEMETOLOGY METHOD 03/26/2025 7:50 AM [facility] Monocytes Absolute 0.85 0.20 - 1.00 K/mcL LAB HEMETOLOGY METHOD 03/26/2025 7:50 AM [facility] Eosinophils Absolute 0.30 0.00 - 0.50 K/mcL LAB HEMETOLOGY METHOD 03/26/2025 7:50 AM [facility] Basophils Absolute 0.05 0.00 - 0.20 K/mcL LAB HEMETOLOGY METHOD 03/26/2025 7:50 AM [facility] Immature Granulocytes Absolute 0.05(H) 0.00 - 0.03 K/mcL LAB HEMETOLOGY METHOD 03/26/2025 7:50 AM [facility] Blood Venous blood specimen / Unknown 03/26/2025 6:39 AM EDT 03/26/2025 7:49 AM EDT us Charles Zhang MD LAB BLOOD ORDERABLES Final Resul t Performing Organization Address [facility]/ZIP Co de Phone Number [facility] [address] [place] [address], [place] [phone] * Vitamin D 25 hydroxy (03/26/2025 6:39 AM EDT) Vit D, 25-Hydroxy 72.8 30.0 - 80.0 ng/mL LAB CHEMISTRY METHOD 03/26/2025 9:00 AM EDT [facility] Blood Venous blood specimen / Unknown 03/26/2025 6:39 AM EDT 03/26/2025 7:49 AM EDT us Charles Zhang MD LAB BLOOD ORDERABLES Final Resul t Performing Organization Address [facility] Co de Phone Number [facility] [address] [place] [address], [place] [phone] documented in this encounter Visit Diagnoses Diagnosis Schizoaffective disorder, unspecified (CMS/HCC V24, CMS/HCC V28) Vitamin D deficiency, unspecified documented in this encounter Care Teams Link Wire Fabric Machine Tender Relationship Specialty Start Date End Date Charles Zhang MD [address] [place] [address] Dr [address] [facility] [place] PCP - General Internal Medicine 10/21/24 documented as of this encounter
--- OUTSIDE RECORDS SUMMARY | 2025-08-30 09:58 | XMS_ITS | Encounter Summary ---
Author Organization [employer] Address [address] [place] [address] Care Team Providers Care Entry Level Administrative Assistant Name Role Phone Charles Zhang MD Primary Care Provider [phone] Encounter Details Date Type Department Care Team (Late st Contact Info) Description 09/11/2024 Lab Requisition [facility] - Main Lab [address] [facility] [place] [address] Charles Zhang MD [address] [place] [address] Dr [address] [place] Essential (primary) [...] CBC auto differential (09/11/2024 6:43 AM EST) [facility] WBC 9.1 4.8 - 10.8 K/mcL LAB HEMETOLOGY METHOD 09/11/2024 8:38 AM [facility] RBC 5.00 4.50 - 5.50 M/mcL LAB HEMETOLOGY METHOD 09/11/2024 8:38 AM [facility] Hemoglobin 13.4(L) 13.5 - 17.5 g/dL LAB HEMETOLOGY METHOD 09/11/2024 8:38 AM [facility] Hematocrit 43.0 42.0 - 54.0 % LAB HEMETOLOGY METHOD 09/11/2024 8:38 AM [facility] MCV 86.9 79.0 - 98.0 FL LAB HEMETOLOGY METHOD 09/11/2024 8:38 AM [facility] MCH 27.1 27.0 - 32.0 pcg LAB HEMETOLOGY METHOD 09/11/2024 8:38 AM [facility] MCHC 31.2(L) 32.0 - 37.0 g/dL LAB HEMETOLOGY METHOD 09/11/2024 8:38 AM [facility] RDW 14.5 11.0 - 15.0 % LAB HEMETOLOGY METHOD 09/11/2024 8:38 AM [facility] Platelets 09/11/2024 8:38 AM [facility] Comment:Not measured. Unable to quantitate due to platelet clumping MPV 11.9(H) 7.0 - 11.0 FL LAB HEMETOLOGY METHOD 09/11/2024 8:38 AM [facility] NRBC 0.0 <1.0 % LAB HEMETOLOGY METHOD 09/11/2024 8:38 AM [facility] NRBC Absolute 0.00 <0.10 K/mcL LAB HEMETOLOGY METHOD 09/11/2024 8:38 AM [facility] Neutrophils Relative 67.6 % LAB HEMETOLOGY METHOD 09/11/2024 8:38 AM [facility] Lymphocytes Relative 20.2 % LAB HEMETOLOGY METHOD 09/11/2024 8:38 AM [facility] Monocytes Relative 8.3 % LAB HEMETOLOGY METHOD 09/11/2024 8:38 AM [facility] Eosinophils Relative 3.0 % LAB HEMETOLOGY METHOD 09/11/2024 8:38 AM [facility] Basophils Relative 0.4 % LAB HEMETOLOGY METHOD 09/11/2024 8:38 AM [facility] Immature Granulocytes Relative 0.5 % LAB HEMETOLOGY METHOD 09/11/2024 8:38 AM [facility] Neutrophils Absolute 6.15 1.50 - 7.00 K/mcL LAB HEMETOLOGY METHOD 09/11/2024 8:38 AM [facility] Lymphocytes Absolute 1.84 1.00 - 5.00 K/mcL LAB HEMETOLOGY METHOD 09/11/2024 8:38 AM [facility] Monocytes Absolute 0.76 0.20 - 1.00 K/mcL LAB HEMETOLOGY METHOD 09/11/2024 8:38 AM [facility] Eosinophils Absolute 0.27 0.00 - 0.50 K/mcL LAB HEMETOLOGY METHOD 09/11/2024 8:38 AM EST [facility] Basophils Absolute 0.04 0.00 - 0.20 K/[facility] LAB HEMETOLOGY METHOD 09/11/2024 8:38 AM EST [facility] Immature Granulocytes Absolute 0.05(H) 0.00 - 0.03 K/[facility] LAB HEMETOLOGY METHOD 09/11/2024 8:38 AM [facility] Blood Venous blood specimen / Unknown 09/11/2024 6:43 AM EST 09/11/2024 7:42 AM EST us Charles Zhang MD LAB BLOOD ORDERABLES Final Resul t Performing Organization Address City/[facility]/ZIP Co de Phone Number [facility] [address] [place] [address], [place] [phone] * Vitamin D 25 hydroxy (09/11/2024 6:43 AM EST) Vit D, 25-Hydroxy 72.6 30.0 - 80.0 ng/mL LAB CHEMISTRY METHOD 09/11/2024 9:33 AM [facility] Blood Venous blood specimen / Unknown 09/11/2024 6:43 AM EST 09/11/2024 7:42 AM EST us Charles Zhang MD LAB BLOOD ORDERABLES Final Resul t [facility] [address] [place] [address], [place] [phone] * Hemoglobin A1c (09/11/2024 6:43 AM EST) Hemoglobin A1C 5.6 <6.5 % LAB CHEMISTRY METHOD 09/11/2024 1:07 PM [facility] Mean Bld Glu Estim. 114 mg/dL LAB CHEMISTRY METHOD 09/11/2024 1:07 PM [facility] Blood Venous blood specimen / Unknown 09/11/2024 6:43 AM EST 09/11/2024 7:42 AM EST us Charles Zhang MD LAB BLOOD ORDERABLES Final Resul t Performing Organization Address [facility]/ZIP Co de Phone Number [facility] [address] [place] [address], [place] [phone] * Lipid panel with reflex to direct LDL (09/11/2024 6:43 AM EST) Cholesterol 120 0 - 200 mg/dL LAB CHEMISTRY METHOD 09/11/2024 8:20 AM EST [facility] Triglycerides 99 0 - 150 mg/dL LAB CHEMISTRY METHOD 09/11/2024 8:20 AM EST [facility] HDL 54 >=40 mg/dL LAB CHEMISTRY METHOD 09/11/2024 8:20 AM [facility] LDL Calculated 46 0 - 100 mg/dL LAB CHEMISTRY METHOD 09/11/2024 8:20 AM EST [facility] VLDL Cholesterol [place] 19.8 mg/dL LAB CHEMISTRY METHOD 09/11/2024 8:20 AM EST [facility] Non HDL Chol. (LDL+VLDL) 66 <145 mg/dL LAB CHEMISTRY METHOD 09/11/2024 8:20 AM [facility] Chol/HDL Ratio 2.2 0.0 - 4.4 LAB CHEMISTRY METHOD 09/11/2024 8:20 AM [facility] Blood Venous blood specimen / Unknown 09/11/2024 6:43 AM EST 09/11/2024 7:42 AM EST us Charles Zhang MD LAB BLOOD ORDERABLES Final Resul t Performing Organization Address [facility]/ZIP Co de Phone Number [facility] [address] [place] [address], [place] [phone] * Comprehensive metabolic panel (09/11/2024 6:43 AM EST) Sodium 143 133 - 145 mmol/L LAB CHEMISTRY METHOD 09/11/2024 8:48 AM [facility] Potassium 4.1 3.5 - 5.5 mmol/L LAB CHEMISTRY METHOD 09/11/2024 8:48 AM [facility] Chloride 107 96 - 110 mmol/L LAB CHEMISTRY METHOD 09/11/2024 8:48 AM [facility] CO2 29 21 - 32 mmol/L LAB CHEMISTRY METHOD 09/11/2024 8:48 AM [facility] Anion Gap 7 3 - 11 LAB CHEMISTRY METHOD 09/11/2024 8:48 AM [facility] Glucose 89 70 - 100 mg/dL LAB CHEMISTRY METHOD 09/11/2024 8:48 AM [facility] BUN 11 5 - 25 mg/dL LAB CHEMISTRY METHOD 09/11/2024 8:48 AM [facility] Creatinine 0.75 0.70 - 1.30 mg/dL LAB CHEMISTRY METHOD 09/11/2024 8:48 AM [facility] eGFR 100 >=60 mL/min/1. 73m2 LAB CHEMISTRY METHOD 09/11/2024 8:48 AM [facility] Comment:Calculation based on the Chronic Kidney Disease Epidemiology Collaboration (CKD-EPI) equation refit without adjustment for race. BUN/Creatinine Ratio 14.7 LAB CHEMISTRY METHOD 09/11/2024 8:48 AM [facility] Calcium 9.2 8.5 - 10.5 mg/dL LAB CHEMISTRY METHOD 09/11/2024 8:48 AM [facility] AST (SGOT) 23 10 - 42 unit/L LAB CHEMISTRY METHOD 09/11/2024 8:48 AM [facility] ALT (SGPT) 31 10 - 60 unit/L LAB CHEMISTRY METHOD 09/11/2024 8:48 AM [facility] Alkaline Phosphatase 85 42 - 121 unit/L LAB CHEMISTRY METHOD 09/11/2024 8:48 AM EST [facility] Total Protein 6.9 6.0 - 8.0 g/dL LAB CHEMISTRY METHOD 09/11/2024 8:48 AM EST [facility] Albumin 3.9 3.2 - 5.0 g/dL LAB CHEMISTRY METHOD 09/11/2024 8:48 AM [facility] Total Bilirubin 0.5 0.0 - 1.4 mg/dL LAB CHEMISTRY METHOD 09/11/2024 8:48 AM EST [facility] Blood Venous blood specimen / Unknown 09/11/2024 6:43 AM EST 09/11/2024 7:42 AM EST us Charles Zhang MD LAB BLOOD ORDERABLES Final Resul t [facility] [address] [place] [address], documented in this encounter Visit Diagnoses Diagnosis Essential (primary) hypertension Unspecified essential hypertension Unspecified psychosis not due to a substance or known physiological condition (CMS/HCC V24, CMS/HCC V28) documented in this encounter Care Teams Entry Level Administrative Assistant Relationship Specialty Start Date End Date Charles Zhang MD [address] [facility] [address] [place], [place] PCP - General Internal Medicine 10/21/24 documented as of this encounter
--- OUTSIDE RECORDS SUMMARY | 2025-08-30 09:58 | XMS_ITS | Encounter Summary ---
Author Organization [facility] Address [address] [place] [address] Care Team Providers Care Mobile Sales Expert Name Role Phone Charles Zhang MD Primary Care Provider [phone] Encounter Details Date Type Department Care Team (Late st Contact Info) Description 08/13/2024 Lab Requisition [facility] - Main Lab [address] [facility] [address] Social History Tobacco Use Types [...] on filedocumented in this encounter Care Teams Mobile Sales Expert Relationship Specialty Start Date End Date Charles Zhang MD [address] [facility] [address] [place] PCP - General Internal Medicine 10/21/24 documented as of this encounter
--- OUTSIDE RECORDS SUMMARY | 2025-08-30 09:58 | XMS_ITS | Encounter Summary ---
Author Organization [email or web address] Address [address] [place] [address] Care Team Providers Care Counselor At Law Name Role Phone Charles Zhang MD Primary Care Provider [phone] Encounter Details Date Type Department Care Team (Late st Contact Info) Description 02/25/[address] [facility] - Main Lab [address] [facility] [address] [place] [address] Charles Zhang MD [address] [place] [address] [address] [place] Dementia in [...] Diagnosis Comments CBC WITH AUTO DIFFERENTIAL Routine 02/25/2025 6:50 AM EDT Dementia in other diseases classified elsewhere, unspecified severity, with other behavioral disturbance (CMS/HCC V24, CMS/HCC V28) Hypothyroidism, unspecified CBC AND DIFFERENTIAL Routine 02/25/2025 6:50 AM EDT Dementia in other diseases classified elsewhere, unspecified severity, with other behavioral disturbance (CMS/HCC V24, CMS/HCC V28) Hypothyroidism, unspecified THYROID STIMULATING HORMONE Routine 02/25/2025 6:50 AM EDT Dementia in other diseases classified elsewhere, unspecified severity, with other behavioral disturbance (CMS/HCC V24, CMS/HCC V28) Hypothyroidism, unspecified THYROXINE FREE Routine 02/25/2025 6:50 AM EDT Dementia in other diseases classified elsewhere, unspecified severity, with other behavioral disturbance (CMS/HCC V24, CMS/HCC V28) Hypothyroidism, unspecified documented in this encounter Results * (ABNORMAL) CBC auto differential (02/25/2025 6:50 AM EDT) [facility] Signature WBC 10.6 4.8 - 10.8 K/mcL LAB HEMETOLOGY METHOD 02/25/2025 7:[address] [facility] RBC 5.00 4.50 - 5.50 M/mcL LAB HEMETOLOGY METHOD 02/25/2025 7:[address] [facility] Hemoglobin 13.5 13.5 - 17.5 g/dL LAB HEMETOLOGY METHOD 02/25/2025 7:[address] [facility] Hematocrit 43.0 42.0 - 54.0 % LAB HEMETOLOGY METHOD 02/25/2025 7:[address] [facility] MCV 86.3 79.0 - 98.0 FL LAB HEMETOLOGY METHOD 02/25/2025 7:[address] [facility] MCH 27.1 27.0 - 32.0 pcg LAB HEMETOLOGY METHOD 02/25/2025 7:[address] [facility] MCHC 31.4(L) 32.0 - 37.0 g/dL LAB HEMETOLOGY METHOD 02/25/2025 7:[address] [facility] RDW 14.7 11.0 - 15.0 % LAB HEMETOLOGY METHOD 02/25/2025 7:[address] [facility] Platelets 237 130 - 400 K/mcL LAB HEMETOLOGY METHOD 02/25/2025 7:[address] [facility] MPV 9.9 7.0 - 11.0 FL LAB HEMETOLOGY METHOD 02/25/2025 7:[address] [facility] NRBC 0.0 <1.0 % LAB HEMETOLOGY METHOD 02/25/2025 7:[address] [facility] NRBC Absolute 0.00 <0.10 K/mcL LAB HEMETOLOGY METHOD 02/25/2025 7:[address] [facility] Neutrophils Relative 69.9 % LAB HEMETOLOGY METHOD 02/25/2025 7:[address] [facility] Lymphocytes Relative 18.2 % LAB HEMETOLOGY METHOD 02/25/2025 7:[address] [facility] Monocytes Relative 8.3 % LAB HEMETOLOGY METHOD 02/25/2025 7:[address] [facility] Eosinophils Relative 2.7 % LAB HEMETOLOGY METHOD 02/25/2025 7:[address] [facility] Basophils Relative 0.6 % LAB HEMETOLOGY METHOD 02/25/2025 7:[address] [facility] Immature Granulocytes Relative 0.3 % LAB HEMETOLOGY METHOD 02/25/2025 7:[address] [facility] Neutrophils Absolute 7.37(H) 1.50 - 7.00 K/mcL LAB HEMETOLOGY METHOD 02/25/2025 7:[address] [facility] Lymphocytes Absolute 1.92 1.00 - 5.00 K/mcL LAB HEMETOLOGY METHOD 02/25/2025 7:[address] [facility] Monocytes Absolute 0.88 0.20 - 1.00 K/mcL LAB HEMETOLOGY METHOD 02/25/2025 7:[address] [facility] Eosinophils Absolute 0.29 0.00 - 0.50 K/mcL LAB HEMETOLOGY METHOD 02/25/2025 7:[address] [facility] Basophils Absolute 0.06 0.00 - 0.20 K/mcL LAB HEMETOLOGY METHOD 02/25/2025 7:[address] [facility] Immature Granulocytes Absolute 0.03 0.00 - 0.03 K/mcL LAB HEMETOLOGY METHOD 02/25/2025 7:[address] [facility] Blood Venous blood specimen / Unknown 02/25/2025 6:50 AM EDT 02/25/2025 7:39 AM EDT us Charles Zhang MD LAB BLOOD ORDERABLES Final Resul t Performing Organization Address [facility] de Phone Number [facility] [address] [place] [address], [place] [phone] * Thyroxine free (02/25/2025 6:50 AM EDT) Free T4 1.21 0.70 - 1.80 ng/dL LAB CHEMISTRY METHOD 02/25/2025 8:[address] [facility] Blood Venous blood specimen / Unknown 02/25/2025 6:50 AM EDT 02/25/2025 7:39 AM EDT us Charles Zhang MD LAB BLOOD ORDERABLES Final Resul t Performing Organization Address [facility] de Phone Number [facility] [address] [place] [address], [place] [phone] * Thyroid stimulating hormone (02/25/2025 6:50 AM EDT) TSH 2.14 0.40 - 4.00 mcIU/mL LAB CHEMISTRY METHOD 02/25/2025 8:[address] [facility] Blood Venous blood specimen / Unknown 02/25/2025 6:50 AM EDT 02/25/2025 7:39 AM EDT us Charles Zhang MD LAB BLOOD ORDERABLES Final Resul t [facility] [address] [place] [address], documented in this encounter Visit Diagnoses Diagnosis Dementia in other diseases classified elsewhere, unspecified severity, with other behavioral disturbance (CMS/HCC V24, CMS/HCC V28) Hypothyroidism, unspecified documented in this encounter Care Teams Counselor At Law Relationship Specialty Start Date End Date Charles Zhang MD [address] [place] [address] [address] [place], [place] PCP - General Internal Medicine 10/21/24 documented as of this encounter
--- OUTSIDE RECORDS SUMMARY | 2025-08-30 09:58 | XMS_ITS | Encounter Summary ---
Author Organization [employer] Address [address] [place] [address] Care Team Providers Care Sheet Rocker Name Role Phone Charles Zhang MD Primary Care Provider [phone] Encounter Details Date Type Department Care Team (Latest Contact Info) Description 05/28/2025 Lab Requisition [facility] - Main Lab [address] [facility] [employer] [address] Charles Zhang MD [address] [place] [address] [address] [place] Schizoaffective disorder, unspecified (CMS/HCC V24, CMS/HCC V28) [...] Diagnosis Comments PROSTATE SPECIFIC ANTIGEN SCREEN Routine 05/28/2025 7:14 AM EDT Schizoaffective disorder, unspecified (CMS/HCC V24, CMS/HCC V28) CBC WITH AUTO DIFFERENTIAL Routine 05/28/2025 7:14 AM EDT Schizoaffective disorder, unspecified (CMS/HCC V24, CMS/HCC V28) CBC AND DIFFERENTIAL Routine 05/28/2025 7:14 AM EDT Schizoaffective disorder, unspecified (CMS/HCC V24, CMS/HCC V28) VITAMIN B12 Routine 05/28/2025 7:14 AM EDT Schizoaffective disorder, unspecified (CMS/HCC V24, CMS/HCC V28) LITHIUM LEVEL Routine 05/28/2025 7:14 AM EDT Schizoaffective disorder, unspecified ([facility] V24, [facility] V28) documented in this encounter Results * (ABNORMAL) CBC auto differential (05/28/2025 7:14 AM EDT) [facility] WBC 9.6 4.8 - 10.8 K/mcL LAB HEMETOLOGY METHOD 05/28/2025 8:25 AM EDT [facility] RBC 5.30 4.50 - 5.50 M/mcL LAB HEMETOLOGY METHOD [facility] Hemoglobin 15.0 13.5 - 17.5 g/dL LAB HEMETOLOGY METHOD 05/28/2025 8:25 AM [facility] Hematocrit 46.7 42.0 - 54.0 % LAB HEMETOLOGY METHOD 05/28/2025 8:25 AM [facility] MCV 87.8 79.0 - 98.0 FL LAB HEMETOLOGY METHOD 05/28/2025 8:25 AM [facility] MCH 28.2 27.0 - 32.0 pcg LAB HEMETOLOGY METHOD 05/28/2025 8:25 AM [facility] MCHC 32.1 32.0 - 37.0 g/dL LAB HEMETOLOGY METHOD 05/28/2025 8:25 AM [facility] RDW 14.1 11.0 - 15.0 % LAB HEMETOLOGY METHOD 05/28/2025 8:25 AM [facility] Platelets 223 130 - 400 K/mcL LAB HEMETOLOGY METHOD 05/28/2025 8:25 AM [facility] MPV 10.1 7.0 - 11.0 FL LAB HEMETOLOGY METHOD 05/28/2025 8:25 AM [facility] NRBC 0.0 <1.0 % LAB HEMETOLOGY METHOD 05/28/2025 8:25 AM [facility] NRBC Absolute 0.00 <0.10 K/mcL LAB HEMETOLOGY METHOD 05/28/2025 8:25 AM [facility] Neutrophils Relative 65.9 % LAB HEMETOLOGY METHOD 05/28/2025 8:25 AM [facility] Lymphocytes Relative 21.9 % LAB HEMETOLOGY METHOD 05/28/2025 8:25 AM [facility] Monocytes Relative 7.8 % LAB HEMETOLOGY METHOD 05/28/2025 8:25 AM [facility] Eosinophils Relative 3.5 % LAB HEMETOLOGY METHOD 05/28/2025 8:25 AM [facility] Basophils Relative 0.5 % LAB HEMETOLOGY METHOD 05/28/2025 8:25 AM [facility] Immature Granulocytes Relative 0.4 % LAB HEMETOLOGY METHOD 05/28/2025 8:25 AM [facility] Neutrophils Absolute 6.34 1.50 - 7.00 K/mcL LAB HEMETOLOGY METHOD 05/28/2025 8:25 AM [facility] Lymphocytes Absolute 2.11 1.00 - 5.00 K/mcL LAB HEMETOLOGY METHOD 05/28/2025 8:25 AM [facility] Monocytes Absolute 0.75 0.20 - 1.00 K/mcL LAB HEMETOLOGY METHOD 05/28/2025 8:25 AM [facility] Eosinophils Absolute 0.34 0.00 - 0.50 K/mcL LAB HEMETOLOGY METHOD 05/28/2025 8:25 AM [facility] Basophils Absolute 0.05 0.00 - 0.20 K/mcL LAB HEMETOLOGY METHOD 05/28/2025 8:25 AM [facility] Immature Granulocytes Absolute 0.04(H) 0.00 - 0.03 K/mcL LAB HEMETOLOGY METHOD 05/28/2025 8:25 AM EDT [facility] Blood Venous blood specimen / Unknown 05/28/2025 7:14 AM EDT 05/28/2025 7:54 AM EDT us Charles Zhang MD LAB BLOOD ORDERABLES Final Resul t Performing Organization Address [facility] de Phone Number [facility] [address] [place] [address], [place] [phone] * Prostate specific antigen screen (05/28/2025 7:14 AM EDT) PSA 1.51 0.00 - 4.00 ng/mL LAB CHEMISTRY METHOD 05/28/2025 10:40 AM EDT [facility] Blood Venous blood specimen / Unknown 05/28/2025 7:14 AM EDT 05/28/2025 7:54 AM EDT Narrative [facility] - 05/28/2025 10:40 AM EDT The Siemens Advia Centaur Chemiluminescent Immunoassay is used. Results obtained with different assay methods or kits cannot be used interchangeably. Results cannot be interpreted as absolute evidence of the presence or absence of malignant disease. us Charles Zhang MD LAB BLOOD ORDERABLES Final Resul t Performing Organization Address [facility] Co de Phone Number [facility] [address] [place] [address], [place] [phone] * [place] level (05/28/2025 7:14 AM EDT) [place] Level 0.9 0.6 - 1.2 mEq/L LAB CHEMISTRY METHOD 05/28/2025 9:34 AM EDT [facility] Blood Venous blood specimen / Unknown 05/28/2025 7:14 AM EDT 05/28/2025 7:54 AM EDT us Charles Zhang MD LAB BLOOD ORDERABLES Final Resul t Performing Organization Address City/[facility]/ZIP Co de Phone Number [facility] [address] [place] [address], [place] [phone] * Vitamin B12 (05/28/2025 7:14 AM EDT) Pathologist [facility] Vitamin B-12 454 250 - 900 pcg/mL LAB CHEMISTRY METHOD 05/28/2025 9:34 AM EDT [facility] Blood Venous blood specimen / Unknown 05/28/2025 7:14 AM EDT 05/28/2025 7:54 AM EDT us Charles Zhang MD LAB BLOOD ORDERABLES Final Resul t Performing Organization Address [facility] Co de Phone Number [facility] [address] [place] [address], [place] [phone] documented in this encounter Visit Diagnoses Diagnosis Schizoaffective disorder, unspecified (CMS/HCC V24, CMS/HCC V28) documented in this encounter Care Teams Sheet Rocker Relationship Specialty Start Date End Date Charles Zhang MD [address] [place] [address] [place] [address] [place] PCP - General Internal Medicine 10/21/24 documented as of this encounter
--- OUTSIDE RECORDS SUMMARY | 2025-08-30 09:58 | XMS_ITS | Encounter Summary ---
Author Organization [employer] Address [address] [place] [address] Care Team Providers Care Telecom Specialist Name Role Phone Charles Zhang MD Primary Care Provider Encounter Details Date Type Department Care Team (Late st Contact Info) Description 06/19/2025 Lab Requisition [facility] - Main Lab 299 [facility] [place] [address] Charles Zhang MD [address] [place] [address] [address] T[place] Type 2 diabetes mellitus without complications (CMS/HCC V24, CMS/HCC V28); Hypothyroidism, unspecified Social [...] Associated Diagnosis Comments THYROID STIMULATING HORMONE Routine 06/19/2025 6:32 AM [...] complications (CMS/HCC V24, CMS/HCC V28) Hypothyroidism, unspecified documented in this encounter Results * Thyroid stimulating hormone (06/19/2025 6:32 AM EDT) TSH 2.71 0.40 - 4.00 mcIU/mL LAB CHEMISTRY METHOD 06/19/2025 10:15 AM EDT [facility] Blood Venous blood specimen / Unknown 06/19/2025 6:32 AM EDT 06/19/2025 7:25 AM EDT us Charles Zhang MD LAB BLOOD ORDERABLES Final Resul t Performing Organization Address City/[facility]/ZIP Co de Phone Number [facility] LAB [address] [place] [address], [place] [phone] * Hemoglobin A1c (06/19/2025 6:32 AM EDT) Hemoglobin A1C 5.6 <6.5 % LAB CHEMISTRY METHOD 06/19/2025 10:53 AM EDT [facility] Mean Bld Glu Estim. 114 mg/dL LAB CHEMISTRY METHOD 06/19/2025 10:53 AM EDT [facility] Blood Venous blood specimen / Unknown 06/19/2025 6:32 AM EDT 06/19/2025 7:25 AM EDT us Charles Zhang MD LAB BLOOD ORDERABLES Final Resul t [facility] [address] [place] [address], [place] [phone] * Thyroxine free (06/19/2025 6:32 AM EDT) Free T4 1.27 0.70 - 1.80 ng/dL LAB CHEMISTRY METHOD 06/19/2025 10:15 AM EDT [facility] Blood Venous blood specimen / Unknown 06/19/2025 6:32 AM EDT 06/19/2025 7:25 AM EDT us Charles Zhang MD LAB BLOOD ORDERABLES Final Resul t [facility] [address] [place] [address], * (ABNORMAL) Comprehensive metabolic panel (06/19/2025 6:32 AM EDT) Sodium 141 133 - 145 mmol/L LAB CHEMISTRY METHOD 06/19/2025 8:45 AM T [facility] Potassium 3.7 3.5 - 5.5 mmol/L LAB CHEMISTRY METHOD 06/19/2025 8:45 AM [facility] Chloride 105 96 - 110 mmol/L LAB CHEMISTRY METHOD 06/19/2025 8:45 AM [facility] CO2 29 21 - 32 mmol/L LAB CHEMISTRY METHOD 06/19/2025 8:45 AM [facility] Anion Gap 7 3 - 11 LAB CHEMISTRY METHOD 06/19/2025 8:45 AM [facility] Glucose 83 70 - 100 mg/dL LAB CHEMISTRY METHOD 06/19/2025 8:45 AM [facility] BUN 14 5 - 25 mg/dL LAB CHEMISTRY METHOD 06/19/2025 8:45 AM [facility] Creatinine 0.66(L) 0.70 - 1.30 mg/dL LAB CHEMISTRY METHOD 06/19/2025 8:45 AM [facility] eGFR 103 >=60 mL/min/1. 73m2 LAB CHEMISTRY METHOD 06/19/2025 8:45 AM [facility] Comment:Calculation based on the Chronic Kidney Disease Epidemiology Collaboration (CKD-EPI) equation refit without adjustment for race. BUN/Creatinine Ratio 21.2 LAB CHEMISTRY METHOD 06/19/2025 8:45 AM [facility] Calcium 9.0 8.5 - 10.5 mg/dL LAB CHEMISTRY METHOD 06/19/2025 8:45 AM T [facility] AST (SGOT) 15 10 - 42 unit/L LAB CHEMISTRY METHOD 06/19/2025 8:45 AM EDT [facility] ALT (SGPT) 28 10 - 60 unit/L LAB CHEMISTRY METHOD 06/19/2025 8:45 AM EDT [facility] Alkaline Phosphatase 95 42 - 121 unit/L LAB CHEMISTRY METHOD 06/19/2025 8:45 AM EDT [facility] Total Protein 6.2 6.0 - 8.0 g/dL LAB CHEMISTRY METHOD 06/19/2025 8:45 AM EDT [facility] Albumin 3.6 3.2 - 5.0 g/dL LAB CHEMISTRY METHOD 06/19/2025 8:45 AM T [facility] Total Bilirubin 0.3 0.0 - 1.4 mg/dL LAB CHEMISTRY METHOD 06/19/2025 8:45 AM EDT [facility] Blood Venous blood specimen / Unknown 06/19/2025 6:32 AM EDT 06/19/2025 7:25 AM EDT us Charles Zhang MD LAB BLOOD ORDERABLES Final Resul t [facility] [address] [place] [address], documented in this encounter Visit Diagnoses Diagnosis Type 2 diabetes mellitus without complications (CMS/HCC V24, CMS/HCC V28) Hypothyroidism, unspecified documented in this encounter Care Teams Telecom Specialist Relationship Specialty Start Date End Date Charles Zhang MD [address] [place] [address] Dr Trell [place] PCP - General Internal Medicine 10/21/24 documented as of this encounter
--- OUTSIDE RECORDS SUMMARY | 2025-08-30 09:58 | XMS_ITS | Encounter Summary ---
Author Organization [employer] Address [address] [place] [address] Care Team Providers Care Recreational Resort Manager Name Role Phone Charles Zhang MD Primary Care Provider [phone] Encounter Details Date Type Department Care Team (Late st Contact Info) Description 04/25/2025 Lab Requisition [facility] - Main Lab 299 [facility] [place] [address] Charles Zhang MD [address] [place] [address] Dr [address] TESS [place] Dementia in other diseases classified elsewhere, unspecified severity, with other behavioral disturbance (CMS/HCC V24, CMS/HCC V28) Social History Tobacco [...] Diagnosis Comments CBC WITH AUTO DIFFERENTIAL Routine 04/25/2025 7:26 AM EDT Dementia in other diseases classified elsewhere, unspecified severity, with other behavioral disturbance (CMS/HCC V24, CMS/HCC V28) CBC AND DIFFERENTIAL Routine 04/25/2025 7:26 AM EDT Dementia in other diseases classified elsewhere, unspecified severity, with other behavioral disturbance (CMS/HCC V24, CMS/HCC V28) COMPREHENSIVE METABOLIC PANEL Routine 04/25/2025 7:26 AM EDT Dementia in other diseases classified elsewhere, unspecified severity, with other behavioral disturbance (CMS/HCC V24, CMS/HCC V28) documented in this encounter Results * (ABNORMAL) CBC auto differential (04/25/2025 7:26 AM EDT) [facility] WBC 9.7 4.8 - 10.8 K/mcL LAB HEMETOLOGY METHOD 04/25/2025 8:24 AM [facility] RBC 4.90 4.50 - 5.50 M/mcL LAB HEMETOLOGY METHOD 04/25/2025 8:24 AM [facility] Hemoglobin 13.7 13.5 - 17.5 g/dL LAB HEMETOLOGY METHOD 04/25/2025 8:24 AM [facility] Hematocrit 43.2 42.0 - 54.0 % LAB HEMETOLOGY METHOD 04/25/2025 8:24 AM [facility] MCV 87.6 79.0 - 98.0 FL LAB HEMETOLOGY METHOD 04/25/2025 8:24 AM [facility] MCH 27.8 27.0 - 32.0 pcg LAB HEMETOLOGY METHOD 04/25/2025 8:24 AM [facility] MCHC 31.7(L) 32.0 - 37.0 g/dL LAB HEMETOLOGY METHOD 04/25/2025 8:24 AM [facility] RDW 14.4 11.0 - 15.0 % LAB HEMETOLOGY METHOD 04/25/2025 8:24 AM [facility] Platelets 224 130 - 400 K/mcL LAB HEMETOLOGY METHOD 04/25/2025 8:24 AM [facility] MPV 10.1 7.0 - 11.0 FL LAB HEMETOLOGY METHOD 04/25/2025 8:24 AM [facility] NRBC 0.0 <1.0 % LAB HEMETOLOGY METHOD 04/25/2025 8:24 AM [facility] NRBC Absolute 0.00 <0.10 K/mcL LAB HEMETOLOGY METHOD 04/25/2025 8:24 AM [facility] Neutrophils Relative 64.2 % LAB HEMETOLOGY METHOD 04/25/2025 8:24 AM [facility] Lymphocytes Relative 23.3 % LAB HEMETOLOGY METHOD 04/25/2025 8:24 AM [facility] Monocytes Relative 8.7 % LAB HEMETOLOGY METHOD 04/25/2025 8:24 AM [facility] Eosinophils Relative 3.0 % LAB HEMETOLOGY METHOD 04/25/2025 8:24 AM [facility] Basophils Relative 0.4 % LAB HEMETOLOGY METHOD 04/25/2025 8:24 AM [facility] Immature Granulocytes Relative 0.4 % LAB HEMETOLOGY METHOD 04/25/2025 8:24 AM [facility] Neutrophils Absolute 6.24 1.50 - 7.00 K/mcL LAB HEMETOLOGY METHOD 04/25/2025 8:24 AM [facility] Lymphocytes Absolute 2.26 1.00 - 5.00 K/mcL LAB HEMETOLOGY METHOD 04/25/2025 8:24 AM [facility] Monocytes Absolute 0.85 0.20 - 1.00 K/mcL LAB HEMETOLOGY METHOD 04/25/2025 8:24 AM [facility] Eosinophils Absolute 0.29 0.00 - 0.50 K/mcL LAB HEMETOLOGY METHOD 04/25/2025 8:24 AM [facility] Basophils Absolute 0.04 0.00 - 0.20 K/mcL LAB HEMETOLOGY METHOD 04/25/2025 8:24 AM [facility] Immature Granulocytes Absolute 0.04(H) 0.00 - 0.03 K/mcL LAB HEMETOLOGY METHOD 04/25/2025 8:24 AM [facility] Blood Venous blood specimen / Unknown 04/25/2025 7:26 AM EDT 04/25/2025 8:02 AM EDT us Charles Zhang MD LAB BLOOD ORDERABLES Final Resul t [facility] [address] [place] [address], [place] [phone] * Comprehensive metabolic panel (04/25/2025 7:26 AM EDT) Pathologist [facility] Sodium 139 133 - 145 mmol/L LAB CHEMISTRY METHOD 04/25/2025 8:51 AM [facility] Potassium 3.9 3.5 - 5.5 mmol/L LAB CHEMISTRY METHOD 04/25/2025 8:51 AM [facility] Chloride 106 96 - 110 mmol/L LAB CHEMISTRY METHOD 04/25/2025 8:51 AM [facility] CO2 29 21 - 32 mmol/L LAB CHEMISTRY METHOD 04/25/2025 8:51 AM [facility] Anion Gap 4 3 - 11 LAB CHEMISTRY METHOD 04/25/2025 8:51 AM [facility] Glucose 87 70 - 100 mg/dL LAB CHEMISTRY METHOD 04/25/2025 8:51 AM [facility] BUN 11 5 - 25 mg/dL LAB CHEMISTRY METHOD 04/25/2025 8:51 AM [facility] Creatinine 0.78 0.70 - 1.30 mg/dL LAB CHEMISTRY METHOD 04/25/2025 8:51 AM [facility] eGFR 98 >=60 mL/min/1. 73m2 LAB CHEMISTRY METHOD 04/25/2025 8:51 AM [facility] Comment:Calculation based on the Chronic Kidney Disease Epidemiology Collaboration (CKD-EPI) equation refit without adjustment for race. BUN/Creatinine Ratio 14.1 LAB CHEMISTRY METHOD 04/25/2025 8:51 AM [facility] Calcium 9.4 8.5 - 10.5 mg/dL LAB CHEMISTRY METHOD 04/25/2025 8:51 AM EDT [facility] AST (SGOT) 15 10 - 42 unit/L LAB CHEMISTRY METHOD 04/25/2025 8:51 AM T [facility] ALT (SGPT) 27 10 - 60 unit/L LAB CHEMISTRY METHOD 04/25/2025 8:51 AM EDT [facility] Alkaline Phosphatase 93 42 - 121 unit/L LAB CHEMISTRY METHOD 04/25/2025 8:51 AM EDT [facility] Total Protein 6.7 6.0 - 8.0 g/dL LAB CHEMISTRY METHOD 04/25/2025 8:51 AM T [facility] Albumin 3.9 3.2 - 5.0 g/dL LAB CHEMISTRY METHOD 04/25/2025 8:51 AM T [facility] Total Bilirubin 0.3 0.0 - 1.4 mg/dL LAB CHEMISTRY METHOD 04/25/2025 8:51 AM T [facility] Blood Venous blood specimen / Unknown 04/25/2025 7:26 AM EDT 04/25/2025 8:02 AM EDT us Charles Zhang MD LAB BLOOD ORDERABLES Final Resul t [facility] [address] [place] [address], documented in this encounter Visit Diagnoses Diagnosis Dementia in other diseases classified elsewhere, unspecified severity, with other behavioral disturbance (CMS/HCC V24, CMS/HCC V28) documented in this encounter Care Teams Recreational Resort Manager Relationship Specialty Start Date End Date Charles Zhang MD [address] [place] [address] [place] [address] PCP - General Internal Medicine 10/21/24 documented as of this encounter
--- OUTSIDE RECORDS SUMMARY | 2025-08-30 09:58 | XMS_ITS | Encounter Summary ---
Author Organization [facility] Address [address] [place] [address] Care Team Providers Care Stationary Engineer Apprentice Name Role Phone Charles Zhang MD Primary Care Provider [phone] Encounter Details Date Type Department Care Team (Late st Contact Info) Description 08/27/2025 Lab Requisition [facility] - Main Lab [address] [place] [address] Charles Zhang MD [address] [place] [address] Dr [address] TESS [place] Altered mental status, unspecified Social History Tobacco Use Types Packs/Day [...] Procedure Name Priority Date/Time Associated Diagnosis Comments URINALYSIS WITH REFLEX MICROSCOPIC AND CULTURE Routine 08/27/2025 2:20 PM EST Altered mental status, unspecified ALEMAN URINE CULTURE TUBE Routine 08/27/2025 2:20 PM EST Altered mental status, unspecified URINALYSIS WITH REFLEX MICROSCOPIC AND CULTURE Routine 08/27/2025 2:20 PM EST Altered mental status, unspecified documented in this encounter Results * Aleman urine culture tube (08/27/2025 2:20 PM EST) Extra Tube Hold for add-ons. 08/27/2025 7:03 PM EST [facility] ([facility] Comment:Auto resulted. Urine Urine specimen obtained by clean catch procedure / Unknown 08/27/2025 2:20 PM EST 08/27/2025 5:28 PM EST us Charles Zhang MD LAB URINE ORDERABLES Final Resul t [facility] [address] [place] [address], [place] [phone] * Urinalysis with reflex microscopic and culture (08/27/2025 2:20 PM EST) Specific [place] Urine 1.019 1.003 - 1.030 LAB URINALYSIS - AUTOMATED METHOD 08/27/2025 5:52 PM [facility] pH, Urine 6.5 5.0 - 8.0 pH LAB URINALYSIS - AUTOMATED METHOD 08/27/2025 5:52 PM [facility] Leukocytes, Urine Negative Negative LAB URINALYSIS - AUTOMATED METHOD 08/27/2025 5:52 PM [facility] Nitrite, Urine Negative Negative LAB URINALYSIS - AUTOMATED METHOD 08/27/2025 5:52 PM [facility] Protein, Urine Trace <=Trace mg/dL LAB URINALYSIS - AUTOMATED METHOD 08/27/2025 5:52 PM [facility] Glucose, Urine Negative Negative mg/dL LAB URINALYSIS - AUTOMATED METHOD 08/27/2025 5:52 PM [facility] Ketones, Urine Negative Negative mg/dL LAB URINALYSIS - AUTOMATED METHOD 08/27/2025 5:52 PM [facility] Urobilinogen, Urine 1.0 0.2 - 1.0 mg/dL LAB URINALYSIS - AUTOMATED METHOD 08/27/2025 5:52 PM [facility] Bilirubin, Urine Negative Negative LAB URINALYSIS - AUTOMATED METHOD 08/27/2025 5:52 PM [facility] Blood, Urine Negative Negative LAB URINALYSIS - AUTOMATED METHOD 08/27/2025 5:52 PM [facility] Urine Urine specimen obtained by clean catch procedure / Unknown 08/27/2025 2:20 PM EST 08/27/2025 5:28 PM EST us Charles Zhang MD LAB URINE ORDERABLES Final Resul t [facility] ([facility]) [facility] [address] [place] [address], documented in this encounter Visit Diagnoses Diagnosis Altered mental status, unspecified documented in this encounter Care Teams Stationary Engineer Apprentice Relationship Specialty Start Date End Date Charles Zhang MD [address] [place] [address] Dr [address] [place], [place] PCP - General Internal Medicine 10/21/24 documented as of this encounter
--- OUTSIDE RECORDS SUMMARY | 2025-08-30 09:58 | XMS_ITS | Encounter Summary ---
Author Organization [employer] [facility] Address [address] [place] [address] Care Team Providers Care Spud Grader Name Role Phone Charles Zhang MD Primary Care Provider [phone] Encounter Details Date Type Department Care Team (Latest Contact Info) Description 06/26/2025 Lab Requisition [facility] - Main Lab [address] [place] [address] Charles Zhang MD [address] [place] [address] Dr [address] TESS [place] Schizoaffective disorder, [...] Diagnosis Comments CBC WITH AUTO DIFFERENTIAL Routine 06/26/2025 6:34 AM EDT Schizoaffective disorder, unspecified (CMS/HCC V24, CMS/HCC V28) CBC AND DIFFERENTIAL Routine 06/26/2025 6:34 AM EDT Schizoaffective disorder, unspecified (CMS/HCC V24, CMS/HCC V28) documented in this encounter Results * (ABNORMAL) CBC auto differential (06/26/2025 6:34 AM EDT) WBC 8.4 4.8 - 10.8 K/[facility] LAB HEMETOLOGY METHOD 06/26/2025 7:52 AM EDT [facility] RBC 4.60 4.50 - 5.50 M/[facility] LAB HEMETOLOGY METHOD 06/26/2025 7:52 AM [facility] LAB Hemoglobin 13.1(L) 13.5 - 17.5 g/dL LAB HEMETOLOGY METHOD 06/26/2025 7:52 AM [facility] LAB Hematocrit 41.3(L) 42.0 - 54.0 % LAB HEMETOLOGY METHOD 06/26/2025 7:52 AM [facility] LAB MCV 89.0 79.0 - 98.0 FL LAB HEMETOLOGY METHOD 06/26/2025 7:52 AM [facility] LAB MCH 28.2 27.0 - 32.0 pcg LAB HEMETOLOGY METHOD 06/26/2025 7:52 AM [facility] LAB MCHC 31.7(L) 32.0 - 37.0 g/dL LAB HEMETOLOGY METHOD 06/26/2025 7:52 AM [facility] LAB RDW 13.9 11.0 - 15.0 % LAB HEMETOLOGY METHOD 06/26/2025 7:52 AM [facility] LAB Platelets 235 130 - 400 K/mcL LAB HEMETOLOGY METHOD 06/26/2025 7:52 AM [facility] LAB MPV 9.9 7.0 - 11.0 FL LAB HEMETOLOGY METHOD 06/26/2025 7:52 AM [facility] LAB NRBC 0.0 <1.0 % LAB HEMETOLOGY METHOD 06/26/2025 7:52 AM [facility] LAB NRBC Absolute 0.00 <0.10 K/mcL LAB HEMETOLOGY METHOD 06/26/2025 7:52 AM [facility] Neutrophils Relative 66.1 % LAB HEMETOLOGY METHOD 06/26/2025 7:52 AM [facility] Lymphocytes Relative 21.5 % LAB HEMETOLOGY METHOD 06/26/2025 7:[address] [facility] Monocytes Relative 8.0 % LAB HEMETOLOGY METHOD 06/26[facility]2025 7:52 [facility] Eosinophils Relative 3.6 % LAB HEMETOLOGY METHOD 06/26/2025 7:52 AM [facility] Basophils Relative 0.6 % LAB HEMETOLOGY METHOD 06/26/2025 7:52 AM [facility] Immature Granulocytes Relative 0.2 % LAB HEMETOLOGY METHOD 06/26/2025 7:52 [facility] Neutrophils Absolute 5.54 1.50 - 7.00 K/mcL LAB HEMETOLOGY METHOD 06/26/2025 7:52 AM [facility] Lymphocytes Absolute 1.80 1.00 - 5.00 K/mcL LAB HEMETOLOGY METHOD 06/26/2025 7:52 AM [facility] Monocytes Absolute 0.67 0.20 - 1.00 K/mcL LAB HEMETOLOGY METHOD 06/26/2025 7:52 AM [facility] Eosinophils Absolute 0.30 0.00 - 0.50 K/mcL LAB HEMETOLOGY METHOD 06/26/2025 7:52 AM [facility] Basophils Absolute 0.05 0.00 - 0.20 K/mcL LAB HEMETOLOGY METHOD 06/26/2025 7:52 AM [facility] LAB Immature Granulocytes Absolute 0.02 0.00 - 0.03 K/mcL LAB HEMETOLOGY METHOD 06/26/2025 7:52 AM [facility] Blood Venous blood specimen / Unknown 06/26/2025 6:34 AM EDT 06/26/2025 7:16 AM EDT us Charles Zhang MD LAB BLOOD ORDERABLES Final Resul t [facility] [address] [place] [address], documented in this encounter Visit Diagnoses Diagnosis Schizoaffective disorder, unspecified (CMS/HCC V24, CMS/HCC V28) documented in this encounter Care Teams Spud Grader Relationship Specialty Start Date End Date Charles Zhang MD [address] [place] [address] Dr [address] [place] PCP - General Internal Medicine 10/21/24 documented as of this encounter
--- OUTSIDE RECORDS SUMMARY | 2025-08-30 09:58 | XMS_ITS | Encounter Summary ---
Author Organization [employer] Address [address] [place] [address] Care Team Providers Care Safety Assistant Name Role Phone Charles Zhang MD Primary Care Provider [phone] Encounter Details Date Type Department Care Team (Late st Contact Info) Description 08/13/[address] [facility] - Main Lab 299 [facility] [place] [address] Charles Zhang MD [address] [place] [address] [address] [place] Encounter for therapeutic [...] SST tube (08/13/2024 7:07 AM EST) Pathologist [facility] Extra Tube Hold for add-ons. 08/13/2024 9:01 AM [facility] Comment:Auto resulted. Blood Venous blood specimen / Unknown 08/13/2024 7:07 AM EST 08/13/2024 7:53 AM EST us Charles Zhang MD LAB BLOOD ORDERABLES Final Resul t [facility] [address] [place] [address], [place] [phone] * (ABNORMAL) CBC auto differential (08/13/2024 7:07 AM EST) [facility] WBC 8.3 4.8 - 10.8 K/mcL LAB HEMETOLOGY METHOD 08/13/2024 8:01 AM [facility] RBC 4.90 4.50 - 5.50 M/mcL LAB HEMETOLOGY METHOD 08/13/2024 8:01 AM [facility] Hemoglobin 13.3(L) 13.5 - 17.5 g/dL LAB HEMETOLOGY METHOD 08/13/2024 8:01 AM [facility] Hematocrit 42.5 42.0 - 54.0 % LAB HEMETOLOGY METHOD 08/13/2024 8:01 AM [facility] MCV 87.6 79.0 - 98.0 FL LAB HEMETOLOGY METHOD 08/13/2024 8:01 AM [facility] MCH 27.4 27.0 - 32.0 pcg LAB HEMETOLOGY METHOD 08/13/2024 8:01 AM [facility] MCHC 31.3(L) 32.0 - 37.0 g/dL LAB HEMETOLOGY METHOD 08/13/2024 8:01 AM [facility] RDW 14.5 11.0 - 15.0 % LAB HEMETOLOGY METHOD 08/13/2024 8:01 AM [facility] Platelets 239 130 - 400 K/mcL LAB HEMETOLOGY METHOD 08/13/2024 8:01 AM [facility] MPV 9.9 7.0 - 11.0 FL LAB HEMETOLOGY METHOD 08/13/2024 8:01 AM [facility] NRBC 0.0 <1.0 % LAB HEMETOLOGY METHOD 08/13/2024 8:01 AM [facility] NRBC Absolute 0.00 <0.10 K/mcL LAB HEMETOLOGY METHOD 08/13/2024 8:01 AM [facility] Neutrophils Relative 58.8 % LAB HEMETOLOGY METHOD 08/13/2024 8:01 AM [facility] Lymphocytes Relative 29.1 % LAB HEMETOLOGY METHOD 08/13/2024 8:01 AM [facility] Monocytes Relative 8.3 % LAB HEMETOLOGY METHOD 08/13/2024 8:01 AM [facility] Eosinophils Relative 2.8 % LAB HEMETOLOGY METHOD 08/13/2024 8:01 AM [facility] Basophils Relative 0.5 % LAB HEMETOLOGY METHOD 08/13/2024 8:01 AM [facility] Immature Granulocytes Relative 0.5 % LAB HEMETOLOGY METHOD 08/13/2024 8:01 AM [facility] Neutrophils Absolute 4.88 1.50 - 7.00 K/mcL LAB HEMETOLOGY METHOD 08/13/2024 8:01 AM [facility] Lymphocytes Absolute 2.41 1.00 - 5.00 K/mcL LAB HEMETOLOGY METHOD 08/13/2024 8:01 AM [facility] Monocytes Absolute 0.69 0.20 - 1.00 K/mcL LAB HEMETOLOGY METHOD 08/13/2024 8:01 AM EST [facility] Eosinophils Absolute 0.23 0.00 - 0.50 K/[facility] LAB HEMETOLOGY METHOD 08/13/2024 8:01 AM EST [facility] Basophils Absolute 0.04 0.00 - 0.20 K/[facility] LAB HEMETOLOGY METHOD 08/13/2024 8:01 AM EST [facility] Immature Granulocytes Absolute 0.04(H) 0.00 - 0.03 K/[facility] LAB HEMETOLOGY METHOD 08/13/2024 8:01 AM EST [facility] Blood Venous blood specimen / Unknown 08/13/2024 7:07 AM EST 08/13/2024 7:46 AM EST Charles Zhang MD LAB BLOOD ORDERABLES Final Resul t [facility] [address] [place] [address], * Levetiracetam level (08/13/2024 7:07 AM EST) Levetiracetam 10.8 3.0 - 60.0 ug/mL 08/15/2024 7:04 AM EST [facility] Comment: Steady state trough serum or plasma levels following doses of 1000 to 3000 mg/Day: 3 to 37 ug/mL. The same dosage regimen will typically result in peak levels of 10 to 60 ug/mL, at approximately 1.5 hours post dose. If applicable, any drug confirmation testing reported here was developed and the performance characteristics determined by [facility]. This confirmation testing has not been cleared or approved by the FDA. The laboratory is regulated under CLIA as qualified to perform high-complexity testing. This test is used for patient testing purposes. It should not be regarded as investigational or for research. Test performed at [facility], [address] , [place] [phone] Sandra Henning MD, PhD - Anesthesia Tech Blood Venous blood specimen / Unknown 08/13/2024 7:07 AM EST 08/13/2024 7:46 AM EST us Charles Zhang MD LAB BLOOD ORDERABLES Final Resul t [facility] [address] [place] [id number] documented in this encounter Visit Diagnoses Diagnosis Encounter for therapeutic drug level monitoring Schizoaffective disorder, unspecified (CMS/[facility] V24, CMS/[facility] V28) documented in this encounter Care Teams Safety Assistant Relationship Specialty Start Date End Date Charles Zhang MD [address] [place] [address] Dr [address] [place], [place] PCP - General Internal Medicine 10/21/24 documented as of this encounter
--- OUTSIDE RECORDS SUMMARY | 2025-08-30 09:58 | XMS_ITS | Encounter Summary ---
Author Organization [facility] Address [address] [place] [address] Care Team Providers Care Marble Carver Name Role Phone Charles Zhang MD Primary Care Provider [phone] Encounter Details Date Type Department Care Team (Late st Contact Info) Description 08/13/2024 Lab Requisition [facility] - Main Lab [address] [facility] [place] [address] Social History Tobacco Use Types [...] on filedocumented in this encounter Care Teams Marble Carver Relationship Specialty Start Date End Date Charles Zhang MD [address] [facility] [address] [place] PCP - General Internal Medicine 10/21/24 documented as of this encounter
--- OUTSIDE RECORDS SUMMARY | 2025-08-30 09:58 | XMS_ITS | Encounter Summary ---
Author Organization [facility] Address [address] [place] [address] Care Team Providers Care Sales Compensation Analyst Name Role Phone Charles Zhang MD Primary Care Provider [phone] Encounter Details Date Type Department Care Team (Late st Contact Info) Description 11/07/2024 Lab Requisition [facility] - Main Lab [address] [place] [address] Charles Zhang MD [address] [place] [address] Dr [address] [place] Encounter for therapeutic drug level monitoring Social [...] LAB HEMETOLOGY METHOD 11/07/2024 7:32 AM EST [facility] RBC 4.80 4.50 - 5.50 M/mcL LAB HEMETOLOGY METHOD 11/07/2024 7:32 AM EST [facility] Hemoglobin 12.9(L) 13.5 - 17.5 g/dL LAB HEMETOLOGY METHOD 11/07/2024 7:32 AM [facility] Hematocrit 41.1(L) 42.0 - 54.0 % LAB HEMETOLOGY METHOD 11/07/2024 7:32 AM [facility] MCV 85.1 79.0 - 98.0 FL LAB HEMETOLOGY METHOD 11/07/2024 7:32 AM [facility] MCH 26.7(L) 27.0 - 32.0 pcg LAB HEMETOLOGY METHOD 11/07/2024 7:32 AM [facility] MCHC 31.4(L) 32.0 - 37.0 g/dL LAB HEMETOLOGY METHOD 11/07/2024 7:32 AM [facility] RDW 14.6 11.0 - 15.0 % LAB HEMETOLOGY METHOD 11/07/2024 7:32 AM [facility] Platelets 251 130 - 400 K/mcL LAB HEMETOLOGY METHOD 11/07/2024 7:32 AM [facility] MPV 9.7 7.0 - 11.0 FL LAB HEMETOLOGY METHOD 11/07/2024 7:32 AM [facility] NRBC 0.0 <1.0 % LAB HEMETOLOGY METHOD 11/07/2024 7:32 AM [facility] NRBC Absolute 0.00 <0.10 K/mcL LAB HEMETOLOGY METHOD 11/07/2024 7:32 AM [facility] Neutrophils Relative 66.2 % LAB HEMETOLOGY METHOD 11/07/2024 7:32 AM [facility] Lymphocytes Relative 20.4 % LAB HEMETOLOGY METHOD 11/07/2024 7:32 AM [facility] Monocytes Relative 8.4 % LAB HEMETOLOGY METHOD 11/07/2024 7:32 AM [facility] Eosinophils Relative 3.8 % LAB HEMETOLOGY METHOD 11/07/2024 7:32 AM EST [facility] Basophils Relative 0.6 % LAB HEMETOLOGY METHOD 11/07/2024 7:32 AM EST [facility] Immature Granulocytes Relative 0.6 % LAB HEMETOLOGY METHOD 11/07/2024 7:32 AM [facility] Neutrophils Absolute 7.23(H) 1.50 - 7.00 K/mcL LAB HEMETOLOGY METHOD 11/07/2024 7:32 AM EST [facility] Lymphocytes Absolute 2.22 1.00 - 5.00 K/mcL LAB HEMETOLOGY METHOD 11/07/2024 7:32 AM [facility] Monocytes Absolute 0.91 0.20 - 1.00 K/mcL LAB HEMETOLOGY METHOD 11/07/2024 7:32 AM [facility] Eosinophils Absolute 0.41 0.00 - 0.50 K/mcL LAB HEMETOLOGY METHOD 11/07/2024 7:32 AM EST [facility] Basophils Absolute 0.06 0.00 - 0.20 K/mcL LAB HEMETOLOGY METHOD 11/07/2024 7:32 AM [facility] Immature Granulocytes Absolute 0.06(H) 0.00 - 0.03 K/mcL LAB HEMETOLOGY METHOD 11/07/2024 7:32 AM [facility] Blood Venous blood specimen / Unknown 11/07/2024 6:57 AM EST 11/07/2024 7:23 AM EST us Charles Zhang MD LAB BLOOD ORDERABLES Final Resul t [facility]) [facility] [address] [place] [address], documented in this encounter Visit Diagnoses Diagnosis Encounter for therapeutic drug level monitoring documented in this encounter Care Teams Sales Compensation Analyst Relationship Specialty Start Date End Date Charles Zhang MD [address] [place] [address] Dr [address] [place] PCP - General Internal Medicine 10/21/24 documented as of this encounter
--- OUTSIDE RECORDS SUMMARY | 2025-08-30 09:58 | XMS_ITS | Encounter Summary ---
Author Organization [facility] Address [address] [place] [address] Care Team Providers Care Access Database Developer Name Role Phone Barbara Gerard MD Primary Care Provider Unavailabl e Encounter Details Date Type Department Care Team (Late st Contact Info) Description 09/04/2021 Orders Only [facility] Department of Dermatology [address] [place] [address] Lynette Johns MD [address] [place] [address] Psoriasis (Primary Dx) Social History Tobacco Use Types Packs/Day Years [...] Exposure Response Date Recorded In the last month, have you been in contact with someone who was confirmed or suspected to have Coronavirus / COVID-19? No / Unsure 09/01/2021 1:16 PM EST documented as of this encounter Plan of Treatment Not on file documented as of this encounter Visit Diagnoses Diagnosis Psoriasis- Primary Other psoriasis documented in this encounter Care Teams Access Database Developer Relationship Specialty Start Date End Date Barbara Gerard MD [address] [place] [address] PCP - General Internal Medicine 06/09/20 documented as of this encounter
--- OUTSIDE RECORDS SUMMARY | 2025-08-30 09:58 | XMS_ITS | Encounter Summary ---
Author Organization [facility] Address [address] [place] [address] Care Team Providers Care Turf Sales Person Name Role Phone Charles Zhang MD Primary Care Provider [phone] Encounter Details Date Type Department Care Team (Late st Contact Info) Description 09/03/2024 Lab Requisition [facility] - Main Lab [address] [place] [address] Charles Zhang MD [address] [place] [address] Dr [address] [place] Hypothyroidism, unspecified Social History Tobacco Use Types [...] LAB CHEMISTRY METHOD 09/03/2024 9:41 PM EST [facility] Blood Venous blood specimen / Unknown 09/03/2024 6:56 AM EST 09/03/2024 7:51 AM EST us Charles Zhang MD LAB BLOOD ORDERABLES Final Resul t [facility] [address] [place] [address], [place] [phone] * Thyroid stimulating hormone (09/03/2024 6:56 AM EST) TSH 2.83 0.40 - 4.00 mcIU/mL LAB CHEMISTRY METHOD 09/03/2024 8:31 AM EST [facility] Blood Venous blood specimen / Unknown 09/03/2024 6:56 AM EST 09/03/2024 7:51 AM EST us Charles Zhang MD LAB BLOOD ORDERABLES Final Resul t [facility] [address] [place] [address], [place] [phone] documented in this encounter Visit Diagnoses Diagnosis Hypothyroidism, unspecified documented in this encounter Care Teams Turf Sales Person Relationship Specialty Start Date End Date Charles Zhang MD [address] [place] [address] Dr [address] [place] PCP - General Internal Medicine 10/21/24 documented as of this encounter
--- OUTSIDE RECORDS SUMMARY | 2025-08-30 09:58 | XMS_ITS | Encounter Summary ---
Author Organization [employer] Address [address] [place] [address] Care Team Providers Care Allocations Clerk Name Role Phone Charles Zhang MD Primary Care Provider [phone] Encounter Details Date Type Department Care Team (Latest Contact Info) Description 02/13/2025 Lab Requisition [facility] - Main Lab 299 [facility] [email or web address] [address] Charles Zhang MD [address] [place] [address] [address] [place] Schizoaffective disorder, unspecified (CMS/HCC V24, CMS/HCC V28); Other halfway (current) drug therapy Social History Tobacco Use Types Packs/Day Years [...] Procedure Name Priority Date/Time Associated Diagnosis Comments CLOZAPINE Routine 02/13/2025 6:49 AM EDT Schizoaffective disorder, unspecified (CMS/HCC V24, CMS/HCC V28) 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 LEVETIRACETAM LEVEL Routine 02/13/2025 6 :49 AM EDT Schizoaffective disorder, unspecified (CMS/HCC V24, CMS/HCC V28) 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 LITHIUM LEVEL Routine 02/13/2025 6:49 AM EDT Schizoaffective disorder, unspecified (CMS/HCC V24, CMS/HCC V28) 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 After response is achieved, reduce dose to minimum level needed to maintain remission. Seizure activity may occur with Clozapine levels over 600 ng/mL, but is unusual below 1000 ng/mL. The biological activity of Clozapine metabolites is not fully known. Typically, Norclozapine concentrations are similar to those of the parent Clozapine (+/- 50%). If applicable, any drug confirmation testing reported here was developed and the performance characteristics determined by [facility]. This confirmation testing has not been cleared or approved by the FDA. The laboratory is regulated under CLIA as qualified to perform high-complexity testing. This test is used for patient testing purposes. It should not be regarded as investigational or for research. Test performed at [facility], [address] , [place] [address] Sandra Henning MD, PhD - Elementary School Registrar Blood Venous blood specimen / Unknown 02/13/2025 6:49 AM EDT 02/13/2025 7:27 AM EDT us Charles Zhang MD LAB BLOOD ORDERABLES Final Resul t [facility] [address] [place], [place] [id number] * Comprehensive metabolic panel (02/13/2025 6:49 AM EDT) Sodium 139 133 - 145 mmol/L LAB CHEMISTRY METHOD 02/13/2025 8:03 AM [facility] Potassium 4.1 3.5 - 5.5 mmol/L LAB CHEMISTRY METHOD 02/13/2025 8:03 AM [facility] Chloride 107 96 - 110 mmol/L LAB CHEMISTRY METHOD 02/13/2025 8:03 AM [facility] CO2 28 21 - 32 mmol/L LAB CHEMISTRY METHOD 02/13/2025 8:03 AM [facility] Anion Gap 4 3 - 11 LAB CHEMISTRY METHOD 02/13/2025 8:03 AM [facility] Glucose 80 70 - 100 mg/dL LAB CHEMISTRY METHOD 02/13/2025 8:03 AM [facility] BUN 14 5 - 25 mg/dL LAB CHEMISTRY METHOD 02/13/2025 8:03 AM [facility] Creatinine 0.72 0.70 - 1.30 mg/dL LAB CHEMISTRY METHOD 02/13/2025 8:03 AM [facility] eGFR 100 >=60 mL/min/1. 73m2 LAB CHEMISTRY METHOD 02/13/2025 8:03 AM [facility] Comment:Calculation based on the Chronic Kidney Disease Epidemiology Collaboration (CKD-EPI) equation refit without adjustment for race. BUN/Creatinine Ratio 19.4 LAB CHEMISTRY METHOD 02/13/2025 8:03 AM [facility] Calcium 9.1 8.5 - 10.5 mg/dL LAB CHEMISTRY METHOD 02/13/2025 8:03 AM [facility] AST (SGOT) 12 10 - 42 unit/L LAB CHEMISTRY METHOD 02/13/2025 8:03 AM [facility] ALT (SGPT) 22 10 - 60 unit/L LAB CHEMISTRY METHOD 02/13/2025 8:03 AM [facility] Alkaline Phosphatase 95 42 - 121 unit/L LAB CHEMISTRY METHOD 02/13/2025 8:03 AM [facility] Total Protein 6.6 6.0 - 8.0 g/dL LAB CHEMISTRY METHOD 02/13/2025 8:03 AM EDT [facility] Albumin 3.5 3.2 - 5.0 g/dL LAB CHEMISTRY METHOD 02/13/2025 8:03 AM EDT [facility] Total Bilirubin 0.4 0.0 - 1.4 mg/dL LAB CHEMISTRY METHOD 02/13/2025 8:03 AM EDT [facility] Blood Venous blood specimen / Unknown 02/13/2025 6:49 AM EDT 02/13/2025 7:27 AM EDT us Charles Zhang MD LAB BLOOD ORDERABLES Final Resul t Performing Organization Address [facility] Co de Phone Number [facility] [address] [place] [address], * [place] level (02/13/2025 6:49 AM EDT) [place] Level 0.6 0.6 - 1.2 mEq/L LAB CHEMISTRY METHOD 02/13/2025 8:05 AM EDT [facility] Blood Venous blood specimen / Unknown 02/13/2025 6:49 AM EDT 02/13/2025 7:27 AM EDT us Charles Zhang MD LAB BLOOD ORDERABLES Final Resul t Performing Organization Address City/[facility]/ZIP Co de Phone Number [facility] [address] [place] [address], [place] [phone] * Levetiracetam level (02/13/2025 6:49 AM EDT) Levetiracetam 12.6 3.0 - 60.0 ug/mL 02/18/2025 5:08 AM EDT [facility] Comment: Steady state trough serum or plasma levels following doses of 1000 to 3000 mg/Day: 3 to 37 ug/mL. The same dosage regimen will typically result in peak levels of 10 to 60 ug/mL, at approximately 1.5 hours post dose. If applicable, any drug confirmation testing reported here was developed and the performance characteristics determined by [facility]. This confirmation testing has not been cleared or approved by the FDA. The laboratory is regulated under CLIA as qualified to perform high-complexity testing. This test is used for patient testing purposes. It should not be regarded as investigational or for research. Test performed at [facility], [address], [place] [address] Sandra Henning MD, PhD - Elementary School Registrar Blood Venous blood specimen / Unknown 02/13/2025 6:49 AM EDT 02/13/2025 7:27 AM EDT us Charles Zhang MD LAB BLOOD ORDERABLES Final Resul t [facility] [address] 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
--- OUTSIDE RECORDS SUMMARY | 2025-08-30 09:58 | XMS_ITS | Encounter Summary ---
Author Organization [facility] Address [address] [place] [address] Care Team Providers Care Athlete Manager Name Role Phone Charles Zhang MD Primary Care Provider [phone] Encounter Details Date Type Department Care Team (Late st Contact Info) Description 10/08/2024 Lab Requisition [facility] - Main Lab [address] [facility] [place] [address] Charles Zhang MD [address] [place] [address] [address] [place] Vitamin D deficiency, [...] AM EST) WBC 11.9(H) 4.8 - 10.8 K/[facility] LAB HEMETOLOGY METHOD 10/08/2024 8:06 AM [facility] RBC 5.90(H) 4.50 - 5.50 M/mcL LAB HEMETOLOGY METHOD 10/08/2024 8:06 AM [facility] Hemoglobin 16.0 13.5 - 17.5 g/dL LAB HEMETOLOGY METHOD 10/08/2024 8:06 AM [facility] Hematocrit 51.1 42.0 - 54.0 % LAB HEMETOLOGY METHOD 10/08/2024 8:06 AM [facility] MCV 86.6 79.0 - 98.0 FL LAB HEMETOLOGY METHOD 10/08/2024 8:06 AM [facility] MCH 27.1 27.0 - 32.0 pcg LAB HEMETOLOGY METHOD 10/08/2024 8:06 AM [facility] MCHC 31.3(L) 32.0 - 37.0 g/dL LAB HEMETOLOGY METHOD 10/08/2024 8:06 AM [facility] RDW 14.6 11.0 - 15.0 % LAB HEMETOLOGY METHOD 10/08/2024 8:06 AM [facility] Platelets 10/08/2024 8:06 AM [facility] Comment:Not measured. Platel ets appear adequate but clumped MPV 10.7 7.0 - 11.0 FL LAB HEMETOLOGY METHOD 10/08/2024 8:06 AM [facility] NRBC 0.0 <1.0 % LAB HEMETOLOGY METHOD 10/08/2024 8:06 AM [facility] NRBC Absolute 0.00 <0.10 K/[facility] LAB HEMETOLOGY METHOD 10/08/2024 8:06 AM [facility] Neutrophils Relative 64.9 % LAB HEMETOLOGY METHOD 10/08/2024 8:06 AM [facility] Lymphocytes Relative 22.8 % LAB HEMETOLOGY METHOD 10/08/2024 8:06 AM [facility] Monocytes Relative 8.5 % LAB HEMETOLOGY METHOD 10/08/2024 8:06 AM [facility] Eosinophils Relative 2.8 % LAB HEMETOLOGY METHOD 10/08/2024 8:06 AM [facility] Basophils Relative 0.6 % LAB HEMETOLOGY METHOD 10/08/2024 8:06 AM [facility] Immature Granulocytes Relative 0.4 % LAB HEMETOLOGY METHOD 10/08/2024 8:06 AM [facility] Neutrophils Absolute 7.74(H) 1.50 - 7.00 K/mcL LAB HEMETOLOGY METHOD 10/08/2024 8:06 AM [facility] Lymphocytes Absolute 2.72 1.00 - 5.00 K/mcL LAB HEMETOLOGY METHOD 10/08/2024 8:06 AM [facility] Monocytes Absolute 1.02(H) 0.20 - 1.00 K/mcL LAB HEMETOLOGY METHOD 10/08/2024 8:06 AM [facility] Eosinophils Absolute 0.34 0.00 - 0.50 K/mcL LAB HEMETOLOGY METHOD 10/08/2024 8:06 AM [facility] Basophils Absolute 0.07 0.00 - 0.20 K/mcL LAB HEMETOLOGY METHOD 10/08/2024 8:06 AM [facility] Immature Granulocytes Absolute 0.05(H) 0.00 - 0.03 K/mcL LAB HEMETOLOGY METHOD 10/08/2024 8:06 AM [facility] Blood Venous blood specimen / Unknown 10/08/2024 6:43 AM EST 10/08/2024 7:30 AM EST Charles Zhang MD LAB BLOOD ORDERABLES Final Resul t Performing Organization Address [facility]/ZIP Co de Phone Number [facility] [address] [place] [address], [place] [phone] * (ABNORMAL) Vitamin D 25 hydroxy (10/08/2024 6:43 AM EST) Vit D, 25-Hydroxy 81.1(H) 30.0 - 80.0 ng/mL LAB CHEMISTRY METHOD 10/08/2024 10:05 AM EST [facility] Blood Venous blood specimen / Unknown 10/08/2024 6:43 AM EST 10/08/2024 7:30 AM EST Charles Zhang MD LAB BLOOD ORDERABLES Final Resul t Performing Organization Address [facility]/ZIP Co de Phone Number [facility] [address] [place] [address], [place] [phone] documented in this encounter Visit Diagnoses Diagnosis Vitamin D deficiency, unspecified Schizoaffective disorder, unspecified (CMS/HCC V24, CMS/HCC V28) documented in this encounter Care Teams Athlete Manager Relationship Specialty Start Date End Date Charles Zhang MD [address] [place] [address] Dr [address] [place] PCP - General Internal Medicine 10/21/24 documented as of this encounter
--- OUTSIDE RECORDS SUMMARY | 2025-08-30 09:58 | XMS_ITS | Encounter Summary ---
Author Organization [facility] Address [address] [place] [address] Care Team Providers Care Sales Management Intern Name Role Phone Barbara Gerard MD Primary Care Provider Unavailabl e Encounter Details Date Type Department Care Team (Late st Contact Info) Description 07/12/2021 Orders Only [facility] Department of Dermatology [address] [place] [address] Lynette Johns MD [address] [place] [address] Social History Tobacco Use Types Packs/Day Years [...] on filedocumented in this encounter Care Teams Sales Management Intern Relationship Specialty Start Date End Date Barbara Gerard MD [address] [id number] PCP - General Internal Medicine 06/09/20 documented as of this encounter
[2025-08-30 10:21] LABS: MANUAL DIFF FLAG NO
[2025-08-30 10:22] LABS: Hematocrit 39.6 % (42.0-52.0); Hemoglobin 12.8 g/dl (14.0-18.0); Imm Gran Abs Auto 0.04 X10*3/uL (0.00-0.03); Imm Gran Pct Auto 0.4 % (0.0-0.4); Lymphocytes Absolute Auto 1.2 X10*3/uL (1.2-4.9); Mean Corpuscular HGB Conc 32.3 g/dl (31.0-36.0); Mean Corpuscular Hemoglobin 28.1 pg (27.0-33.0); Mean Corpuscular Volume 87.0 fL (80.0-98.0); NRBC Abs Auto 0.000 X10*3/uL (0.0-0.012); NRBC Pct Auto 0.0 /100WBC (0.0-0.2); Platelet Count 243 X10*3/uL (160-400); Red Blood Count 4.55 X10*6/uL (4.60-5.80); White Blood Count 9.9 X10*3/uL (4.8-10.8)
[2025-08-30 10:27] LABS: INTERNATIONAL NORM RATIO 1.2 (0.9-1.1); Prothrombin Time 15.0 SEC (11.2-13.5)
[2025-08-30 10:28] LABS: VBG HCO3 22 mmol/L (22-26); VBG O2 % Saturation 99.0 %
[2025-08-30 10:29] LABS: Appearance Urine Clear; Glucose Urine UA Negative (Negative); PH 5.5 (5.0-9.0); Specific Gravity - Urine 1.025 (1.005-1.025); UMIC TRIGGER UACC YES
[2025-08-30 10:29] LABS: Venous Blood Gas Refer to POC result
[2025-08-30 10:36] LABS: Ammonia 27 umol/L (13-55)
[2025-08-30 10:40] LABS: Cannabinoid Screen Urine Not Detected (Not Detect)
[2025-08-30 10:46] LABS: Alanine Aminotransferase 21 U/L (0-40); Albumin Level 4.3 g/dL (3.5-5.0); Alkaline Phosphatase 87 U/L (39-117); Anion Gap 14 (12-20); Aspartate Amino Transferase 28 U/L (5-37); Blood Urea Nitrogen 17 mg/dL (9-16); Calcium 9.2 mg/dL (8.4-10.2); Carbon Dioxide 21 mmol/L (22-29); Chloride 112 mmol/L (96-108); Creatinine Clr Calc Pharmacy 114.4; Estimated Glomerular Filt Rate > 60; Magnesium 2.1 mg/dL (1.6-2.6); Potassium 3.7 mmol/L (3.3-5.1); Sodium 143 mmol/L (135-145); Total Protein 6.7 g/dL (6.5-8.0)
[2025-08-30 11:07] LABS: Resp Syncy Virus RNA Qual PCR NEGATIVE (Negative); SARS COV2 PCR INHOUSE NEGATIVE (Negative)
[2025-08-30 11:11] LABS: Troponin-I High Sensitivity < 2.7 ng/L (<3.5-35.0)
[2025-08-30] MEDS: diazePAM 10 MG/2 ML CARTRIDGE 5 MG IVPUSH (12:57)
--- NOTE | 2025-08-30 13:17 | PC.NURSE ---
Addendum entered by Stephanie Gregory RN 08/30/25 13:20: Hx schizoaffective disorder, TBI, dementia. Original Note: Pt restless, intermittently yelling out since arrival to facility. Unable to answer questions appropriately, follow directions. Nonviolent behavior, though requiring mechanical hold for blood draw, catheterization. VSS have remained stable. Pt medicated to obtain imaging.
--- NOTE | 2025-08-30 15:15 | PC.NURSE ---
assumed care of pt at 1500. report received from Joanna DAVIS. pt sleeping comfortably in stretcher, respiration even and unlabored, camera in room
--- NOTE | 2025-08-30 16:23 | PC.NURSE ---
per Skylar DRAPERY HEAD FORMER need to medicate patient with IM zyprexa in order to obtain chest CT. pt was extremely combative earlier and not cooperative for head CT.
[2025-08-30] MEDS: OLANZapine 10 MG VIAL 5 MG IM (16:29)
--- NOTE | 2025-08-30 16:54 | PC.NURSE ---
pt off to CT.
[2025-08-30] MEDS: iohexoL 350 MG/ML 100 ML INFUS..BTL IV (17:30)
--- NOTE | 2025-08-30 19:47 | PC.NURSE ---
Assumed care of pt at 1900. Pt laying in stretcher, alert but is confused. Pt is agitated, not aggressive at this time. Pt yelling frequently, appears to be responding to internal stimuli. Respirations even & unlabored. VSS. Pt attached to chair alarm. Plan of care on going.
--- NOTE | 2025-08-30 21:15 | PM.IMHP ---
History of Present Illness Date of Service: 08/30/25 Chief Complaint: Altered mental status 65-year-old male with a past medical history of TBI, seizure disorder, history, HLD, dm, COPD, dementia, schizoaffective disorder, LLUVIA, GERD; presented to the hospital from [facility] with a chief complaint of altered mental status. Per staff patient has been more confused than his baseline; has been generally weak and tired. Has had falls. Patient has not taken his medications for about a day. History is limited. Patient with a time of my interview is alert and awake, does not appear to be in pain; but confused; not participating in interview. Review of all other systems is limited. ER course: Per ER team, patient's exam was benign but patient is mildly agitated; CT head showed acute findings; CT chest showed no acute abnormality; urine negative; physical exam-no musculoskeletal tenderness noted; grossly nonfocal; [facility] Medical History Class 1 obesity Pneumonia Psoriasis, unspecified Constipation, unspecified Gastro-esophageal reflux disease without esophagitis Anoxic brain damage, not elsewhere classified Obstructive sleep apnea (adult) (pediatric) Schizoaffective disorder, unspecified Dementia in other diseases classified elsewhere, unspecified severity, with other behavioral disturbance Hyperlipidemia, unspecified Other obesity due to excess calories Vitamin D deficiency, unspecified Type 2 diabetes mellitus without complications Hypothyroidism, unspecified Unspecified asthma, uncomplicated Chronic obstructive pulmonary disease, unspecified Essential (primary) hypertension Social History Household Members: Other Housing: Snf Unable to assess alcohol history related to: Unable to respond Alcohol intake: former Comment: 1:1 at bedside. Patient Tobacco Use Status: Tobacco use Unknown Smoked in Last 30 Days: No Use of substances other than those prescribed or required for medical reasons: Unable to respond Advance Directives: Yes Advance Directives on File: Yes Advance Directives Date on File: 08/30/25 service: No Meds Allergies Allergy/AdvReac Type Severity Reaction Status Date / Time Penicillins Allergy Unknown Verified 08/30/25 09:50 poison jolanta extract Allergy Unknown Verified 08/30/25 09:50 Active Medications: Current Medications Dextrose (Dextrose 50 % 25 Gm/50 Ml Syringe) 25 gm IVPUSH Q15M PRN; Protocol PRN Reason: per Hypoglycemia Standing Ord. Glucose (Glucose Gel 15 Gm Gel..Gram.) 15 gm PO Q15M PRN; Protocol PRN Reason: per Hypoglycemia Standing Ord. Home Medications ?Medication ?Instructions ?Recorded ?Confirmed ?Last Taken ?Type acetaminophen 325 mg tablet 650 mg PO Q6H PRN Fever Or Pain 01/04/23 08/30/25 08/29/25 History atorvastatin 10 mg tablet 10 mg PO DAILY 01/04/23 08/30/25 08/29/25 History bisacodyl 10 mg rectal suppository 10 mg AL DAILY PRN if senna or MOM 01/04/23 08/30/25 08/29/25 History ineffective glycopyrrolate 1 mg tablet 3 mg PO DAILY 01/04/23 08/30/25 08/29/25 History lithium carbonate 450 mg 450 mg PO BID 01/04/23 08/30/25 08/29/25 History tablet,extended release metformin 500 mg tablet 500 mg PO BID 01/04/23 08/30/25 08/29/25 History pantoprazole 40 mg tablet,delayed 40 mg PO BID@0630,1630 01/04/23 08/30/25 08/29/25 History release risankizumab-rzaa 150 mg/mL 150 mg subcut Q84D 01/04/23 08/30/25 08/29/25 History subcutaneous pen injector (Skyrizi) sodium phosphates 19 gram-7 118 ml AL DAILY PRN if bisacodyl 01/04/23 07/02/25 Unknown History gram/118 mL enema (Fleet Enema) supp ineffective cholecalciferol (vitamin D3) 1,250 1,250 mcg PO TH 06/19/23 08/30/25 Unknown History mcg (50,000 unit) capsule fluticasone furoate 100 1 inh inhalation DAILY 10/06/24 08/30/25 Unknown History mcg-vilanterol 25 mcg/dose inhalation powder (Breo Ellipta) glucagon HCl 1 mg solution for 1 mg subcut Q15M PRN severe 10/06/24 08/30/25 08/29/25 History injection hypoglycemia ibuprofen 600 mg tablet 600 mg PO Q8H PRN Muscle Pain 10/06/24 08/30/25 08/29/25 History levothyroxine 75 mcg tablet 88 mcg PO DAILY@00 10/06/24 08/30/25 08/29/25 History linaclotide 72 mcg capsule 72 mcg PO BID 10/06/24 08/30/25 08/29/25 History (Linzess) magnesium hydroxide 400 mg/5 mL 30 ml PO DAILY PRN Constipation 10/06/24 08/30/25 08/29/25 History oral suspension (Milk of Magnesia) psyllium 1 packet PO DAILY 10/06/24 07/02/25 Unknown History sennosides 8.6 mg tablet (senna) 17.2 mg PO BID 10/06/24 08/30/25 08/29/25 History carboxymethylcellulose sodium 0.5 1 drp ophthalmic (eye) Q4H PRN Dry 07/02/25 08/30/25 Unknown History % eye drops (Refresh Tears) Eye(S) clozapine 200 mg tablet 400 mg PO BEDTIME 07/02/25 08/30/25 08/29/25 History guaifenesin 100 mg/5 mL oral liquid 200 mg PO Q6H PRN Cough 07/02/25 07/02/25 Unknown History lactulose 10 gram/15 mL oral 30 ml PO BID 07/02/25 08/30/25 08/29/25 History solution levetiracetam 500 mg tablet 500 mg PO DAILY 07/02/25 08/30/25 08/29/25 History levetiracetam 750 mg 750 mg PO BEDTIME 07/02/25 08/30/25 08/29/25 History tablet,extended release 24 hr clozapine 100 mg tablet 100 mg PO DAILY schizoaffective 08/30/25 08/30/25 08/29/25 History Physical Exam Vital Signs and Narrative: Vital Signs: Last Vital Signs Temp 97.5 F 08/30/25 20:15 Pulse 85 08/30/25 20:15 Resp 20 08/30/25 20:15 BP 128/73 08/30/25 20:15 Pulse Ox 96 08/30/25 20:15 O2 Del Method Room Air 08/30/25 20:15 O2 Flow Rate 2 08/30/25 16:18 BMI result Body Mass Index 27.8 Results Labs 08/30/25 10:12 08/30/25 10:12 Labs: Laboratory Results - last 24 hr 08/30/25 08/30/25 08/30/25 09:31 10:12 10:21 MCV 87.0 MCH 28.1 MCHC 32.3 RDW 13.8 Plt Count 243 MPV 9.5 Immature Gran % (Auto) 0.4 Neut % (Auto) 77.5 H Lymph % (Auto) 12.2 L [place] % (Auto) 7.9 Eos % (Auto) 1.6 Baso % (Auto) 0.4 Lymph # (Auto) 1.2 [place] # (Auto) 0.8 Eos # (Auto) 0.2 Baso # (Auto) 0.0 Abs Immat Gran (auto) 0.04 H Absolute Neuts (auto) 7.7 Absolute Nucleated RBC 0.000 Nucleated RBC % (auto) 0.0 PT 15.0 H INR 1.2 H VBG pH 7.43 VBG pCO2 32 VBG pO2 113 VBG HCO3 22 VBG O2 Saturation 99.0 VBG Base Excess -1.3 Anion Gap 14 Estim Creat Clear Calc 114.4 Estimated GFR > 60 POC Glucose 103 Random Glucose 95 Lactic Acid 0.9 Calcium 9.2 Magnesium 2.1 Total Bilirubin 0.5 AST 28 ALT 21 Alkaline Phosphatase 87 Ammonia 27 Troponin I High Sens < 2.7 Total Protein 6.7 Albumin 4.3 Urine Color Dark Yellow Urine Appearance Clear Urine pH 5.5 Ur Specific [place] 1.025 Urine Protein Trace Urine Glucose (UA) Negative Urine Ketones Trace Urine Blood Negative Urine Nitrite Negative Ur Leukocyte Esterase Trace H Urine RBC 0-2 Urine WBC 0-5 Ur Squamous Epith Cells 0-2 Calcium Oxalate Crystal Present Urine Bacteria None Seen Hyaline Casts 0-2 Urine Opiates Screen Not Detected Ur Buprenorphine Scrn Not Detected Ur Oxycodone Screen Not Detected Urine Methadone Screen Not Detected Urine Fentanyl Screen Not Detected Ur Barbiturates Screen Not Detected Ur Phencyclidine Scrn Not Detected Ur Amphetamines Screen Not Detected U Benzodiazepines Scrn Not Detected Urine Cocaine Screen Not Detected U Marijuana (THC) Screen Not Detected Ethyl Alcohol < 10 Influenza Type A (PCR) NEGATIVE Influenza Type B (PCR) NEGATIVE RSV RNA Qual (PCR) NEGATIVE SARS-CoV-2 RNA (RT-PCR) NEGATIVE Assessment and Plan (1) Altered mental status: Qualifiers: Altered mental status type: unspecified Qualified Code(s): R41.82 - Altered mental status, unspecified Status: Acute Plan 65-year-old male with a past medical history of TBI, seizure disorder, history, HLD, dm, COPD, dementia, schizoaffective disorder, LLUVIA, GERD; presented to the hospital from [facility] with a chief complaint of altered mental status. Altered mental status: Unclear etiology No clear signs of infection CT head showed no acute findings Will obtain folate B12 TSH and RPR Patient also has been noncompliant with his home medications-likely contributing Neurology consult Will obtain lithium levels Schizoaffective disorder: Continue home medications once med rec is completed by pharmacy in a.m. continue Klonopin, lithium Diabetes: Insulin sliding scale Falls: Unclear mechanism. CT head showed no acute findings. CT chest showed no evidence of any injury. Will also obtain CT C-spine. Seizure disorder: Continue home Keppra Hypothyroidism: Continue levothyroxine DVT prophylaxis: Subcu heparin Code status: Full code Quality Stroke Does the patient have a stroke diagnosis?: No VTE Prior VTE?: No VTE Risk Level:: Medical - moderate - high VTE Device Contraindication: Treatment Not Indicated VTE Drug Contraindication: N/A - Med Ordered
[2025-08-30] MEDS: Dextrose 5 % and 0.45 % NaCl 1,000 ML 50 ML IVCONT (21:42)
--- NOTE | 2025-08-30 21:50 | PC.NURSE ---
Pt BGL found to be 56, Dr. Canales notified @ 2108. Pt confused unable to eat/drink. Pt medicated with D50 as charted per provider. BGL 184 @ 2146. Pt has D5/.45% infusing @ 50 mL/hr.
[2025-08-30 21:51] LABS: Glucose, Whole Blood 56 mg/dL (60-115)
[2025-08-30 21:51] LABS: Glucose, Whole Blood 184 mg/dL (60-115)
[2025-08-30 22:31] LABS: Thyroid Stimulating Hormone 2.28 uIU/mL (0.32-4.0)
--- NOTE | 2025-08-30 22:34 | PC.NURSE ---
Pt med rec completed using facility med list. Provider notified.
--- NOTE | 2025-08-30 22:40 | PC.NURSE ---
Unable to completed bedside swallow screen at this time, when attempted by this RN, pt stating no and locking lips closed.
[2025-08-30 22:45] LABS: Folate 11.6 ng/mL (> or = 4.0); Vitamin B12 501 pg/mL (200-900)
[2025-08-31] VITALS: BP 145/82; PULSE 81; RESP 18; TEMP 36.4; O2SAT 94
[2025-08-31 00:37] LABS: Lithium 0.39 mmol/L (0.60-1.20)
--- NOTE | 2025-08-31 07:32 | PHA.MEDREC ---
Pharmacy Consult ? Medication Reconciliation Pharmacy has completed the medication reconciliation.Med rec complete, utilized list from [facility]
[2025-08-31 09:21] LABS: Hematocrit 42.1 % (42.0-52.0); Hemoglobin 13.5 g/dl (14.0-18.0); Mean Corpuscular HGB Conc 32.1 g/dl (31.0-36.0); Mean Corpuscular Hemoglobin 27.8 pg (27.0-33.0); Mean Corpuscular Volume 86.6 fL (80.0-98.0); NRBC Abs Auto 0.000 X10*3/uL (0.0-0.012); NRBC Pct Auto 0.0 /100WBC (0.0-0.2); Platelet Count 240 X10*3/uL (160-400); Red Blood Count 4.86 X10*6/uL (4.60-5.80); White Blood Count 9.1 X10*3/uL (4.8-10.8)
[2025-08-31] MEDS: 0.9 % Sodium Chloride Flush 3 ML SYRINGE IVFLUSH ×2 (09:37→17:42)
[2025-08-31 09:42] LABS: Alanine Aminotransferase 17 U/L (0-40); Albumin Level 4.3 g/dL (3.5-5.0); Alkaline Phosphatase 93 U/L (39-117); Anion Gap 13 (12-20); Aspartate Amino Transferase 26 U/L (5-37); Blood Urea Nitrogen 14 mg/dL (9-16); Calcium 8.8 mg/dL (8.4-10.2); Carbon Dioxide 24 mmol/L (22-29); Chloride 110 mmol/L (96-108); Creatinine Clr Calc Pharmacy 112.1; Estimated Glomerular Filt Rate > 60; Potassium 3.6 mmol/L (3.3-5.1); Sodium 143 mmol/L (135-145); Total Protein 6.7 g/dL (6.5-8.0)
[2025-08-31 09:48] LABS: Glucose, Whole Blood 84 mg/dL (60-115)
--- NOTE | 2025-08-31 09:52 | P.PNIM_ITS ---
Subjective Subjective Date of Service: 08/31/25 Interval History: Patient seen and examined at bedside this morning, patient is alert only to self, patient has been physically aggressive, throwing objects, states I am perfect and only speak to perfect people. Review of Systems As per [facility] Review of Systems: Yes all other systems are reviewed and are negative Constitutional Constitutional: Reports as per HPI Physical Exam 2 Exam: Exam: General: AxOx1, No acute distress Head: AT/NC ENT: Dry mucous membranes Neck: supple Lungs: Bilateral simmetry, no wheezing Abd: Soft, non distended Ext: No edema MSK: moving all 4 limbs Skin: No cyanosis or edema Psych: Poorly Cooperative with exam Neurology: no focal deficit Vital Signs: Vital Signs: Last Vital Signs Temp 97.5 F 08/31/25 00:00 Pulse 81 08/31/25 00:00 Resp 18 08/31/25 00:00 BP 145/82 H 08/31/25 00:00 Pulse Ox 94 08/31/25 00:00 O2 Del Method Room Air 08/31/25 00:00 O2 Flow Rate 2 08/30/25 16:18 BMI result Body Mass Index 25.6 Objective Data Active Medications Acetaminophen (Acetaminophen 325 Mg Tablet) 650 mg PO Q6H PRN PRN Reason: Pain, Mild 1-3,fever,headache Albuterol/Ipratropium (Albuterol/Iprat 2.5/0.5mg 3 Ml Ampul.Neb) 3 ml INHALE Q4H PRN PRN Reason: Shortness of Breath/Wheezing Calcium Carbonate (Calcium Carbonate 750 Mg Tab.Chew) 750 mg PO Q4H PRN PRN Reason: Heartburn Clozapine (Clozapine 100 Mg Tablet) 400 mg PO BEDTIME [facility] Dextrose (Dextrose 50 % 25 Gm/50 Ml Syringe) 25 gm IVPUSH Q15M PRN; Protocol PRN Reason: per Hypoglycemia Standing Ord. Last Admin: 08/30/25 21:29 Dose: 25 gm Documented By: MAUREEN Dextrose (Dextrose 50 % 25 Gm/50 Ml Syringe) 25 gm IVPUSH Q15M PRN; Protocol PRN Reason: per Hypoglycemia Standing Ord. Finasteride (Finasteride 5 Mg Tablet) 5 mg PO DAILY [facility] Last Admin: 08/31/25 09:37 Dose: Not Given Documented By: JUDAH Non-Admin Reason: Physician Approved Glucose (Glucose Gel 15 Gm Gel..Gram.) 15 gm PO Q15M PRN; Protocol PRN Reason: per Hypoglycemia Standing Ord. Glycopyrrolate (Glycopyrrolate 1 Mg Tablet) 3 mg PO DAILY [facility] Last Admin: 08/31/25 09:37 Dose: Not Given Documented By: JUDAH Non-Admin Reason: Physician Approved Dextrose/Sodium Chloride (D51/2ns) 1,000 mls @ 50 mls/hr IVCONT .Q20H [facility] Last Admin: 08/30/25 21:42 Dose: 50 mls/hr Documented By: MAUREEN Levetiracetam 1,000 mg/ Sodium (Chloride) 110 mls @ 430 mls/hr IV BEDTIME ETHEL Levetiracetam 250 mg/ Sodium (Chloride) 102.5 mls @ 410 mls/hr IV DAILY [facility] Last Infusion: 08/31/25 09:49 Dose: Infused Documented By: JUDAH Ibuprofen (Ibuprofen 600 Mg Tablet) 600 mg PO Q8H PRN PRN Reason: Muscle Pain Insulin Human Lispro (Insulin Lispro 100 Unit/Ml 3 Ml Vial) 0 unit SUBCUT QIDACHS [facility]; Protocol Last Admin: 08/31/25 09:46 Dose: Not Given Documented By: JUDAH Non-Admin Reason: No Insulin Coverage Levetiracetam (Levetiracetam 500 Mg Tablet) 500 mg PO DAILY [facility] On Hold: 08/31/25 08:21 Last Admin: 08/31/25 01:02 Dose: Not Given Documented By: BRANDON Non-Admin Reason: pt. refused Levothyroxine Sodium (Levothyroxine Sodium 88 Mcg Tablet) 88 mcg PO DAILY@0600 [facility] Last Admin: 08/31/25 05:22 Dose: Not Given Documented By: BRANDON Non-Admin Reason: Patient Refused [place] Carbonate ([place] Carbonate Er 450 Mg Tablet.Er) 450 mg PO BID [facility] Last Admin: 08/31/25 09:37 Dose: Not Given Documented By: JUDAH Non-Admin Reason: Physician Approved Magnesium Hydroxide (Milk Of Magnesia 30 Ml Oral.Susp) 30 ml PO DAILY PRN PRN Reason: Constipation Melatonin (Melatonin 3 Mg Tablet) 6 mg PO BEDTIME PRN PRN Reason: Insomnia Sodium Chloride (0.9 % Sodium Chloride Flush 3 Ml Syringe) 3 ml IVFLUSH QSHIFT [facility] Last Admin: 08/31/25 09:37 Dose: 3 ml Documented By: JUDAH Labs 08/31/25 09:12 08/31/25 09:12 Labs: Laboratory Results - last 24 hr 08/30/25 08/30/25 08/30/25 10:12 10:21 21:03 MCV 87.0 MCH 28.1 MCHC 32.3 RDW 13.8 Plt Count 243 MPV 9.5 Immature Gran % (Auto) 0.4 Neut % (Auto) 77.5 H Lymph % (Auto) 12.2 L [place] % (Auto) 7.9 Eos % (Auto) 1.6 Baso % (Auto) 0.4 Lymph # (Auto) 1.2 [place] # (Auto) 0.8 Eos # (Auto) 0.2 Baso # (Auto) 0.0 Abs Immat Gran (auto) 0.04 H Absolute Neuts (auto) 7.7 Absolute Nucleated RBC 0.000 Nucleated RBC % (auto) 0.0 PT 15.0 H INR 1.2 H VBG pH 7.43 VBG pCO2 32 VBG pO2 113 VBG HCO3 22 VBG O2 Saturation 99.0 VBG Base Excess -1.3 Anion Gap 14 Estim Creat Clear Calc 114.4 Estimated GFR > 60 POC Glucose 56 L* Random Glucose 95 Lactic Acid 0.9 Calcium 9.2 Magnesium 2.1 Total Bilirubin 0.5 AST 28 ALT 21 Alkaline Phosphatase 87 Ammonia 27 Troponin I High Sens < 2.7 Total Protein 6.7 Albumin 4.3 Vitamin B12 Folate TSH Urine Color Dark Yellow Urine Appearance Clear Urine pH 5.5 Ur Specific [place] 1.025 Urine Protein Trace Urine Glucose (UA) Negative Urine Ketones Trace Urine Blood Negative Urine Nitrite Negative Ur Leukocyte Esterase Trace H Urine RBC 0-2 Urine WBC 0-5 Ur Squamous Epith Cells 0-2 Calcium Oxalate Crystal Present Urine Bacteria None Seen Hyaline Casts 0-2 Urine Opiates Screen Not Detected Ur Buprenorphine Scrn Not Detected Ur Oxycodone Screen Not Detected Urine Methadone Screen Not Detected Urine Fentanyl Screen Not Detected Ur Barbiturates Screen Not Detected Ur Phencyclidine Scrn Not Detected Ur Amphetamines Screen Not Detected U Benzodiazepines Scrn Not Detected [place] Urine Cocaine Screen Not Detected U Marijuana (THC) Screen Not Detected Ethyl Alcohol < 10 Influenza Type A (PCR) NEGATIVE Influenza Type B (PCR) NEGATIVE RSV RNA Qual (PCR) NEGATIVE SARS-CoV-2 RNA (RT-PCR) NEGATIVE 08/30/25 08/30/25 08/31/25 21:47 21:48 00:11 MCV MCH MCHC RDW Plt Count MPV Immature Gran % (Auto) Neut % (Auto) Lymph % (Auto) [place] % (Auto) Eos % (Auto) Baso % (Auto) Lymph # (Auto) [place] # (Auto) Eos # (Auto) Baso # (Auto) Abs Immat Gran (auto) Absolute Neuts (auto) Absolute Nucleated RBC Nucleated RBC % (auto) PT INR VBG pH VBG pCO2 VBG pO2 VBG HCO3 VBG O2 Saturation VBG Base Excess Anion Gap Estim Creat Clear Calc Estimated GFR POC Glucose 184 H Random Glucose Lactic Acid Calcium Magnesium Total Bilirubin AST ALT Alkaline Phosphatase Ammonia Troponin I High Sens Total Protein Albumin Vitamin B12 501 Folate 11.6 TSH 2.28 Urine Color Urine Appearance Urine pH Ur Specific [place] Urine Protein Urine Glucose (UA) Urine Ketones Urine Blood Urine Nitrite Ur Leukocyte Esterase Urine RBC Urine WBC Ur Squamous Epith Cells Calcium Oxalate Crystal Urine Bacteria Hyaline Casts Urine Opiates Screen Ur Buprenorphine Scrn Ur Oxycodone Screen Urine Methadone Screen Urine Fentanyl Screen Ur Barbiturates Screen Ur Phencyclidine Scrn Ur Amphetamines Screen U Benzodiazepines Scrn [place] 0.39 L Urine Cocaine Screen U Marijuana (THC) Screen Ethyl Alcohol Influenza Type A (PCR) Influenza Type B (PCR) RSV RNA Qual (PCR) SARS-CoV-2 RNA (RT-PCR) 08/31/25 08/31/25 09:12 09:40 MCV 86.6 MCH 27.8 MCHC 32.1 RDW 13.8 Plt Count 240 MPV 9.4 Immature Gran % (Auto) Neut % (Auto) Lymph % (Auto) [place] % (Auto) Eos % (Auto) Baso % (Auto) Lymph # (Auto) [place] # (Auto) Eos # (Auto) Baso # (Auto) Abs Immat Gran (auto) Absolute Neuts (auto) Absolute Nucleated RBC 0.000 Nucleated RBC % (auto) 0.0 PT INR VBG pH VBG pCO2 VBG pO2 VBG HCO3 VBG O2 Saturation VBG Base Excess Anion Gap 13 Estim Creat Clear Calc 112.1 Estimated GFR > 60 POC Glucose 84 Random Glucose 85 Lactic Acid Calcium 8.8 Magnesium Total Bilirubin 0.7 AST 26 ALT 17 Alkaline Phosphatase 93 Ammonia Troponin I High Sens Total Protein 6.7 Albumin 4.3 Vitamin B12 Folate TSH Urine Color Urine Appearance Urine pH Ur Specific [place] Urine Protein Urine Glucose (UA) Urine Ketones Urine Blood Urine Nitrite Ur Leukocyte Esterase Urine RBC Urine WBC Ur Squamous Epith Cells Calcium Oxalate Crystal Urine Bacteria Hyaline Casts Urine Opiates Screen Ur Buprenorphine Scrn Ur Oxycodone Screen Urine Methadone Screen Urine Fentanyl Screen Ur Barbiturates Screen Ur Phencyclidine Scrn Ur Amphetamines Screen U Benzodiazepines Scrn [place] Urine Cocaine Screen U Marijuana (THC) Screen Ethyl Alcohol Influenza Type A (PCR) Influenza Type B (PCR) RSV RNA Qual (PCR) SARS-CoV-2 RNA (RT-PCR) Assessment and Plan (1) Acute encephalopathy due to infection: Status: Acute Plan 65-year-old male with a past medical history of TBI, seizure disorder, history, HLD, dm, COPD, dementia, schizoaffective disorder, LLUVIA, GERD; presented to the hospital from [facility] with a chief complaint of altered mental status. With UA suspicious for UTI Toxic metabolic encephalopathy, likely secondary to UTI Urinary tract infection UA with hyaline casts and leukocyte esterase CT head showed no acute findings Rocephin 1 g Q 24 hours orders x7 days Patient also has been noncompliant with his home medications-likely contributing Neurology and Psychiatry consulted Schizoaffective disorder, chronic: Continue home medications, psychiatry consulted, we will switch to IV Keppra as patient is refusing p.o. Diabetes: Insulin sliding scale Seizure disorder: Continue home Keppra Hypothyroidism: Continue levothyroxine DVT prophylaxis: Subcu heparin Code status: Full code Total time managing care of this patient today: 55 minutes. Quality Stroke Does the patient have a stroke diagnosis?: No VTE Prior VTE?: No VTE Risk Level:: Medical - moderate - high VTE Device Contraindication: Treatment Not Indicated VTE Drug Contraindication: N/A - Med Ordered
[2025-08-31 11:20] LABS: Glucose, Whole Blood 90 mg/dL (60-115)
--- NOTE | 2025-08-31 13:21 | P.CNPS_ITS ---
History of Present Illness Date of Service: 08/31/25 Chief Complaint: AMS Reason for Consult: schizoaffective disorder (no specific question) Sources of Information: patient interviewed and chart reviewed HPI Narrative: ED Note 08/30/25: 65-year-old male with history of TBI, COPD, seizure disorder on keppra, HTN, asthma, hypothyroidism, T2DM, HLD, dementia, schizoaffective disorder, LLUVIA, GERD presenting to the emergency department from [facility] for altered mental status. Per staff report to EMS patient not acting at baseline, throwing himself on the floor, aggressive. Patient unable to report HPI due to altered mental status. As per Hospitalist note 08/31: Patient seen and examined at bedside this morning, patient is alert only to self, patient has been physically aggressive, throwing objects, states I am perfect and only speak to perfect people On Recephin for UTI Today: In bed, 1:1 sitter. Garbled speech, alert, states he is in [facility]. Not answering questions ref month/year/why he is here, medications, [employer] history etc... Allowing IV Fluids to run. Past Psychiatric History: Established history of schizoaffective disorder- consult September 2024. On clozapine nursing home also- total daily dose was 100mg September. When unwell- pentecostal preoccupation, and hallucinating/internal preoccupation- was bed search September 2024 but cancelled and returned to [facility] Medical Evaluation Reviewed: Yes Review of Systems Review of Systems delirious [facility] Medical History (Updated 08/31/25 @ 13:28 by Felice Raza MD) Class 1 obesity Pneumonia Psoriasis, unspecified Constipation, unspecified Gastro-esophageal reflux disease without esophagitis Anoxic brain damage, not elsewhere classified Obstructive sleep apnea (adult) (pediatric) Schizoaffective disorder, unspecified Dementia in other diseases classified elsewhere, unspecified severity, with other behavioral disturbance Hyperlipidemia, unspecified Other obesity due to excess calories Vitamin D deficiency, unspecified Type 2 diabetes mellitus without complications Hypothyroidism, unspecified Unspecified asthma, uncomplicated Chronic obstructive pulmonary disease, unspecified Essential (primary) hypertension Social History: [facility] resident- was also there September 2024 evaluation Substance History: None Diagnostics Vital Signs (24Hr): Vital Signs - 24 hr 08/30/25 13:22 08/30/25 16:18 12/06/25 17:19 Temperature 98 F Pulse Rate 85 86 84 Respiratory Rate 13 18 18 Blood Pressure 107/71 128/76 136/76 Pulse Oximetry 98 99 98 Oxygen Delivery Method Nasal Cannula Nasal Cannula Room Air Oxygen Flow Rate 2 2 08/30/25 18:22 08/30/25 20:15 08/31/25 00:00 Temperature 97.5 F 97.5 F Pulse Rate 83 85 81 Respiratory Rate 16 20 18 Blood Pressure 116/69 128/73 145/82 H Pulse Oximetry 97 96 94 Oxygen Delivery Method Room Air Room Air Room Air Oxygen Flow Rate BMI result Body Mass Index 25.6 Labs 08/31/25 09:12 08/31/25 09:12 Labs: Laboratory Results - last 48 hr 08/30/25 08/30/25 08/30/25 09:31 10:12 10:21 WBC 9.9 RBC 4.55 L Hgb 12.8 L Hct 39.6 L MCV 87.0 MCH 28.1 MCHC 32.3 RDW 13.8 Plt Count 243 MPV 9.5 Immature Gran % (Auto) 0.4 Neut % (Auto) 77.5 H Lymph % (Auto) 12.2 L [place] % (Auto) 7.9 Eos % (Auto) 1.6 Baso % (Auto) 0.4 Lymph # (Auto) 1.2 [place] # (Auto) 0.8 Eos # (Auto) 0.2 Baso # (Auto) 0.0 Abs Immat Gran (auto) 0.04 H Absolute Neuts (auto) 7.7 Absolute Nucleated RBC 0.000 Nucleated RBC % (auto) 0.0 PT 15.0 H INR 1.2 H VBG pH 7.43 VBG pCO2 32 VBG pO2 113 VBG HCO3 22 VBG O2 Saturation 99.0 VBG Base Excess -1.3 Sodium 143 Potassium 3.7 Chloride 112 H Carbon Dioxide 21 L Anion Gap 14 BUN 17 H Creatinine 0.70 Estim Creat Clear Calc 114.4 Estimated GFR > 60 POC Glucose 103 Random Glucose 95 Lactic Acid 0.9 Calcium 9.2 Magnesium 2.1 Total Bilirubin 0.5 AST 28 ALT 21 Alkaline Phosphatase 87 Ammonia 27 Troponin I High Sens < 2.7 Total Protein 6.7 Albumin 4.3 Vitamin B12 Folate TSH Urine Color Dark Yellow Urine Appearance Clear Urine pH 5.5 Ur Specific [place] 1.025 Urine Protein Trace Urine Glucose (UA) Negative Urine Ketones Trace Urine Blood Negative Urine Nitrite Negative Ur Leukocyte Esterase Trace H Urine RBC 0-2 Urine WBC 0-5 Ur Squamous Epith Cells 0-2 Calcium Oxalate Crystal Present Urine Bacteria None Seen Hyaline Casts 0-2 Urine Opiates Screen Not Detected Ur Buprenorphine Scrn Not Detected Ur Oxycodone Screen Not Detected Urine Methadone Screen Not Detected Urine Fentanyl Screen Not Detected Ur Barbiturates Screen Not Detected Ur Phencyclidine Scrn Not Detected Ur Amphetamines Screen Not Detected U Benzodiazepines Scrn Not Detected [place] Urine Cocaine Screen Not Detected U Marijuana (THC) Screen Not Detected Ethyl Alcohol < 10 Influenza Type A (PCR) NEGATIVE Influenza Type B (PCR) NEGATIVE RSV RNA Qual (PCR) NEGATIVE SARS-CoV-2 RNA (RT-PCR) NEGATIVE 08/30/25 08/30/25 08/30/25 21:03 21:47 21:48 WBC RBC Hgb Hct MCV MCH MCHC RDW Plt Count MPV Immature Gran % (Auto) Neut % (Auto) Lymph % (Auto) [place] % (Auto) Eos % (Auto) Baso % (Auto) Lymph # (Auto) [place] # (Auto) Eos # (Auto) Baso # (Auto) Abs Immat Gran (auto) Absolute Neuts (auto) Absolute Nucleated RBC Nucleated RBC % (auto) PT INR VBG pH VBG pCO2 VBG pO2 VBG HCO3 VBG O2 Saturation VBG Base Excess Sodium Potassium Chloride Carbon Dioxide Anion Gap BUN Creatinine Estim Creat Clear Calc Estimated GFR POC Glucose 56 L* 184 H Random Glucose Lactic Acid Calcium Magnesium Total Bilirubin AST ALT Alkaline Phosphatase Ammonia Troponin I High Sens Total Protein Albumin Vitamin B12 501 Folate 11.6 TSH 2.28 Urine Color Urine Appearance Urine pH Ur Specific [place] Urine Protein Urine Glucose (UA) Urine Ketones Urine Blood Urine Nitrite Ur Leukocyte Esterase Urine RBC Urine WBC Ur Squamous Epith Cells Calcium Oxalate Crystal Urine Bacteria Hyaline Casts Urine Opiates Screen Ur Buprenorphine Scrn Ur Oxycodone Screen Urine Methadone Screen Urine Fentanyl Screen Ur Barbiturates Screen Ur Phencyclidine Scrn Ur Amphetamines Screen U Benzodiazepines Scrn [place] Urine Cocaine Screen U Marijuana (THC) Screen Ethyl Alcohol Influenza Type A (PCR) Influenza Type B (PCR) RSV RNA Qual (PCR) SARS-CoV-2 RNA (RT-PCR) 08/31/25 08/31/25 08/31/25 00:11 09:12 09:40 WBC 9.1 RBC 4.86 Hgb 13.5 L Hct 42.1 MCV 86.6 MCH 27.8 MCHC 32.1 RDW 13.8 Plt Count 240 MPV 9.4 Immature Gran % (Auto) Neut % (Auto) Lymph % (Auto) [place] % (Auto) Eos % (Auto) Baso % (Auto) Lymph # (Auto) [place] # (Auto) Eos # (Auto) Baso # (Auto) Abs Immat Gran (auto) Absolute Neuts (auto) Absolute Nucleated RBC 0.000 Nucleated RBC % (auto) 0.0 PT INR VBG pH VBG pCO2 VBG pO2 VBG HCO3 VBG O2 Saturation VBG Base Excess Sodium 143 Potassium 3.6 Chloride 110 H Carbon Dioxide 24 Anion Gap 13 BUN 14 Creatinine 0.66 Estim Creat Clear Calc 112.1 Estimated GFR > 60 POC Glucose 84 Random Glucose 85 Lactic Acid Calcium 8.8 Magnesium Total Bilirubin 0.7 AST 26 ALT 17 Alkaline Phosphatase 93 Ammonia Troponin I High Sens Total Protein 6.7 Albumin 4.3 Vitamin B12 Folate TSH Urine Color Urine Appearance Urine pH Ur Specific [place] Urine Protein Urine Glucose (UA) Urine Ketones Urine Blood Urine Nitrite Ur Leukocyte Esterase Urine RBC Urine WBC Ur Squamous Epith Cells Calcium Oxalate Crystal Urine Bacteria Hyaline Casts Urine Opiates Screen Ur Buprenorphine Scrn Ur Oxycodone Screen Urine Methadone Screen Urine Fentanyl Screen Ur Barbiturates Screen Ur Phencyclidine Scrn Ur Amphetamines Screen U Benzodiazepines Scrn [place] 0.39 L Urine Cocaine Screen U Marijuana (THC) Screen Ethyl Alcohol Influenza Type A (PCR) Influenza Type B (PCR) RSV RNA Qual (PCR) SARS-CoV-2 RNA (RT-PCR) 08/31/25 11:17 WBC RBC Hgb Hct MCV MCH MCHC RDW Plt Count MPV Immature Gran % (Auto) Neut % (Auto) Lymph % (Auto) [place] % (Auto) Eos % (Auto) Baso % (Auto) Lymph # (Auto) [place] # (Auto) Eos # (Auto) Baso # (Auto) Abs Immat Gran (auto) Absolute Neuts (auto) Absolute Nucleated RBC Nucleated RBC % (auto) PT INR VBG pH VBG pCO2 VBG pO2 VBG HCO3 VBG O2 Saturation VBG Base Excess Sodium Potassium Chloride Carbon Dioxide Anion Gap BUN Creatinine Estim Creat Clear Calc Estimated GFR POC Glucose 90 Random Glucose Lactic Acid Calcium Magnesium Total Bilirubin AST ALT Alkaline Phosphatase Ammonia Troponin I High Sens Total Protein Albumin Vitamin B12 Folate TSH Urine Color Urine Appearance Urine pH Ur Specific [place] Urine Protein Urine Glucose (UA) Urine Ketones Urine Blood Urine Nitrite Ur Leukocyte Esterase Urine RBC Urine WBC Ur Squamous Epith Cells Calcium Oxalate Crystal Urine Bacteria Hyaline Casts Urine Opiates Screen Ur Buprenorphine Scrn Ur Oxycodone Screen Urine Methadone Screen Urine Fentanyl Screen Ur Barbiturates Screen Ur Phencyclidine Scrn Ur Amphetamines Screen U Benzodiazepines Scrn [place] Urine Cocaine Screen U Marijuana (THC) Screen Ethyl Alcohol Influenza Type A (PCR) Influenza Type B (PCR) RSV RNA Qual (PCR) SARS-CoV-2 RNA (RT-PCR) Mental Status Exam Mental Status Exam Patient Appearance: Disheveled Patient Orientation: Person Level of Consciousness: Awake Patient Behavior: Talkative and Confused Mood Description: Labile Affect Description: Labile Patient Cognition Impaired: Yes Ability to Follow Directions: Poor Speech Pattern: Rambling, Mumbled and Pressured Thought Process: Distracted and Confusion Thought Content: positive for Suicidal Ideation (no evidence of) Judgement: Poor Medications Medications Current Medications Acetaminophen (Acetaminophen 325 Mg Tablet) 650 mg PO Q6H PRN PRN Reason: Pain, Mild 1-3,fever,headache Albuterol/Ipratropium (Albuterol/Iprat 2.5/0.5mg 3 Ml Ampul.Neb) 3 ml INHALE Q4H PRN PRN Reason: Shortness of Breath/Wheezing Calcium Carbonate (Calcium Carbonate 750 Mg Tab.Chew) 750 mg PO Q4H PRN PRN Reason: Heartburn Clozapine (Clozapine 100 Mg Tablet) 400 mg PO BEDTIME [facility] Dextrose (Dextrose 50 % 25 Gm/50 Ml Syringe) 25 gm IVPUSH Q15M PRN; Protocol PRN Reason: per Hypoglycemia Standing Ord. Last Admin: 08/30/25 21:29 Dose: 25 gm Dextrose (Dextrose 50 % 25 Gm/50 Ml Syringe) 25 gm IVPUSH Q15M PRN; Protocol PRN Reason: per Hypoglycemia Standing Ord. Finasteride (Finasteride 5 Mg Tablet) 5 mg PO DAILY [facility] Last Admin: 08/31/25 09:37 Dose: Not Given Glucose (Glucose Gel 15 Gm Gel..Gram.) 15 gm PO Q15M PRN; Protocol PRN Reason: per Hypoglycemia Standing Ord. Glycopyrrolate (Glycopyrrolate 1 Mg Tablet) 3 mg PO DAILY [facility] Last Admin: 08/31/25 09:37 Dose: Not Given Dextrose/Sodium Chloride (D51/2ns) 1,000 mls @ 50 mls/hr IVCONT .Q20H [facility] Last Admin: 08/30/25 21:42 Dose: 50 mls/hr Levetiracetam 1,000 mg/ Sodium (Chloride) 110 mls @ 430 mls/hr IV BEDTIME ETHEL Levetiracetam 250 mg/ Sodium (Chloride) 102.5 mls @ 410 mls/hr IV DAILY [facility] Last Infusion: 08/31/25 09:49 Dose: Infused Ceftriaxone Sodium 1 gm/ (Sodium Chloride) 50 mls @ 100 mls/hr IV Q24H [facility] Stop: 09/07/25 10:59 Last Infusion: 08/31/25 11:56 Dose: Infused Ibuprofen (Ibuprofen 600 Mg Tablet) 600 mg PO Q8H PRN PRN Reason: Muscle Pain Insulin Human Lispro (Insulin Lispro 100 Unit/Ml 3 Ml Vial) 0 unit SUBCUT QIDACHS [facility]; Protocol Last Admin: 08/31/25 12:37 Dose: Not Given Levetiracetam (Levetiracetam 500 Mg Tablet) 500 mg PO DAILY [facility] On Hold: 08/31/25 08:21 Last Admin: 08/31/25 01:02 Dose: Not Given Levothyroxine Sodium (Levothyroxine Sodium 88 Mcg Tablet) 88 mcg PO DAILY@0600 [facility] Last Admin: 08/31/25 05:22 Dose: Not Given [place] Carbonate ([place] Carbonate Er 450 Mg Tablet.Er) 450 mg PO BID [facility] Last Admin: 08/31/25 09:37 Dose: Not Given Magnesium Hydroxide (Milk Of Magnesia 30 Ml Oral.Susp) 30 ml PO DAILY PRN PRN Reason: Constipation Melatonin (Melatonin 3 Mg Tablet) 6 mg PO BEDTIME PRN PRN Reason: Insomnia Sodium Chloride (0.9 % Sodium Chloride Flush 3 Ml Syringe) 3 ml IVFLUSH QSHIFT [facility] Last Admin: 08/31/25 09:37 Dose: 3 ml Allergies Allergies Allergy/AdvReac Type Severity Reaction Status Date / Time Penicillins Allergy Unknown Verified 08/30/25 09:50 poison jolanta extract Allergy Unknown Verified 08/30/25 09:50 Assessment & Plan Assessment & Plan (1) Acute encephalopathy due to infection: Status: Acute Code(s): G93.49 - Other encephalopathy; B99.9 - Unspecified infectious disease (2) Schizoaffective disorder, unspecified: Status: Acute Code(s): F25.9 - Schizoaffective disorder, unspecified Plan 4yo male presenting with established history of 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 Recommend increasing clozapine to 50mg morning (start today) and continue 400mg bedtime (give dose tonight as missed yesterday) and mental state should improve as infection is treated. Continue pre admission psychotropic med doses. Olanzapine 5mg PO/IM if needed for severe agitation. Inpatient psychiatry not indicated currently as presentation secondary to delirium. Currently does not demonstrate an understanding of cuerent situation, treatment required, risks of declining it and therefore does not have the capacity to make medical decisions ref declining treatment or discharge AMA. Total time managing care of this patient today ____ minutes.
--- NOTE | 2025-08-31 14:44 | PM.NEUROCN ---
History of Present Illness Data of Consult Service Date: 08/31/25 Primary Care Provider: Charles Zhang DO HPI Reason for consult: Encephalopathy 65-year-old male with a past medical history of TBI, seizure disorder, history, HLD, dm, COPD, dementia, schizoaffective disorder, LLUVIA, GERD; [facility] with a chief complaint of altered mental status. he was unable to provide any history as he did not follow commands and did not answer all questions. Review of Systems Review of Systems: Could not be done with a [facility] Past Medical History Medical History (Updated 08/31/25 @ 13:28 by Felice Raza MD) Class 1 obesity Pneumonia Psoriasis, unspecified Constipation, unspecified Gastro-esophageal reflux disease without esophagitis Anoxic brain damage, not elsewhere classified Obstructive sleep apnea (adult) (pediatric) Schizoaffective disorder, unspecified Dementia in other diseases classified elsewhere, unspecified severity, with other behavioral disturbance Hyperlipidemia, unspecified Other obesity due to excess calories Vitamin D deficiency, unspecified Type 2 diabetes mellitus without complications Hypothyroidism, unspecified Unspecified asthma, uncomplicated Chronic obstructive pulmonary disease, unspecified Essential (primary) hypertension Social History Social History Household Members: Other Housing: Custodial Housing Other:: [facility] Do you presently have visiting nurse or other home services: No Unable to assess alcohol history related to: Unable to respond Alcohol intake: former Comment: 1:1 Patient Tobacco Use Status: Tobacco use Unknown Smoked in Last 30 Days: No Use of substances other than those prescribed or required for medical reasons: Unable to respond Currently Displaying Signs/Symptoms of Drug Intoxication Withdrawal: No Advance Directives: Yes Advance Directives on File: Yes Advance Directives Date on File: 08/30/25 Do you have a plan to hurt others: No Plan Recently lost weight without trying: Unsure Nutrition Risks: No Nutritional Risk Poor oral hygiene: Yes service: No Meds Allergies Allergy/AdvReac Type Severity Reaction Status Date / Time Penicillins Allergy Unknown Verified 08/30/25 09:50 poison jolanta extract Allergy Unknown Verified 08/30/25 09:50 Active Medications: Current Medications Acetaminophen (Acetaminophen 325 Mg Tablet) 650 mg PO Q6H PRN PRN Reason: Pain, Mild 1-3,fever,headache Albuterol/Ipratropium (Albuterol/Iprat 2.5/0.5mg 3 Ml Ampul.Neb) 3 ml INHALE Q4H PRN PRN Reason: Shortness of Breath/Wheezing Calcium Carbonate (Calcium Carbonate 750 Mg Tab.Chew) 750 mg PO Q4H PRN PRN Reason: Heartburn Clozapine (Clozapine 100 Mg Tablet) 400 mg PO BEDTIME ETHEL Clozapine (Clozapine 25 Mg Tablet) 50 mg PO DAILY [facility] Dextrose (Dextrose 50 % 25 Gm/50 Ml Syringe) 25 gm IVPUSH Q15M PRN; Protocol PRN Reason: per Hypoglycemia Standing Ord. Last Admin: 08/30/25 21:29 Dose: 25 gm Dextrose (Dextrose 50 % 25 Gm/50 Ml Syringe) 25 gm IVPUSH Q15M PRN; Protocol PRN Reason: per Hypoglycemia Standing Ord. Finasteride (Finasteride 5 Mg Tablet) 5 mg PO DAILY [facility] Last Admin: 08/31/25 09:37 Dose: Not Given Glucose (Glucose Gel 15 Gm Gel..Gram.) 15 gm PO Q15M PRN; Protocol PRN Reason: per Hypoglycemia Standing Ord. Glycopyrrolate (Glycopyrrolate 1 Mg Tablet) 3 mg PO DAILY [facility] Last Admin: 08/31/25 09:37 Dose: Not Given Dextrose/Sodium Chloride (D51/2ns) 1,000 mls @ 50 mls/hr IVCONT .Q20H [facility] Last Admin: 08/30/25 21:42 Dose: 50 mls/hr Levetiracetam 1,000 mg/ Sodium (Chloride) 110 mls @ 430 mls/hr IV BEDTIME ETHEL Levetiracetam 250 mg/ Sodium (Chloride) 102.5 mls @ 410 mls/hr IV DAILY [facility] Last Infusion: 08/31/25 09:49 Dose: Infused Ceftriaxone Sodium 1 gm/ (Sodium Chloride) 50 mls @ 100 mls/hr IV Q24H [facility] Stop: 09/07/25 10:59 Last Infusion: 08/31/25 11:56 Dose: Infused Ibuprofen (Ibuprofen 600 Mg Tablet) 600 mg PO Q8H PRN PRN Reason: Muscle Pain Insulin Human Lispro (Insulin Lispro 100 Unit/Ml 3 Ml Vial) 0 unit SUBCUT QIDACHS [facility]; Protocol Last Admin: 08/31/25 12:37 Dose: Not Given Levetiracetam (Levetiracetam 500 Mg Tablet) 500 mg PO DAILY [facility] On Hold: 08/31/25 08:21 Last Admin: 08/31/25 01:02 Dose: Not Given Levothyroxine Sodium (Levothyroxine Sodium 88 Mcg Tablet) 88 mcg PO DAILY@0600 [facility] Last Admin: 08/31/25 05:22 Dose: Not Given [place] Carbonate ([place] Carbonate Er 450 Mg Tablet.Er) 450 mg PO BID [facility] Last Admin: 08/31/25 09:37 Dose: Not Given Magnesium Hydroxide (Milk Of Magnesia 30 Ml Oral.Susp) 30 ml PO DAILY PRN PRN Reason: Constipation Melatonin (Melatonin 3 Mg Tablet) 6 mg PO BEDTIME PRN PRN Reason: Insomnia Sodium Chloride (0.9 % Sodium Chloride Flush 3 Ml Syringe) 3 ml IVFLUSH QSHIFT [facility] Last Admin: 08/31/25 09:37 Dose: 3 ml Home Medications ?Medication ?Instructions ?Recorded ?Confirmed ?Last Taken ?Type acetaminophen 325 mg tablet 650 mg PO Q6H PRN Fever Or Pain 01/04/23 08/30/25 08/29/25 History atorvastatin 10 mg tablet 10 mg PO DAILY 01/04/23 08/30/25 08/29/25 History bisacodyl 10 mg rectal suppository [address] DAILY PRN if senna or MOM 01/04/23 08/30/25 08/29/25 History ineffective glycopyrrolate 1 mg tablet 3 mg PO DAILY 01/04/23 08/30/25 08/29/25 History lithium carbonate 450 mg 450 mg PO BID 01/04/23 08/30/25 08/29/25 History tablet,extended release metformin 500 mg tablet 500 mg PO BID 01/04/23 08/30/25 08/29/25 History pantoprazole 40 mg tablet,delayed 40 mg PO BID@0630,1630 01/04/23 08/30/25 08/29/25 History release risankizumab-rzaa 150 mg/mL 150 mg subcut Q84D 01/04/23 08/30/25 08/29/25 History subcutaneous pen injector (Skyrizi) sodium phosphates 19 gram-[address] DAILY PRN if bisacodyl 01/04/23 08/31/25 Unknown History gram/118 mL enema (Fleet Enema) supp ineffective cholecalciferol (vitamin D3) 1,250 1,250 mcg PO TH 06/19/23 08/30/25 Unknown History mcg (50,000 unit) capsule fluticasone furoate 100 1 inh inhalation DAILY 10/06/24 08/30/25 Unknown History mcg-vilanterol 25 mcg/dose inhalation powder (Breo Ellipta) glucagon HCl 1 mg solution for 1 mg IM Q15M PRN severe 10/06/24 08/31/25 08/29/25 History injection hypoglycemia ibuprofen 600 mg tablet 600 mg PO Q8H PRN Muscle Pain 10/06/24 08/30/25 08/29/25 History levothyroxine 75 mcg tablet 88 mcg PO DAILY@0600 10/06/24 08/30/25 08/29/25 History linaclotide 72 mcg capsule 72 mcg PO BID 10/06/24 08/30/25 08/29/25 History (Linzess) magnesium hydroxide 400 mg/5 mL 30 ml PO DAILY PRN Constipation 10/06/24 08/30/25 08/29/25 History oral suspension (Milk of Magnesia) psyllium 1 packet PO DAILY 10/06/24 08/31/25 Unknown History sennosides 8.6 mg tablet (senna) 17.2 mg PO BID 10/06/24 08/30/25 08/29/25 History carboxymethylcellulose sodium 0.5 1 drp ophthalmic (eye) Q4H PRN Dry 07/02/25 08/30/25 Unknown History % eye drops (Refresh Tears) Eye(S) clozapine 200 mg tablet 400 mg PO BEDTIME 07/02/25 08/30/25 08/29/25 History guaifenesin 100 mg/5 mL oral liquid 200 mg PO Q6H PRN Cough 07/02/25 08/31/25 Unknown History lactulose 10 gram/15 mL oral 30 ml PO BID 07/02/25 08/30/25 08/29/25 History solution levetiracetam 750 mg 750 mg PO BEDTIME 07/02/25 08/30/25 08/29/25 History tablet,extended release 24 hr clozapine 100 mg tablet 100 mg PO DAILY schizoaffective 08/30/25 08/30/25 08/29/25 History aluminum-mag hydroxide-simethicone 30 ml PO Q12H PRN Dyspepsia 08/31/25 08/31/25 Unknown History 200 mg-200 mg-20 mg/5 mL oral susp levetiracetam 500 mg 500 mg PO DAILY 08/31/25 08/31/25 Unknown History tablet,extended release 24 hr (Keppra XR) sennosides 8.6 mg tablet (senna) 8.6 mg PO DAILY PRN Constipation 08/31/25 08/31/25 Unknown History zinc oxide 20 % topical paste 1 ea topical BID 08/31/25 08/31/25 Unknown History Physical Exam Vital Signs: Vital Signs: Last Vital Signs Temp 97.5 F 08/31/25 00:00 Pulse 81 08/31/25 00:00 Resp 18 08/31/25 00:00 BP 145/82 H 08/31/25 00:00 Pulse Ox 94 08/31/25 00:00 O2 Del Method Room Air 08/31/25 00:00 O2 Flow Rate 2 08/30/25 16:18 BMI result Body Mass Index 25.6 Neuro: Other: Mental Status: he is alert and awake continuously talking but not making sense and not following commands. Cranial Nerves: CN II: Visual rosa full to confrontation, visual acuity intact. CN III, IV, : Pupils equal, round, reactive to light and accommodation. Extraocular movements are normal. CN V: Facial sensation is normal. CN VII: Facial movements symmetrical. CN VIII: Hearing intact to bedside conversation is normal. CN IX, X: Palate elevates symmetrically. CN XI: Shoulder shrug and head turn symmetrical. CN XII: Tongue midline without atrophy or fasciculations. Motor: He did not follow formal commands of examination. This seems not to be any obvious focal arm or leg weakness. Plantars are flexor. Extrapyramidal: Full facial expressions and blinking. No rigidity. Movements are appropriate with no tremor or abnormality. Speech: Normal; no dysarthria or tremor. Results Labs 08/31/25 09:12 08/31/25 09:12 Labs: Short CBC 08/31/25 Range/Units 09:12 WBC 9.1 (4.8-10.8) X10*3/uL Hgb 13.5 L (14.0-18.0) g/dl Hct 42.1 (42.0-52.0) % Plt Count 240 (160-400) X10*3/uL BMP 08/31/25 09:12 Sodium 143 Potassium 3.6 Chloride 110 H Carbon Dioxide 24 BUN 14 Creatinine 0.66 Calcium 8.8 Liver Function 08/31/25 Range/Units 09:12 Total Bilirubin 0.7 (0.0-1.0) mg/dL AST 26 (5-37) U/L ALT 17 (0-40) U/L Alkaline Phosphatase 93 (39-117) U/L Albumin 4.3 (3.5-5.0) g/dL [address] [address] [address] Scan Report Signed Patient: Braden Nolen MR#: [id number] : 1960 Acct:[id number] Age/Sex: 65 / M ADM Date: 08/30/25 Loc: HO.ED Attending Dr: Ordering Physician: Skylar Kay NP Date of Service: 08/30/25 Procedure(s): CT head/brain wo IV con Accession Number(s): [id number] cc: Charles Zhang DO; Skylar Kay NP~ Report Number: [id number]: Total DLP = 738.00 mGy-cm Reason for Exam: AMS CLINICAL HISTORY: AMS --- Additional Notes or Special Instructions: WAITING ON PT TO SETTLE CT HEAD WITHOUT CONTRAST Comparison: CT/REG/SR - CT HEAD/BRAIN WO IV CON - 07/02/25 19:58 EDT Findings: No acute intracranial hemorrhage, extra-axial fluid collection, hydrocephalus or midline shift. Age appropriate generalized parenchymal atrophy. There are periventricular and subcortical white matter hypodensities which are nonspecific but most likely related to microangiopathic gliosis. There is no sinus or mastoid fluid. Visualized orbits: No acute abnormalities. There is no acute fracture. IMPRESSION: 1. No acute intracranial process. Microbiology Microbiology Results: Microbiology 08/30/25 10:16 Blood - Venous Blood Culture - Preliminary No growth after 24 hours. 08/30/25 10:12 Blood - Venous Blood Culture - Preliminary No growth after 24 hours. Assessment and Plan (1) Altered mental status: Qualifiers: Altered mental status type: unspecified Qualified Code(s): R41.82 - Altered mental status, unspecified Status: Acute 65 years old man with complex underlying psychiatric and neurological history came to hospital with change in mental status. He was unable to provide any meaningful history. My recommendation is to obtain an EEG in a noncontrast MRI for better definition. Procedures Date of Service Date of Service: 08/31/25
--- NOTE | 2025-08-31 16:01 | MHC.CM.PN ---
IMM GIVEN 08/31. THIS CM MET WITH PATIENT IN ROOM, HE HAS 1:1 STAFF WITH HIM, HE IS UNABLE TO ENGAGE IN MEANINGFUL CONVERSATION. THIS CM ATTEMPTED TO CONTACT PATIENTS GUARDIAN/JANICE @ [phone], VOICEMAIL WAS LEFT, AWAITING RETURN CALL. PER CHART REVIEW, PATIENT IS A LTC RESIDENT AT [facility], WHERE HE WILL RETURN VIA BLS ONCE MEDICALLY CLEARED. PCP: DR. HANS BREAUX
[2025-08-31] MEDS: Dextrose 5 % and 0.45 % NaCl 1,000 ML 50 ML IVCONT (17:43)
[2025-08-31 23:17] VITALS: BP 149/68; PULSE 83; RESP 18; TEMP 36.6; O2SAT 94
--- NOTE | 2025-09-01 | EEG_ITS ---
History: 65-year-old male with a past medical history of TBI, seizure disorder, history, HLD, dm, COPD, dementia, schizoaffective disorder, LLUVIA, GERD; presented to the hospital from [facility] with a chief complaint of altered mental status. With UA suspicious for UTI Medications: Acetaminophen, Albuterol/Ipratropium, Calcium Carbonate, Clozapine, Finasteride, Glycopyrrolate, Levetiracetam, Ceftriaxone Sodium, Ibuprofen, Levothyroxine Sodium,[place] Carbonate, Magnesium Hydroxide, Melatonin, Sodium Chloride Technical Description Photic Stimulation: completed Hyperventilation: omitted Behavioral State: Patient does not respond to commands and is difficult to arouse State of Consciousness: mostly sleep with some arousals Skull Defect: none Sedation: none Handedness: unknown Duration: 23 min 22 sec Description: This is a 16 channel EEG with an EKG lead. Background EEG rhythm is mostly in theta range 5 to 50 microvolt posteriorly and lower amplitude fast anteriorly. Rare left frontocentral sharp waves with phase reversal at F3 in 1 generalize sharp and slow wave complex was noted. Photic stimulation did not produce any significant driving. Hyperventilation was not performed. Cardiac lead did not reveal any significant abnormality. Impression: Abnormal EEG suggestive of underlying tendency for seizure disorder with left hemispheric focus MTDD
[2025-09-01 02:57] LABS: Glucose, Whole Blood 105 mg/dL (60-115)
[2025-09-01 03:23] VITALS: BP 111/58; PULSE 80; RESP 18; TEMP 37; O2SAT 96
[2025-09-01 08:00] VITALS: BP 115/71; PULSE 79; RESP 20; TEMP 36.9; O2SAT 95
[2025-09-01 08:16] LABS: Syphilis Screen Nonreactive (Nonreactive)
[2025-09-01 08:41] LABS: Glucose, Whole Blood 99 mg/dL (60-115)
--- NOTE | 2025-09-01 09:28 | HO.PM.IMPN ---
Subjective Subjective Date of Service: 09/01/25 Interval History: Patient seen and examined at bedside this morning, patient resting comfortably in bed, seen by psychiatry suggested continuing treating for IV antibiotics. Review of Systems Review of Systems: Yes all other systems are reviewed and are negative Physical Exam Exam: Exam: General: AxOx1, No acute distress Head: AT/NC ENT: moist mucous membranes Neck: supple Lungs: Bilateral symmetry, no wheezing Abd: Soft, non distended Ext: No edema MSK: moving all 4 limbs Skin: No cyanosis or edema Psych: Poorly Cooperative with exam Neurology: no focal deficit Vital Signs: Vital Signs: Last Vital Signs Temp 98.6 F 09/01/25 03:23 Pulse 80 09/01/25 03:23 Resp 18 09/01/25 03:23 BP 111/58 L 09/01/25 03:23 Pulse Ox 96 09/01/25 03:23 O2 Del Method Room Air 09/01/25 03:23 O2 Flow Rate 2 08/30/25 16:18 BMI result Body Mass Index 25.6 Objective Data Active Medications Acetaminophen (Acetaminophen 325 Mg Tablet) 650 mg PO Q6H PRN PRN Reason: Pain, Mild 1-3,fever,headache Albuterol/Ipratropium (Albuterol/Iprat 2.5/0.5mg 3 Ml Ampul.Neb) 3 ml INHALE Q4H PRN PRN Reason: Shortness of Breath/Wheezing Calcium Carbonate (Calcium Carbonate 750 Mg Tab.Chew) 750 mg PO Q4H PRN PRN Reason: Heartburn Clozapine (Clozapine 100 Mg Tablet) 400 mg PO BEDTIME [facility] Last Admin: 08/31/25 22:59 Dose: Not Given Documented By: BRANDON Non-Admin Reason: Patient Refused Clozapine (Clozapine 25 Mg Tablet) 50 mg PO DAILY [facility] Last Admin: 08/31/25 14:45 Dose: 50 mg Documented By: JUDAH Dextrose (Dextrose 50 % 25 Gm/50 Ml Syringe) 25 gm IVPUSH Q15M PRN; Protocol PRN Reason: per Hypoglycemia Standing Ord. Last Admin: 08/30/25 21:29 Dose: 25 gm Documented By: MAUREEN Dextrose (Dextrose 50 % 25 Gm/50 Ml Syringe) 25 gm IVPUSH Q15M PRN; Protocol PRN Reason: per Hypoglycemia Standing Ord. Finasteride (Finasteride 5 Mg Tablet) 5 mg PO DAILY [facility] Last Admin: 08/31/25 09:37 Dose: Not Given Documented By: JUDAH Non-Admin Reason: Physician Approved Glucose (Glucose Gel 15 Gm Gel..Gram.) 15 gm PO Q15M PRN; Protocol PRN Reason: per Hypoglycemia Standing Ord. Glycopyrrolate (Glycopyrrolate 1 Mg Tablet) 3 mg PO DAILY [facility] Last Admin: 08/31/25 09:37 Dose: Not Given Documented By: JUDAH Non-Admin Reason: Physician Approved Dextrose/Sodium Chloride (D51/2ns) 1,000 mls @ 50 mls/hr IVCONT .Q20H [facility] Last Admin: 08/31/25 17:43 Dose: 50 mls/hr Documented By: JUDAH Levetiracetam 1,000 mg/ Sodium (Chloride) 110 mls @ 430 mls/hr IV BEDTIME [facility] Last Infusion: 08/31/25 21:07 Dose: Infused Documented By: BRANDON Levetiracetam 250 mg/ Sodium (Chloride) 102.5 mls @ 410 mls/hr IV DAILY [facility] Last Infusion: 08/31/25 09:49 Dose: Infused Documented By: JUDAH Ceftriaxone Sodium 1 gm/ (Sodium Chloride) 50 mls @ 100 mls/hr IV Q24H [facility] Stop: 09/07/25 10:59 Last Infusion: 08/31/25 11:56 Dose: Infused Documented By: JUDAH Ibuprofen (Ibuprofen 600 Mg Tablet) 600 mg PO Q8H PRN PRN Reason: Muscle Pain Insulin Human Lispro (Insulin Lispro 100 Unit/Ml 3 Ml Vial) 0 unit SUBCUT QIDACHS [facility]; Protocol Last Admin: 09/01/25 09:10 Dose: Not Given Documented By: JOSE Non-Admin Reason: No Insulin Coverage Levetiracetam (Levetiracetam 500 Mg Tablet) 500 mg PO DAILY [facility] On Hold: 08/31/25 08:21 Last Admin: 08/31/25 01:02 Dose: Not Given Documented By: BRANDON Non-Admin Reason: pt. refused Levothyroxine Sodium (Levothyroxine Sodium 88 Mcg Tablet) 88 mcg PO DAILY@0600 [facility] Last Admin: 09/01/25 05:46 Dose: Not Given Documented By: BRANDON Non-Admin Reason: Patient Refused [place] Carbonate ([place] Carbonate Er 450 Mg Tablet.Er) 450 mg PO BID [facility] Last Admin: 08/31/25 22:59 Dose: Not Given Documented By: BRANDON Non-Admin Reason: Patient Refused Magnesium Hydroxide (Milk Of Magnesia 30 Ml Oral.Susp) 30 ml PO DAILY PRN PRN Reason: Constipation Melatonin (Melatonin 3 Mg Tablet) 6 mg PO BEDTIME PRN PRN Reason: Insomnia Sodium Chloride (0.9 % Sodium Chloride Flush 3 Ml Syringe) 3 ml IVFLUSH QSHIFT [facility] Last Admin: 09/01/25 02:08 Dose: Not Given Documented By: BRANDON Non-Admin Reason: IV Running Labs 08/31/25 09:12 08/31/25 09:12 Labs: Laboratory Results - last 24 hr 08/30/25 08/31/25 08/31/25 21:48 09:12 09:40 Anion Gap 13 Estim Creat Clear Calc 112.1 Estimated GFR > 60 POC Glucose 84 Random Glucose 85 Calcium 8.8 Total Bilirubin 0.7 AST 26 ALT 17 Alkaline Phosphatase 93 Total Protein 6.7 Albumin 4.3 T.pallidum Ab (EIA) Nonreactive 08/31/25 09/01/25 09/01/25 11:17 02:52 08:33 Anion Gap Estim Creat Clear Calc Estimated GFR POC Glucose 90 105 99 Random Glucose Calcium Total Bilirubin AST ALT Alkaline Phosphatase Total Protein Albumin T.pallidum Ab (EIA) Microbiology Microbiology Results: Microbiology 08/30/25 10:16 Blood Culture - Preliminary Blood - Venous No growth after 24 hours. 08/30/25 10:12 Blood Culture - Preliminary Blood - Venous No growth after 24 hours. Assessment and Plan (1) Acute encephalopathy due to infection: Status: Acute Plan 65-year-old male with a past medical history of TBI, seizure disorder, history, HLD, dm, COPD, dementia, schizoaffective disorder, LLUVIA, GERD; presented to the hospital from [facility] with a chief complaint of altered mental status. With UA suspicious for UTI Toxic metabolic encephalopathy, likely secondary to UTI, improving Urinary tract infection UA with hyaline casts and leukocyte esterase CT head showed no acute findings Rocephin 1 g Q 24 hours orders x7 days Patient also has been noncompliant with his home medications secondary to UTI and underlying behavioral disorder Per neruology, suggested on MRI and EEG Schizoaffective disorder, chronic: Continue home medications, psychiatry consulted, increasing clozapine 25 mg in a.m. and continue 400 mg at bedtime, with p.r.n. olanzapine 5 mg for severe agitation p.r.n.. Diabetes: Insulin sliding scale Seizure disorder: Continue IV Keppra, as patient was refusing PO meds Hypothyroidism: Continue levothyroxine DVT prophylaxis: Subcu heparin Code status: Full code Total time managing care of this patient today: 55 minutes. Quality Stroke Does the patient have a stroke diagnosis?: No VTE Prior VTE?: No VTE Risk Level:: Medical - moderate - high VTE Device Contraindication: Treatment Not Indicated VTE Drug Contraindication: N/A - Med Ordered
--- NOTE | 2025-09-01 11:24 | MHC.SLORD ---
Speech Language Pathology Order Status: Clinical bedside swallow evaluation ordered, RN unable to complete swallow screen, pt not waking to participate. RN consulted, pt has EEG pending, pt currently on Keppra. MOBILE EQUIPMENT OPERATOR will assess when pt alert.
[2025-09-01 11:42] LABS: Glucose, Whole Blood 95 mg/dL (60-115)
[2025-09-01 12:00] VITALS: BP 146/77; PULSE 78; RESP 20; TEMP 36.2; O2SAT 98
[2025-09-01] MEDS: Dextrose 5 % and 0.45 % NaCl 1,000 ML 50 ML IVCONT (12:05)
[2025-09-01 16:00] VITALS: BP 121/77; PULSE 79; RESP 18; TEMP 36.6; O2SAT 95
--- NOTE | 2025-09-01 16:12 | MHC.CM.PN ---
Pt. requires ongoing care for UTI, DCP is return to [facility] to follow and assist with DC needs.
[2025-09-01 16:15] LABS: Glucose, Whole Blood 126 mg/dL (60-115)
[2025-09-01 19:33] VITALS: BP 137/72; PULSE 75; RESP 18; TEMP 37.2; O2SAT 93
[2025-09-01] MEDS: 0.9 % Sodium Chloride Flush 3 ML SYRINGE IVFLUSH (20:50)
[2025-09-01 20:51] LABS: Glucose, Whole Blood 106 mg/dL (60-115)
[2025-09-02] VITALS: BP 135/69; PULSE 74; RESP 18; TEMP 36.6; O2SAT 96
[2025-09-02 03:51] VITALS: BP 98/54; PULSE 69; RESP 18; TEMP 36.4; O2SAT 94
--- NOTE | 2025-09-02 06:41 | PC.NURSE ---
very brief outbursts yelling out this AM then settles down with therapeutic communication. quickly falls asleep, snoring. sitter remains.
[2025-09-02 07:34] VITALS: BP 131/79; PULSE 61; RESP 16; TEMP 36.7; O2SAT 98
[2025-09-02 07:50] LABS: Glucose, Whole Blood 84 mg/dL (60-115)
[2025-09-02] MEDS: 0.9 % Sodium Chloride Flush 3 ML SYRINGE IVFLUSH ×2 (11:05→22:35)
[2025-09-02 11:32] VITALS: BP 145/82; PULSE 78; RESP 16; TEMP 36.8; O2SAT 95
[2025-09-02 11:52] LABS: Glucose, Whole Blood 90 mg/dL (60-115)
--- NOTE | 2025-09-02 14:16 | P.PNIM_ITS ---
Subjective Subjective Date of Service: 09/02/25 Interval History: Patient seen examined at bedside this morning, patient continues to be somnolent, awakens to stimuli. Overnight patient was trying to get out of bed. Continues on antibiotics for UTI Review of Systems Review of Systems: Yes all other systems are reviewed and are negative Physical Exam 2 Exam: Exam: General: somnolentxOx1, No acute distress Head: AT/NC ENT: moist mucous membranes Neck: supple Lungs: Bilateral symmetry, no wheezing Abd: Soft, non distended Ext: No edema MSK: moving all 4 limbs Skin: No cyanosis or edema Psych: Poorly Cooperative with exam Neurology: no focal deficit Vital Signs: Vital Signs: Last Vital Signs Temp 98.3 F 09/02/25 11:32 Pulse 78 09/02/25 11:32 Resp 16 09/02/25 11:32 BP 145/82 H 09/02/25 11:32 Pulse Ox 95 09/02/25 11:32 O2 Del Method Room Air 09/02/25 11:32 O2 Flow Rate 2 08/30/25 16:18 BMI result Body Mass Index 25.6 Objective Data Active Medications Acetaminophen (Acetaminophen 325 Mg Tablet) 650 mg PO Q6H PRN PRN Reason: Pain, Mild 1-3,fever,headache Al Hydroxide/Mg Hydroxide (Magnesium Hydrox/Alum Hydrox 30 Ml Oral.Susp) 30 ml PO Q12H PRN PRN Reason: Dyspepsia Albuterol/Ipratropium (Albuterol/Iprat 2.5/0.5mg 3 Ml Ampul.Neb) 3 ml INHALE Q4H PRN PRN Reason: Shortness of Breath/Wheezing Artificial Tears (Artificial Tears 15 Ml Drops) 1 drop EYE-BOTH Q4H PRN PRN Reason: Dry Eye(S) Bisacodyl (Bisacodyl 10 Mg Supp.Rect) 10 mg IN DAILY PRN PRN Reason: if senna or MOM ineffective Calcium Carbonate (Calcium Carbonate 750 Mg Tab.Chew) 750 mg PO Q4H PRN PRN Reason: Heartburn Clozapine (Clozapine 100 Mg Tablet) 400 mg PO BEDTIME ETHEL Last Admin: 09/01/25 20:49 Dose: 400 mg Documented By: MILLIE Clozapine (Clozapine 25 Mg Tablet) 50 mg PO DAILY [facility] Last Admin: 09/02/25 10:58 Dose: 50 mg Documented By: JADYN Dextrose (Dextrose 50 % 25 Gm/50 Ml Syringe) 25 gm IVPUSH Q15M PRN; Protocol PRN Reason: per Hypoglycemia Standing Ord. Last Admin: 08/30/25 21:29 Dose: 25 gm Documented By: MAUREEN Dextrose (Dextrose 50 % 25 Gm/50 Ml Syringe) 25 gm IVPUSH Q15M PRN; Protocol PRN Reason: per Hypoglycemia Standing Ord. Finasteride (Finasteride 5 Mg Tablet) 5 mg PO DAILY [facility] Last Admin: 09/02/25 10:59 Dose: 5 mg Documented By: JADYN Glucose (Glucose Gel 15 Gm Gel..Gram.) 15 gm PO Q15M PRN; Protocol PRN Reason: per Hypoglycemia Standing Ord. Glycopyrrolate (Glycopyrrolate 1 Mg Tablet) 3 mg PO DAILY [facility] Last Admin: 09/02/25 10:58 Dose: 3 mg Documented By: JADYN Guaifenesin (Guaifenesin 200 Mg/10 Ml 10 Ml Liquid) 10 ml PO Q6H PRN PRN Reason: Cough Levetiracetam 1,000 mg/ Sodium (Chloride) 110 mls @ 430 mls/hr IV BEDTIME [facility] Last Infusion: 09/01/25 21:20 Dose: Infused Documented By: MILLIE Levetiracetam 250 mg/ Sodium (Chloride) 102.5 mls @ 410 mls/hr IV DAILY [facility] Last Infusion: 09/02/25 11:59 Dose: Infused Documented By: JADYN Ceftriaxone Sodium 1 gm/ (Sodium Chloride) 50 mls @ 100 mls/hr IV Q24H [facility] Stop: 09/07/25 10:59 Last Infusion: 09/02/25 13:14 Dose: Infused Documented By: JADYN Ibuprofen (Ibuprofen 600 Mg Tablet) 600 mg PO Q8H PRN PRN Reason: Muscle Pain Last Admin: 09/01/25 20:49 Dose: 600 mg Documented By: MILLIE Insulin Human Lispro (Insulin Lispro 100 Unit/Ml 3 Ml Vial) 0 unit SUBCUT QIDACHS [facility]; Protocol Last Admin: 09/02/25 13:14 Dose: Not Given Documented By: JADYN Non-Admin Reason: No Insulin Coverage Levetiracetam (Levetiracetam 500 Mg Tablet) 500 mg PO DAILY [facility] On Hold: 08/31/25 08:21 Last Admin: 08/31/25 01:02 Dose: Not Given Documented By: BRANDON Non-Admin Reason: pt. refused Levothyroxine Sodium (Levothyroxine Sodium 88 Mcg Tablet) 88 mcg PO DAILY@0600 [facility] Last Admin: 09/02/25 06:22 Dose: Not Given Documented By: MILLIE Non-Admin Reason: Patient Refused [place] Carbonate ([place] Carbonate Er 450 Mg Tablet.Er) 450 mg PO BID [facility] Last Admin: 09/02/25 10:58 Dose: 450 mg Documented By: JADYN Magnesium Hydroxide (Milk Of Magnesia 30 Ml Oral.Susp) 30 ml PO DAILY PRN PRN Reason: Constipation Melatonin (Melatonin 3 Mg Tablet) 6 mg PO BEDTIME PRN PRN Reason: Insomnia Senna (Sennosides 8.6 Mg Tablet) 8.6 mg PO DAILY PRN PRN Reason: Constipation Sodium Chloride (0.9 % Sodium Chloride Flush 3 Ml Syringe) 3 ml IVFLUSH QSHIFT [facility] Last Admin: 09/02/25 11:05 Dose: 3 ml Documented By: JADYN Vitamin D (Cholecalciferol (Vitamin D3) 25 Mcg Tablet) 50 mcg PO DAILY [facility] Last Admin: 09/02/25 10:59 Dose: 50 mcg Documented By: JADYN Labs 08/31/25 09:12 08/31/25 09:12 Labs: Laboratory Results - last 24 hr 09/01/25 09/01/25 09/02/25 15:54 20:45 07:45 POC Glucose 126 H 106 84 09/02/25 11:49 POC Glucose 90 Microbiology Microbiology Results: Microbiology 08/30/25 10:16 Blood Culture - Preliminary Blood - Venous No growth after 48 hours. 08/30/25 10:12 Blood Culture - Preliminary Blood - Venous No growth after 48 hours. Assessment and Plan (1) Acute encephalopathy due to infection: Status: Acute Plan 65-year-old male with a past medical history of TBI, seizure disorder, history, HLD, dm, COPD, dementia, schizoaffective disorder, LLUVIA, GERD; presented to the hospital from [facility] with a chief complaint of altered mental status. With UA suspicious for UTI Toxic metabolic encephalopathy, likely secondary to UTI, stable Urinary tract infection UA with hyaline casts and leukocyte esterase CT head showed no acute findings Rocephin 1 g Q 24 hours orders x7 days Patient also has been noncompliant with his home medications secondary to UTI and underlying behavioral disorder Per neruology, suggested on MRI and EEG, abdominal x ray ordered as unable to reach Health care proxy to complete MRI screening questions Schizoaffective disorder, chronic: Continue home medications, psychiatry consulted, continue clozapine 25 mg in a.m. and continue 400 mg at bedtime, with p.r.n. olanzapine 5 mg for severe agitation p.r.n.. Diabetes: Insulin sliding scale Seizure disorder: Continue IV Keppra, as patient was refusing PO meds Hypothyroidism: Continue levothyroxine DVT prophylaxis: Subcu heparin Code status: Full code Total time managing care of this patient today: 55 minutes. Quality Stroke Does the patient have a stroke diagnosis?: No VTE Prior VTE?: No VTE Risk Level:: Medical - moderate - high VTE Device Contraindication: Treatment Not Indicated VTE Drug Contraindication: N/A - Med Ordered
[2025-09-02 16:00] VITALS: BP 142/85; PULSE 80; RESP 18; TEMP 36.1; O2SAT 96
--- NOTE | 2025-09-02 16:28 | MHC.SL.SWA ---
Speech Pathologist Impression: WFL Risk of Aspiration Due to: Dysphasia Diet Status: CONTINUE Regular/Thin Liquid Consistency and Strategies for Safe Swallow: Liquid Intake Recommendation: Thin Liquid Intake Strategies: Solid Food Consistency: Dietary Recommendations: Regular Additional Modifications to Solid Foods: Oral Medication Intake: Whole with Liquid Please contact the pharmacy regarding appropriate crushable or liquid drug formulations that are available whenever modified delivery is recommended. Compensatory Strategies and Precautions to be Taken for Safe Swallow: Sit Upright Slow self-feeding rate Small sips/bites Alternate liquids/solids Remain upright after meal (30 minutes) Supervision While Eating and Drinking for Safe Swallow: Direct Supervision (1:1) Foods to Avoid: Swallowing Recommended Treatments: Recommendation for Speech: DISCHARGE NA:Typical Evaluation Comment: Patient presents with oropharyngeal swallowing function deemed WFL. Patient able to report no swallowing difficulties. RN with no concerns.Patient with timely mastication, adequate cohesion and clearance. Patient with no s/sx of penetration/aspiration. Recommend CONTINUE with diet of regular solids, thin liquids with 1:1 supervision. Medications WHOLE with liquids. Patient at baseline, no further HEALTH ANALYST services required at this level of care. Please re-consult if any concerns arise. Recommendations communicated with MD, RD, and RN via secure chat. Frequency/Duration: Date Range for Service Req: Timeline to reassess: Election Clerk Clinican/Clinical Fellow: No Supervisory Statement: I have reviewed and agree with the student/clinical fellow's documentation: N/A Speech Language Pathologist: Shelby Evans M.A., [facility]-HEALTH ANALYST
[2025-09-02 16:44] LABS: Glucose, Whole Blood 84 mg/dL (60-115)
[2025-09-02 20:00] VITALS: BP 136/81; PULSE 76; RESP 20; TEMP 36.4; O2SAT 94
[2025-09-02 21:10] LABS: Glucose, Whole Blood 173 mg/dL (60-115)
[2025-09-03] VITALS: BP 118/73; PULSE 71; RESP 20; TEMP 36.4; O2SAT 20
[2025-09-03 04:00] VITALS: BP 124/71; PULSE 76; RESP 20; TEMP 36.2; O2SAT 96
[2025-09-03 08:00] VITALS: BP 149/77; PULSE 74; RESP 18; TEMP 36.8; O2SAT 94
[2025-09-03 10:46] LABS: Glucose, Whole Blood 91 mg/dL (60-115)
[2025-09-03] MEDS: 0.9 % Sodium Chloride Flush 3 ML SYRINGE IVFLUSH ×3 (10:51→21:48)
[2025-09-03 11:21] VITALS: BP 139/81; PULSE 80; RESP 18; TEMP 36.2; O2SAT 96
[2025-09-03 11:37] LABS: Glucose, Whole Blood 111 mg/dL (60-115)
--- NOTE | 2025-09-03 13:11 | HO.PM.IMPN ---
Subjective Subjective Date of Service: 09/03/25 Interval History: Awake talking, but doesn't make any sense Review of Systems Review of Systems: Yes all other systems are reviewed and are negative Physical Exam Exam: Exam: General: somnolentxOx1, No acute distress Lungs: Bilateral symmetry, no wheezing Abd: Soft, non distended Ext: No edema MSK: moving all 4 limbs Skin: No cyanosis or edema Psych: Poorly Cooperative with exam Neurology: no focal deficit Vital Signs: Vital Signs: Last Vital Signs Temp 97.2 F 09/03/25 11:21 Pulse 80 09/03/25 11:21 Resp 18 09/03/25 11:21 BP 139/81 09/03/25 11:21 Pulse Ox 96 09/03/25 11:21 O2 Del Method Room Air 09/03/25 08:00 O2 Flow Rate 2 08/30/25 16:18 BMI result Body Mass Index 25.6 Objective Data Active Medications Acetaminophen (Acetaminophen 325 Mg Tablet) 650 mg PO Q6H PRN PRN Reason: Pain, Mild 1-3,fever,headache Al Hydroxide/Mg Hydroxide (Magnesium Hydrox/Alum Hydrox 30 Ml Oral.Susp) 30 ml PO Q12H PRN PRN Reason: Dyspepsia Albuterol/Ipratropium (Albuterol/Iprat 2.5/0.5mg 3 Ml Ampul.Neb) 3 ml INHALE Q4H PRN PRN Reason: Shortness of Breath/Wheezing Artificial Tears (Artificial Tears 15 Ml Drops) 1 drop EYE-BOTH Q4H PRN PRN Reason: Dry Eye(S) Bisacodyl (Bisacodyl 10 Mg Supp.Rect) 10 mg IN DAILY PRN PRN Reason: if senna or MOM ineffective Calcium Carbonate (Calcium Carbonate 750 Mg Tab.Chew) 750 mg PO Q4H PRN PRN Reason: Heartburn Clozapine (Clozapine 100 Mg Tablet) 400 mg PO BEDTIME ETHEL Last Admin: 09/02/25 22:13 Dose: 400 mg Documented By: MILLIE Clozapine (Clozapine 25 Mg Tablet) 50 mg PO DAILY E[facility] Last Admin: 09/03/25 10:54 Dose: 50 mg Documented By: JADYN Dextrose (Dextrose 50 % 25 Gm/50 Ml Syringe) 25 gm IVPUSH Q15M PRN; Protocol PRN Reason: per Hypoglycemia Standing Ord. Last Admin: 08/30/25 21:29 Dose: 25 gm Documented By: MAUREEN Dextrose (Dextrose 50 % 25 Gm/50 Ml Syringe) 25 gm IVPUSH Q15M PRN; Protocol PRN Reason: per Hypoglycemia Standing Ord. Finasteride (Finasteride 5 Mg Tablet) 5 mg PO DAILY [facility] Last Admin: 09/03/25 10:54 Dose: 5 mg Documented By: JADYN Glucose (Glucose Gel 15 Gm Gel..Gram.) 15 gm PO Q15M PRN; Protocol PRN Reason: per Hypoglycemia Standing Ord. Glycopyrrolate (Glycopyrrolate 1 Mg Tablet) 3 mg PO DAILY [facility] Last Admin: 09/03/25 10:54 Dose: 3 mg Documented By: JADYN Guaifenesin (Guaifenesin 200 Mg/10 Ml 10 Ml Liquid) 10 ml PO Q6H PRN PRN Reason: Cough Levetiracetam 1,000 mg/ Sodium (Chloride) 110 mls @ 430 mls/hr IV BEDTIME [facility] Last Infusion: 09/02/25 22:45 Dose: Infused Documented By: MILLIE Levetiracetam 250 mg/ Sodium (Chloride) 102.5 mls @ 410 mls/hr IV DAILY [facility] Last Infusion: 09/03/25 11:19 Dose: Infused Documented By: JADYN Ceftriaxone Sodium 1 gm/ (Sodium Chloride) 50 mls @ 100 mls/hr IV Q24H [facility] Stop: 09/07/25 10:59 Last Admin: 09/03/25 11:54 Dose: 100 mls/hr Documented By: JADYN Ibuprofen (Ibuprofen 600 Mg Tablet) 600 mg PO Q8H PRN PRN Reason: Muscle Pain Last Admin: 09/02/25 22:14 Dose: 600 mg Documented By: MILLIE Insulin Human Lispro (Insulin Lispro 100 Unit/Ml 3 Ml Vial) 0 unit SUBCUT QIDACHS [facility]; Protocol Last Admin: 09/03/25 10:44 Dose: Not Given Documented By: JADYN Non-Admin Reason: No Insulin Coverage Levetiracetam (Levetiracetam 500 Mg Tablet) 500 mg PO DAILY [facility] On Hold: 08/31/25 08:21 Last Admin: 08/31/25 01:02 Dose: Not Given Documented By: BRANDON Non-Admin Reason: pt. refused Levothyroxine Sodium (Levothyroxine Sodium 88 Mcg Tablet) 88 mcg PO DAILY@0600 [facility] Last Admin: 09/03/25 07:14 Dose: Not Given Documented By: MILLIE Non-Admin Reason: Patient Refused [place] Carbonate ([place] Carbonate Er 450 Mg Tablet.Er) 450 mg PO BID [facility] Last Admin: 09/03/25 10:54 Dose: 450 mg Documented By: JADYN Magnesium Hydroxide (Milk Of Magnesia 30 Ml Oral.Susp) 30 ml PO DAILY PRN PRN Reason: Constipation Melatonin (Melatonin 3 Mg Tablet) 6 mg PO BEDTIME PRN PRN Reason: Insomnia Last Admin: 09/02/25 22:14 Dose: 6 mg Documented By: MILLIE Senna (Sennosides 8.6 Mg Tablet) 8.6 mg PO DAILY PRN PRN Reason: Constipation Sodium Chloride (0.9 % Sodium Chloride Flush 3 Ml Syringe) 3 ml IVFLUSH QSHIFT [facility] Last Admin: 09/03/25 10:51 Dose: 3 ml Documented By: JADYN Vitamin D (Cholecalciferol (Vitamin D3) 25 Mcg Tablet) 50 mcg PO DAILY [facility] Last Admin: 09/03/25 10:54 Dose: 50 mcg Documented By: JADYN Labs 08/31/25 09:12 08/31/25 09:12 Labs: Laboratory Results - last 24 hr 09/02/25 09/02/25 09/03/25 16:26 21:02 08:20 POC Glucose 84 173 H 91 09/03/25 11:20 POC Glucose 111 Microbiology Microbiology Results: Microbiology 08/30/25 10:16 Blood Culture - Preliminary Blood - Venous No growth after 48 hours. 08/30/25 10:12 Blood Culture - Preliminary Blood - Venous No growth after 48 hours. Assessment and Plan (1) Acute encephalopathy due to infection: Status: Acute Plan 65-year-old male with a past medical history of TBI, seizure disorder, history, HLD, dm, COPD, dementia, schizoaffective disorder, LLUVIA, GERD; presented to the hospital from [facility] with a chief complaint of altered mental status. With UA suspicious for UTI Toxic metabolic encephalopathy, likely secondary to UTI, he remains very confused cultures negative CT head showed no acute findings Rocephin 1 g Q 24, change to ceftin at dc for a total of 7 days Neuro recommends MRI not yet done., not sure if can cooperate with this Schizoaffective disorder, chronic: Continue home medications, psychiatry consulted, continue clozapine 25 mg in a.m. and continue 400 mg at bedtime, with p.r.n. olanzapine 5 mg for severe agitation p.r.n. Seen by Psy : see note Diabetes: Insulin sliding scale Seizure disorder: Continue IV Keppra, as patient was refusing PO meds Hypothyroidism: Continue levothyroxine DVT prophylaxis: Subcu heparin Code status: Full code Total time managing care of this patient today: 55 minutes. Quality Stroke Does the patient have a stroke diagnosis?: No VTE Prior VTE?: No VTE Risk Level:: Medical - moderate - high VTE Device Contraindication: Treatment Not Indicated VTE Drug Contraindication: N/A - Med Ordered
--- NOTE | 2025-09-03 13:56 | MHC.CM.PN ---
Per rounds, pt. remains with confusion, being treated for UTI, DCP: return to [facility] [place].
[2025-09-03 16:00] VITALS: BP 150/91; PULSE 74; RESP 18; TEMP 36.8; O2SAT 96
[2025-09-03 16:23] LABS: Glucose, Whole Blood 61 mg/dL (60-115)
[2025-09-03 16:23] LABS: Glucose, Whole Blood 72 mg/dL (60-115)
[2025-09-03 19:34] LABS: Glucose, Whole Blood 134 mg/dL (60-115)
[2025-09-03 20:00] VITALS: BP 133/79; PULSE 80; RESP 19; TEMP 36.3; O2SAT 98
[2025-09-03 21:21] LABS: Glucose, Whole Blood 85 mg/dL (60-115)
[2025-09-04] VITALS (8 sets, daily range): BP systolic 108–153; BP diastolic 54–98; PULSE 78–91; RESP 16–20; TEMP 36.1–36.9; O2SAT 91–99
[2025-09-04 08:16] LABS: Glucose, Whole Blood 119 mg/dL (60-115)
[2025-09-04] MEDS: Artificial Tears 15 ML DROPS 1 DROP EYE-BOTH (10:40)
[2025-09-04] MEDS: 0.9 % Sodium Chloride Flush 3 ML SYRINGE IVFLUSH ×3 (10:41→21:35)
--- NOTE | 2025-09-04 11:47 | P.PNIM_ITS ---
Subjective Subjective Date of Service: 09/04/25 Interval History: Awake talking, but doesn't make any sense Review of Systems Review of Systems: Yes all other systems are reviewed and are negative Physical Exam 2 Exam: Exam: General: Not oriented Lungs: Bilateral symmetry, no wheezing Abd: Soft, non distended Ext: No edema MSK: moving all 4 limbs Skin: No cyanosis or edema Psych: Poorly Cooperative with exam Neurology: no focal deficit Vital Signs: Vital Signs: Last Vital Signs Temp 97.0 F 09/04/25 08:00 Pulse 82 09/04/25 08:00 Resp 20 09/04/25 08:00 BP 141/72 H 09/04/25 08:00 Pulse Ox 91 L 09/04/25 08:00 O2 Del Method Room Air 09/04/25 08:00 O2 Flow Rate 2 08/30/25 16:18 BMI result Body Mass Index 25.6 Objective Data Active Medications Acetaminophen (Acetaminophen 325 Mg Tablet) 650 mg PO Q6H PRN PRN Reason: Pain, Mild 1-3,fever,headache Al Hydroxide/Mg Hydroxide (Magnesium Hydrox/Alum Hydrox 30 Ml Oral.Susp) 30 ml PO Q12H PRN PRN Reason: Dyspepsia Albuterol/Ipratropium (Albuterol/Iprat 2.5/0.5mg 3 Ml Ampul.Neb) 3 ml INHALE Q4H PRN PRN Reason: Shortness of Breath/Wheezing Artificial Tears (Artificial Tears 15 Ml Drops) 1 drop EYE-BOTH Q4H PRN PRN Reason: Dry Eye(S) Last Admin: 09/04/25 10:40 Dose: 1 drop Documented By: JUDAH Bisacodyl (Bisacodyl 10 Mg Supp.Rect) 10 mg [place] DAILY PRN PRN Reason: if senna or MOM ineffective Calcium Carbonate (Calcium Carbonate 750 Mg Tab.Chew) 750 mg PO Q4H PRN PRN Reason: Heartburn Clozapine (Clozapine 100 Mg Tablet) 400 mg PO BEDTIME ETHE[facility] Last Admin: 09/03/25 21:46 Dose: 400 mg Documented By: GERMAN Clozapine (Clozapine 25 Mg Tablet) 50 mg PO DAILY [facility] Last Admin: 09/04/25 10:40 Dose: 50 mg Documented By: JUDAH Dextrose (Dextrose 50 % 25 Gm/50 Ml Syringe) 25 gm IVPUSH Q15M PRN; Protocol PRN Reason: per Hypoglycemia Standing Ord. Last Admin: 08/30/25 21:29 Dose: 25 gm Documented By: MAUREEN Dextrose (Dextrose 50 % 25 Gm/50 Ml Syringe) 25 gm IVPUSH Q15M PRN; Protocol PRN Reason: per Hypoglycemia Standing Ord. Finasteride (Finasteride 5 Mg Tablet) 5 mg PO DAILY [facility] Last Admin: 09/04/25 10:41 Dose: 5 mg Documented By: JUDAH Glucose (Glucose Gel 15 Gm Gel..Gram.) 15 gm PO Q15M PRN; Protocol PRN Reason: per Hypoglycemia Standing Ord. Glycopyrrolate (Glycopyrrolate 1 Mg Tablet) 3 mg PO DAILY [facility] Last Admin: 09/04/25 10:40 Dose: 3 mg Documented By: JUDAH Guaifenesin (Guaifenesin 200 Mg/10 Ml 10 Ml Liquid) 10 ml PO Q6H PRN PRN Reason: Cough Levetiracetam 1,000 mg/ Sodium (Chloride) 110 mls @ 430 mls/hr IV BEDTIME [facility] Last Infusion: 09/03/25 22:02 Dose: Infused Documented By: GERMAN Levetiracetam 250 mg/ Sodium (Chloride) 102.5 mls @ 410 mls/hr IV DAILY [facility] Last Infusion: 09/04/25 11:11 Dose: Infused Documented By: JUDAH Ceftriaxone Sodium 1 gm/ (Sodium Chloride) 50 mls @ 100 mls/hr IV Q24H [facility] Stop: 09/07/25 10:59 Last Infusion: 09/04/25 11:11 Dose: Infused Documented By: JUDAH Ibuprofen (Ibuprofen 600 Mg Tablet) 600 mg PO Q8H PRN PRN Reason: Muscle Pain Last Admin: 09/02/25 22:14 Dose: 600 mg Documented By: MILLIE Insulin Human Lispro (Insulin Lispro 100 Unit/Ml 3 Ml Vial) 0 unit SUBCUT QIDACHS [facility]; Protocol Last Admin: 09/04/25 08:55 Dose: Not Given Documented By: JUDAH Non-Admin Reason: No Insulin Coverage Levetiracetam (Levetiracetam 500 Mg Tablet) 500 mg PO DAILY [facility] On Hold: 08/31/25 08:21 Last Admin: 08/31/25 01:02 Dose: Not Given Documented By: BRANDON Non-Admin Reason: pt. refused Levothyroxine Sodium (Levothyroxine Sodium 88 Mcg Tablet) 88 mcg PO DAILY@0600 [facility] Last Admin: 09/04/25 05:39 Dose: 88 mcg Documented By: GERMAN [place] Carbonate ([place] Carbonate Er 450 Mg Tablet.Er) 450 mg PO BID [facility] Last Admin: 09/04/25 10:40 Dose: 450 mg Documented By: JUDAH Magnesium Hydroxide (Milk Of Magnesia 30 Ml Oral.Susp) 30 ml PO DAILY PRN PRN Reason: Constipation Melatonin (Melatonin 3 Mg Tablet) 6 mg PO BEDTIME PRN PRN Reason: Insomnia Last Admin: 09/02/25 22:14 Dose: 6 mg Documented By: ARMANDOLAMYordy Senna (Sennosides 8.6 Mg Tablet) 8.6 mg PO DAILY PRN PRN Reason: Constipation Sodium Chloride (0.9 % Sodium Chloride Flush 3 Ml Syringe) 3 ml IVFLUSH QSHIFT [facility] Last Admin: 09/04/25 10:41 Dose: 3 ml Documented By: JUDAH Vitamin D (Cholecalciferol (Vitamin D3) 25 Mcg Tablet) 50 mcg PO DAILY [facility] Last Admin: 09/04/25 10:40 Dose: 50 mcg Documented By: JUDAH Labs 08/31/25 09:12 08/31/25 09:12 Labs: Laboratory Results - last 24 hr 09/03/25 09/03/25 09/03/25 15:56 16:20 18:35 POC Glucose 61 72 134 H 09/03/25 09/04/25 21:16 08:08 POC Glucose 85 119 H Microbiology Microbiology Results: Microbiology 08/30/25 10:16 Blood Culture - Preliminary Blood - Venous No growth after 48 hours. 08/30/25 10:12 Blood Culture - Preliminary Blood - Venous No growth after 48 hours. Assessment and Plan (1) Acute encephalopathy due to infection: Status: Acute Plan 65-year-old male with a past medical history of TBI, seizure disorder, history, HLD, dm, COPD, dementia, schizoaffective disorder, LLUVIA, GERD; presented to the hospital from [facility] with a chief complaint of altered mental status. With UA suspicious for UTI. Reported Alert and oriented x 4 at baseline, ambulatory but has been very confused here, work up has been included CT head, routine labs, has not been able to participated in MRI, Treated for UTI, although cultures negative, has been seen by Neuro Toxic metabolic encephalopathy, likely secondary to UTI, he remains very confused cultures negative CT head showed no acute findings Rocephin 1 g Q 24, change to ceftin at dc for a total of 7 days Neuro recommends MRI not yet done, has not been able to cooperative with this has no fever, has been seen by Psych as well. Not sure if LP will be helpful and again not sure if will cooperate b12, folate, tsh have been unremarkable. Schizoaffective disorder, chronic: Continue home medications, psychiatry consulted, continue clozapine 25 mg in a.m. and continue 400 mg at bedtime, with p.r.n. olanzapine 5 mg for severe agitation p.r.n. Seen by Psy : see note Diabetes: Insulin sliding scale Seizure disorder: Continue IV Keppra, as patient was refusing PO meds Hypothyroidism: Continue levothyroxine DVT prophylaxis: Subcu heparin Code status: Full code Total time managing care of this patient today: 55 minutes. Quality Stroke Does the patient have a stroke diagnosis?: No VTE Prior VTE?: No VTE Risk Level:: Medical - moderate - high VTE Device Contraindication: Treatment Not Indicated VTE Drug Contraindication: N/A - Med Ordered
[2025-09-04 12:16] LABS: Glucose, Whole Blood 103 mg/dL (60-115)
[2025-09-04 16:36] LABS: Glucose, Whole Blood 125 mg/dL (60-115)
[2025-09-04 20:29] LABS: Glucose, Whole Blood 125 mg/dL (60-115)
[2025-09-05 03:46] VITALS: BP 134/74; PULSE 97; RESP 18; TEMP 36.7; O2SAT 91
[2025-09-05] MEDS: 0.9 % Sodium Chloride Flush 3 ML SYRINGE IVFLUSH (07:14)
[2025-09-05 07:41] LABS: Glucose, Whole Blood 109 mg/dL (60-115)
[2025-09-05 07:54] VITALS: BP 116/79; PULSE 82; RESP 18; TEMP 36.6; O2SAT 94
--- NOTE | 2025-09-05 10:54 | PM.DS ---
DS: Providers Provider Date of admission: 08/30/25 19:26 Date of discharge: 09/05/25 Primary care physician: Charles Zhang DO Consults: 08/30/25 21:12 Consult to Neurology Routine Consulting Provider: [facility] Reason for consultation: AMS 08/31/25 10:56 Consult to Psychiatry Routine Consulting Provider: [facility] [place] [facility] Reason for consultation: schizoaffective disorder Has provider been notified: No DS: Diagnosis Discharge Diagnosis (1) Acute encephalopathy due to infection: Status: Resolved DS: Summary Hospital Course Hospital Course: Chief Complaint: Altered mental status 65-year-old male with a past medical history of TBI, seizure disorder, history, HLD, dm, COPD, dementia, schizoaffective disorder, LLUVIA, GERD; presented to the hospital from [facility] with a chief complaint of altered mental status. Per staff patient has been more confused than his baseline; has been generally weak and tired. Has had falls. Patient has not taken his medications for about a day. History is limited. Patient with a time of my interview is alert and awake, does not appear to be in pain; but confused; not participating in interview. Review of all other systems is limited. ER course: Per ER team, patient's exam was benign but patient is mildly agitated; CT head showed acute findings; CT chest showed no acute abnormality; urine negative; physical exam-no musculoskeletal tenderness noted; grossly nonfocal; Hospital course: 65-year-old male with a past medical history of TBI, seizure disorder, history, HLD, dm, COPD, dementia, schizoaffective disorder, LLUVIA, GERD; presented to the hospital from [facility] with a chief complaint of altered mental status. With UA suspicious for UTI. Reported Alert and oriented x 4 at baseline, ambulatory but has been very confused here, work up has been included CT head, routine labs, has not been able to participated in MRI, Treated for UTI, although cultures negative, has been seen by Neuro Toxic metabolic encephalopathy, likely secondary to UTI, has been treated. Further testing including CT which was unremarkable, was seen by Neuro and MRI was recommended but attempted to do it multiple time and could not be done., Patient was also seen by Psychiatry with recommendation for PRN medication to control behavior. B12, folate, tsh were unremarkable. Over the course of time, patient's mental status has signficantly improved and is presently alert, oriented to sellf, place and time and cooperative without agitation. Vitals are stable no fever. LP was considered but given that he's doing much better now, will defer the LP and MRI and if something changes these can be reconsider. Patient will be discharge back to SNF at this time. Diabetes resume outpatient meds Seizure disorder resume outpatient meds Hypothyroidism Continue levothyroxine Time Attestation Discharge Coordination Time (in mins): 45 Quality: Safe Use of Opioids Does Pt have an Active Cancer Diagnosis on the Problem List?: No Quality: Stroke Does the patient have a stroke diagnosis?: No Physical Exam Vital Signs: Vital Signs: Last Vital Signs Temp 97.8 F 09/05/25 07:54 Pulse 82 09/05/25 07:54 Resp 18 09/05/25 07:54 BP 116/79 09/05/25 07:54 Pulse Ox 94 09/05/25 07:54 O2 Del Method Room Air 09/05/25 07:54 O2 Flow Rate 2 08/30/25 16:18 BMI result Body Mass Index 25.6 DS: Data Data Completed and Pending Labs on day of discharge: Laboratory Results - last 24 hr 09/04/25 09/04/25 09/04/25 12:12 16:27 20:23 POC Glucose 103 125 H 125 H 09/05/25 07:38 POC Glucose 109 Discharge Plan Discharge Anticipated Discharge Date/Time: 09/05/25 11:01 Patient Disposition: Xfer SNF Discharge Diagnosis: Metabolic encephalopathy [facility]] - 1 Week Charles Zhang DO [Primary Care Provider, Hospitalist] - 1 Week Discharge Medications: Continued sennosides [senna] 8.6 mg Tablet 17.2 mg PO BID psyllium Packet 1 packet PO DAILY Rx Instructions: mix into at least 8 oz of water or juice before administering levothyroxine 75 mcg Tablet 88 mcg PO DAILY@0600 magnesium hydroxide [Milk of Magnesia] 400 mg/5 mL Suspension 30 ml PO DAILY PRN (Reason: Constipation) ibuprofen 600 mg Tablet 600 mg PO Q8H PRN (Reason: Muscle Pain) fluticasone furoate-vilanterol [Breo Ellipta] 100-25 mcg/dose Blister With Device 1 inh INHALATION DAILY Linzess 72 mcg Capsule 72 mcg PO BID glucagon HCl 1 mg Recon Soln 1 mg IM Q15M MDD 2 PRN (Reason: severe hypoglycemia) Rx Instructions: until target blood sugar attained, carboxymethylcellulose sodium [Refresh Tears] 0.5 % Drops 1 drp OPHTHALMIC (EYE) Q4H PRN (Reason: Dry Eye(S)) Rx Instructions: Both eyes clozapine 200 mg tablet 400 mg PO BEDTIME levetiracetam 750 mg tablet extended release 24 hr 750 mg PO BEDTIME lactulose 10 gram/15 mL Solution 30 ml PO BID guaifenesin 100 mg/5 mL Liquid 200 mg PO Q6H PRN (Reason: Cough) clozapine 100 mg Tablet 100 mg PO DAILY Rx Instructions: Give in morning levetiracetam [Keppra XR] 500 mg Tablet Extended Release 24 Hr 500 mg PO DAILY alum-mag hydroxide-simeth 200-200-20 mg/5 mL Suspension 30 ml PO Q12H PRN (Reason: Dyspepsia) Rx Instructions: administer between meals and at bedtime sennosides [senna] 8.6 mg Tablet 8.6 mg PO DAILY PRN (Reason: Constipation) zinc oxide 20 % Paste 1 ea TOPICAL BID Rx Instructions: APPLY TO BUTTOCKS TOPICALLY EVERY DAY AND EVENING SHIFT FOR REDNESS CLEANSE WITH WARM SOAPY WATER, RINSE,PAT DRY, AND APPLY CREAM acetaminophen 325 mg tablet 650 mg PO Q6H PRN (Reason: Fever Or Pain) atorvastatin 10 mg tablet 10 mg PO DAILY bisacodyl 10 mg suppository 10 mg CA DAILY PRN (Reason: if senna or MOM ineffective) Fleet Enema 19-7 gram/118 mL enema 118 ml CA DAILY PRN (Reason: if bisacodyl supp ineffective) glycopyrrolate 1 mg tablet 3 mg PO DAILY lithium carbonate 450 mg tablet extended release 450 mg PO BID metformin 500 mg tablet 500 mg PO BID pantoprazole 40 mg tablet,delayed release (DR/EC) 40 mg PO BID@0630,1630 Skyrizi 150 mg/mL pen injector 150 mg subcut Q84D Rx Instructions: next dose due 10/17/24 finasteride 5 mg tablet 5 mg PO DAILY 90 Days Qty: 90 1RF cholecalciferol (vitamin D3) 1,250 mcg (50,000 unit) capsule 1,250 mcg PO TH Discharge Orders: Discharge Order (Routine); Ordered 12/12/25 Ordered By: Jaime Contreras Diet: Advance to usual diet Activity on Discharge: As tolerated Stand Alone Forms: Patient Portal Discharge page Print Language: [place] Care Plan Goals: recovery from metabolic encephalopathy Health Concerns: metabolic encephalopathy Schizophrenia Plan of Treatment: resume all meds return to SNF Assessment: see above Discharge Date/Time: 09/05/25 14:22
--- NOTE | 2025-09-05 10:57 | MHC.CM.PN ---
pt dcd back to [facility] today at 2
--- NOTE | 2025-09-05 10:59 | MHC.CM.PN ---
pts sister left message re dc
[2025-09-05 11:22] LABS: Glucose, Whole Blood 145 mg/dL (60-115)
[2025-09-05 12:00] VITALS: BP 115/68; PULSE 92; RESP 18; O2SAT 95
[2025-09-05 14:19] VITALS: BP 133/79; PULSE 92; RESP 18; TEMP 36.7; O2SAT 93
== END 2025-09-05 14:22 | disposition skilled nursing facility (03) | DRG 689 ==
LOC: HO.ED 19:29 → HO.EDOVER 19:44 → HO.IMC 22:38 → HO.S3 09-04 11:57
PROVIDERS: Registered Nurse Emergency; Student in an Organized Health Care Education/Training Program; Admitting Provider Hospitalist; Emergency Provider Emergency Medicine; PCP Hospitalist; Visit Provider Internal Medicine
DX: N39.0 Urinary tract infection, site not specified (principal); G92.8 Other toxic encephalopathy; E03.9 Hypothyroidism, unspecified; Z20.822 Contact with and (suspected) exposure to COVID-19; G40.909 Epilepsy, unspecified, not intractable, without status epilepticus; F25.9 Schizoaffective disorder, unspecified; F03.90 Unspecified dementia, unspecified severity, without behavioral disturbance, psychotic disturbance, mood disturbance, and anxiety; E11.9 Type 2 diabetes mellitus without complications; Z91.148 Patient's other noncompliance with medication regimen for other reason; Z87.820 Personal history of traumatic brain injury; Z79.51 Long term (current) use of inhaled steroids; Z79.890 Hormone replacement therapy; Z79.899 Other long term (current) drug therapy
CPT/HCPCS: 36415; 70450; 70551; 71045; 71260; 72125; 74018; 80053; 80178; 80307; 81001; 82140; 82607; 82746; 82803; 82947; 83605; 83735; 84443; 84484; 85025; 85027; 85610; 86780; 87040; 87637; 92610; 93005; 95819; 99285; J0696; J1953; J2359; J3360; Q9967

== ENCOUNTER → 2025-08-30 09:42 | Outpatient (BNV) | payer MEDICARE, MEDICAID, SELFPAY | PROVIDERS: Admitting Provider Hospitalist; Emergency Provider Emergency Medicine; PCP Hospitalist; Visit Provider Internal Medicine | DX: R94.31 Abnormal electrocardiogram [ECG] [EKG] (principal); R41.82 Altered mental status, unspecified | CPT/HCPCS: 93010 ==

== ENCOUNTER → 2025-08-30 09:43 | Outpatient (BNV) | payer MEDICARE, MEDICAID, SELFPAY | PROVIDERS: Emergency Provider Emergency Medicine; PCP Hospitalist; Visit Provider Radiology Diagnostic Radiology | DX: R41.82 Altered mental status, unspecified (principal); R06.89 Other abnormalities of breathing; R91.8 Other nonspecific abnormal finding of lung field | CPT/HCPCS: 70450; 71045; 71260 ==

== ENCOUNTER 2025-08-30 19:26 | Outpatient (BNV) | payer MEDICARE, MEDICAID, SELFPAY | END 2025-09-01 08:00 | PROVIDERS: Admitting Provider Hospitalist; Emergency Provider Emergency Medicine; PCP Hospitalist; Visit Provider Psychiatry & Neurology Neurology | DX: R94.01 Abnormal electroencephalogram [EEG] (principal) | CPT/HCPCS: 95819 ==

== ENCOUNTER 2025-08-30 19:26 | Outpatient (BNV) | payer MEDICARE, MEDICAID, SELFPAY | END 2025-08-31 15:19 | PROVIDERS: Admitting Provider Hospitalist; Emergency Provider Emergency Medicine; PCP Hospitalist; Visit Provider Radiology Diagnostic Radiology | DX: Z04.3 Encounter for examination and observation following other accident (principal) | CPT/HCPCS: 72125 ==

== ENCOUNTER 2025-08-30 19:26 | Outpatient (BNV) | payer MEDICARE, MEDICAID, SELFPAY | END 2025-09-02 15:58 | PROVIDERS: Admitting Provider Hospitalist; Emergency Provider Emergency Medicine; PCP Hospitalist; Visit Provider Radiology Diagnostic Radiology | DX: K59.00 Constipation, unspecified (principal) | CPT/HCPCS: 74018 ==

== ENCOUNTER 2025-08-30 19:26 | Outpatient (BNV) | payer MEDICARE, MEDICAID, SELFPAY | END 2025-09-04 18:30 | PROVIDERS: Admitting Provider Hospitalist; Emergency Provider Emergency Medicine; PCP Hospitalist; Visit Provider Radiology Diagnostic Radiology | DX: G93.40 Encephalopathy, unspecified (principal) | CPT/HCPCS: 70551 ==

== ENCOUNTER → 2025-08-30 19:26 | Outpatient (BNV) | payer MEDICARE, MEDICAID, SELFPAY | PROVIDERS: Admitting Provider Hospitalist; Emergency Provider Emergency Medicine; PCP Hospitalist; Visit Provider Student in an Organized Health Care Education/Training Program | DX: G93.49 Other encephalopathy (principal); B99.9 Unspecified infectious disease | CPT/HCPCS: 99223; 99232; 99233 ==

== ENCOUNTER → 2025-08-30 19:26 | Outpatient (BNV) | payer MEDICARE, MEDICAID, SELFPAY | PROVIDERS: Admitting Provider Hospitalist; Emergency Provider Emergency Medicine; PCP Hospitalist; Visit Provider Psychiatry & Neurology Neurology | DX: R41.82 Altered mental status, unspecified (principal) | CPT/HCPCS: 99222 ==

== ENCOUNTER → 2025-08-30 19:26 | Outpatient (BNV) | payer MEDICARE, MEDICAID, SELFPAY | PROVIDERS: Admitting Provider Hospitalist; Emergency Provider Emergency Medicine; PCP Hospitalist; Visit Provider Psychiatry & Neurology Psychiatry | DX: F25.9 Schizoaffective disorder, unspecified (principal); G93.49 Other encephalopathy; B99.9 Unspecified infectious disease | CPT/HCPCS: 99222 ==